=== PATIENT | male | born 1950 | race Caucasian/White ===

== ENCOUNTER 2016-03-11 00:54 | Emergency (ER) | payer MEDICAID ==
[2016-03-11 01:13] VITALS: BP 129/80
[2016-03-11 03:51] LABS: Hematocrit 31 % (42-52); Hemoglobin 9.3 g/dl (14.0-18.0); Mean Corpuscular HGB Conc 30 g/dl (31-36); Mean Corpuscular Hemoglobin 21 pg (27-31); Mean Platelet Volume 8 um3 (7.4-10.4); Red Blood Count 4.51 10^6/ul (4.0-5.4); Red Cell Distribution Width 21 % (10.5-15); White Blood Count 8.8 10^3/ul (3.5-10.8)
[2016-03-11 04:02] LABS: Comments Flag Yes; Mean Corpuscular Volume 69 fL (80-94)
[2016-03-11 04:05] LABS: Urine Bacteria 1+ (Absent); Urine Bilirubin Negative (Negative); Urine Glucose Negative (Negative); Urine Nitrite Positive (Negative)
[2016-03-11 04:13] LABS: BUN/Creatinine Ratio 52.5 (8-20); Calcium 8.7 mg/dL (8.6-10.3); EGFR African American 97.9 (>60); EGFR Non-African American 76.1 (>60)
[2016-03-11] MEDS ORDERED: Sulfamethox/Trimethoprim DS 800/160* TAB PO ONE (04:20)
--- NOTE | 2016-03-11 05:12 | ED ---
Fadia Montez Erika, scribed for Ambrose Myers MD on 03/11/16 at 0215 . HPI Febrile Illness - HPI Summary HPI Summary: Patient is a 65-year-old male presenting to the ED with c/o fever starting this morning. Pt was given Tylenol, but fever continued. T max = 101. Caregiver reports that pt has had decreased appetite, and has wounds on his buttocks. Pt was brought in now because fever persisted over 100 degrees for over 3 hours. LEVEL 5 CAVEAT - MR. - History of Current Complaint Hx Obtained From: Family/Long Winder Tender Hx From Patient Unobtainable Due To: Other - MR Onset/Duration: Started Hours Ago, Atraumatic, Still Present Timing: Constant Initial Severity: Mild Current Severity: Moderate Associated Signs and Symptoms: Other: - fever, decreased PO intake, wounds on buttocks - Additional Pertinent History Primary Care Physician: OSEAS - Allergy/Home Medications Allergies/Adverse Reactions: Allergies Allergy/AdvReac Type Severity Reaction Status Date / Time Isosorbide Allergy Unknown Unknown Verified 12/04/15 15:16 Reaction Details Macrolides Allergy Unknown Unknown Verified 12/04/15 15:16 Reaction Details Erythromycin Allergy Unknown Verified 12/04/15 15:16 Reaction Details PMH/Surg Hx/FS Hx/Imm Hx Endocrine/Hematology History: Denies: Hx Anticoagulant Therapy, Hx Blood Disorders, Hx Blood Transfusions, Hx Bone Marrow Disease, Hx Diabetes, Hx Systemic Lupus Erythematosus, Hx Sickle Cell Disease, Hx Thyroid Disease, Hx Anemia, Hx Unexplained Bleeding, Other Endocrine/Hematological Disorders Cardiovascular History: Reports: Hx Hypertension Denies: Hx Congestive Heart Failure, Hx Coronary Artery Disease, Hx Deep Vein Thrombosis, Hx Hypercholesterolemia, Hx Hypotension, Hx Pacemaker/ICD, Hx Peripheral Vascular Disease, Hx Rheumatic Fever, Hx Syncope, Hx Valvular Heart Disease, Other Cardiovascular Problems/Disorders Respiratory History: Denies: Hx Asthma, Hx Chronic Bronchitis, Hx Chronic Obstructive Pulmonary Disease (COPD), Hx Cystic Fibrosis, Hx Lung Cancer, Hx Pleural Effusion, Hx Pneumonia, Hx Pulmonary Edema, Hx Pulmonary Embolism, Hx Seasonal Allergies, Hx Sleep Apnea, Other Respiratory Problems/Disorders GI History: Reports: Hx Gastroesophageal Reflux Disease, Hx Obstructive Bowel, Hx Ileostomy - Colostomy, Other GI Disorders - Jarrell Syndrome, Díaz's Esophagus Denies: Hx Cirrhosis, Hx Crohn's Disease, Hx Diverticulosis, Hx Gall Bladder Disease, Hx Gastrointestinal Bleed, Hx Hiatal Hernia, Hx Irritable Bowel, Hx Jaundice, Hx Pyloric Stenosis, Hx Ulcer History: Reports: Hx Acute Renal Failure, Hx Renal Disease - neurogenic bladder, Other Problems/Disorders - Neurogenic Bladder Denies: Hx Benign Prostatic Hyperplasia, Hx Chronic Renal Failure, Hx Dialysis, Hx Kidney Infection, Hx Kidney Stones Musculoskeletal History: Reports: Hx Congenital Bone Abnormalities - hip displacement, Hx Scoliosis, Other Musculoskeletal History - cerebral palsy Denies: Hx Arthritis, Hx Back Problems, Hx Fibromyalgia, Hx Gout, Hx Orthopedic Injury, Hx Osteoporosis, Hx Tendonitis Sensory History: Reports: Hx Contacts or Glasses, Hx Vision Problem Denies: Hx Cataracts, Hx Eye Injury, Hx Eye Prosthesis, Hx Glaucoma, Hx Macular Degeneration, Hx Deafness, Hx Hearing Aid, Hx Hearing Problem, Other Sensory Impairments Opthamlomology History: Reports: Hx Contacts or Glasses, Hx Vision Problem Denies: Hx Cataracts, Hx Eye Injury, Hx Eye Prosthesis, Hx Glaucoma, Hx Macular Degeneration, Other Sensory Impairments Neurological History: Reports: Hx Developmental Delay, Hx Seizures - Last seizure 1989, Other Neuro Impairments/Disorders - cerebral palsy, spina bifida Denies: Hx Dementia, Hx Headaches, Hx Migraine, Hx Spinal Cord Injury, Hx Transient Ischemic Attacks (TIA) Psychiatric History: Reports: Hx Anxiety, Hx Depression Denies: Hx Attention Deficit Hyperactivity Disorder, Hx Eating Disorder, Hx Panic Disorder, Hx Post Traumatic Stress Disorder, Hx Inpatient Treatment, Hx Community Mental Health Tx, Hx Schizophrenia, Hx Bipolar Disorder, Hx Suicide Attempt, Hx Substance Abuse, Other Psychiatric Issues/Disorders - Cancer History Hx Chemotherapy: No Hx Radiation Therapy: No - Surgical History Surgery Procedure, Year, and Place: hiatal hernia, hernia repair 2009, hip repair S/P, back Sx Hx Anesthesia Reactions: No Infectious Disease History: Reports: Hx of Known/Suspected MRSA - BCx, wounds Denies: Hx Clostridium Difficile, Hx Hepatitis, Hx Human Immunodeficiency Virus (HIV), Hx Shingles, Hx Tuberculosis, Hx Known/Suspected VRE, Hx Known/ Suspected VRSA, Traveled Outside the [place] in Last 30 Days - Family History Known Family History: Positive: Unknown - Pt unable to relate due to profound MR - Social History Lives: [place] Alcohol Use: None Hx Substance Use: No Substance Use Type: Reports: None Hx Tobacco Use: No Smoking Status (MU): Never Smoked Tobacco Review of Systems - ROS Summary Review of Systems Summary: LEVEL 5 CAVEAT - MR. Positive: Fever Positive: Other - decreased appetite Skin: Other - wounds on buttocks All Other Systems Reviewed And Are Negative: No Physical Exam Triage Information Reviewed: Yes Vital Signs On Initial Exam: Temp Pulse Resp BP Pulse Ox 100.2 F 109 18 129/80 100 03/11/16 01:11 03/11/16 01:11 03/11/16 01:11 03/11/16 01:11 03/11/16 01:11 Vital Signs Reviewed: Yes Completion Of Physical Exam Limited Due To: Level 5 - MR Appearance: Positive: No Pain Distress - contracted, in wheelchair Skin: Positive: Warm, Dry Head/Face: Positive: Normal Head/Face Inspection Eyes: Positive: BONNIE ENT: Positive: Pharynx normal Neck: Positive: Supple Respiratory/Lung Sounds: Positive: Clear to Auscultation, Breath Sounds Present Cardiovascular: Positive: Normal Abdomen Description: Positive: Nontender, Soft Bowel Sounds: Positive: Present Diagnostics - Vital Signs Vital Signs Temp Pulse Resp BP Pulse Ox 03/11/16 01:11 100.2 F 109 18 129/80 100 - Laboratory Lab Results: Lab Results 03/11/16 03/11/16 03/11/16 Range/Units 03:35 03:35 03:35 WBC 8.8 (3.5-10.8) 10^3/ul RBC 4.51 (4.0-5.4) 10^6/ul Hgb 9.3 L (14.0-18.0) g/dl Hct 31 L (42-52) % MCV 69 L (80-94) fL MCH 21 L (27-31) pg MCHC 30 L (31-36) g/dl RDW 21 H (10.5-15) % Plt Count 398 (150-450) 10^3/ul MPV 8 (7.4-10.4) um3 Neut % (Auto) 70.7 (38-83) % Lymph % (Auto) 19.2 L (25-47) % [place] % (Auto) 5.7 (1-9) % Eos % (Auto) 3.7 (0-6) % Baso % (Auto) 0.7 (0-2) % Absolute Neuts (auto) 6.2 (1.5-7.7) 10^3/ul Absolute Lymphs (auto) 1.7 (1.0-4.8) 10^3/ul Absolute Monos (auto) 0.5 (0-0.8) 10^3/ul Absolute Eos (auto) 0.3 (0-0.6) 10^3/ul Absolute Basos (auto) 0.1 (0-0.2) 10^3/ul Absolute Nucleated RBC 0 10^3/ul Nucleated RBC % 0 Sodium 140 (133-145) mmol/L Potassium 4.0 (3.5-5.0) mmol/L Chloride 108 (101-111) mmol/L Carbon Dioxide 25 (22-32) mmol/L Anion Gap 7 (2-11) mmol/L BUN 52 H (6-24) mg/dL Creatinine 0.99 (0.67-1.17) mg/dL Est GFR ( Amer) 97.9 (>60) Est GFR (Non-Af Amer) 76.1 (>60) BUN/Creatinine Ratio 52.5 H (8-20) Glucose 107 H (70-100) mg/dL Calcium 8.7 (8.6-10.3) mg/dL Urine Color Yellow Urine Appearance Cloudy Urine pH 7.0 (5-9) Ur Specific [place] 1.014 (1.010-1.030) Urine Protein 1+(30 mg/dl) H (Negative) Urine Ketones Negative (Negative) Urine Blood Negative (Negative) Urine Nitrate Positive H (Negative) Urine Bilirubin Negative (Negative) Urine Urobilinogen Negative (Negative) Ur Leukocyte Esterase 3+ H (Negative) Urine WBC (Auto) 3+(>20/hpf) H (Absent) Urine RBC (Auto) Trace(0-2/hpf) (Absent) Ur Transition Epith Cell Present H (Absent) Urine Bacteria 1+ H (Absent) Urine Glucose Negative (Negative) Urine Ascorbic Acid * H (Negative) Result Diagrams: 03/11/16 03:35 03/11/16 03:35 Lab Statement: Any lab studies that have been ordered have been reviewed, and results considered in the medical decision making process. - Radiology CXR Xray Interpretation: No Acute Changes Radiology Interpretation Completed By: ED Physician Re-Evaluation - Re-Evaluation First Eval Re-Evaluation Time: 04:57 Change: Improved Course/Dx - Course Assessment/Plan: A 65 y/o M presents to the ED with a CC of fever. CXR WNL. UA reveals a UTI. Pt will be discharged back to care at [facility] with follow up from his PCP. He will be prescribed Bactrim. - Diagnoses Provider Diagnoses: UTI (urinary tract infection) Discharge - Discharge Plan Condition: Improved Disposition: HOME Prescriptions: Sulfamethox/Trimethoprim DS* [Bactrim DS 800/160 TAB*] 1 tab PO BID #14 tab Patient Education Materials: Urinary Tract Infection in Men (ED) Referrals: Marilyn Rodriguez MD [Primary Care Provider] - The documentation as recorded by the Fadia calderón Erika accurately reflects the service I personally performed and the decisions made by , Ambrose Myers MD.
--- NOTE | 2016-03-11 07:58 | RAD ---
Indication: Fever. Shortness of breath. Multi disability. Comparison: January 23, 2016 Technique: Semierect AP 0403 hours Report: Low lung volumes and mild elevation of the RIGHT hemidiaphragm with associated crowding of the pulmonary markings and subsegmental atelectasis. No disproportionate alveolar opacity to favor pneumonia. Negative for pleural effusions or pneumothorax. The heart, pulmonary vasculature, and mediastinal contours are unremarkable. Partially visualized thoracolumbar spinal fixation rods. IMPRESSION: Low lung volumes with subsegmental atelectasis. No compelling evidence for pneumonia.
--- NOTE | 2016-03-13 07:58 | ED ---
Progress - Progress Note Progress Note: Pt's urine cx reveals e. coli - pt was d/c'd on bactrim - will wait for sensitivity to decide if pt needs medication change. Re-Evaluation - Re-Evaluation First Eval Re-Evaluation Time: 04:57 Change: Improved Course/Dx - Diagnoses Provider Diagnoses: UTI (urinary tract infection)
--- NOTE | 2016-03-14 15:03 | ED ---
Progress - Progress Note Progress Note: Pt's urine cx reveals e. coli - pt was d/c'd on bactrim - will wait for sensitivity to decide if pt needs medication change. C&S returned today - e. coli and pseudomonas aeruginosa resistant to bactrim ds - stopped and e-rx'd Keflex to [facility]. Spoke with Sophie, "med person" at the [facility] who will stop the pt's bactrim and start keflex. Will also ensure pt follow's up with PCP as directed. Re-Evaluation - Re-Evaluation First Eval Re-Evaluation Time: 04:57 Change: Improved Course/Dx - Diagnoses Provider Diagnoses: UTI (urinary tract infection)
== END 2016-03-11 05:19 | disposition home or self-care (01) ==
LOC: ED 00:54
DX: N39.0 Urinary tract infection, site not specified (principal)
CPT/HCPCS: 36415; 71010; 80048; 81003; 81015; 85025; 87077; 87086; 87186; 99282; A9270-GY

== ENCOUNTER 2016-03-29 19:39 | Emergency (ER) | payer MEDICAID ==
[2016-03-29] MEDS ORDERED: NS 0.9% 1000 ML* 1,000 ML IV ONE (20:53)
[2016-03-29 21:07] LABS: Hematocrit 31 % (42-52); Hemoglobin 9.6 g/dl (14.0-18.0); Mean Corpuscular HGB Conc 31 g/dl (31-36); Mean Corpuscular Hemoglobin 22 pg (27-31); Mean Platelet Volume 7 um3 (7.4-10.4); Red Blood Count 4.44 10^6/ul (4.0-5.4); Red Cell Distribution Width 23 % (10.5-15); White Blood Count 8.7 10^3/ul (3.5-10.8)
[2016-03-29 21:11] LABS: Add Diff/Slide Review? Slide Review Added; Comments Flag Yes; Mean Corpuscular Volume 71 fL (80-94)
[2016-03-29 21:22] LABS: Albumin 3.5 g/dL (3.2-5.2); BUN/Creatinine Ratio 64.9 (8-20); Calcium 9.1 mg/dL (8.6-10.3); EGFR African American 130.8 (>60); EGFR Non-African American 101.7 (>60); Globulin 3.7 g/dL (2-4); Potassium 4.7 mmol/L (3.5-5.0); Total Bilirubin 0.4 mg/dL (0.2-1.0); Total Protein 7.2 g/dL (6.4-8.9)
[2016-03-29 21:23] LABS: Urine Bacteria 2+ (Absent); Urine Bilirubin Negative (Negative); Urine Glucose Negative (Negative); Urine Nitrite Negative (Negative)
--- NOTE | 2016-03-29 21:23 | RAD ---
INDICATION: Abdominal pain. COMPARISON: Comparison is made with a prior chest x-ray study from March 11, 2016. TECHNIQUE: 2 portable views of the chest were obtained. FINDINGS: Cardiac and mediastinal contours appear to be within normal limits. The lungs are underinflated. The left lung base is partially obscured due to the patient's arm projecting over this region. No pleural effusion is seen. Post surgical changes are noted in the lumbar spine. IMPRESSION: LIMITED STUDY, NO EVIDENCE FOR ACUTE FINDING.
[2016-03-29 21:24] LABS: Troponin I 0.01 ng/mL (<0.04)
[2016-03-29] MEDS ORDERED: Iohexol 300* (CONTRAST) 10 ML SDV IV ONE (21:42)
[2016-03-30] MEDS ORDERED: NS 0.9% 1000 ML* 1,000 ML IV ONE (00:14)
--- NOTE | 2016-03-30 05:05 | ED ---
Mike Montez Aidan, scribed for Hang Henriquez on 03/29/16 at 2104 . GI/ HPI - HPI Summary HPI Summary: 65 y/o male presents to the ED with a complaint of acute, constant, moderate constipation for the past 28 hours. Miralax did not alleviate the constipation. The patient is developmentally challenged and has a colostomy bag. According to his acute care clinical nurse specialist, he has been eating normally. - History of Current Complaint Chief Complaint: EDAbdPain Stated Complaint: FEVER/NO BOWEL MOVEMENT Hx Obtained From: Family/Student Officer Onset/Duration: Started Days Ago - 28 hours ago Severity: Moderate Current Severity: Moderate Pain Intensity: 0 Pain Characteristics: Other: - no pain mentioned Associated Signs and Symptoms: Positive: Constipation - for the past 28 hours Aggravating Factor(s): Nothing - unknown Alleviating Factor(s): Nothing - unknown, however, Miralax did not alleviate constipation - Additional Pertinent History Primary Care Physician: OSEAS - Allergy/Home Medications Allergies/Adverse Reactions: Allergies Allergy/AdvReac Type Severity Reaction Status Date / Time Isosorbide Allergy Unknown Unknown Verified 03/29/16 22:34 Reaction Details Macrolides Allergy Unknown Unknown Verified 03/29/16 22:34 Reaction Details Erythromycin Allergy Unknown Verified 03/29/16 22:34 Reaction Details Home Medications: Home Medications Acetaminophen TAB* [Tylenol TAB*] 325 mg PO Q4H PRN 03/30/16 [History Confirmed 03/30/16] Bacitracin Zinc 5,000 gm TOPICAL BID PRN 03/30/16 [History Confirmed 03/30/16] DULoxetine DR CAP* [Cymbalta CAP*] 30 mg PO DAILY 03/30/16 [History Confirmed ] Omeprazole CAP* [Prilosec CAP* 20 MG] 20 mg PO DAILY 03/30/16 [History Confirmed 03/30/16] Polyethylene Glycol 3350* [Miralax*] 17 gm PO DAILY 03/30/16 [History Confirmed 03/30/16] Potassium Citrate (NF) [Urocit-K 10 (NF)] 20 meq PO BID 03/30/16 [History Confirmed 03/30/16] Simethicone CHEW TAB* [Mylicon*] 80 mg PO ACHS 03/30/16 [History Confirmed 03/30] PMH/Surg Hx/FS Hx/Imm Hx Endocrine/Hematology History: Denies: Hx Anticoagulant Therapy, Hx Blood Disorders, Hx Blood Transfusions, Hx Bone Marrow Disease, Hx Diabetes, Hx Systemic Lupus Erythematosus, Hx Sickle Cell Disease, Hx Thyroid Disease, Hx Anemia, Hx Unexplained Bleeding, Other Endocrine/Hematological Disorders Cardiovascular History: Reports: Hx Hypertension Denies: Hx Congestive Heart Failure, Hx Coronary Artery Disease, Hx Deep Vein Thrombosis, Hx Hypercholesterolemia, Hx Hypotension, Hx Pacemaker/ICD, Hx Peripheral Vascular Disease, Hx Rheumatic Fever, Hx Syncope, Hx Valvular Heart Disease, Other Cardiovascular Problems/Disorders Respiratory History: Denies: Hx Asthma, Hx Chronic Bronchitis, Hx Chronic Obstructive Pulmonary Disease (COPD), Hx Cystic Fibrosis, Hx Lung Cancer, Hx Pleural Effusion, Hx Pneumonia, Hx Pulmonary Edema, Hx Pulmonary Embolism, Hx Seasonal Allergies, Hx Sleep Apnea, Other Respiratory Problems/Disorders GI History: Reports: Hx Gastroesophageal Reflux Disease, Hx Obstructive Bowel, Hx Ileostomy - Colostomy, Other GI Disorders - Jarrell Syndrome, Díaz's Esophagus Denies: Hx Cirrhosis, Hx Crohn's Disease, Hx Diverticulosis, Hx Gall Bladder Disease, Hx Gastrointestinal Bleed, Hx Hiatal Hernia, Hx Irritable Bowel, Hx Jaundice, Hx Pyloric Stenosis, Hx Ulcer History: Reports: Hx Acute Renal Failure, Hx Renal Disease - neurogenic bladder, Other Problems/Disorders - Neurogenic Bladder Denies: Hx Benign Prostatic Hyperplasia, Hx Chronic Renal Failure, Hx Dialysis, Hx Kidney Infection, Hx Kidney Stones Musculoskeletal History: Reports: Hx Congenital Bone Abnormalities - hip displacement, Hx Scoliosis, Other Musculoskeletal History - cerebral palsy Denies: Hx Arthritis, Hx Back Problems, Hx Fibromyalgia, Hx Gout, Hx Orthopedic Injury, Hx Osteoporosis, Hx Tendonitis Sensory History: Reports: Hx Contacts or Glasses, Hx Vision Problem Denies: Hx Cataracts, Hx Eye Injury, Hx Eye Prosthesis, Hx Glaucoma, Hx Macular Degeneration, Hx Deafness, Hx Hearing Aid, Hx Hearing Problem, Other Sensory Impairments Opthamlomology History: Reports: Hx Contacts or Glasses, Hx Vision Problem Denies: Hx Cataracts, Hx Eye Injury, Hx Eye Prosthesis, Hx Glaucoma, Hx Macular Degeneration, Other Sensory Impairments Neurological History: Reports: Hx Developmental Delay, Hx Seizures - Last seizure 1989, Other Neuro Impairments/Disorders - cerebral palsy, spina bifida Denies: Hx Dementia, Hx Headaches, Hx Migraine, Hx Spinal Cord Injury, Hx Transient Ischemic Attacks (TIA) Psychiatric History: Reports: Hx Anxiety, Hx Depression Denies: Hx Attention Deficit Hyperactivity Disorder, Hx Eating Disorder, Hx Panic Disorder, Hx Post Traumatic Stress Disorder, Hx Inpatient Treatment, Hx Community Mental Health Tx, Hx Schizophrenia, Hx Bipolar Disorder, Hx Suicide Attempt, Hx Substance Abuse, Other Psychiatric Issues/Disorders - Cancer History Hx Chemotherapy: No Hx Radiation Therapy: No - Surgical History Surgery Procedure, Year, and Place: hiatal hernia, hernia repair 2009, hip repair S/P, back Sx Hx Anesthesia Reactions: No Infectious Disease History: No Infectious Disease History: Reports: Hx of Known/Suspected MRSA - BCx, wounds Denies: Hx Clostridium Difficile, Hx Hepatitis, Hx Human Immunodeficiency Virus (HIV), Hx Shingles, Hx Tuberculosis, Hx Known/Suspected VRE, Hx Known/ Suspected VRSA, Traveled Outside the [place] in Last 30 Days - Family History Known Family History: Positive: Unknown - Pt unable to relate due to profound MR Family History: LEVEL 5 CAVEAT secondary to profound MR. - Social History Occupation: Disabled Lives: Assisted Living Alcohol Use: None Hx Substance Use: No Substance Use Type: Reports: None Hx Tobacco Use: No Smoking Status (MU): Never Smoked Tobacco Review of Systems Constitutional: Negative Eyes: Negative ENT: Negative Cardiovascular: Negative Respiratory: Negative Positive: Other - constipation Genitourinary: Negative Musculoskeletal: Negative Skin: Negative Neurological: Negative Psychological: Normal All Other Systems Reviewed And Are Negative: Yes Physical Exam - Summary Physical Exam Summary: mentally challenged, extremities are all contracted, abdomen distended, colostomy bag, heart and lungs clear. Triage Information Reviewed: Yes Vital Signs On Initial Exam: Initial Vitals Temp Pulse Resp BP Pulse Ox 99.0 F 110 18 126/90 100 03/29/16 19:41 03/29/16 19:41 03/29/16 19:41 03/29/16 19:41 03/29/16 19:41 Vital Signs Reviewed: Yes Appearance: Positive: Well-Appearing, No Pain Distress Skin: Positive: Warm, Skin Color Reflects Adequate Perfusion, Dry Head/Face: Positive: Normal Head/Face Inspection Eyes: Positive: EOMI, BONNIE ENT: Positive: Normal ENT inspection Neck: Positive: Supple, Nontender Respiratory/Lung Sounds: Positive: Clear to Auscultation, Breath Sounds Present Cardiovascular: Positive: RRR, Pulses are Symmetrical in both Upper and Lower Extremities Abdomen Description: Positive: Nontender, Soft, Distended, Other: - colostomy bag present Bowel Sounds: Positive: Other - colostomy bag Musculoskeletal: Positive: Other - extremities are all contracted Neurological: Positive: Sensory/Motor Intact, Other - mentally challenged Psychiatric: Positive: Other - mentally challenged AVPU Assessment: Alert Diagnostics - Vital Signs Vital Signs Temp Pulse Resp BP Pulse Ox 03/29/16 20:48 99.4 F 03/29/16 19:41 99.0 F 110 18 126/90 100 - Laboratory Lab Results: Lab Results 03/29/16 03/29/16 03/29/16 Range/Units 20:55 20:55 20:55 WBC 8.7 (3.5-10.8) 10^3/ul RBC 4.44 (4.0-5.4) 10^6/ul Hgb 9.6 L (14.0-18.0) g/dl Hct 31 L (42-52) % MCV 71 L (80-94) fL MCH 22 L (27-31) pg MCHC 31 (31-36) g/dl RDW 23 H (10.5-15) % Plt Count 392 (150-450) 10^3/ul MPV 7 L (7.4-10.4) um3 Neut % (Auto) 69.5 (38-83) % Lymph % (Auto) 18.7 L (25-47) % [place] % (Auto) 8.6 (1-9) % Eos % (Auto) 2.4 (0-6) % Baso % (Auto) 0.8 (0-2) % Absolute Neuts (auto) 6.0 (1.5-7.7) 10^3/ul Absolute Lymphs (auto) 1.6 (1.0-4.8) 10^3/ul Absolute Monos (auto) 0.7 (0-0.8) 10^3/ul Absolute Eos (auto) 0.2 (0-0.6) 10^3/ul Absolute Basos (auto) 0.1 (0-0.2) 10^3/ul Absolute Nucleated RBC 0.01 10^3/ul Nucleated RBC % 0.1 Hem Pathologist Commnt Pending INR (Anticoag Therapy) (0.89-1.11) APTT (26.0-36.3) seconds Sodium 128 L (133-145) mmol/L Potassium 4.7 (3.5-5.0) mmol/L Chloride 96 L (101-111) mmol/L Carbon Dioxide 26 (22-32) mmol/L Anion Gap 6 (2-11) mmol/L BUN 50 H (6-24) mg/dL Creatinine 0.77 (0.67-1.17) mg/dL Est GFR ( Amer) 130.8 (>60) Est GFR (Non-Af Amer) 101.7 (>60) BUN/Creatinine Ratio 64.9 H (8-20) Glucose 123 H (70-100) mg/dL Lactic Acid 2.3 H* (0.5-2.0) mmol/L Calcium 9.1 (8.6-10.3) mg/dL Total Bilirubin 0.40 (0.2-1.0) mg/dL AST 18 (13-39) U/L ALT 26 (7-52) U/L Alkaline Phosphatase 109 H (34-104) U/L Troponin I 0.01 (<0.04) ng/mL Total Protein 7.2 (6.4-8.9) g/dL Albumin 3.5 (3.2-5.2) g/dL Globulin 3.7 (2-4) g/dL Albumin/Globulin Ratio 0.9 L (1-3) Lipase 27 (11.0-82.0) U/L Urine Color Urine Appearance Urine pH (5-9) Ur Specific [place] (1.010-1.030) Urine Protein (Negative) Urine Ketones (Negative) Urine Blood (Negative) Urine Nitrate (Negative) Urine Bilirubin (Negative) Urine Urobilinogen (Negative) Ur Leukocyte Esterase (Negative) Urine WBC (Auto) (Absent) Urine RBC (Auto) (Absent) Urine Bacteria (Absent) Urine Glucose (Negative) Urine Ascorbic Acid (Negative) 03/29/16 03/29/16 Range/Units 20:55 21:10 WBC (3.5-10.8) 10^3/ul RBC (4.0-5.4) 10^6/ul Hgb (14.0-18.0) g/dl Hct (42-52) % MCV (80-94) fL MCH (27-31) pg MCHC (31-36) g/dl RDW (10.5-15) % Plt Count (150-450) 10^3/ul MPV (7.4-10.4) um3 Neut % (Auto) (38-83) % Lymph % (Auto) (25-47) % [place] % (Auto) (1-9) % Eos % (Auto) (0-6) % Baso % (Auto) (0-2) % Absolute Neuts (auto) (1.5-7.7) 10^3/ul Absolute Lymphs (auto) (1.0-4.8) 10^3/ul Absolute Monos (auto) (0-0.8) 10^3/ul Absolute Eos (auto) (0-0.6) 10^3/ul Absolute Basos (auto) (0-0.2) 10^3/ul Absolute Nucleated RBC 10^3/ul Nucleated RBC % Hem Pathologist Commnt INR (Anticoag Therapy) 0.95 (0.89-1.11) APTT 32.7 (26.0-36.3) seconds Sodium (133-145) mmol/L Potassium (3.5-5.0) mmol/L Chloride (101-111) mmol/L Carbon Dioxide (22-32) mmol/L Anion Gap (2-11) mmol/L BUN (6-24) mg/dL Creatinine (0.67-1.17) mg/dL Est GFR ( Amer) (>60) Est GFR (Non-Af Amer) (>60) BUN/Creatinine Ratio (8-20) Glucose (70-100) mg/dL Lactic Acid (0.5-2.0) mmol/L Calcium (8.6-10.3) mg/dL Total Bilirubin (0.2-1.0) mg/dL AST (13-39) U/L ALT (7-52) U/L Alkaline Phosphatase (34-104) U/L Troponin I (<0.04) ng/mL Total Protein (6.4-8.9) g/dL Albumin (3.2-5.2) g/dL Globulin (2-4) g/dL Albumin/Globulin Ratio (1-3) Lipase (11.0-82.0) U/L Urine Color Yellow Urine Appearance Cloudy Urine pH 7.0 (5-9) Ur Specific [place] 1.012 (1.010-1.030) Urine Protein 1+(30 mg/dl) H (Negative) Urine Ketones Negative (Negative) Urine Blood Negative (Negative) Urine Nitrate Negative (Negative) Urine Bilirubin Negative (Negative) Urine Urobilinogen Negative (Negative) Ur Leukocyte Esterase 3+ H (Negative) Urine WBC (Auto) 3+(>20/hpf) H (Absent) Urine RBC (Auto) Absent (Absent) Urine Bacteria 2+ H (Absent) Urine Glucose Negative (Negative) Urine Ascorbic Acid * H (Negative) Result Diagrams: 03/29/16 20:55 03/29/16 20:55 Lab Statement: Any lab studies that have been ordered have been reviewed, and results considered in the medical decision making process. - Radiology CHEST XR Xray Interpretation: No Acute Changes - IMPRESSION: LIMITED STUDY. NO EVIDENCE FOR ACUTE FINDINGS Radiology Interpretation Completed By: Radiologist - CT ABD/PEL CT CT Interpretation: No Acute Changes - FINDINGS: A COLOSTOMY IS NOTED. THERE IS ABUNDANT STOOL IN THE RIGHT COLON LEADING INTO THE COLOSTOMY. THERE IS ALSO ABUNDANT STOOL IN THE RECTUM WITH CHRONIC RECTAL WALL THICKENING..HOWEVER THERE IS NO LARGE OR SMALL BOWEL OBSTRUCTION. CT Interpretation Completed By: Radiologist - EKG EKG 2103 Cardiac Rate: NL - 94 BPM EKG Rhythm: Sinus Rhythm EKG Interpretation: NSR, NO ACUTE CHANGES EKG Comparison: No Significant Change GIGU Course/Dx - Course Course Of Treatment: This is a 65 y/o male with a colostomy bag who has not been able to produce a bowel movement for the past 28 hours. His beauty therapist claims he is eating normally. Pt is mentally challenged. - Diagnoses Provider Diagnoses: Dehydration, Constipation Discharge - Discharge Plan Condition: Stable Disposition: ADMITTED TO [facility] Patient Education Materials: Dehydration (ED), Constipation (ED) Referrals: Marilyn Rodriguez MD [Primary Care Provider] - The documentation as recorded by the Mike calderón Aidan accurately reflects the service I personally performed and the decisions made by Florence bingham Emmanuel.
--- NOTE | 2016-03-30 06:05 | HP ---
H&P (Free Text) History and Physical: PCP: Dony Blackwell MD Date/Time of Evaluation: 03/30/2016 0500 Reason for Consult: no colostomy output [id number] HPI: Mr Bearden is a 65YO male [place] resident sent in for evaluation primarily of no colostomy output for 28hours & cloudy urine. He is unable to give a history and so this information is obtained from his [facility] aide, ED staff, and the available medical record. Appetite has been reported as good. There has been no reported F/C, sweats, or pain. Work up revealed a BUN of 50 with an increased HGB from his baseline indicating dehydration. A while after being given 2L normal saline, he had a spontaneous large BM per ED nursing. CT abd/ pel was read as constipation w/o acute finding. There was reference on this CT to his previous CT of 01/2016 finding gas in the L hip joint. However, given he is not presenting with infection/sepsis, I doubt this was finding was related to infection. 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 HTN OCD GERD Díaz's esophagus Spina bifida seizure disorder Allergies Isosorbide Allergy (Unknown, Verified 03/29/16 22:34) Unknown Reaction Details Macrolides Allergy (Unknown, Verified 03/29/16 22:34) Unknown Reaction Details ALLERGY TO ERYTHROMYCIN SPECIFICALLY Erythromycin Allergy (Verified 03/29/16 22:34) Unknown Reaction Details Ambulatory Orders Acyclovir OINT 5%(NF) [Zovirax Oint 5%(NF)] 1 applic TOPICAL QID PRN #1 tube Ascorbic Acid TAB* [Vitamin C TAB*] 500 mg PO DAILY #30 tab 12/03/15 Bethanechol TAB* [Urecholine TAB*] 10 mg PO QID #120 tab 12/03/15 Calcium Carbonate-Vitamin D [Calcium 500/Vitamin D 500-125 mg-Unit] 1 tab PO BID #60 tab 12/03/15 Cranberry (Vaccinium Macrocarp [Cranberry] 400 mg PO BID #60 cap 12/03/15 Cyclobenzaprine TAB* [Flexeril TAB*] 5 mg PO BID #60 tab 12/03/15 Famotidine TAB* [Pepcid TAB*] 20 mg PO DAILY #30 tab 12/03/15 GuaiFENesin DM* [Robitussin DM*] 10 ml PO Q4H PRN #15 udc 12/03/15 Hydrocortisone 2.5% CREAM(NF) 1 applic TOPICAL BID PRN #1 tube 12/03/15 Ketoconazole 2 % CREAM (NF) [Nizoral 2% CREAM (NF)] 1 applic TOPICAL BID #1 tube 12/03/15 Metoclopramide TAB* [Reglan TAB*] 5 mg PO TID AC #90 tab 12/03/15 Multivitamins/Minerals TAB* [Thera M Plus TAB*] 1 tab PO DAILY #100 tab Nutritional Supplements [Alberto] 1 packet PO BID #60 pow 12/03/15 Oxybutynin TAB* [Ditropan TAB*] 10 mg PO BID #60 tab 12/03/15 Probiotic Product [Probiotic Daily] 1 cap PO DAILY #30 cap 12/03/15 amLODIPine TAB* [Norvasc TAB*] 5 mg PO DAILY #30 tab 12/03/15 Chlorhexidine MOUTHWASH 0.12%* [Peridex Mouth Wash 0.12%*] 5 ml SWISH SPIT BID 12/04/15 Vitamin E CAP* 400 unit PO DAILY 12/04/15 oxyCODONE TAB* [Roxycodone TAB 5 mg*] 5 mg PO Q6H PRN 12/04/15 Meloxicam(NF) [Mobic(NF)] 7.5 mg PO BEDTIME PRN 30 Days 12/12/15 Cadexomer Iodine [Iodosorb] 0.9 % TOPICAL DAILY #1 gel 01/23/16 Acetaminophen TAB* [Tylenol TAB*] 325 mg PO Q4H PRN 03/30/16 Bacitracin Zinc 5,000 gm TOPICAL BID PRN 03/30/[address] CAP* [Cymbalta CAP*] 30 mg PO DAILY 03/30/16 Omeprazole CAP* [Prilosec CAP* 20 MG] 20 mg PO DAILY 03/30/16 Polyethylene Glycol 3350* [Miralax*] 17 gm PO DAILY 03/30/16 Potassium Citrate (NF) [Urocit-K 10 (NF)] 20 meq PO BID 03/30/16 Simethicone CHEW TAB* [Mylicon*] 80 mg PO ACHS 03/30/16 PSurgHx suprapubuic catheter placement transverse colostomy SocHx: no tobacco, alcohol, or recreational drugs; lives at the [facility]; full code status FamHx: unobtainable ROS: as above, otherwise reviewed and all were negative Constitutional: NAD, normally developed, debilitated obese white male vitals: Vital Signs Temp 37.4 C 03/29/16 20:48 Pulse 99 03/30/16 03:30 Resp 18 03/30/16 03:30 BP 144/83 03/30/16 03:30 Pulse Ox 95 03/30/16 03:30 Intake & Output 03/29/16 03/29/16 03/30/16 11:59 23:59 11:59 Weight 116 lb HEENM: atraumatic; sclera/conjunctiva: non-icteric/clear; hearing: clinically intact; oropharynx: clear, mucosa tacky Neck: soft tissue: non-tender; thyroid: normal Pulmonary: clear to auscultation bilaterally, good aeration, no accessory muscle use CV: RR/RR, normal S1S2, no carotid bruit, no jugular venous distention, 2+ B DP/ PT, no edema Abdominal: soft, non-distended, non-tender, no rebound/guarding/rigidity, normoactive bowel sounds, no hepatosplenomegaly or masses, no costovertebral angle tenderness; colostomy appears healthy, suprapubic catheter in place Musculoskeletal: general: marked contractures and scoliosis; gait: non- ambulatory at baseline Integumental: L gluteal decubiti Psychiatric orientation: AA&O to person only affect: calm mood: cooperative eye contact: poor content: very limited insight: poor Testing: Lab Results 03/29/16 03/29/16 03/29/16 Range/Units 20:55 20:55 20:55 WBC 8.7 (3.5-10.8) 10^3/ul RBC 4.44 (4.0-5.4) 10^6/ul Hgb 9.6 L (14.0-18.0) g/dl Hct 31 L (42-52) % MCV 71 L (80-94) fL MCH 22 L (27-31) pg MCHC 31 (31-36) g/dl RDW 23 H (10.5-15) % Plt Count 392 (150-450) 10^3/ul MPV 7 L (7.4-10.4) um3 Neut % (Auto) 69.5 (38-83) % Lymph % (Auto) 18.7 L (25-47) % Fountain % (Auto) 8.6 (1-9) % Eos % (Auto) 2.4 (0-6) % Baso % (Auto) 0.8 (0-2) % Absolute Neuts (auto) 6.0 (1.5-7.7) 10^3/ul Absolute Lymphs (auto) 1.6 (1.0-4.8) 10^3/ul Absolute Monos (auto) 0.7 (0-0.8) 10^3/ul Absolute Eos (auto) 0.2 (0-0.6) 10^3/ul Absolute Basos (auto) 0.1 (0-0.2) 10^3/ul Absolute Nucleated RBC 0.01 10^3/ul Nucleated RBC % 0.1 Hem Pathologist Commnt Pending INR (Anticoag Therapy) (0.89-1.11) APTT (26.0-36.3) seconds Sodium 128 L (133-145) mmol/L Potassium 4.7 (3.5-5.0) mmol/L Chloride 96 L (101-111) mmol/L Carbon Dioxide 26 (22-32) mmol/L Anion Gap 6 (2-11) mmol/L BUN 50 H (6-24) mg/dL Creatinine 0.77 (0.67-1.17) mg/dL Est GFR ( Amer) 130.8 (>60) Est GFR (Non-Af Amer) 101.7 (>60) BUN/Creatinine Ratio 64.9 H (8-20) Glucose 123 H (70-100) mg/dL Lactic Acid 2.3 H* (0.5-2.0) mmol/L Calcium 9.1 (8.6-10.3) mg/dL Total Bilirubin 0.40 (0.2-1.0) mg/dL AST 18 (13-39) U/L ALT 26 (7-52) U/L Alkaline Phosphatase 109 H (34-104) U/L Troponin I 0.01 (<0.04) ng/mL Total Protein 7.2 (6.4-8.9) g/dL Albumin 3.5 (3.2-5.2) g/dL Globulin 3.7 (2-4) g/dL Albumin/Globulin Ratio 0.9 L (1-3) Lipase 27 (11.0-82.0) U/L Urine Color Urine Appearance Urine pH (5-9) Ur Specific [place] (1.010-1.030) Urine Protein (Negative) Urine Ketones (Negative) Urine Blood (Negative) Urine Nitrate (Negative) Urine Bilirubin (Negative) Urine Urobilinogen (Negative) Ur Leukocyte Esterase (Negative) Urine WBC (Auto) (Absent) Urine RBC (Auto) (Absent) Urine Bacteria (Absent) Urine Glucose (Negative) Urine Ascorbic Acid (Negative) 03/29/16 03/29/16 Range/Units 20:55 21:10 WBC (3.5-10.8) 10^3/ul RBC (4.0-5.4) 10^6/ul Hgb (14.0-18.0) g/dl Hct (42-52) % MCV (80-94) fL MCH (27-31) pg MCHC (31-36) g/dl RDW (10.5-15) % Plt Count (150-450) 10^3/ul MPV (7.4-10.4) um3 Neut % (Auto) (38-83) % Lymph % (Auto) (25-47) % Fountain % (Auto) (1-9) % Eos % (Auto) (0-6) % Baso % (Auto) (0-2) % Absolute Neuts (auto) (1.5-7.7) 10^3/ul Absolute Lymphs (auto) (1.0-4.8) 10^3/ul Absolute Monos (auto) (0-0.8) 10^3/ul Absolute Eos (auto) (0-0.6) 10^3/ul Absolute Basos (auto) (0-0.2) 10^3/ul Absolute Nucleated RBC 10^3/ul Nucleated RBC % Hem Pathologist Commnt INR (Anticoag Therapy) 0.95 (0.89-1.11) APTT 32.7 (26.0-36.3) seconds Sodium (133-145) mmol/L Potassium (3.5-5.0) mmol/L Chloride (101-111) mmol/L Carbon Dioxide (22-32) mmol/L Anion Gap (2-11) mmol/L BUN (6-24) mg/dL Creatinine (0.67-1.17) mg/dL Est GFR ( Amer) (>60) Est GFR (Non-Af Amer) (>60) BUN/Creatinine Ratio (8-20) Glucose (70-100) mg/dL Lactic Acid (0.5-2.0) mmol/L Calcium (8.6-10.3) mg/dL Total Bilirubin (0.2-1.0) mg/dL AST (13-39) U/L ALT (7-52) U/L Alkaline Phosphatase (34-104) U/L Troponin I (<0.04) ng/mL Total Protein (6.4-8.9) g/dL Albumin (3.2-5.2) g/dL Globulin (2-4) g/dL Albumin/Globulin Ratio (1-3) Lipase (11.0-82.0) U/L Urine Color Yellow Urine Appearance Cloudy Urine pH 7.0 (5-9) Ur Specific [place] 1.012 (1.010-1.030) Urine Protein 1+(30 mg/dl) H (Negative) Urine Ketones Negative (Negative) Urine Blood Negative (Negative) Urine Nitrate Negative (Negative) Urine Bilirubin Negative (Negative) Urine Urobilinogen Negative (Negative) Ur Leukocyte Esterase 3+ H (Negative) Urine WBC (Auto) 3+(>20/hpf) H (Absent) Urine RBC (Auto) Absent (Absent) Urine Bacteria 2+ H (Absent) Urine Glucose Negative (Negative) Urine Ascorbic Acid * H (Negative) ECG, personally reviewed: NSR rate 94, no ischemia CXR, personally reviewed: IMPRESSION: LIMITED STUDY, NO EVIDENCE FOR ACUTE FINDING. CT abd/pel W, personally reviewed: FINDINGS: A colostomy is noted. There is abundant stool in the right colon leading into the colostomy. There is also abundant stool in the rectum with chronic rectal thickening. However there is no large or small bowel obstruction. Impression: 65M presenting with dehydration & worsening constipation in setting of known chronic constipation DIAGNOSIS & PLAN Primary dehydration : 2L IVFs given in ED : spontaneous large BM noted by ED nursing : vitals stable/afebrile : recommend increasing free water intake by 200cc per meal x3 meals daily & limiting caffeinated drinks to 16oz daily : continue BID Miralax
[2016-03-30 06:21] VITALS: BP 141/75
--- NOTE | 2016-03-30 07:28 | RAD ---
INDICATION: Small bowel obstruction. COMPARISON: Comparison is made with a prior CT of the abdomen and pelvis from January 23, 2016. TECHNIQUE: A CT scan of the abdomen and pelvis was performed with intravenous and oral contrast following intravenous injection of 69 ml of Omnipaque 300 nonionic contrast. Contiguous axial sections were obtained from the lung bases through the symphysis pubis. Images were reconstructed in the coronal and sagittal planes. FINDINGS: There is mild dependent bilateral lower lobe subsegmental atelectasis. No pleural effusion is present. The liver and spleen are within normal limits in size without significant focal abnormality. No calcified gallstones are seen. The pancreas appears to be within normal limits in size. The kidneys are small in size with cortical thinning and scarring. There are multiple bilateral renal calculi which appear nonobstructing. No hydronephrosis is seen. There are multiple bilateral renal cysts. The aorta is normal in caliber with mild calcific plaque present. No significant enlarged retroperitoneal lymph nodes are seen. The stomach is mildly distended. There is a small to moderate size hiatal hernia containing contrast. The small bowel and colon appear nondistended. There is a colostomy in the right lower quadrant. There is a moderate amount of stool present within the colon. There is rectal wall thickening which is unchanged. The appendix is not visualized. There are few scattered diverticuli within colon without evidence for diverticulitis. There is a right inguinal hernia containing a portion of the anterolateral aspect of the urinary bladder which is unchanged. No free intraperitoneal air or fluid is seen. There is a moderate to severe lumbar scoliosis convex toward the left side. There are postsurgical changes in the lumbar spine. There are bilateral dysplastic hips. There is a decubitus ulcer present on the left side extending to the ischium. There is a joint effusion within the left hip. There are severe erosive and destructive changes within the left femoral head, neck and left acetabulum consistent with septic arthritis and osteomyelitis. These findings have progressed from the prior study. No discrete fluid collection or abscess is seen. The results of this exam were called to Dr. Gannon. IMPRESSION: 1. THERE IS A LEFT DECUBITUS ULCER EXTENDING TO THE LEFT ISCHIAL BONE. IN ADDITION THERE IS A JOINT EFFUSION IN THE LEFT HIP AND SEVERE EROSIVE AND DESTRUCTIVE CHANGES IN THE LEFT FEMUR AND ACETABULUM WHICH HAS PROGRESSED FROM THE PRIOR EXAM MOST CONSISTENT WITH SEPTIC ARTHRITIS AND OSTEOMYELITIS. 2. RECTAL WALL THICKENING, UNCHANGED. 2. SMALL KIDNEYS WITH CORTICAL THINNING AND SCARRING AND BILATERAL RENAL CALCULI, UNCHANGED. 3. RIGHT INGUINAL HERNIA CONTAINING A PORTION OF THE URINARY BLADDER, UNCHANGED.
== END 2016-03-30 06:20 | disposition home or self-care (01) ==
LOC: ED 19:39
DX: E86.0 Dehydration (principal); K59.00 Constipation, unspecified; G80.9 Cerebral palsy, unspecified; I10 Essential (primary) hypertension; K21.9 Gastro-esophageal reflux disease without esophagitis; Q05.9 Spina bifida, unspecified; G40.909 Epilepsy, unspecified, not intractable, without status epilepticus; K22.70 Barrett's esophagus without dysplasia; F79 Unspecified intellectual disabilities; N31.9 Neuromuscular dysfunction of bladder, unspecified; K56.69 Other intestinal obstruction; Z93.3 Colostomy status; F41.9 Anxiety disorder, unspecified; F32.9 Major depressive disorder, single episode, unspecified
CPT/HCPCS: 36415; 71010; 74177; 80053; 81003; 81015; 83605; 83690; 84484; 85025; 85060; 85610; 85730; 87040; 87077; 87086; 87150; 87186; 87205; 93005; 99284; A9270-GY; Q9967

== ENCOUNTER 2016-03-30 11:42 | Inpatient (IN) | payer MEDICAID ==
[2016-03-30] MEDS ORDERED: Piperac/Tazob 3.375 gm in NS* 3.375 GM/100 ML BAG IVPB ONE (12:37)
[2016-03-30 14:44] LABS: Hematocrit 33 % (42-52); Hemoglobin 9.8 g/dl (14.0-18.0); Mean Corpuscular HGB Conc 30 g/dl (31-36); Mean Corpuscular Hemoglobin 21 pg (27-31); Mean Platelet Volume 7 um3 (7.4-10.4); White Blood Count 7.5 10^3/ul (3.5-10.8)
[2016-03-30 14:45] LABS: Comments Flag Yes
[2016-03-30 14:46] LABS: Mean Corpuscular Volume 72 fL (80-94); Red Cell Distribution Width 23 % (10.5-15)
[2016-03-30 14:57] LABS: Albumin 3.6 g/dL (3.2-5.2); BUN/Creatinine Ratio 59.7 (8-20); Calcium 9.2 mg/dL (8.6-10.3); EGFR Non-African American 130.6 (>60); Globulin 3.5 g/dL (2-4); Potassium 4.1 mmol/L (3.5-5.0); Total Bilirubin 0.4 mg/dL (0.2-1.0); Total Protein 7.1 g/dL (6.4-8.9)
[2016-03-30 15:00] LABS: Troponin I 0.01 ng/mL (<0.04)
[2016-03-30 17:17] LABS: C Reactive Protein 22.32 mg/L (< 5.00)
[2016-03-30] MEDS ORDERED: Acetaminophen TAB* 325 MG PO PRN (17:22)
[2016-03-30] MEDS ORDERED: oxyCODONE TAB* 5 MG TAB PO PRN (17:22)
[2016-03-30] MEDS ORDERED: Piperac/Tazob 3.375 gm in NS* 3.375 GM/100 ML BAG IVPB SCH ×2 (18:00→18:30)
--- NOTE | 2016-03-30 19:45 | ED ---
Cony Montez Janilya, scribed for Conor López MD on 03/30/16 at 1413 . Lower Extremity - HPI Summary HPI Summary: A 65 y/o male was called to come in to [facility] by Dr. Gannon due to positive CT results of his abd/pel. Pt was under Dr. Henriquez's care last night and CT was performed here at [facility]. However, CT results were amended by the radiologist this morning. The scans indicated: IMPRESSION: 1. THERE IS A LEFT DECUBITUS ULCER EXTENDING TO THE LEFT ISCHIAL BONE. IN ADDITION THERE IS A JOINT EFFUSION IN THE LEFT HIP AND SEVERE EROSIVE AND DESTRUCTIVE CHANGES IN THE LEFT FEMUR AND ACETABULUM WHICH HAS PROGRESSED FROM THE PRIOR EXAM MOST CONSISTENT WITH SEPTIC ARTHRITIS AND OSTEOMYELITIS. 2. RECTAL WALL THICKENING, UNCHANGED. 2. SMALL KIDNEYS WITH CORTICAL THINNING AND SCARRING AND BILATERAL RENAL CALCULI, UNCHANGED. 3. RIGHT INGUINAL HERNIA CONTAINING A PORTION OF THE URINARY BLADDER, UNCHANGED. LEVEL 5 CAVEAT - MENTAL AND PHYSICAL DISABILITY. - History of Current Complaint Chief Complaint: EDHipPelvisInjury Stated Complaint: LEFT HIP POSSIBLE INFECTION Time Seen by Provider: 03/30/16 14:06 Hx Obtained From: Family/Wound Treatment Rn, Medical Records Mechanism Of Injury: Unknown Severity Initially: Moderate Severity Currently: Moderate Pain Intensity: 8 Pain Scale Used: 0-10 Numeric - Risk Factors Gout Risk Factors: Age Over 40, Male DVT Risk Factors: Negative Septic Arthritis Risk Factor: Negative - Allergies/Home Medications Allergies/Adverse Reactions: Allergies Allergy/AdvReac Type Severity Reaction Status Date / Time Isosorbide Allergy Unknown Unknown Verified 03/30/16 11:51 Reaction Details Macrolides Allergy Unknown Unknown Verified 03/30/16 11:51 Reaction Details Erythromycin Allergy Unknown Verified 03/30/16 11:51 Reaction Details Home Medications: Home Medications Al Hydrox/Mg Hydrox/Simet LIQ* [Maalox Plus*] 30 ml PO Q4H PRN 03/30/16 [ History Confirmed 03/30/16] Cadexomer Iodine [Iodosorb] 0.9 % EX DAILY 03/30/16 [History Confirmed 03/30/16] Calcium Ascorbate [Vitamin C] 500 mg PO DAILY 03/30/16 [History Confirmed ] PMH/Surg Hx/FS Hx/Imm Hx Endocrine/Hematology History: Denies: Hx Anticoagulant Therapy, Hx Blood Disorders, Hx Blood Transfusions, Hx Bone Marrow Disease, Hx Diabetes, Hx Systemic Lupus Erythematosus, Hx Sickle Cell Disease, Hx Thyroid Disease, Hx Anemia, Hx Unexplained Bleeding, Other Endocrine/Hematological Disorders Cardiovascular History: Reports: Hx Hypertension Denies: Hx Congestive Heart Failure, Hx Coronary Artery Disease, Hx Deep Vein Thrombosis, Hx Hypercholesterolemia, Hx Hypotension, Hx Pacemaker/ICD, Hx Peripheral Vascular Disease, Hx Rheumatic Fever, Hx Syncope, Hx Valvular Heart Disease, Other Cardiovascular Problems/Disorders Respiratory History: Denies: Hx Asthma, Hx Chronic Bronchitis, Hx Chronic Obstructive Pulmonary Disease (COPD), Hx Cystic Fibrosis, Hx Lung Cancer, Hx Pleural Effusion, Hx Pneumonia, Hx Pulmonary Edema, Hx Pulmonary Embolism, Hx Seasonal Allergies, Hx Sleep Apnea, Other Respiratory Problems/Disorders GI History: Reports: Hx Gastroesophageal Reflux Disease, Hx Obstructive Bowel, Hx Ileostomy - Colostomy, Other GI Disorders - Madison Syndrome, Díaz's Esophagus Denies: Hx Cirrhosis, Hx Crohn's Disease, Hx Diverticulosis, Hx Gall Bladder Disease, Hx Gastrointestinal Bleed, Hx Hiatal Hernia, Hx Irritable Bowel, Hx Jaundice, Hx Pyloric Stenosis, Hx Ulcer History: Reports: Hx Acute Renal Failure, Hx Renal Disease - neurogenic bladder, Other Problems/Disorders - Neurogenic Bladder Denies: Hx Benign Prostatic Hyperplasia, Hx Chronic Renal Failure, Hx Dialysis, Hx Kidney Infection, Hx Kidney Stones Musculoskeletal History: Reports: Hx Congenital Bone Abnormalities - hip displacement, Hx Scoliosis, Other Musculoskeletal History - cerebral palsy Denies: Hx Arthritis, Hx Back Problems, Hx Fibromyalgia, Hx Gout, Hx Orthopedic Injury, Hx Osteoporosis, Hx Tendonitis Sensory History: Reports: Hx Contacts or Glasses, Hx Vision Problem Denies: Hx Cataracts, Hx Eye Injury, Hx Eye Prosthesis, Hx Glaucoma, Hx Macular Degeneration, Hx Deafness, Hx Hearing Aid, Hx Hearing Problem, Other Sensory Impairments Opthamlomology History: Reports: Hx Contacts or Glasses, Hx Vision Problem Denies: Hx Cataracts, Hx Eye Injury, Hx Eye Prosthesis, Hx Glaucoma, Hx Macular Degeneration, Other Sensory Impairments Neurological History: Reports: Hx Developmental Delay, Hx Seizures - Last seizure 1989, Other Neuro Impairments/Disorders - cerebral palsy, spina bifida Denies: Hx Dementia, Hx Headaches, Hx Migraine, Hx Spinal Cord Injury, Hx Transient Ischemic Attacks (TIA) Psychiatric History: Reports: Hx Anxiety, Hx Depression Denies: Hx Attention Deficit Hyperactivity Disorder, Hx Eating Disorder, Hx Panic Disorder, Hx Post Traumatic Stress Disorder, Hx Inpatient Treatment, Hx Community Mental Health Tx, Hx Schizophrenia, Hx Bipolar Disorder, Hx Suicide Attempt, Hx Substance Abuse, Other Psychiatric Issues/Disorders - Cancer History Hx Chemotherapy: No Hx Radiation Therapy: No - Surgical History Surgery Procedure, Year, and Place: hiatal hernia, hernia repair 2009, hip repair S/P, back Sx Hx Anesthesia Reactions: No Infectious Disease History: No Infectious Disease History: Reports: Hx of Known/Suspected MRSA - BCx, wounds Denies: Hx Clostridium Difficile, Hx Hepatitis, Hx Human Immunodeficiency Virus (HIV), Hx Shingles, Hx Tuberculosis, Hx Known/Suspected VRE, Hx Known/ Suspected VRSA, Traveled Outside the [place] in Last 30 Days - Family History Known Family History: Positive: Unknown - Pt unable to relate due to profound MR Family History: LEVEL 5 CAVEAT secondary to profound MR. - Social History Alcohol Use: None Hx Substance Use: No Substance Use Type: Reports: None Hx Tobacco Use: No Smoking Status (MU): Never Smoked Tobacco Review of Systems - ROS Summary Review of Systems Summary: LEVEL 5 CAVEAT - MENTAL AND PHYSICAL DISABILITY. All Other Systems Reviewed And Are Negative: No Physical Exam - Summary Physical Exam Summary: LEVEL 5 CAVEAT - MENTAL AND PHYSICAL DISABILITY. Triage Information Reviewed: Yes Vital Signs On Initial Exam: Initial Vitals Temp Pulse Resp BP Pulse Ox 98.6 F 109 18 152/76 100 03/30/16 11:44 03/30/16 11:44 03/30/16 11:44 03/30/16 11:44 03/30/16 11:44 Vital Signs Reviewed: Yes Appearance: Positive: Pain Distress Skin: Positive: Warm, Dry ENT: Positive: Normal ENT inspection Respiratory/Lung Sounds: Positive: Clear to Auscultation Cardiovascular: Positive: Tachycardia Abdomen Description: Positive: Nontender Bowel Sounds: Positive: Present Musculoskeletal: Positive: Normal Neurological: Positive: Other - no focal finding Diagnostics - Vital Signs Vital Signs Temp Pulse Resp BP Pulse Ox 03/30/16 11:44 98.6 F 109 18 152/76 100 - Laboratory Lab Results: Lab Results 03/30/16 03/30/16 03/30/16 Range/Units 14:35 14:35 14:35 WBC 7.5 (3.5-10.8) 10^3/ul RBC 4.60 (4.0-5.4) 10^6/ul Hgb 9.8 L (14.0-18.0) g/dl Hct 33 L (42-52) % MCV 72 L (80-94) fL MCH 21 L (27-31) pg MCHC 30 L (31-36) g/dl RDW 23 H (10.5-15) % Plt Count 301 (150-450) 10^3/ul MPV 7 L (7.4-10.4) um3 Neut % (Auto) 77.2 (38-83) % Lymph % (Auto) 14.3 L (25-47) % [place] % (Auto) 6.3 (1-9) % Eos % (Auto) 1.5 (0-6) % Baso % (Auto) 0.7 (0-2) % Absolute Neuts (auto) 5.8 (1.5-7.7) 10^3/ul Absolute Lymphs (auto) 1.1 (1.0-4.8) 10^3/ul Absolute Monos (auto) 0.5 (0-0.8) 10^3/ul Absolute Eos (auto) 0.1 (0-0.6) 10^3/ul Absolute Basos (auto) 0 (0-0.2) 10^3/ul Absolute Nucleated RBC 0 10^3/ul Nucleated RBC % 0 INR (Anticoag Therapy) 1.03 (0.89-1.11) Sodium 132 L (133-145) mmol/L Potassium 4.1 (3.5-5.0) mmol/L Chloride 102 (101-111) mmol/L Carbon Dioxide 22 (22-32) mmol/L Anion Gap 8 (2-11) mmol/L BUN 37 H (6-24) mg/dL Creatinine 0.62 L (0.67-1.17) mg/dL Est GFR ( Amer) 168.0 (>60) Est GFR (Non-Af Amer) 130.6 (>60) BUN/Creatinine Ratio 59.7 H (8-20) Glucose 119 H (70-100) mg/dL Calcium 9.2 (8.6-10.3) mg/dL Total Bilirubin 0.40 (0.2-1.0) mg/dL AST 18 (13-39) U/L ALT 22 (7-52) U/L Alkaline Phosphatase 109 H (34-104) U/L Troponin I 0.01 (<0.04) ng/mL C-Reactive Protein 22.32 H (< 5.00) mg/L Total Protein 7.1 (6.4-8.9) g/dL Albumin 3.6 (3.2-5.2) g/dL Globulin 3.5 (2-4) g/dL Albumin/Globulin Ratio 1.0 (1-3) Procalcitonin (<0.6) ng/mL 03/30/16 Range/Units 14:35 WBC (3.5-10.8) 10^3/ul RBC (4.0-5.4) 10^6/ul Hgb (14.0-18.0) g/dl Hct (42-52) % MCV (80-94) fL MCH (27-31) pg MCHC (31-36) g/dl RDW (10.5-15) % Plt Count (150-450) 10^3/ul MPV (7.4-10.4) um3 Neut % (Auto) (38-83) % Lymph % (Auto) (25-47) % [place] % (Auto) (1-9) % Eos % (Auto) (0-6) % Baso % (Auto) (0-2) % Absolute Neuts (auto) (1.5-7.7) 10^3/ul Absolute Lymphs (auto) (1.0-4.8) 10^3/ul Absolute Monos (auto) (0-0.8) 10^3/ul Absolute Eos (auto) (0-0.6) 10^3/ul Absolute Basos (auto) (0-0.2) 10^3/ul Absolute Nucleated RBC 10^3/ul Nucleated RBC % INR (Anticoag Therapy) (0.89-1.11) Sodium (133-145) mmol/L Potassium (3.5-5.0) mmol/L Chloride (101-111) mmol/L Carbon Dioxide (22-32) mmol/L Anion Gap (2-11) mmol/L BUN (6-24) mg/dL Creatinine (0.67-1.17) mg/dL Est GFR ( Amer) (>60) Est GFR (Non-Af Amer) (>60) BUN/Creatinine Ratio (8-20) Glucose (70-100) mg/dL Calcium (8.6-10.3) mg/dL Total Bilirubin (0.2-1.0) mg/dL AST (13-39) U/L ALT (7-52) U/L Alkaline Phosphatase (34-104) U/L Troponin I (<0.04) ng/mL C-Reactive Protein (< 5.00) mg/L Total Protein (6.4-8.9) g/dL Albumin (3.2-5.2) g/dL Globulin (2-4) g/dL Albumin/Globulin Ratio (1-3) Procalcitonin 0.1 (<0.6) ng/mL Result Diagrams: 03/30/16 14:35 03/30/16 14:35 Lab Statement: Any lab studies that have been ordered have been reviewed, and results considered in the medical decision making process. - CT ABD/PEL CT Interpretation: Positive (See Comments) - IMPRESSION: 1. THERE IS A LEFT DECUBITUS ULCER EXTENDING TO THE LEFT ISCHIAL BONE. IN ADDITION THERE IS A JOINT EFFUSION IN THE LEFT HIP AND SEVERE EROSIVE AND DESTRUCTIVE CHANGES IN THE LEFT FEMUR AND ACETABULUM WHICH HAS PROGRESSED FROM THE PRIOR EXAM MOST CONSISTENT WITH SEPTIC ARTHRITIS AND OSTEOMYELITIS. 2. RECTAL WALL THICKENING, UNCHANGED. 2. SMALL KIDNEYS WITH CORTICAL THINNING AND SCARRING AND BILATERAL RENAL CALCULI, UNCHANGED. 3. RIGHT INGUINAL HERNIA CONTAINING A PORTION OF THE URINARY BLADDER, UNCHANGED. CT Interpretation Completed By: Radiologist Lower Extremity Course/Dx - Diagnoses Provider Diagnoses: Osteomyelitis, Septic joint - Physician Notifications Discussed Care of Patient With: Dr. Townsend (hospitalist) at 1425: agrees to evaluate pt for admission. Dr. Dawson (ortho) at [phone]: discussed CT results. Discharge - Discharge Plan Condition: Stable Disposition: ADMITTED TO [facility] documentation as recorded by the Cony calderón Janilya accurately reflects the service I personally performed and the decisions made by me, Conor López MD.
[2016-03-30] MEDS: Simethicone TAB* 80 MG TAB.CHEW PO SCH (21:32)
[2016-03-30] MEDS: BETHANECHOL 10 MG PO SCH (21:32)
[2016-03-30] MEDS: Oxybutynin TAB* 5 MG PO SCH (21:32)
[2016-03-30] MEDS: Cyclobenzaprine TAB* 10 MG PO SCH (21:32)
[2016-03-30] MEDS: CMCS: Ketoconazole 2 % CREAM (NF) 30 GM TUBE TOPICAL SCH (21:33)
[2016-03-30] MEDS: Piperac/Tazob 3.375 gm in NS* 3.375 GM/100 ML BAG IVPB SCH (21:33)
[2016-03-30] MEDS: Chlorhexidine MOUTHWASH 0.12%* 15 ML UDC SWISH SPIT SCH (21:33)
[2016-03-30] MEDS: Potassium Citrate (NF) 10 MEQ TAB PO SCH (21:34)
[2016-03-30] MEDS: NS 0.9% 1000 ML* 1,000 ML IV SCH (21:39)
[2016-03-30] MEDS: Enoxaparin(*) 40 MG/0.4 ML SYR SUBCUT SCH (22:26)
--- NOTE | 2016-03-30 23:24 | HP ---
HISTORY AND PHYSICAL UPDATE ADDENDUM DATE OF ADMISSION: 03/30/16 ATTENDING PHYSICIAN: Lew Townsend MD * (DICTATED BY KAYLIN MENESES) HISTORY OF PRESENT ILLNESS: This patient was evaluated last night for admission last night by Dr Garry Muro. The patient was discharged to home after having a large bowel movement and resolution of his chief complaint that brought him into the emergency department. The CT scan that was performed during his ER stay was later read by radiologist with concern for possible septic arthritis and progression of degenerative changes in his left acetabulum and femur, which is the site of his previously known chronic osteomyelitis. The patient was subsequently asked to return to the emergency department for further evaluation. Again, the patient is essentially nonverbal and unable to provide appropriate history, but per aides, he has not had any complaints or changes in behavior. Orthopedic Surgery was consulted in regards to management for possible septic arthritis. They will plan to evaluate tomorrow. Repeat labs were completed, which shows no leukocytosis. He has been afebrile in the emergency department, but was tachycardic with the heart rate of 190 per minute when he reached the emergency department this morning. That has since improved throughout the day today and he has remained afebrile. Apparently 1 of 4 blood cultures collected from his ER visit overnight is growing gram-positive cocci, but negative for MRSA on rapid screening. Please see updated plan below: 1. Possible septic arthritis with chronic osteomyelitis - CT scan performed yesterday shows progression of destructive changes in the left hip region involving both the acetabulum as well as the femur with an associated joint effusion concerning for a possible septic arthritis. It is very difficult to assess for pain in this patient as he is nonverbal. He is afebrile, but was mildly tachycardic when he reached the emergency department. No leukocytosis. CRP was added on to original labs, which is only mildly elevated at 22. This was compared to his last CRP dated 02/08/16, which was measured at 117, which was down from his admission in October, at which point it was 232. Given his positive blood cultures, tachycardia, and progression appreciated on CT, it does seem appropriate to admit for presumed infectious etiology. We will add on procalcitonin to help with decision making. Orthopedic Surgery to evaluate for possible debridement and/or arthrocentesis for further cultures. The patient has not been on antibiotics in approximately 2 months. Prior to that, he did complete a total of 10 weeks of antibiotic therapy targeted at MRSA. We will also plan to get Dr. Juares, infectious disease specialist, involved as he has previously seen this patient with similar concerns during prior hospital stays. 2. Left decubitus ulcer with extension to bone per MRI - we will continue wound care on a daily basis. 3. Profound developmental disability secondary to cerebral palsy - the patient is nonverbal with severe contractures. 4. Jarrell's with transverse colostomy - continue his usual Reglan - his ostomy output seems to have improved since receiving a fluid bolus overnight last night. 5. Neurogenic bladder with suprapubic catheter in place. 6. Hypertension - we will hold his amlodipine at this time with concern for possible sepsis. 7. Seizure disorder. 8. GERD. 9. Spina bifida. 10. DVT prophylaxis. We will initiate Lovenox 40 mg subcu daily for prophylactic reasons. 11. Healthcare proxy is listed as a surrogate board - no family member is listed as healthcare proxy. The patient is a full-time resident at the [facility]. DISPOSITION: The patient is being admitted to inpatient status with concern for possible septic arthritis. The patient will be started on fluids and antibiotics with pending Orthopedic Surgery and Infectious Disease consults. Anticipate length of stay of greater than 2 midnights. KAYLIN MENESES [id number]/[facility] #: [id number] JJ
[2016-03-31] MEDS: BETHANECHOL 10 MG PO SCH ×4 (05:52→20:12)
[2016-03-31] MEDS: Piperac/Tazob 3.375 gm in NS* 3.375 GM/100 ML BAG IVPB SCH (05:52)
[2016-03-31 07:06] LABS: Hematocrit 30 % (42-52); Hemoglobin 9.5 g/dl (14.0-18.0); Mean Corpuscular HGB Conc 31 g/dl (31-36); Mean Corpuscular Hemoglobin 22 pg (27-31); Mean Platelet Volume 7 um3 (7.4-10.4); White Blood Count 7.7 10^3/ul (3.5-10.8)
[2016-03-31 07:07] LABS: Comments Flag Yes
[2016-03-31 07:08] LABS: Mean Corpuscular Volume 71 fL (80-94)
[2016-03-31 07:09] LABS: Red Cell Distribution Width 24 % (10.5-15)
[2016-03-31 07:30] LABS: BUN/Creatinine Ratio 36.1 (8-20); C Reactive Protein 55.1 mg/L (< 5.00); Calcium 8.4 mg/dL (8.6-10.3); EGFR African American 171.1 (>60); EGFR Non-African American 133.1 (>60)
[2016-03-31] MEDS: CADEXOMER IODINE 0.9% TOPICAL SCH (08:06)
[2016-03-31] MEDS: Potassium Citrate (NF) 10 MEQ TAB PO SCH ×2 (08:06→20:12)
[2016-03-31] MEDS: Metoclopramide TAB* 10 MG PO SCH ×3 (08:12→15:51)
[2016-03-31] MEDS: Chlorhexidine MOUTHWASH 0.12%* 15 ML UDC SWISH SPIT SCH ×2 (08:12→20:11)
[2016-03-31] MEDS: Polyethylene Glycol 3350* 17 GM PACKET PO SCH (08:12)
[2016-03-31] MEDS: DULoxetine DR CAP* 30 MG CAP.DR PO SCH (08:13)
[2016-03-31] MEDS: Lactobacillus Acidophilu (GG)* 1 CAP CAP PO SCH (08:13)
[2016-03-31] MEDS: Oxybutynin TAB* 5 MG PO SCH ×2 (08:13→20:12)
[2016-03-31] MEDS: Omeprazole CAP* 20 MG PO SCH (08:13)
[2016-03-31] MEDS: Famotidine TAB* 20 MG PO SCH (08:13)
[2016-03-31] MEDS: Simethicone TAB* 80 MG TAB.CHEW PO SCH ×4 (08:13→20:12)
[2016-03-31] MEDS: Cyclobenzaprine TAB* 10 MG PO SCH ×2 (08:13→20:11)
[2016-03-31] MEDS: CMCS: Ketoconazole 2 % CREAM (NF) 30 GM TUBE TOPICAL SCH ×2 (08:14→20:11)
--- NOTE | 2016-03-31 09:02 | PN ---
Subjective Date of Service: 03/31/16 Interval History: Patient seen and examined at bedside. His aide, Eun, is at bedside and helps to provide information. He reports concern that he is more sleepy than usual this AM but he does arouse easily. She reports that he has been favoring his left hip when sitting and moving as of recently. There is a plan to have him taken to [place] for skin flap to aide with wound healing, but they haven't been able to get him there yet. She reports initially that Gray was brought in for evaluation of his ostomy, as he usually has regular BM daily (described as thick, toothpaste like) and this has slowed. There is stool present this AM, but it is more liquid than usual. In talking with Gray, he says "no" when asked if he has chest pain, trouble breathing, abd pain, or hip pain. He says, "Don't touch it" when I attempt to look at his hip. However, he is cooperative with my assessment. Family History: Unchanged from Admission Social History: Unchanged from Admission Past Medical History: Unchanged from Admission Objective Active Medications: Acetaminophen (Tylenol Tab*) 325 mg PO Q4H PRN PRN Reason: pain/fever Bethanechol Chloride (Urecholine Tab*) 10 mg PO 0630,1100,1600,2000 [facility] Last Admin: 03/31/16 05:52 Dose: 10 mg Chlorhexidine Gluconate (Peridex Mouth Wash 0.12%*) 5 ml SWISH SPIT BID [facility] Last Admin: 03/31/16 08:12 Dose: 5 ml Cyclobenzaprine HCl (Flexeril Tab*) 5 mg PO BID [facility] Last Admin: 03/31/16 08:13 Dose: 5 mg Duloxetine HCl (Cymbalta Cap*) 30 mg PO DAILY [facility] Last Admin: 03/31/16 08:13 Dose: 30 mg Enoxaparin Sodium (Lovenox(*)) 40 mg SUBCUT Q24H [facility] Last Admin: 03/30/16 22:26 Dose: 40 mg Famotidine (Pepcid Tab*) 20 mg PO DAILY [facility] Last Admin: 03/31/16 08:13 Dose: 20 mg Sodium Chloride (Ns 0.9% 1000 Ml*) 1,000 mls @ 75 mls/hr IV PER RATE [facility] Last Admin: 03/30/16 21:39 Dose: 75 mls/hr Piperacillin Sod/Tazobactam Sod (Zosyn 3.375 Gm In Ns Premix*) 3.375 gm in 100 mls @ 25 mls/hr IVPB 0530,1330,2130 [facility] Last Admin: 03/31/16 05:52 Dose: 25 mls/hr Ketoconazole (Nizoral 2% Cream (Nf)) 1 applic TOPICAL BID [facility] PRN Reason: Protocol Last Admin: 03/31/16 08:14 Dose: 1 applic Lactobacillus Rhamnosus (Culturelle*) 1 cap PO DAILY [facility] Last Admin: 03/31/16 08:13 Dose: 1 cap Metoclopramide HCl (Reglan Tab*) 5 mg PO TID AC [facility] Last Admin: 03/31/16 08:12 Dose: 5 mg Cadexomer Iodine [ (Iodosorb] 0.9 %) 0.9 % TOPICAL DAILY [facility] Last Admin: 03/31/16 08:06 Dose: Not Given Omeprazole (Prilosec Cap*) 20 mg PO DAILY@0730 [facility] Last Admin: 03/31/16 08:13 Dose: 20 mg Oxybutynin Chloride (Ditropan Tab*) 10 mg PO BID [facility] Last Admin: 03/31/16 08:13 Dose: 10 mg Oxycodone HCl (Roxycodone Tab*) 5 mg PO Q6H PRN PRN Reason: PAIN Polyethylene Glycol/Electrolytes (Miralax*) 17 gm PO DAILY [facility] Last Admin: 03/31/16 08:12 Dose: 17 gm Potassium Citrate (Urocit-K 10 (Nf)) 20 meq PO BID [facility] Last Admin: 03/31/16 08:06 Dose: Not Given Simethicone (Mylicon*) 80 mg PO ACHS [facility] Last Admin: 03/31/16 08:13 Dose: 80 mg Vital Signs 03/30/16 03/30/16 03/30/16 19:20 19:23 20:00 Temperature 97.5 F 97.5 F Pulse Rate 97 97 Respiratory 18 18 16 Rate Blood Pressure 140/75 140/75 (mmHg) O2 Sat by Pulse 100 100 100 Oximetry 03/30/16 03/30/16 03/31/16 21:32 23:32 00:04 Temperature 97.3 F Pulse Rate 95 Respiratory 16 16 15 Rate Blood Pressure 131/75 (mmHg) O2 Sat by Pulse 100 Oximetry 03/31/16 03/31/16 03/31/16 03:13 04:16 07:41 Temperature 99.0 F 95.9 F Pulse Rate 95 88 Respiratory 16 16 Rate Blood Pressure 148/72 128/76 (mmHg) O2 Sat by Pulse 100 100 Oximetry 03/31/16 03/31/16 03/31/16 07:50 08:00 08:13 Temperature 96.3 F Pulse Rate Respiratory 18 18 Rate Blood Pressure (mmHg) O2 Sat by Pulse 100 Oximetry Oxygen Devices in Use Now: None Appearance: Male patient, sitting up in bed, in NAD Ears/Nose/Mouth/Throat: Clear Oropharnyx Respiratory: Symmetrical Chest Expansion and Respiratory Effort, Clear to Auscultation Cardiovascular: NL Sounds; No Murmurs; No JVD, RRR Abdominal: NL Sounds; No Tenderness; No Distention, - - left colostomy with moderate amount of brown liquid stool, stoma reddish-pink Extremities: - - BUE and BLE contractures Skin: - - Left ischial stage IV ulcer (by report) with c/d/i dressing Lines/Tubes/Other Access: Clean, Dry and Intact Peripheral IV Nutrition: Taking PO's Result Diagrams: 03/31/16 05:58 03/31/16 05:58 Additional Lab and Data: Lab Results 03/30/16 03/30/16 03/30/16 Range/Units 14:35 14:35 14:35 WBC 7.5 (3.5-10.8) 10^3/ul RBC 4.60 (4.0-5.4) 10^6/ul Hgb 9.8 L (14.0-18.0) g/dl Hct 33 L (42-52) % MCV 72 L (80-94) fL MCH 21 L (27-31) pg MCHC 30 L (31-36) g/dl RDW 23 H (10.5-15) % Plt Count 301 (150-450) 10^3/ul MPV 7 L (7.4-10.4) um3 Neut % (Auto) 77.2 (38-83) % Lymph % (Auto) 14.3 L (25-47) % [place] % (Auto) 6.3 (1-9) % Eos % (Auto) 1.5 (0-6) % Baso % (Auto) 0.7 (0-2) % Absolute Neuts (auto) 5.8 (1.5-7.7) 10^3/ul Absolute Lymphs (auto) 1.1 (1.0-4.8) 10^3/ul Absolute Monos (auto) 0.5 (0-0.8) 10^3/ul Absolute Eos (auto) 0.1 (0-0.6) 10^3/ul Absolute Basos (auto) 0 (0-0.2) 10^3/ul Absolute Nucleated RBC 0 10^3/ul Nucleated RBC % 0 INR (Anticoag Therapy) 1.03 (0.89-1.11) Sodium 132 L (133-145) mmol/L Potassium 4.1 (3.5-5.0) mmol/L Chloride 102 (101-111) mmol/L Carbon Dioxide 22 (22-32) mmol/L Anion Gap 8 (2-11) mmol/L BUN 37 H (6-24) mg/dL Creatinine 0.62 L (0.67-1.17) mg/dL Est GFR ( Amer) 168.0 (>60) Est GFR (Non-Af Amer) 130.6 (>60) BUN/Creatinine Ratio 59.7 H (8-20) Glucose 119 H (70-100) mg/dL Calcium 9.2 (8.6-10.3) mg/dL Total Bilirubin 0.40 (0.2-1.0) mg/dL AST 18 (13-39) U/L ALT 22 (7-52) U/L Alkaline Phosphatase 109 H (34-104) U/L Troponin I 0.01 (<0.04) ng/mL C-Reactive Protein 22.32 H (< 5.00) mg/L Total Protein 7.1 (6.4-8.9) g/dL Albumin 3.6 (3.2-5.2) g/dL Globulin 3.5 (2-4) g/dL Albumin/Globulin Ratio 1.0 (1-3) Procalcitonin (<0.6) ng/mL 03/30/16 Range/Units 14:35 WBC (3.5-10.8) 10^3/ul RBC (4.0-5.4) 10^6/ul Hgb (14.0-18.0) g/dl Hct (42-52) % MCV (80-94) fL MCH (27-31) pg MCHC (31-36) g/dl RDW (10.5-15) % Plt Count (150-450) 10^3/ul MPV (7.4-10.4) um3 Neut % (Auto) (38-83) % Lymph % (Auto) (25-47) % [place] % (Auto) (1-9) % Eos % (Auto) (0-6) % Baso % (Auto) (0-2) % Absolute Neuts (auto) (1.5-7.7) 10^3/ul Absolute Lymphs (auto) (1.0-4.8) 10^3/ul Absolute Monos (auto) (0-0.8) 10^3/ul Absolute Eos (auto) (0-0.6) 10^3/ul Absolute Basos (auto) (0-0.2) 10^3/ul Absolute Nucleated RBC 10^3/ul Nucleated RBC % INR (Anticoag Therapy) (0.89-1.11) Sodium (133-145) mmol/L Potassium (3.5-5.0) mmol/L Chloride (101-111) mmol/L Carbon Dioxide (22-32) mmol/L Anion Gap (2-11) mmol/L BUN (6-24) mg/dL Creatinine (0.67-1.17) mg/dL Est GFR ( Amer) (>60) Est GFR (Non-Af Amer) (>60) BUN/Creatinine Ratio (8-20) Glucose (70-100) mg/dL Calcium (8.6-10.3) mg/dL Total Bilirubin (0.2-1.0) mg/dL AST (13-39) U/L ALT (7-52) U/L Alkaline Phosphatase (34-104) U/L Troponin I (<0.04) ng/mL C-Reactive Protein (< 5.00) mg/L Total Protein (6.4-8.9) g/dL Albumin (3.2-5.2) g/dL Globulin (2-4) g/dL Albumin/Globulin Ratio (1-3) Procalcitonin 0.1 (<0.6) ng/mL Microbiology and Other Data: Microbiology 03/30/16 22:50 Gram Stain - Final Hip Left 03/30/16 19:30 Nasal Screen MRSA (PCR)([facility]) - Final Nasal Mrsa Positive Assess/Plan/Problems-Billing Assessment: Mr. Bearden is a 65 yo male patient with a PMH of cerebral palsy, intellectual delay, left ischial/buttock decubitus ulcer, neurogenic bladder with chronic suprapubic catheter, Jarrell syndrome s/p transverse colostomy, HTN, OCD, GERD, Díaz's esophagus, spina bifida, and seizure disorder who initially presented to the ED on 03/30 with concern for decreased ostomy output that is now resolving and concern for joint effusion and progressive destructive changes of the left hip region that may indicate a septic arthritis. - Patient Problems (1) Septic arthritis Comment: CT abd/pelvis shows progression of destructive changes in the left hip region, involving the acetabulum and femur with associated joint effusion Patient currently afebrile, no leukocytosis, CRP increased from 22 to 55. Switch Zosyn to Ceftriaxone per ID Awaiting ortho consult to determine surgical course (2) Chronic osteomyelitis of left femur Code(s): M86.652 - OTHER CHRONIC OSTEOMYELITIS, LEFT THIGH Comment: Started on Zosyn, will switch to ceftriaxone per ID No antibiotic treatment for the past 2 months Prior to that, patient was on 10 week treatment targeted at MRSA Appreciate ID consult (3) Decubitus ulcer, stage 4 with infection Code(s): L89.94 - PRESSURE ULCER OF UNSPECIFIED SITE, STAGE 4 Comment: Of left femur, with chronic osteomyelitis. Treated at wound clinic in the outpatient setting Plan for patient to go to [facility] as an outpatient for skin flap procedure (4) GERD (gastroesophageal reflux disease) Code(s): K21.9 - GASTRO-ESOPHAGEAL REFLUX DISEASE WITHOUT ESOPHAGITIS Comment : Continue famotidine. (5) HTN (hypertension) Code(s): I10 - ESSENTIAL (PRIMARY) HYPERTENSION Comment: BP is under good control. Amlodipine held with concern for sepsis. Continue to monitor. (6) Neurogenic bladder Code(s): N31.9 - NEUROMUSCULAR DYSFUNCTION OF BLADDER, UNSPECIFIED Comment: Patient has a suprapubic catheter (exchanged on 11/30/15). (7) [place]'s syndrome Code(s): K59.8 - OTHER SPECIFIED FUNCTIONAL INTESTINAL DISORDERS Comment: S/p colostomy 11/14/15, with moderate stool present in bag Continue to monitor output. (8) Seizure disorder Code(s): G40.909 - EPILEPSY, UNSP, NOT INTRACTABLE, WITHOUT STATUS EPILEPTICUS Comment: Seizure precautions Not on maintenance therapy (9) Cerebral palsy Code(s): G80.9 - CEREBRAL PALSY, UNSPECIFIED Comment: Profound mental retardation and physical impairment. (10) Spina bifida of lumbar spine Code(s): Q05.7 - LUMBAR SPINA BIFIDA WITHOUT HYDROCEPHALUS Comment: Has neurogenic bladder. (11) DVT prophylaxis Code(s): LDT4327 - Comment: SQ Lovenox Status and Disposition: Inpatient admission. Anticipate >2 days LOS.
[2016-03-31] MEDS: Potassium Chlor TAB* 20 MEQ TAB.ER PO SCH ×2 (10:55→15:51)
[2016-03-31] MEDS: cefTRIAXone VIAL(*) 1,000 MG in NS 0.9% 50 ML* 50 ML IVPB SCH (12:05)
[2016-03-31] MEDS: NS 0.9% 1000 ML* 1,000 ML IV SCH (12:06)
--- NOTE | 2016-03-31 15:14 | CONS ---
CONSULTATION REPORT: DATE OF CONSULT: 03/31/16 REQUESTING PROVIDER: Blaire Reeves NP CONSULTING SERVICE: Infectious Disease. REASON FOR CONSULTATION: Left hip infection. IMPRESSION: 1. Chronic pressure-related ulcer of the left hip, likely a component of sinus tract, which tracks to the proximal left femur, which on recent CT shows joint effusion and severe erosive destructive changes of the left femur and acetabulum , which has progressed from prior exam. He had been on a long course of antibiotics and is followed at the [facility]. He now has a septic left hip with chronic osteomyelitis of the proximal femur and pelvis. 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 2. History of spinal fusion surgery. 3. Severe permanent intellectual and developmental delay. 4. Status post transverse colostomy for Dover's syndrome. 5. Spina bifida. RECOMMENDATIONS: Stop Zosyn and start ceftriaxone 1 g a day. Await Orthopedic evaluation given the proximity of his spinal fusion, however, most important thing is to prevent progression of infection to that area and then cure will likely require a wash out to the hip joint area. He is nonweightbearing, so does not particularly use the hip joint. HISTORY OF PRESENT ILLNESS: This is a 65-year-old male with developmental delay admitted with abnormal hip imaging. He cannot provide any history because of his baseline mental status, which was obtained instead from review of the medical records, review of the CT scan of the abdomen and pelvis done in March 29 and discussion with Blaire Reeves NP. He was here with constipation issue, had a CT abdomen and pelvis, was discharged after bowel movement and called back when the findings as above were reported. He has been afebrile here. He was started on Zosyn on . His CRP was 22 yesterday and 55 today. He has had no diarrhea per the nurse and he has been afebrile. PAST MEDICAL HISTORY: 1. Permanent developmental and intellectual delay. 2. Spina bifida. 3. Bilateral lower extremity severe contractures. 4. Chronic left sacral decubitus ulcer. 5. Jarrell's syndrome, status post transverse colostomy. 6. Seizure disorder. 7. Hypertension. 8. Neurogenic bladder with suprapubic catheter. 9. Gastroesophageal reflux disease. MEDICATIONS: 1. Zosyn. 2. Tylenol. 3. Bethanechol. 4. Flexeril. 5. Duloxetine. 6. Enoxaparin. 7. Famotidine. 8. Lactobacillus. 9. Reglan. 10. Omeprazole. 11. Simethicone tablet. 12. Oxycodone p.r.n. ALLERGIES: IMDUR, MACROLIDES, ERYTHROMYCIN. FAMILY HISTORY: No apparent infections as far as we know. SOCIAL HISTORY: Lives in [facility]. No travel. REVIEW OF SYSTEMS: Unobtainable given his baseline mental status. PHYSICAL EXAM: Vital Signs: Temperature 35.7, heart rate 80, respiratory rate 18, blood pressure 128/76, O2 sat 100% on room air. In general, he is awake, does not follow commands, or answer questions. Neurologically, he has severe upper and lower bilateral contractures. HEENT: There is no conjunctival hemorrhage. Oropharynx without lesions. Neck is supple without nuchal rigidity. Lymph Nodes: There is no cervical, supraclavicular, inguinal, axillary, or epitrochlear lymphadenopathy. Heart is regular rate and rhythm without murmurs, rubs or gallops. Lungs are clear to auscultation bilaterally. Abdomen: Soft, nontender, nondistended. There is an ostomy bag with liquid stool and air. Skin: There is no rashes or splinter hemorrhages. Musculoskeletal: There is no spine tenderness to palpation or tenderness over the left hip. I cannot tell if there is a positive log-roll sign or pain with internal and external rotation, as he grimaces with all physical contacts. DIAGNOSTIC STUDIES/LAB DATA: White blood cell count 7, hemoglobin 9, platelets 326. Creatinine 0.6, CRP 55. Please see impression and recommendations outlined above. Thanks for asking me to see Mr. Bearden in consultation. [id number]/[facility] #: [id number] JJ
[2016-03-31] MEDS: Enoxaparin(*) 40 MG/0.4 ML SYR SUBCUT SCH (17:26)
--- NOTE | 2016-03-31 19:25 | PN ---
Progress Note - Progress Note Note: Full note dictated. 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 His hips are bilaterally severely dysplastic and subluxated/dislocated. He has developed chronic osteomyelitis in the left hip area from the decubitus ulcer over the left ischial tuberosity. His blook culture shows staph capitis and his recent CT shows chronic inflammatory and destructive changes when compared to the prior CT. On exam, he has pain when I logroll the left hip but not when I move the right hip. The infection is draining from the ulcer and he is not systemically ill. I have spoken with Dr. Bella and Dr. Lopez. Dr. Lopez will look more at the chart and imaging tonight. He will let us know what his opinion is tomorrow. I would defer to him regarding the further care of this patient as I primarily perform hand and upper extremity surgery.
[2016-04-01] MEDS: NS 0.9% 1000 ML* 1,000 ML IV SCH ×2 (01:55→15:35)
--- NOTE | 2016-04-01 02:58 | CONS ---
CONSULTATION REPORT: DATE OF CONSULT: 03/31/16 REASON FOR CONSULT: Concern for left hip septic arthritis. HISTORY OF PRESENT ILLNESS: Gray is a 65-year-old male with spastic quadriplegic cerebral palsy. He is nonambulatory and is able to communicate very little. He resides at an adult care facility. Communication with the patient is not possible and so the history is already taken from the chart as well as some history provided his aide who is at his bedside when I visited today. Briefly, he had an ostomy performed last year. It sounds like around that same time he developed a couple of sacral decubiti ulcers. These have been treated with dressing changes and frequent positioning of Mr. Bearden at the facility where he resides. They have been working to get him to a surgeon in another city to see if they can help get the ulcers closed up. He has not been able to go there as of yet. He was recently in the hospital due to concern for the function of the ostomy. Ultimately the ostomy had started working and he was sent home. He was called back when the abdominal and pelvis CT showed concerns for destructive changes in the left hip when that CT was compared to his prior abdominal pelvic CT as well as some effusion in the joint and around the area. His aide says he really has not had fevers at the facility where he has been residing. He has not had any fevers here. His vitals overall have been stable. He did have one blood culture from the emergency room on 03/29/16 , it grew out Staph capitis. The remainder of the blood cultures have been negative. The aide with him today does report that he has had more pain with transfers and movement and she feels like it is coming from the left leg region. PAST MEDICAL HISTORY: He is status post lumbar fusion. He has sacral decubiti ulcers and severe cerebral palsy. He is status post transverse colostomy for [place] syndrome. He also has a history of seizure disorder, hypertension, neurogenic bladder with suprapubic catheter, and GERD. PAST SURGICAL HISTORY: Significant for lumbar fusion with instrumentation as well as an ostomy and a suprapubic catheter placement. MEDICATIONS: He is currently on ceftriaxone. The rest of his inpatient medications were reviewed in the electronic chart. ALLERGIES: ISOSORBIDE, MACROLIDE, ERYTHROMYCIN. FAMILY HISTORY: Noncontributory. SOCIAL HISTORY: He lives in an adult care facility where he gets round the clock care. REVIEW OF SYSTEMS: Unobtainable due to the patient's inability to communicate verbally. Please see above. PHYSICAL EXAM: Temperature 98.3, heart rate 83, blood pressure 118/80, satting 100% on room air, respiratory rate is 18. Of note, he has been afebrile throughout his hospital stay over the last day and a half. General: He appears comfortable lying supine in the bed. Skin: I rolled him up on to a side, he has 2 sacral decubiti ulcers that I can probe deeply down to bone. One is on the left portion of the sacrum just adjacent to the intergluteal cleft and the other is over the left ischial tuberosity and probes down to the ischial tuberosity. There is no surrounding erythema or active cellulitis. Abdomen: Soft, nondistended. There is an ostomy present. Neurologic: He has significant spasticity in all 4 extremities. Sensory exam is not possible given his condition. Vascular: Pulses are palpable. He is warm and well perfused distally throughout. HEENT: Atraumatic. Pupils are equal and reactive. Lungs: He has normal respiratory effort. Musculoskeletal: Again, he has multiple deformities throughout all 4 extremities. Significantly when I log rolled the left leg, there is significant discomfort. When I log rolled the right leg, there is minimal discomfort. LABORATORY DATA: His white count is 7.7. His H and H is 9.5 and 30. Platelets are 326. CRP is 22.32 on admission and repeat CRP is 55.10. Procalcitonin is 0.1. INR is 1.03. IMAGING: CT of the abdomen and pelvis was reviewed by me. I note some significant erosive changes and some heterotopic ossification about the left hip joint in response to chronic inflammation. There is certainly pre-existing severe dyplasia and subluxation of the hip. When I compared the CT to his prior CT, there is progression of the degenerative changes about the left leg. Of note, he also has lumbar instrumentation and significant lumbar scoliosis and pelvic obliquity. The right hip is dysplastic and subluxated. IMPRESSION: Concern for significant osteomyelitis and degeneration of the left hip on both the femoral and acetabular side due to a left ischial tuberosity decubitus ulcer. PLAN: Ultimately, he needs a couple of things. He needs antibiotics as well as I think he would benefit from a debridement of the left hip area, which would possibly involve a proximal femoral resection of the acetabular surface as well, which could include resection of a significant portion of the hemipelvis. He also needs coverage and an attempt at closure of his decubitus ulcers. Dr. Juares with Infectious Disease has been consulted. He is currently on IV antibiotics. Ultimately, I am principally hand and upper extremity surgeon. I have spoken with my partners, Dr. Bella and Dr. Lopez. Ultimately Dr. Lopez is going to look at things more closely tonight and he will give his opinion tomorrow about what he feels is the best way to proceed. The patient may ultimately require transfer to another facility, which has Plastic Surgery and a better ability to treat the decubitus ulcer as well as the center to perform the larger debridement. We will await Dr. Lopez's input. TIME SPENT: Please note that greater than 50 minutes was spent with this patient over which more than half was spent in the counseling and coordination of care. [id number]/[facility] #: [id number] JJ
[2016-04-01] MEDS: BETHANECHOL 10 MG PO SCH ×4 (06:10→20:43)
[2016-04-01 06:57] LABS: BUN/Creatinine Ratio 22.4 (8-20); C Reactive Protein 82.98 mg/L (< 5.00); Calcium 8.3 mg/dL (8.6-10.3); EGFR African American 181.4 (>60); EGFR Non-African American 141.1 (>60); Potassium 3.8 mmol/L (3.5-5.0)
[2016-04-01 07:27] LABS: Hematocrit 29 % (42-52); Hemoglobin 8.6 g/dl (14.0-18.0); Mean Corpuscular HGB Conc 30 g/dl (31-36); Mean Corpuscular Hemoglobin 22 pg (27-31); Mean Platelet Volume 7 um3 (7.4-10.4); Red Blood Count 3.89 10^6/ul (4.0-5.4); White Blood Count 4.8 10^3/ul (3.5-10.8)
[2016-04-01 07:29] LABS: Comments Flag Yes
[2016-04-01 07:30] LABS: Mean Corpuscular Volume 73 fL (80-94); Red Cell Distribution Width 24 % (10.5-15)
[2016-04-01] MEDS: Metoclopramide TAB* 10 MG PO SCH ×3 (08:26→16:38)
[2016-04-01] MEDS: Simethicone TAB* 80 MG TAB.CHEW PO SCH ×4 (08:27→20:43)
[2016-04-01] MEDS: Omeprazole CAP* 20 MG PO SCH (08:27)
[2016-04-01] MEDS: Cyclobenzaprine TAB* 10 MG PO SCH ×2 (08:28→20:43)
[2016-04-01] MEDS: Potassium Chlor TAB* 20 MEQ TAB.ER PO SCH ×2 (08:29→16:39)
[2016-04-01] MEDS: Oxybutynin TAB* 5 MG PO SCH ×2 (08:29→20:43)
[2016-04-01] MEDS: DULoxetine DR CAP* 30 MG CAP.DR PO SCH (08:30)
[2016-04-01] MEDS: Polyethylene Glycol 3350* 17 GM PACKET PO SCH (08:30)
[2016-04-01] MEDS: CMCS: Ketoconazole 2 % CREAM (NF) 30 GM TUBE TOPICAL SCH ×2 (08:30→20:43)
[2016-04-01] MEDS: Lactobacillus Acidophilu (GG)* 1 CAP CAP PO SCH (08:30)
[2016-04-01] MEDS: Chlorhexidine MOUTHWASH 0.12%* 15 ML UDC SWISH SPIT SCH ×2 (08:30→20:42)
[2016-04-01] MEDS: Famotidine TAB* 20 MG PO SCH (08:31)
[2016-04-01] MEDS: Potassium Citrate (NF) 10 MEQ TAB PO SCH ×3 (08:45→20:46)
--- NOTE | 2016-04-01 09:31 | PN ---
Progress Note - Progress Note SOAP: Subjective: pt with minimal pain Objective: Vital Signs Temp Pulse Resp BP Pulse Ox 98.4 F 92 14 130/78 100 04/01/16 07:38 04/01/16 07:38 04/01/16 08:28 04/01/16 07:38 04/01/16 07:38 Laboratory Last Values WBC 4.8 10^3/ul (3.5-10.8) 04/01/16 06:14 RBC 3.89 10^6/ul (4.0-5.4) L 04/01/16 06:14 Hgb 8.6 g/dl (14.0-18.0) L 04/01/16 06:14 Hct 29 % (42-52) L 04/01/16 06:14 MCV 73 fL (80-94) L 04/01/16 06:14 MCH 22 pg (27-31) L 04/01/16 06:14 MCHC 30 g/dl (31-36) L 04/01/16 06:14 RDW 24 % (10.5-15) H 04/01/16 06:14 Plt Count 272 10^3/ul (150-450) 04/01/16 06:14 MPV 7 um3 (7.4-10.4) L 04/01/16 06:14 Neut % (Auto) 53.5 % (38-83) 04/01/16 06:14 Lymph % (Auto) 29.7 % (25-47) 04/01/16 06:14 [place] % (Auto) 9.6 % (1-9) H 04/01/16 06:14 Eos % (Auto) 6.0 % (0-6) 04/01/16 06:14 Baso % (Auto) 1.2 % (0-2) 04/01/16 06:14 Absolute Neuts (auto) 2.5 10^3/ul (1.5-7.7) 04/01/16 06:14 Absolute Lymphs (auto) 1.4 10^3/ul (1.0-4.8) 04/01/16 06:14 Absolute Monos (auto) 0.5 10^3/ul (0-0.8) 04/01/16 06:14 Absolute Eos (auto) 0.3 10^3/ul (0-0.6) 04/01/16 06:14 Absolute Basos (auto) 0.1 10^3/ul (0-0.2) 04/01/16 06:14 Absolute Nucleated RBC 0.01 10^3/ul 04/01/16 06:14 Nucleated RBC % 0.1 04/01/16 06:14 INR (Anticoag Therapy) 1.03 (0.89-1.11) 03/30/16 14:35 Sodium 135 mmol/L (133-145) 04/01/16 06:14 Potassium 3.8 mmol/L (3.5-5.0) 04/01/16 06:14 Chloride 108 mmol/L (101-111) 04/01/16 06:14 Carbon Dioxide 23 mmol/L (22-32) 04/01/16 06:14 Anion Gap 4 mmol/L (2-11) 04/01/16 06:14 BUN 13 mg/dL (6-24) 04/01/16 06:14 Creatinine 0.58 mg/dL (0.67-1.17) L 04/01/16 06:14 Est GFR ( Amer) 181.4 (>60) 04/01/16 06:14 Est GFR (Non-Af Amer) 141.1 (>60) 04/01/16 06:14 BUN/Creatinine Ratio 22.4 (8-20) H 04/01/16 06:14 Glucose 81 mg/dL (70-100) 04/01/16 06:14 Lactic Acid 0.5 mmol/L (0.5-2.0) 03/30/16 17:25 Calcium 8.3 mg/dL (8.6-10.3) L 04/01/16 06:14 Total Bilirubin 0.40 mg/dL (0.2-1.0) 03/30/16 14:35 AST 18 U/L (13-39) 03/30/16 14:35 ALT 22 U/L (7-52) 03/30/16 14:35 Alkaline Phosphatase 109 U/L (34-104) H 03/30/16 14:35 Troponin I 0.01 ng/mL (<0.04) 03/30/16 14:35 C-Reactive Protein 82.98 mg/L (< 5.00) H 04/01/16 06:14 Total Protein 7.1 g/dL (6.4-8.9) 03/30/16 14:35 Albumin 3.6 g/dL (3.2-5.2) 03/30/16 14:35 Globulin 3.5 g/dL (2-4) 03/30/16 14:35 Albumin/Globulin Ratio 1.0 (1-3) 03/30/16 14:35 Procalcitonin 0.1 ng/mL (<0.6) 03/30/16 14:35 PE:NVI Assessment: 65 yo with osteomylitis left hip Plan: 1) ID following 2) hospitalist co-managing 3) Contiue DVT prophylaxis
[2016-04-01] MEDS: cefTRIAXone VIAL(*) 1,000 MG in NS 0.9% 50 ML* 50 ML IVPB SCH (12:17)
--- NOTE | 2016-04-01 14:14 | PN ---
Subjective Date of Service: 04/01/16 Interval History: Patient seen and examined at bedside. He is sitting up, alert, and listening to the television. He says "No" when asked if anything hurts but moans when I attempt to examine his hip. He is eating and interacting with staff. No acute concerns from nursing. [facility] aide not available during my assessment. Family History: Unchanged from Admission Social History: Unchanged from Admission Past Medical History: Unchanged from Admission Objective Active Medications: Acetaminophen (Tylenol Tab*) 325 mg PO Q4H PRN PRN Reason: pain/fever Bethanechol Chloride (Urecholine Tab*) 10 mg PO 0630,1100,1600,2000 [facility] Last Admin: 04/01/16 12:18 Dose: 10 mg Chlorhexidine Gluconate (Peridex Mouth Wash 0.12%*) 5 ml SWISH SPIT BID [facility] Last Admin: 04/01/16 08:30 Dose: 5 ml Cyclobenzaprine HCl (Flexeril Tab*) 5 mg PO BID [facility] Last Admin: 04/01/16 08:28 Dose: 5 mg Duloxetine HCl (Cymbalta Cap*) 30 mg PO DAILY [facility] Last Admin: 04/01/16 08:30 Dose: 30 mg Enoxaparin Sodium (Lovenox(*)) 40 mg SUBCUT Q24H [facility] Last Admin: 03/31/16 17:26 Dose: 40 mg Famotidine (Pepcid Tab*) 20 mg PO DAILY [facility] Last Admin: 04/01/16 08:31 Dose: 20 mg Sodium Chloride (Ns 0.9% 1000 Ml*) 1,000 mls @ 75 mls/hr IV PER RATE [facility] Last Admin: 04/01/16 01:55 Dose: 75 mls/hr Ceftriaxone Sodium 1,000 mg/ (Sodium Chloride) 50 mls @ 200 mls/hr IVPB Q24H [facility] Last Admin: 04/01/16 12:17 Dose: 200 mls/hr Ketoconazole (Nizoral 2% Cream (Nf)) 1 applic TOPICAL BID [facility] PRN Reason: Protocol Last Admin: 04/01/16 08:30 Dose: 1 applic Lactobacillus Rhamnosus (Culturelle*) 1 cap PO DAILY [facility] Last Admin: 04/01/16 08:30 Dose: 1 cap Metoclopramide HCl (Reglan Tab*) 5 mg PO TID AC [facility] Last Admin: 04/01/16 12:18 Dose: 5 mg Cadexomer Iodine [ (Iodosorb] 0.9 %) 0.9 % TOPICAL DAILY [facility] Last Admin: 03/31/16 08:06 Dose: Not Given Omeprazole (Prilosec Cap*) 20 mg PO DAILY@0730 [facility] Last Admin: 04/01/16 08:27 Dose: 20 mg Oxybutynin Chloride (Ditropan Tab*) 10 mg PO BID [facility] Last Admin: 04/01/16 08:29 Dose: 10 mg Oxycodone HCl (Roxycodone Tab*) 5 mg PO Q6H PRN PRN Reason: PAIN Polyethylene Glycol/Electrolytes (Miralax*) 17 gm PO DAILY [facility] Last Admin: 04/01/16 08:30 Dose: 17 gm Potassium Chloride (Klor Con Er Tab*) 40 meq PO 1000,1600 [facility] Last Admin: 04/01/16 08:29 Dose: 40 meq Potassium Citrate (Urocit-K 10 (Nf)) 20 meq PO BID [facility] Last Admin: 04/01/16 08:45 Dose: 20 meq Simethicone (Mylicon*) 80 mg PO ACHS [facility] Last Admin: 04/01/16 12:19 Dose: 80 mg Vital Signs 03/31/16 03/31/16 03/31/16 20:00 20:11 22:11 Temperature Pulse Rate Respiratory 16 16 15 Rate Blood Pressure (mmHg) O2 Sat by Pulse 97 Oximetry 03/31/16 04/01/16 04/01/16 23:39 07:38 08:28 Temperature 98.2 F 98.4 F Pulse Rate 95 92 Respiratory 15 14 Rate Blood Pressure 142/79 130/78 (mmHg) O2 Sat by Pulse 97 100 Oximetry Oxygen Devices in Use Now: None Appearance: Male patient, sitting up in bed, in NAD Ears/Nose/Mouth/Throat: Clear Oropharnyx, Mucous Membranes Moist Neck: NL Appearance and Movements; NL JVP Respiratory: Symmetrical Chest Expansion and Respiratory Effort, Clear to Auscultation Cardiovascular: NL Sounds; No Murmurs; No JVD, RRR Abdominal: NL Sounds; No Tenderness; No Distention - right colostomy, stoma pink Extremities: - - contractures in all extremities Skin: - - stage IV ulcers to left trochanter and left ischium Lines/Tubes/Other Access: Clean, Dry and Intact Peripheral IV Result Diagrams: 04/01/16 06:14 04/01/16 06:14 Additional Lab and Data: Lab Results 03/30/16 03/30/16 03/30/16 Range/Units 14:35 14:35 14:35 WBC 7.5 (3.5-10.8) 10^3/ul RBC 4.60 (4.0-5.4) 10^6/ul Hgb 9.8 L (14.0-18.0) g/dl Hct 33 L (42-52) % MCV 72 L (80-94) fL MCH 21 L (27-31) pg MCHC 30 L (31-36) g/dl RDW 23 H (10.5-15) % Plt Count 301 (150-450) 10^3/ul MPV 7 L (7.4-10.4) um3 Neut % (Auto) 77.2 (38-83) % Lymph % (Auto) 14.3 L (25-47) % [place] % (Auto) 6.3 (1-9) % Eos % (Auto) 1.5 (0-6) % Baso % (Auto) 0.7 (0-2) % Absolute Neuts (auto) 5.8 (1.5-7.7) 10^3/ul Absolute Lymphs (auto) 1.1 (1.0-4.8) 10^3/ul Absolute Monos (auto) 0.5 (0-0.8) 10^3/ul Absolute Eos (auto) 0.1 (0-0.6) 10^3/ul Absolute Basos (auto) 0 (0-0.2) 10^3/ul Absolute Nucleated RBC 0 10^3/ul Nucleated RBC % 0 INR (Anticoag Therapy) 1.03 (0.89-1.11) Sodium 132 L (133-145) mmol/L Potassium 4.1 (3.5-5.0) mmol/L Chloride 102 (101-111) mmol/L Carbon Dioxide 22 (22-32) mmol/L Anion Gap 8 (2-11) mmol/L BUN 37 H (6-24) mg/dL Creatinine 0.62 L (0.67-1.17) mg/dL Est GFR ( Amer) 168.0 (>60) Est GFR (Non-Af Amer) 130.6 (>60) BUN/Creatinine Ratio 59.7 H (8-20) Glucose 119 H (70-100) mg/dL Calcium 9.2 (8.6-10.3) mg/dL Total Bilirubin 0.40 (0.2-1.0) mg/dL AST 18 (13-39) U/L ALT 22 (7-52) U/L Alkaline Phosphatase 109 H (34-104) U/L Troponin I 0.01 (<0.04) ng/mL C-Reactive Protein 22.32 H (< 5.00) mg/L Total Protein 7.1 (6.4-8.9) g/dL Albumin 3.6 (3.2-5.2) g/dL Globulin 3.5 (2-4) g/dL Albumin/Globulin Ratio 1.0 (1-3) Procalcitonin (<0.6) ng/mL 03/30/16 Range/Units 14:35 WBC (3.5-10.8) 10^3/ul RBC (4.0-5.4) 10^6/ul Hgb (14.0-18.0) g/dl Hct (42-52) % MCV (80-94) fL MCH (27-31) pg MCHC (31-36) g/dl RDW (10.5-15) % Plt Count (150-450) 10^3/ul MPV (7.4-10.4) um3 Neut % (Auto) (38-83) % Lymph % (Auto) (25-47) % [place] % (Auto) (1-9) % Eos % (Auto) (0-6) % Baso % (Auto) (0-2) % Absolute Neuts (auto) (1.5-7.7) 10^3/ul Absolute Lymphs (auto) (1.0-4.8) 10^3/ul Absolute Monos (auto) (0-0.8) 10^3/ul Absolute Eos (auto) (0-0.6) 10^3/ul Absolute Basos (auto) (0-0.2) 10^3/ul Absolute Nucleated RBC 10^3/ul Nucleated RBC % INR (Anticoag Therapy) (0.89-1.11) Sodium (133-145) mmol/L Potassium (3.5-5.0) mmol/L Chloride (101-111) mmol/L Carbon Dioxide (22-32) mmol/L Anion Gap (2-11) mmol/L BUN (6-24) mg/dL Creatinine (0.67-1.17) mg/dL Est GFR ( Amer) (>60) Est GFR (Non-Af Amer) (>60) BUN/Creatinine Ratio (8-20) Glucose (70-100) mg/dL Calcium (8.6-10.3) mg/dL Total Bilirubin (0.2-1.0) mg/dL AST (13-39) U/L ALT (7-52) U/L Alkaline Phosphatase (34-104) U/L Troponin I (<0.04) ng/mL C-Reactive Protein (< 5.00) mg/L Total Protein (6.4-8.9) g/dL Albumin (3.2-5.2) g/dL Globulin (2-4) g/dL Albumin/Globulin Ratio (1-3) Procalcitonin 0.1 (<0.6) ng/mL Microbiology and Other Data: Microbiology 03/30/16 22:50 Gram Stain - Final Hip Left 03/30/16 19:30 Nasal Screen MRSA (PCR)([facility]) - Final Nasal Mrsa Positive Assess/Plan/Problems-Billing Assessment: Mr. Bearden is a 65 yo male patient with a PMH of cerebral palsy, intellectual delay, left ischial/buttock decubitus ulcer, neurogenic bladder with chronic suprapubic catheter, [place] syndrome s/p transverse colostomy, HTN, OCD, GERD, Díaz's esophagus, spina bifida, and seizure disorder who initially presented to the ED on 03/30 with concern for decreased ostomy output that is now resolving and concern for joint effusion and progressive destructive changes of the left hip region that may indicate a septic arthritis. - Patient Problems (1) Septic arthritis Comment: CT abd/pelvis shows progression of destructive changes in the left hip region, involving the acetabulum and femur with associated joint effusion Patient currently afebrile, no leukocytosis, CRP increasing. Continue ceftriaxone, per ID Ortho recommending transfer to tertiary care center for potential reconstructive need and availability for plastic surgery. (2) Chronic osteomyelitis of left femur Code(s): M86.652 - OTHER CHRONIC OSTEOMYELITIS, LEFT THIGH Comment: Continue ceftriaxone, Per ID No antibiotic treatment for the past 2 months Prior to that, patient was on 10 week treatment targeted at MRSA Appreciate ID consult (3) Decubitus ulcer, stage 4 with infection Code(s): L89.94 - PRESSURE ULCER OF UNSPECIFIED SITE, STAGE 4 Comment: Of left femur, with chronic osteomyelitis. Treated at wound clinic in the outpatient setting Plan for patient to go to [facility] as an outpatient for skin flap procedure (4) GERD (gastroesophageal reflux disease) Code(s): K21.9 - GASTRO-ESOPHAGEAL REFLUX DISEASE WITHOUT ESOPHAGITIS Comment : Continue famotidine. (5) HTN (hypertension) Code(s): I10 - ESSENTIAL (PRIMARY) HYPERTENSION Comment: BP is under good control. Amlodipine held with concern for sepsis. Continue to monitor. (6) Neurogenic bladder Code(s): N31.9 - NEUROMUSCULAR DYSFUNCTION OF BLADDER, UNSPECIFIED Comment: Patient has a suprapubic catheter (exchanged on 11/30/15). 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 (8) Seizure disorder Code(s): G40.909 - EPILEPSY, UNSP, NOT INTRACTABLE, WITHOUT STATUS EPILEPTICUS Comment: Seizure precautions Not on maintenance therapy (9) Cerebral palsy Code(s): G80.9 - CEREBRAL PALSY, UNSPECIFIED Comment: Profound mental retardation and physical impairment. (10) Spina bifida of lumbar spine Code(s): Q05.7 - LUMBAR SPINA BIFIDA WITHOUT HYDROCEPHALUS Comment: Has neurogenic bladder. (11) DVT prophylaxis Code(s): CEX2629 - Comment: SQ Lovenox Status and Disposition: Inpatient admission. Anticipate >2 days LOS.
[2016-04-01] MEDS: CADEXOMER IODINE 0.9% TOPICAL SCH (16:37)
--- NOTE | 2016-04-01 18:32 | TRS ---
MEDICINE TRANSFER SUMMARY: DATE OF ADMISSION: 03/30/16 DATE OF TRANSFER: 04/01/16 PROVIDER: Michelle Santamaria NP ATTENDING PHYSICIAN: Dr. Garry Pedro * (as dictated by Michelle Santamaria NP) CONSULTING PHYSICIANS: 1. Dr. Lew Dawson, Orthopedics. 2. Dr. Alexey Juares, Infectious Disease. PRIMARY CARE PHYSICIAN: Dr. Marilyn Blackwell. PRIMARY TRANSFER DIAGNOSES: 1. Concern for septic arthritis. 2. Chronic decubitus ulcers to the left ischium and left trochanter, both stage IV. 3. Chronic osteomyelitis of the left femur. SECONDARY DISCHARGE DIAGNOSES: 1. Cerebral palsy. 2. Spina bifida. 3. Neurogenic bladder with chronic suprapubic catheter. 4. Jarrell syndrome. 5. Gastroesophageal reflux disease. 6. Hypertension. 7. Seizure disorder. 8. Obsessive-compulsive disorder. 9. Díaz's esophagus. MEDICATIONS: At discharge: 1. Ceftriaxone 1 g q.24 hours. 2. Sodium chloride 75 mL an hour. 3. Urecholine 10 mg at 6:30, 11 o'clock, 1600, and 2000. 4. Iodosorb 0.9% packing for dressing change to be done every other day. 5. Chlorhexidine gluconate 5 mL swish and spit b.i.d. 6. Flexeril 5 mg b.i.d. 7. Duloxetine 30 mg daily. 8. Lovenox 40 mg subcu q.24 hours. 9. Famotidine 20 mg daily. 10. Ketoconazole 2% cream 1 application topical b.i.d. 11. Probiotic 1 capsule daily. 12. Reglan 5 mg t.i.d. with meals. 13. Prilosec 20 mg daily at 7:30. 14. Ditropan 10 mg b.i.d. 15. Oxycodone 5 mg q.6 hours p.r.n. 16. MiraLAX 17 g daily. 17. Potassium chloride 40 mEq at 10 o'clock and 1600. 18. Simethicone 80 mg a.c. and h.s. Other medications on the patient's home list: 1. Alberto nutritional supplement 1 packet b.i.d. 2. Hydrocortisone 2.5% cream 1 application topical b.i.d. p.r.n. 3. Robitussin 10 mL q.4 hours p.r.n. 4. Bacitracin 5000 g topical b.i.d. p.r.n. 5. Ascorbic acid 500 mg daily. 6. Acyclovir 5% 1 application topical four times a day p.r.n. 7. Maalox Plus 30 mL q.4 hours p.r.n. 8. Vitamin E 400 units p.o. daily. 9. Meloxicam 7.5 mg p.o. bedtime p.r.n. 10. Calcium/vitamin D supplement 1 tab b.i.d. 11. Potassium citrate 20 mEq b.i.d. 12. Cranberry 400 mg b.i.d. 13. Amlodipine 5 mg daily. 14. Multivitamin 1 tab daily. DIAGNOSTIC STUDIES DURING THIS ADMISSION: CT of the abdomen and pelvis, impression: 1. There is a left decubitus ulcer extending to the left ischial bone. In addition, there is a joint effusion in the left hip and severe erosive and destructive changes in the left femur and acetabulum which have progressed from the prior exam. Most consistent with septic arthritis and osteomyelitis. 2. Rectal wall thickening, unchanged. 3. Small kidneys with cortical thinning and scarring and bilateral renal calculi, unchanged. 4. Right inguinal hernia containing a portion of the urinary bladder, unchanged. Chest x-ray from 03/29/16 is a limited study. No evidence for acute findings. Findings report lungs are underinflated. Left lung base is partially obscured due to the patient's arm projected over this region. No pleural effusion is seen. Postsurgical changes are noted in the lumbar spine. HOSPITAL COURSE OF STAY: Please refer to the H and P provided by both Dr. Muro and the addendum provided by Bladimir Valladares PA-C. In summary, Mr. Bearden is a 65-year-old male patient from the [facility], who is well known to our service and who was brought in on 03/30/16 for evaluation primarily of no colostomy output for 28 hours and cloudy urine. At that time, the patient reportedly had good appetite and the staff denied any reported fever , chills, sweats, or pain. The patient was found to have a BUN of 50 and an increased hemoglobin indicating dehydration. The patient was hydrated in the ED and had a spontaneous large BM in his ostomy per nursing. The patient was discharged from the ED as the initial CT abdominal pelvic read by Radiology was constipation without acute finding. It was noted in the H and P that there was a reference to seeing gas in the left hip joint; however, the patient did not present with infection or sepsis and he was discharged back to [facility]. However, the patient was called back to the ED a few hours later due to the radiologist reevaluating the CT scan and expressing concern for possible septic arthritis and progression of degenerative changes in the patient's left acetabulum and femur; patient has previously known chronic osteomyelitis. He was admitted to the medicine floor with concern for potential septic arthritis and chronic osteomyelitis and started on Zosyn. Upon his initial presentation, he again is afebrile, but did exhibit some mild tachycardia. His CRP was mildly elevated at 22. The patient did have an MRI back on 10/22/15 which shows left- sided decubitus ulcer with adjacent bone marrow edema in the left inferior pubic ramus suspicious for osteomyelitis. Given that the patient has a long-standing history of chronic wounds that have tunneled down to the bone ( per previous wound care notes) as well as new concern of possible septic arthritis, we did have Orthopedic Surgery see the patient. Dr. Dawson of the [facility] evaluated the patient and expressed concern for the patient's condition. He agreed with antibiotics course, but he also felt that the patient would benefit from debridement of the left hip which may potentially end up involving a proximal femoral resection at the acetabular surface and potentially a significant portion of the hemipelvis. He did review the case with his colleagues, and they all felt that the patient would require a higher level of care due to the extensive nature of the patient's bone involvement as well as the need for potential reconstruction. There is also concern that the patient has this chronic wound that has tunneled down to the bone that is open and that any potential surgery would need to most likely address the pressure ulcer as this would be another point of potential infection for any hip surgeries. The patient is scheduled to see a specialist in [place] in late April for discussion of a reconstructive flap for the decubitus ulcer in order to help heal the wound; however, this has not yet been arranged fully and it was felt that given the patient's acute issues, it would not be appropriate to hold off on intervening on his osteomyelitis until Plastic Surgery is able to see him. During his stay, the patient has remained afebrile. Of note, his CRP has slowly trended up from 22 initially to 82.98 today. His white blood cell count remains stable and he does not demonstrate any leukocytosis. We did have Infectious Disease consult and our ID doctor is very familiar with the patient having previously treated him for his chronic osteomyelitis. He recommended that we stop Zosyn and start ceftriaxone 1 g a day which we have continued. He also recommended that the most important thing is to prevent progression of his infection to the area of his spinal fusion which is also under concern given his scoliosis and hardware which is in close proximity to the patient's pelvis ( which is potentially affected). It is felt that a cure will likely require a washout to the hip joint area and potential debridement. I did consult [facility] who is currently on diversion, as well as [facility] , [facility], and [facility]; however, none of these facilities were able to take the patient due to not having the proper resources. I did consult with [facility] and spoke with Dr. Kan of [facility] who agreed to accept the patient. He states that they do have the necessary services with Orthopedics and Plastic Surgery as needed in order to treat the patient. At the time of transfer, the patient is alert and cooperative. He is noted in baseline mental state. Lungs are clear to auscultation. Cardiac sounds are S1, S2. Regular rate and rhythm. He has a right-sided colostomy that is draining semi-formed brown stool. He has generalized contractures from a history of cerebral palsy and spina bifida. There are dressings to his left hip and buttock. CONCERNS AT TRANSFER: The patient will be transferred to [facility] and be received by the hospitalist service there for Ortho and Plastic Surgery consult as previously discussed. DIET: He is on a low-sodium, mechanical ground, pureed diet. ACTIVITY: Out of bed to wheelchair as tolerated with assistance. CONDITION: Stable. MOST RECENT VITAL SIGNS: Temperature 98.4, heart rate 83, respiratory rate 16, blood pressure 115/65, O2 saturation 100% on room air. DISPOSITION: To [facility]. TIME SPENT: Time spent on this transfer was approximately 65 minutes. [facility] staff was notified via Leah Bolton and FRANCISCO Collins. Again, this is only a brief summary of the patient's hospital course and stay. For full details, please refer to the full medical record. If you have any further questions, please feel free to contact me at [phone]. MICHELLE SANTAMARIA NP CC: Dr. Blackwell; Dr. Lew Dawson; Dr. Alexey Juares; Dr. Isauro Lopez ; Dolores GrahamRUST * [id number]/[facility] #: [id number] [facility]
[2016-04-01] MEDS: Enoxaparin(*) 40 MG/0.4 ML SYR SUBCUT SCH (19:01)
[2016-04-02] MEDS: NS 0.9% 1000 ML* 1,000 ML IV SCH ×2 (04:52→15:48)
[2016-04-02] MEDS: BETHANECHOL 10 MG PO SCH ×4 (05:52→21:03)
[2016-04-02] MEDS: Chlorhexidine MOUTHWASH 0.12%* 15 ML UDC SWISH SPIT SCH ×2 (08:09→21:00)
[2016-04-02] MEDS: Polyethylene Glycol 3350* 17 GM PACKET PO SCH (08:09)
[2016-04-02] MEDS: CMCS: Ketoconazole 2 % CREAM (NF) 30 GM TUBE TOPICAL SCH ×2 (08:11→21:00)
[2016-04-02] MEDS: Metoclopramide TAB* 10 MG PO SCH ×3 (08:11→15:36)
[2016-04-02] MEDS: Lactobacillus Acidophilu (GG)* 1 CAP CAP PO SCH (08:13)
[2016-04-02] MEDS: Cyclobenzaprine TAB* 10 MG PO SCH ×2 (08:13→20:59)
[2016-04-02] MEDS: Omeprazole CAP* 20 MG PO SCH (08:13)
[2016-04-02] MEDS: DULoxetine DR CAP* 30 MG CAP.DR PO SCH (08:13)
[2016-04-02] MEDS: Simethicone TAB* 80 MG TAB.CHEW PO SCH ×4 (08:13→21:16)
[2016-04-02] MEDS: Oxybutynin TAB* 5 MG PO SCH ×2 (08:13→21:00)
[2016-04-02] MEDS: Famotidine TAB* 20 MG PO SCH (08:14)
[2016-04-02] MEDS: Potassium Citrate (NF) 10 MEQ TAB PO SCH (08:24)
--- NOTE | 2016-04-02 10:43 | PN ---
Progress Note - Progress Note SOAP: Subjective: DOS: 04/02/16 CC: septic hip HPI: 65 year old man with IDD and left leg decubitus ulcer, CT showed effusion in area of pseudoarthrosis. He cannot provide hx or ROS given his mental status. No diarrhea per RN. Objective: [] Vital Signs Temp 36.2 C 04/01/16 23:54 Pulse 80 04/01/16 23:54 Resp 12 04/02/16 08:13 BP 134/78 04/01/16 23:54 Pulse Ox 100 04/02/16 01:00 Intake & Output 04/01/16 04/02/16 04/02/16 18:59 06:59 18:59 Intake Total 530 1830 460 Output Total 1050 2250 1000 Balance -520 -420 -540 Intake: IV Fluids 50 1830 NS (0.9%) 1830 ceftriaxone 50 Oral 480 0 460 Output: Swanson 1000 2050 1000 Colostomy 50 200 Other: Date of Last Bowel 04/02/2016 Movement Gen:NAD Neuro: Awake, regards, does not answer questions HEENT:PERRL, MMM Neck:supple Heart:RRR no murmur Lungs:CTA BL Abd:+BS NTND soft, ostomy with liquid stool MSK: negative log roll bilaterally; BL LE contractures Skin: no rash LN: no visible or palpable LN Laboratory Results - last 24 hr 04/02/16 05:24 C-Reactive Protein 40.96 H Microbiology 03/30/16 22:50 Gram Stain - Final Hip Left Wound Culture - Final Escherichia Coli Corynebacterium Striatum 03/30/16 14:10 Aerobic Blood Culture - Preliminary Blood Venous No Growth Day 2 Anaerobic Blood Culture - Preliminary No Growth Day 2 Blood Culture - Final 03/30/16 14:35 Aerobic Blood Culture - Preliminary Blood Venous No Growth Day 2 Anaerobic Blood Culture - Preliminary No Growth Day 2 Blood Culture - Final 03/30/16 04:00 Skin and Soft Tissue MRSA/MSSA (PCR - Final Buttock Mrsa Negative S.aureus Negative Gram Stain - Final 03/30/16 19:30 Nasal Screen MRSA (PCR)(TROY) - Final Nasal Mrsa Positive Assessment: 1. left leg decubitus ulcer/sinus tract with underlying chronic osteomyelitis and septic effusion 2. Hx L/S spine fusion 3. developmental delay Plan: 1. continue ceftriaxone, grew E.coli and suspect other bowel rey +/- Staph or Strep. Improving on these antibiotics so MRSA less likely. Transfer for ortho and plastics evaluation pending. Discussed with Dr Blackmon
[2016-04-02] MEDS: Potassium Chlor TAB* 20 MEQ TAB.ER PO SCH ×2 (12:16→15:36)
[2016-04-02] MEDS: cefTRIAXone VIAL(*) 1,000 MG in NS 0.9% 50 ML* 50 ML IVPB SCH (12:16)
[2016-04-02] MEDS: CADEXOMER IODINE 0.9% TOPICAL SCH (15:18)
--- NOTE | 2016-04-02 15:42 | PN ---
Subjective Date of Service: 04/02/16 Interval History: Pt had a bed available to be transferred to [place] last night, but [facility] was unable to provide with transport at that time. Now we are awaiting for another bed offer at the facility Family History: Unchanged from Admission Social History: Unchanged from Admission Past Medical History: Unchanged from Admission Objective Active Medications: Acetaminophen (Tylenol Tab*) 325 mg PO Q4H PRN PRN Reason: pain/fever Bethanechol Chloride (Urecholine Tab*) 10 mg PO 0630,1100,1600,2000 [facility] Last Admin: 04/02/16 12:23 Dose: 10 mg Chlorhexidine Gluconate (Peridex Mouth Wash 0.12%*) 5 ml SWISH SPIT BID [facility] Last Admin: 04/02/16 08:09 Dose: 5 ml Cyclobenzaprine HCl (Flexeril Tab*) 5 mg PO BID [facility] Last Admin: 04/02/16 08:13 Dose: 5 mg Duloxetine HCl (Cymbalta Cap*) 30 mg PO DAILY [facility] Last Admin: 04/02/16 08:13 Dose: 30 mg Enoxaparin Sodium (Lovenox(*)) 40 mg SUBCUT Q24H [facility] Last Admin: 04/01/16 19:01 Dose: 40 mg Famotidine (Pepcid Tab*) 20 mg PO DAILY [facility] Last Admin: 04/02/16 08:14 Dose: 20 mg Sodium Chloride (Ns 0.9% 1000 Ml*) 1,000 mls @ 75 mls/hr IV PER RATE [facility] Last Admin: 04/02/16 04:52 Dose: 75 mls/hr Ceftriaxone Sodium 1,000 mg/ (Sodium Chloride) 50 mls @ 200 mls/hr IVPB Q24H [facility] Last Admin: 04/02/16 12:16 Dose: 200 mls/hr Ketoconazole (Nizoral 2% Cream (Nf)) 1 applic TOPICAL BID [facility] PRN Reason: Protocol Last Admin: 04/02/16 08:11 Dose: 1 applic Lactobacillus Rhamnosus (Culturelle*) 1 cap PO DAILY [facility] Last Admin: 04/02/16 08:13 Dose: 1 cap Metoclopramide HCl (Reglan Tab*) 5 mg PO TID AC [facility] Last Admin: 04/02/16 12:16 Dose: 5 mg Cadexomer Iodine [ (Iodosorb] 0.9 %) 0.9 % TOPICAL DAILY [facility] Last Admin: 04/02/16 15:18 Dose: Not Given Omeprazole (Prilosec Cap*) 20 mg PO DAILY@0730 [facility] Last Admin: 04/02/16 08:13 Dose: 20 mg Oxybutynin Chloride (Ditropan Tab*) 10 mg PO BID [facility] Last Admin: 04/02/16 08:13 Dose: 10 mg Oxycodone HCl (Roxycodone Tab*) 5 mg PO Q6H PRN PRN Reason: PAIN Polyethylene Glycol/Electrolytes (Miralax*) 17 gm PO DAILY [facility] Last Admin: 04/02/16 08:09 Dose: 17 gm Potassium Chloride (Klor Con Er Tab*) 40 meq PO 1000,1600 [facility] Last Admin: 04/02/16 12:16 Dose: 40 meq Simethicone (Mylicon*) 80 mg PO ACHS [facility] Last Admin: 04/02/16 12:16 Dose: 80 mg Vital Signs 04/01/16 04/01/16 04/01/16 15:42 20:00 20:43 Temperature Pulse Rate 83 Respiratory 16 18 16 Rate Blood Pressure 115/65 (mmHg) O2 Sat by Pulse 100 Oximetry 04/01/16 04/01/16 04/02/16 22:43 23:54 01:00 Temperature 97.2 F Pulse Rate 80 Respiratory 16 18 Rate Blood Pressure 134/78 (mmHg) O2 Sat by Pulse 100 100 Oximetry 04/02/16 04/02/16 04/02/16 07:30 08:00 08:13 Temperature 98.0 F Pulse Rate 83 Respiratory 16 16 12 Rate Blood Pressure 141/66 (mmHg) O2 Sat by Pulse 100 100 Oximetry 04/02/16 10:13 Temperature Pulse Rate Respiratory 16 Rate Blood Pressure (mmHg) O2 Sat by Pulse Oximetry Oxygen Devices in Use Now: None Appearance: 65 yo M , nonverbal with the exaption of occasional single words, pleasant, alert, behaviour at baseline-gets anxious and moans when attempts to examine the abdomen are made Eyes: No Scleral Icterus, PERRLA Ears/Nose/Mouth/Throat: NL Teeth, Lips, Gums, Mucous Membranes Moist Neck: NL Appearance and Movements; NL JVP, Trachea Midline Respiratory: Symmetrical Chest Expansion and Respiratory Effort, Clear to Auscultation Cardiovascular: NL Sounds; No Murmurs; No JVD, RRR Abdominal: NL Sounds; No Tenderness; No Distention, - - colostomy bag with formed stool present, suprapubic cath in place Lymphatic: No Cervical Adenopathy Extremities: No Edema, No Clubbing, Cyanosis Skin: No Rash or Ulcers, No Nodules or Sclerosis, - - left hip decubitus- dressings not removed today Neurological: - - b/l LE's with chronic deformities and paralalysis, spastic UE' s Result Diagrams: 04/01/16 06:14 04/01/16 06:14 Additional Lab and Data: Lab Results 03/30/16 03/30/16 03/30/16 Range/Units 14:35 14:35 14:35 WBC 7.5 (3.5-10.8) 10^3/ul RBC 4.60 (4.0-5.4) 10^6/ul Hgb 9.8 L (14.0-18.0) g/dl Hct 33 L (42-52) % MCV 72 L (80-94) fL MCH 21 L (27-31) pg MCHC 30 L (31-36) g/dl RDW 23 H (10.5-15) % Plt Count 301 (150-450) 10^3/ul MPV 7 L (7.4-10.4) um3 Neut % (Auto) 77.2 (38-83) % Lymph % (Auto) 14.3 L (25-47) % Rapides % (Auto) 6.3 (1-9) % Eos % (Auto) 1.5 (0-6) % Baso % (Auto) 0.7 (0-2) % Absolute Neuts (auto) 5.8 (1.5-7.7) 10^3/ul Absolute Lymphs (auto) 1.1 (1.0-4.8) 10^3/ul Absolute Monos (auto) 0.5 (0-0.8) 10^3/ul Absolute Eos (auto) 0.1 (0-0.6) 10^3/ul Absolute Basos (auto) 0 (0-0.2) 10^3/ul Absolute Nucleated RBC 0 10^3/ul Nucleated RBC % 0 INR (Anticoag Therapy) 1.03 (0.89-1.11) Sodium 132 L (133-145) mmol/L Potassium 4.1 (3.5-5.0) mmol/L Chloride 102 (101-111) mmol/L Carbon Dioxide 22 (22-32) mmol/L Anion Gap 8 (2-11) mmol/L BUN 37 H (6-24) mg/dL Creatinine 0.62 L (0.67-1.17) mg/dL Est GFR ( Amer) 168.0 (>60) Est GFR (Non-Af Amer) 130.6 (>60) BUN/Creatinine Ratio 59.7 H (8-20) Glucose 119 H (70-100) mg/dL Calcium 9.2 (8.6-10.3) mg/dL Total Bilirubin 0.40 (0.2-1.0) mg/dL AST 18 (13-39) U/L ALT 22 (7-52) U/L Alkaline Phosphatase 109 H (34-104) U/L Troponin I 0.01 (<0.04) ng/mL C-Reactive Protein 22.32 H (< 5.00) mg/L Total Protein 7.1 (6.4-8.9) g/dL Albumin 3.6 (3.2-5.2) g/dL Globulin 3.5 (2-4) g/dL Albumin/Globulin Ratio 1.0 (1-3) Procalcitonin (<0.6) ng/mL 03/30/16 Range/Units 14:35 WBC (3.5-10.8) 10^3/ul RBC (4.0-5.4) 10^6/ul Hgb (14.0-18.0) g/dl Hct (42-52) % MCV (80-94) fL MCH (27-31) pg MCHC (31-36) g/dl RDW (10.5-15) % Plt Count (150-450) 10^3/ul MPV (7.4-10.4) um3 Neut % (Auto) (38-83) % Lymph % (Auto) (25-47) % Rapides % (Auto) (1-9) % Eos % (Auto) (0-6) % Baso % (Auto) (0-2) % Absolute Neuts (auto) (1.5-7.7) 10^3/ul Absolute Lymphs (auto) (1.0-4.8) 10^3/ul Absolute Monos (auto) (0-0.8) 10^3/ul Absolute Eos (auto) (0-0.6) 10^3/ul Absolute Basos (auto) (0-0.2) 10^3/ul Absolute Nucleated RBC 10^3/ul Nucleated RBC % INR (Anticoag Therapy) (0.89-1.11) Sodium (133-145) mmol/L Potassium (3.5-5.0) mmol/L Chloride (101-111) mmol/L Carbon Dioxide (22-32) mmol/L Anion Gap (2-11) mmol/L BUN (6-24) mg/dL Creatinine (0.67-1.17) mg/dL Est GFR ( Amer) (>60) Est GFR (Non-Af Amer) (>60) BUN/Creatinine Ratio (8-20) Glucose (70-100) mg/dL Calcium (8.6-10.3) mg/dL Total Bilirubin (0.2-1.0) mg/dL AST (13-39) U/L ALT (7-52) U/L Alkaline Phosphatase (34-104) U/L Troponin I (<0.04) ng/mL C-Reactive Protein (< 5.00) mg/L Total Protein (6.4-8.9) g/dL Albumin (3.2-5.2) g/dL Globulin (2-4) g/dL Albumin/Globulin Ratio (1-3) Procalcitonin 0.1 (<0.6) ng/mL Microbiology and Other Data: Microbiology 03/30/16 22:50 Gram Stain - Final Hip Left 03/30/16 19:30 Nasal Screen MRSA (PCR)(TROY) - Final Nasal Mrsa Positive Assess/Plan/Problems-Billing Assessment: Mr. Bearden is a 65 yo male patient with a PMH of cerebral palsy, intellectual delay, left ischial/buttock decubitus ulcer, neurogenic bladder with chronic suprapubic catheter, Jarrell syndrome s/p transverse colostomy, HTN, OCD, GERD, Díaz's esophagus, spina bifida, and seizure disorder who initially presented to the ED on 03/30 with concern for decreased ostomy output that is now resolving and concern for joint effusion and progressive destructive changes of the left hip region that may indicate a septic arthritis. Pt was accepted for transfer to [facility] for further management and is awaiting a bed. - Patient Problems (1) Septic arthritis Comment: CT abd/pelvis shows progression of destructive changes in the left hip region, involving the acetabulum and femur with associated joint effusion Patient currently afebrile, no leukocytosis, CRP increasing. Continue ceftriaxone, per ID Ortho recommended transfer to tertiary care center for potential reconstructive need and availability for plastic surgery.awaiting a bed in [facility] (2) Chronic osteomyelitis of left femur Comment: Continue ceftriaxone, Per ID No antibiotic treatment for the past 2 months Prior to that, patient was on 10 week treatment targeted at MRSA Appreciate ID consult (3) Decubitus ulcer, stage 4 with infection Comment: Of left femur, with chronic osteomyelitis. Treated at wound clinic in the outpatient setting Plan for patient to go to [facility] for further management (4) GERD (gastroesophageal reflux disease) Comment: Continue famotidine. (5) HTN (hypertension) Comment: BP is under good control. Amlodipine held with concern for sepsis. Continue to monitor. 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 (8) Seizure disorder Comment: Not on maintenance therapy (9) Cerebral palsy Comment: Profound mental retardation and physical impairment. (10) DVT prophylaxis Comment: SQ Lovenox Status and Disposition: Inpatient admission.
[2016-04-02] MEDS: Enoxaparin(*) 40 MG/0.4 ML SYR SUBCUT SCH (17:36)
[2016-04-03] MEDS: NS 0.9% 1000 ML* 1,000 ML IV SCH ×2 (04:36→17:48)
[2016-04-03] MEDS: BETHANECHOL 10 MG PO SCH ×4 (05:56→19:47)
[2016-04-03] MEDS: Metoclopramide TAB* 10 MG PO SCH ×3 (05:57→17:20)
[2016-04-03] MEDS: Simethicone TAB* 80 MG TAB.CHEW PO SCH ×4 (06:49→22:52)
[2016-04-03] MEDS: Omeprazole CAP* 20 MG PO SCH (06:49)
[2016-04-03] MEDS: CADEXOMER IODINE 0.9% TOPICAL SCH ×2 (07:23→17:21)
[2016-04-03] MEDS: Chlorhexidine MOUTHWASH 0.12%* 15 ML UDC SWISH SPIT SCH ×2 (07:56→22:58)
[2016-04-03] MEDS: Polyethylene Glycol 3350* 17 GM PACKET PO SCH (07:56)
[2016-04-03] MEDS: Cyclobenzaprine TAB* 10 MG PO SCH ×2 (07:58→22:41)
[2016-04-03] MEDS: Famotidine TAB* 20 MG PO SCH (08:00)
[2016-04-03] MEDS: DULoxetine DR CAP* 30 MG CAP.DR PO SCH (08:01)
[2016-04-03] MEDS: Lactobacillus Acidophilu (GG)* 1 CAP CAP PO SCH (08:02)
[2016-04-03] MEDS: Oxybutynin TAB* 5 MG PO SCH ×2 (08:02→22:54)
[2016-04-03] MEDS: CMCS: Ketoconazole 2 % CREAM (NF) 30 GM TUBE TOPICAL SCH (08:09)
[2016-04-03] MEDS: Potassium Chlor TAB* 20 MEQ TAB.ER PO SCH ×2 (10:13→17:21)
--- NOTE | 2016-04-03 10:53 | PN ---
Progress Note - Progress Note SOAP: Subjective: DOS: 04/03/16 CC: septic hip HPI: 65 year old man with IDD and left leg decubitus ulcer, CT showed effusion in area of pseudoarthrosis. He cannot provide hx or ROS given his mental status. No diarrhea or fever per RN. Objective: [] Gen:NAD Neuro: Awake, regards, does not answer questions HEENT:PERRL, MMM Neck:supple Heart:RRR no murmur Lungs:CTA BL Abd:+BS NTND soft, ostomy with liquid stool, SP tube MSK: negative log roll bilaterally; BL LE contractures Skin: no rash LN: no visible or palpable LN Microbiology 03/30/16 22:50 Gram Stain - Final Hip Left Wound Culture - Final Escherichia Coli Corynebacterium Striatum 03/30/16 14:10 Aerobic Blood Culture - Preliminary Blood Venous No Growth Day 2 Anaerobic Blood Culture - Preliminary No Growth Day 2 Blood Culture - Final 03/30/16 14:35 Aerobic Blood Culture - Preliminary Blood Venous No Growth Day 2 Anaerobic Blood Culture - Preliminary No Growth Day 2 Blood Culture - Final 03/30/16 04:00 Skin and Soft Tissue MRSA/MSSA (PCR - Final Buttock Mrsa Negative S.aureus Negative Gram Stain - Final 03/30/16 19:30 Nasal Screen MRSA (PCR)(TROY) - Final Nasal Mrsa Positive Assessment: 1. left leg decubitus ulcer/sinus tract with underlying chronic osteomyelitis and septic effusion 2. Hx L/S spine fusion 3. developmental delay Plan: 1. continue ceftriaxone day , grew E.coli and suspect other bowel rey +/- Staph or Strep. Improving on these antibiotics so MRSA less likely. Weekly CBC, CMP, CRP. Discussed with Dr Blackmon
[2016-04-03] MEDS: cefTRIAXone VIAL(*) 1,000 MG in NS 0.9% 50 ML* 50 ML IVPB SCH (12:13)
--- NOTE | 2016-04-03 16:33 | PN ---
Subjective Date of Service: 04/03/16 Interval History: Pt is at his functional baseline. Occasionally able to say a word, otherwise nonverbal. Family History: Unchanged from Admission Social History: Unchanged from Admission Past Medical History: Unchanged from Admission Objective Active Medications: Acetaminophen (Tylenol Tab*) 325 mg PO Q4H PRN PRN Reason: pain/fever Bethanechol Chloride (Urecholine Tab*) 10 mg PO 0630,1100,1600,2000 [facility] Last Admin: 04/03/16 10:13 Dose: 10 mg Chlorhexidine Gluconate (Peridex Mouth Wash 0.12%*) 5 ml SWISH SPIT BID [facility] Last Admin: 04/03/16 07:56 Dose: 5 ml Cyclobenzaprine HCl (Flexeril Tab*) 5 mg PO BID [facility] Last Admin: 04/03/16 07:58 Dose: 5 mg Duloxetine HCl (Cymbalta Cap*) 30 mg PO DAILY [facility] Last Admin: 04/03/16 08:01 Dose: 30 mg Enoxaparin Sodium (Lovenox(*)) 40 mg SUBCUT Q24H [facility] Last Admin: 04/02/16 17:36 Dose: 40 mg Famotidine (Pepcid Tab*) 20 mg PO DAILY [facility] Last Admin: 04/03/16 08:00 Dose: 20 mg Sodium Chloride (Ns 0.9% 1000 Ml*) 1,000 mls @ 75 mls/hr IV PER RATE [facility] Last Admin: 04/03/16 04:36 Dose: 75 mls/hr Ceftriaxone Sodium 1,000 mg/ (Sodium Chloride) 50 mls @ 200 mls/hr IVPB Q24H [facility] Last Admin: 04/03/16 12:13 Dose: 200 mls/hr Ketoconazole (Nizoral 2% Cream (Nf)) 1 applic TOPICAL BID [facility] PRN Reason: Protocol Last Admin: 04/03/16 08:09 Dose: 1 applic Lactobacillus Rhamnosus (Culturelle*) 1 cap PO DAILY [facility] Last Admin: 04/03/16 08:02 Dose: 1 cap Metoclopramide HCl (Reglan Tab*) 5 mg PO TID AC [facility] Last Admin: 04/03/16 12:16 Dose: 5 mg Cadexomer Iodine [ (Iodosorb] 0.9 %) 0.9 % TOPICAL DAILY [facility] Last Admin: 04/03/16 07:23 Dose: Not Given Omeprazole (Prilosec Cap*) 20 mg PO DAILY@0730 [facility] Last Admin: 04/03/16 06:49 Dose: 20 mg Oxybutynin Chloride (Ditropan Tab*) 10 mg PO BID [facility] Last Admin: 04/03/16 08:02 Dose: 10 mg Oxycodone HCl (Roxycodone Tab*) 5 mg PO Q6H PRN PRN Reason: PAIN Polyethylene Glycol/Electrolytes (Miralax*) 17 gm PO DAILY [facility] Last Admin: 04/03/16 07:56 Dose: 17 gm Potassium Chloride (Klor Con Er Tab*) 40 meq PO 1000,1600 [facility] Last Admin: 04/03/16 10:13 Dose: 40 meq Simethicone (Mylicon*) 80 mg PO ACHS [facility] Last Admin: 04/03/16 12:16 Dose: 80 mg Vital Signs 04/02/16 04/02/16 04/02/16 16:43 20:00 20:59 Temperature 98.2 F Pulse Rate 91 Respiratory 24 16 16 Rate Blood Pressure 132/78 (mmHg) O2 Sat by Pulse 100 Oximetry 04/02/16 04/02/16 04/03/16 22:59 23:59 07:21 Temperature 96.8 F 98.5 F Pulse Rate 79 81 Respiratory 16 18 16 Rate Blood Pressure 148/82 127/74 (mmHg) O2 Sat by Pulse 100 99 Oximetry 04/03/16 04/03/16 04/03/16 07:58 08:00 09:58 Temperature Pulse Rate Respiratory 16 16 16 Rate Blood Pressure (mmHg) O2 Sat by Pulse 99 Oximetry Oxygen Devices in Use Now: None Appearance: 65 yo M, mostly nonverbal, alert Eyes: No Scleral Icterus, PERRLA Ears/Nose/Mouth/Throat: NL Teeth, Lips, Gums, Mucous Membranes Moist Neck: NL Appearance and Movements; NL JVP, Trachea Midline Respiratory: Symmetrical Chest Expansion and Respiratory Effort, Clear to Auscultation Cardiovascular: NL Sounds; No Murmurs; No JVD, RRR Abdominal: - - suprapubic cath in place. colostoly in place with bag containing semi form brown stool Lymphatic: No Cervical Adenopathy Extremities: No Edema Skin: No Nodules or Sclerosis, - - left hip and ischial tuberosity ulcers, unstageable, deep to the bone, each at 4-5 cm in diam, not draining Neurological: - - deformations and paralysis in b/l LE's, spastic in b/l UE's Result Diagrams: 04/01/16 06:14 04/01/16 06:14 Additional Lab and Data: Lab Results 03/30/16 03/30/16 03/30/16 Range/Units 14:35 14:35 14:35 WBC 7.5 (3.5-10.8) 10^3/ul RBC 4.60 (4.0-5.4) 10^6/ul Hgb 9.8 L (14.0-18.0) g/dl Hct 33 L (42-52) % MCV 72 L (80-94) fL MCH 21 L (27-31) pg MCHC 30 L (31-36) g/dl RDW 23 H (10.5-15) % Plt Count 301 (150-450) 10^3/ul MPV 7 L (7.4-10.4) um3 Neut % (Auto) 77.2 (38-83) % Lymph % (Auto) 14.3 L (25-47) % Stanley % (Auto) 6.3 (1-9) % Eos % (Auto) 1.5 (0-6) % Baso % (Auto) 0.7 (0-2) % Absolute Neuts (auto) 5.8 (1.5-7.7) 10^3/ul Absolute Lymphs (auto) 1.1 (1.0-4.8) 10^3/ul Absolute Monos (auto) 0.5 (0-0.8) 10^3/ul Absolute Eos (auto) 0.1 (0-0.6) 10^3/ul Absolute Basos (auto) 0 (0-0.2) 10^3/ul Absolute Nucleated RBC 0 10^3/ul Nucleated RBC % 0 INR (Anticoag Therapy) 1.03 (0.89-1.11) Sodium 132 L (133-145) mmol/L Potassium 4.1 (3.5-5.0) mmol/L Chloride 102 (101-111) mmol/L Carbon Dioxide 22 (22-32) mmol/L Anion Gap 8 (2-11) mmol/L BUN 37 H (6-24) mg/dL Creatinine 0.62 L (0.67-1.17) mg/dL Est GFR ( Amer) 168.0 (>60) Est GFR (Non-Af Amer) 130.6 (>60) BUN/Creatinine Ratio 59.7 H (8-20) Glucose 119 H (70-100) mg/dL Calcium 9.2 (8.6-10.3) mg/dL Total Bilirubin 0.40 (0.2-1.0) mg/dL AST 18 (13-39) U/L ALT 22 (7-52) U/L Alkaline Phosphatase 109 H (34-104) U/L Troponin I 0.01 (<0.04) ng/mL C-Reactive Protein 22.32 H (< 5.00) mg/L Total Protein 7.1 (6.4-8.9) g/dL Albumin 3.6 (3.2-5.2) g/dL Globulin 3.5 (2-4) g/dL Albumin/Globulin Ratio 1.0 (1-3) Procalcitonin (<0.6) ng/mL 03/30/16 Range/Units 14:35 WBC (3.5-10.8) 10^3/ul RBC (4.0-5.4) 10^6/ul Hgb (14.0-18.0) g/dl Hct (42-52) % MCV (80-94) fL MCH (27-31) pg MCHC (31-36) g/dl RDW (10.5-15) % Plt Count (150-450) 10^3/ul MPV (7.4-10.4) um3 Neut % (Auto) (38-83) % Lymph % (Auto) (25-47) % Stanley % (Auto) (1-9) % Eos % (Auto) (0-6) % Baso % (Auto) (0-2) % Absolute Neuts (auto) (1.5-7.7) 10^3/ul Absolute Lymphs (auto) (1.0-4.8) 10^3/ul Absolute Monos (auto) (0-0.8) 10^3/ul Absolute Eos (auto) (0-0.6) 10^3/ul Absolute Basos (auto) (0-0.2) 10^3/ul Absolute Nucleated RBC 10^3/ul Nucleated RBC % INR (Anticoag Therapy) (0.89-1.11) Sodium (133-145) mmol/L Potassium (3.5-5.0) mmol/L Chloride (101-111) mmol/L Carbon Dioxide (22-32) mmol/L Anion Gap (2-11) mmol/L BUN (6-24) mg/dL Creatinine (0.67-1.17) mg/dL Est GFR ( Amer) (>60) Est GFR (Non-Af Amer) (>60) BUN/Creatinine Ratio (8-20) Glucose (70-100) mg/dL Calcium (8.6-10.3) mg/dL Total Bilirubin (0.2-1.0) mg/dL AST (13-39) U/L ALT (7-52) U/L Alkaline Phosphatase (34-104) U/L Troponin I (<0.04) ng/mL C-Reactive Protein (< 5.00) mg/L Total Protein (6.4-8.9) g/dL Albumin (3.2-5.2) g/dL Globulin (2-4) g/dL Albumin/Globulin Ratio (1-3) Procalcitonin 0.1 (<0.6) ng/mL Microbiology and Other Data: Microbiology 03/30/16 22:50 Gram Stain - Final Hip Left 03/30/16 19:30 Nasal Screen MRSA (PCR)([facility]OY) - Final Nasal Mrsa Positive Assess/Plan/Problems-Billing Assessment: Mr. Bearden is a 65 yo male patient with a PMH of cerebral palsy, intellectual delay, left ischial/buttock decubitus ulcer, neurogenic bladder with chronic suprapubic catheter, [place] syndrome s/p transverse colostomy, HTN, OCD, GERD, Díaz's esophagus, spina bifida, and seizure disorder who initially presented to the ED on 03/30 with concern for decreased ostomy output that is now resolving and concern for joint effusion and progressive destructive changes of the left hip region that may indicate a septic arthritis. Pt was accepted for transfer to [facility] for further management and is awaiting a bed. - Patient Problems (1) Septic arthritis Comment: CT abd/pelvis shows progression of destructive changes in the left hip region, involving the acetabulum and femur with associated joint effusion Patient currently afebrile, no leukocytosis, CRP decreasing. Continue ceftriaxone, per ID Ortho recommended transfer to tertiary care center for potential reconstructive need and availability for plastic surgery.Awaiting a bed in [facility] (2) Chronic osteomyelitis of left femur Comment: Continue ceftriaxone, Per ID No antibiotic treatment for the past 2 months Prior to that, patient was on 10 week treatment targeted at MRSA Appreciate ID consult (3) Decubitus ulcer, stage 4 with infection Comment: Of left femur, with chronic osteomyelitis. Treated at wound clinic in the outpatient setting Plan for patient to go to [facility] for further management (4) GERD (gastroesophageal reflux disease) Comment: Continue famotidine. (5) HTN (hypertension) Comment: BP is under good control. Amlodipine held with concern for sepsis. Continue to monitor. 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 (8) Seizure disorder Comment: Not on maintenance therapy (9) Cerebral palsy Comment: Profound mental retardation and physical impairment. (10) DVT prophylaxis Comment: SQ Lovenox Status and Disposition: Inpatient admission.Awaiting a bed at [facility]
[2016-04-03] MEDS: Enoxaparin(*) 40 MG/0.4 ML SYR SUBCUT SCH (17:21)
[2016-04-04] MEDS: CMCS: Ketoconazole 2 % CREAM (NF) 30 GM TUBE TOPICAL SCH ×2 (03:53→09:04)
[2016-04-04] MEDS: BETHANECHOL 10 MG PO SCH ×4 (06:13→20:29)
[2016-04-04] MEDS: NS 0.9% 1000 ML* 1,000 ML IV SCH (06:53)
--- NOTE | 2016-04-04 08:02 | PN ---
Progress Note - Progress Note Note: Patient blood culture grew Staph capitis. Patient was admitted and transferred hospitals. Patient was on ceftriaxone in hospital.
[2016-04-04] MEDS: Polyethylene Glycol 3350* 17 GM PACKET PO SCH (09:01)
[2016-04-04] MEDS: Cyclobenzaprine TAB* 10 MG PO SCH ×2 (09:02→22:04)
[2016-04-04] MEDS: Metoclopramide TAB* 10 MG PO SCH ×3 (09:02→18:19)
[2016-04-04] MEDS: Famotidine TAB* 20 MG PO SCH (09:03)
[2016-04-04] MEDS: DULoxetine DR CAP* 30 MG CAP.DR PO SCH (09:03)
[2016-04-04] MEDS: Simethicone TAB* 80 MG TAB.CHEW PO SCH ×4 (09:03→22:04)
[2016-04-04] MEDS: Chlorhexidine MOUTHWASH 0.12%* 15 ML UDC SWISH SPIT SCH ×2 (09:03→22:04)
[2016-04-04] MEDS: Omeprazole CAP* 20 MG PO SCH (09:03)
[2016-04-04] MEDS: Lactobacillus Acidophilu (GG)* 1 CAP CAP PO SCH (09:03)
[2016-04-04] MEDS: Oxybutynin TAB* 5 MG PO SCH ×2 (09:03→22:04)
[2016-04-04] MEDS: Potassium Chlor TAB* 20 MEQ TAB.ER PO SCH ×2 (09:03→18:19)
[2016-04-04] MEDS: CADEXOMER IODINE 0.9% TOPICAL SCH (09:04)
[2016-04-04] MEDS: cefTRIAXone VIAL(*) 1,000 MG in NS 0.9% 50 ML* 50 ML IVPB SCH (12:35)
--- NOTE | 2016-04-04 14:38 | PN ---
Subjective Date of Service: 04/04/16 Interval History: Pt's status is unchanged. Still minimally verbal. good appetite Family History: Unchanged from Admission Social History: Unchanged from Admission Past Medical History: Unchanged from Admission Objective Active Medications: Acetaminophen (Tylenol Tab*) 325 mg PO Q4H PRN PRN Reason: pain/fever Bethanechol Chloride (Urecholine Tab*) 10 mg PO 0630,1100,1600,2000 [facility] Last Admin: 04/04/16 12:36 Dose: 10 mg Chlorhexidine Gluconate (Peridex Mouth Wash 0.12%*) 5 ml SWISH SPIT BID [facility] Last Admin: 04/04/16 09:03 Dose: 5 ml Cyclobenzaprine HCl (Flexeril Tab*) 5 mg PO BID [facility] Last Admin: 04/04/16 09:02 Dose: 5 mg Duloxetine HCl (Cymbalta Cap*) 30 mg PO DAILY [facility] Last Admin: 04/04/16 09:03 Dose: 30 mg Enoxaparin Sodium (Lovenox(*)) 40 mg SUBCUT Q24H [facility] Last Admin: 04/03/16 17:21 Dose: 40 mg Famotidine (Pepcid Tab*) 20 mg PO DAILY [facility] Last Admin: 04/04/16 09:03 Dose: 20 mg Sodium Chloride (Ns 0.9% 1000 Ml*) 1,000 mls @ 75 mls/hr IV PER RATE [facility] Last Admin: 04/04/16 06:53 Dose: 75 mls/hr Ceftriaxone Sodium 1,000 mg/ (Sodium Chloride) 50 mls @ 200 mls/hr IVPB Q24H [facility] Last Admin: 04/04/16 12:35 Dose: 200 mls/hr Ketoconazole (Nizoral 2% Cream (Nf)) 1 applic TOPICAL BID [facility] PRN Reason: Protocol Last Admin: 04/04/16 09:04 Dose: 1 applic Lactobacillus Rhamnosus (Culturelle*) 1 cap PO DAILY [facility] Last Admin: 04/04/16 09:03 Dose: 1 cap Metoclopramide HCl (Reglan Tab*) 5 mg PO TID AC [facility] Last Admin: 04/04/16 12:36 Dose: 5 mg Cadexomer Iodine [ (Iodosorb] 0.9 %) 0.9 % TOPICAL DAILY [facility] Last Admin: 04/04/16 09:04 Dose: Not Given Omeprazole (Prilosec Cap*) 20 mg PO DAILY@0730 [facility] Last Admin: 04/04/16 09:03 Dose: 20 mg Oxybutynin Chloride (Ditropan Tab*) 10 mg PO BID [facility] Last Admin: 04/04/16 09:03 Dose: 10 mg Oxycodone HCl (Roxycodone Tab*) 5 mg PO Q6H PRN PRN Reason: PAIN Polyethylene Glycol/Electrolytes (Miralax*) 17 gm PO DAILY [facility] Last Admin: 04/04/16 09:01 Dose: 17 gm Potassium Chloride (Klor Con Er Tab*) 40 meq PO 1000,1600 [facility] Last Admin: 04/04/16 09:03 Dose: 40 meq Simethicone (Mylicon*) 80 mg PO ACHS [facility] Last Admin: 04/04/16 12:36 Dose: 80 mg Vital Signs 04/03/16 04/03/16 04/03/16 15:52 20:00 22:41 Temperature 98.0 F Pulse Rate 85 Respiratory 16 22 16 Rate Blood Pressure 124/65 (mmHg) O2 Sat by Pulse 100 Oximetry 04/03/16 04/04/16 04/04/16 23:50 00:41 08:00 Temperature 98.3 F Pulse Rate 105 Respiratory 16 18 18 Rate Blood Pressure 171/92 (mmHg) O2 Sat by Pulse 100 100 Oximetry 04/04/16 04/04/16 08:05 09:02 Temperature Pulse Rate 90 Respiratory 18 18 Rate Blood Pressure 151/87 (mmHg) O2 Sat by Pulse 100 Oximetry Oxygen Devices in Use Now: None Appearance: 65 yo M in [place], alert, mostly nonverbal Eyes: No Scleral Icterus, PERRLA Ears/Nose/Mouth/Throat: NL Teeth, Lips, Gums, Mucous Membranes Moist Neck: NL Appearance and Movements; NL JVP, Trachea Midline Respiratory: Symmetrical Chest Expansion and Respiratory Effort, Clear to Auscultation Cardiovascular: NL Sounds; No Murmurs; No JVD, RRR Abdominal: - - soft, suprapubic cath in colostomy in place Lymphatic: No Cervical Adenopathy Extremities: No Clubbing, Cyanosis Skin: - - left hip decubiti- on on left posterior hip, one on ischial tuberosity , deep to bone, not draining, at 5 cm in diam each Neurological: - - LE's deformation due to cerebral palsy Result Diagrams: 04/01/16 06:14 04/01/16 06:14 Additional Lab and Data: Lab Results 03/30/16 03/30/16 03/30/16 Range/Units 14:35 14:35 14:35 WBC 7.5 (3.5-10.8) 10^3/ul RBC 4.60 (4.0-5.4) 10^6/ul Hgb 9.8 L (14.0-18.0) g/dl Hct 33 L (42-52) % MCV 72 L (80-94) fL MCH 21 L (27-31) pg MCHC 30 L (31-36) g/dl RDW 23 H (10.5-15) % Plt Count 301 (150-450) 10^3/ul MPV 7 L (7.4-10.4) um3 Neut % (Auto) 77.2 (38-83) % Lymph % (Auto) 14.3 L (25-47) % Norman % (Auto) 6.3 (1-9) % Eos % (Auto) 1.5 (0-6) % Baso % (Auto) 0.7 (0-2) % Absolute Neuts (auto) 5.8 (1.5-7.7) 10^3/ul Absolute Lymphs (auto) 1.1 (1.0-4.8) 10^3/ul Absolute Monos (auto) 0.5 (0-0.8) 10^3/ul Absolute Eos (auto) 0.1 (0-0.6) 10^3/ul Absolute Basos (auto) 0 (0-0.2) 10^3/ul Absolute Nucleated RBC 0 10^3/ul Nucleated RBC % 0 INR (Anticoag Therapy) 1.03 (0.89-1.11) Sodium 132 L (133-145) mmol/L Potassium 4.1 (3.5-5.0) mmol/L Chloride 102 (101-111) mmol/L Carbon Dioxide 22 (22-32) mmol/L Anion Gap 8 (2-11) mmol/L BUN 37 H (6-24) mg/dL Creatinine 0.62 L (0.67-1.17) mg/dL Est GFR ( Amer) 168.0 (>60) Est GFR (Non-Af Amer) 130.6 (>60) BUN/Creatinine Ratio 59.7 H (8-20) Glucose 119 H (70-100) mg/dL Calcium 9.2 (8.6-10.3) mg/dL Total Bilirubin 0.40 (0.2-1.0) mg/dL AST 18 (13-39) U/L ALT 22 (7-52) U/L Alkaline Phosphatase 109 H (34-104) U/L Troponin I 0.01 (<0.04) ng/mL C-Reactive Protein 22.32 H (< 5.00) mg/L Total Protein 7.1 (6.4-8.9) g/dL Albumin 3.6 (3.2-5.2) g/dL Globulin 3.5 (2-4) g/dL Albumin/Globulin Ratio 1.0 (1-3) Procalcitonin (<0.6) ng/mL 03/30/16 Range/Units 14:35 WBC (3.5-10.8) 10^3/ul RBC (4.0-5.4) 10^6/ul Hgb (14.0-18.0) g/dl Hct (42-52) % MCV (80-94) fL MCH (27-31) pg MCHC (31-36) g/dl RDW (10.5-15) % Plt Count (150-450) 10^3/ul MPV (7.4-10.4) um3 Neut % (Auto) (38-83) % Lymph % (Auto) (25-47) % Norman % (Auto) (1-9) % Eos % (Auto) (0-6) % Baso % (Auto) (0-2) % Absolute Neuts (auto) (1.5-7.7) 10^3/ul Absolute Lymphs (auto) (1.0-4.8) 10^3/ul Absolute Monos (auto) (0-0.8) 10^3/ul Absolute Eos (auto) (0-0.6) 10^3/ul Absolute Basos (auto) (0-0.2) 10^3/ul Absolute Nucleated RBC 10^3/ul Nucleated RBC % INR (Anticoag Therapy) (0.89-1.11) Sodium (133-145) mmol/L Potassium (3.5-5.0) mmol/L Chloride (101-111) mmol/L Carbon Dioxide (22-32) mmol/L Anion Gap (2-11) mmol/L BUN (6-24) mg/dL Creatinine (0.67-1.17) mg/dL Est GFR ( Amer) (>60) Est GFR (Non-Af Amer) (>60) BUN/Creatinine Ratio (8-20) Glucose (70-100) mg/dL Calcium (8.6-10.3) mg/dL Total Bilirubin (0.2-1.0) mg/dL AST (13-39) U/L ALT (7-52) U/L Alkaline Phosphatase (34-104) U/L Troponin I (<0.04) ng/mL C-Reactive Protein (< 5.00) mg/L Total Protein (6.4-8.9) g/dL Albumin (3.2-5.2) g/dL Globulin (2-4) g/dL Albumin/Globulin Ratio (1-3) Procalcitonin 0.1 (<0.6) ng/mL Microbiology and Other Data: Microbiology 03/30/16 22:50 Gram Stain - Final Hip Left 03/30/16 19:30 Nasal Screen MRSA (PCR)([facility]) - Final Nasal Mrsa Positive Assess/Plan/Problems-Billing Assessment: Mr. 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 Pt was accepted for transfer to [facility] for further management and is awaiting a bed. - Patient Problems (1) Septic arthritis Comment: CT abd/pelvis shows progression of destructive changes in the left hip region, involving the acetabulum and femur with associated joint effusion Patient currently afebrile, no leukocytosis, CRP decreasing. Continue ceftriaxone, per ID Ortho recommended transfer to tertiary care center for potential reconstructive need and availability for plastic surgery.Awaiting a bed in [facility] called [facility] on 04/04/16 inquiring about potential transfer-no beds. spoke with Dr. Juares -will get CT of the left hip to [place] today (2) Chronic osteomyelitis of left femur Comment: Continue ceftriaxone, Per ID No antibiotic treatment for the past 2 months Prior to that, patient was on 10 week treatment targeted at MRSA Appreciate ID consult (3) Decubitus ulcer, stage 4 with infection Comment: Of left femur, with chronic osteomyelitis. Treated at wound clinic in the outpatient setting Plan for patient to go to [facility] for further management (4) GERD (gastroesophageal reflux disease) Comment: Continue famotidine. (5) HTN (hypertension) Comment: uncontroled today, will restart Norvasc Continue to monitor. (6) Neurogenic bladder Comment: Patient has a suprapubic catheter (7) [place]'s syndrome Comment: S/p colostomy 11/14/15, with moderate stool present in bag Continue to monitor output. (8) Seizure disorder Comment: Not on maintenance therapy (9) Cerebral palsy Comment: Profound mental retardation and physical impairment. (10) DVT prophylaxis Comment: SQ Lovenox Status and Disposition: Inpatient admission.Awaiting a bed at [facility]
--- NOTE | 2016-04-04 15:37 | PN ---
Progress Note - Progress Note SOAP: Subjective: DOS: 04/04/16 CC: septic hip HPI: 65 year old man with IDD and left leg decubitus ulcer, CT showed effusion in area of pseudoarthrosis. He cannot provide hx or ROS given his mental status. No rash fever or diarrhea per RN. Objective: [] Vital Signs Temp 36.8 C 04/03/16 23:50 Pulse 90 04/04/16 08:05 Resp 18 04/04/16 09:02 BP 151/87 04/04/16 08:05 Pulse Ox 100 04/04/16 08:05 Intake & Output 04/03/16 04/04/16 04/04/16 18:59 06:59 18:59 Intake Total 3239 1401 1040 Output Total 2400 2700 2260 Balance 839 -1299 -1220 Intake: IV Fluids 1939 951 NS (0.9%) 1901 951 ceftriaxone 38 Oral 7056 598 7566 Output: [place] 1999 2700 2200 Colostomy 400 60 Other: Estimated Void Large Estimated Stool Amount Medium Gen:NAD Neuro: Awake, regards, does not answer questions HEENT:PERRL, MMM Neck:supple Heart:RRR no murmur Lungs:CTA BL Abd:+BS NTND soft, ostomy with liquid stool, SP tube MSK: negative log roll bilaterally; BL LE contractures Skin: no rash LN: no visible or palpable LN Assessment: 1. left leg decubitus ulcer/sinus tract with underlying chronic osteomyelitis and septic effusion 2. Hx L/S spine fusion 3. developmental delay Plan: 1. continue ceftriaxone day , grew E.coli and suspect other bowel rey +/- Staph or Strep. Recheck CT to see if fluid collection decreasing in size. If no check with IR re:drain. No transfer beds available so drainage as much as possible here for now. Discussed with Dr Blackmon
--- NOTE | 2016-04-04 15:56 | RAD ---
Indication: Evaluate for fluid collection in the left hip. CT of the pelvis was performed. Sagittal and coronal reconstructed images were obtained. No IV contrast was given. The right hip demonstrates right hip deformity. Superior subluxation of the right femoral head and femur is noted. There is edema and complex fluid in the left left hip joint with disorganization, new bone formation and erosion present. The edema and possible effusion may BE increased relative to previous exam of 03/29/2016. No discrete fluid collections are noted. There is decubitus ulcer with air extending into the left ischial tuberosity. Heterotopic ossification is noted. IMPRESSION: Increasing edema and possibly fluid in the left hip joint with destructive and erosive changes. There is decubitus ulcer extending to the ischial tuberosity. Findings discussed with Dr. Blackmon At 1552 hours
[2016-04-04] MEDS: amLODIPine TAB* 5 MG PO SCH (18:19)
[2016-04-04] MEDS: Enoxaparin(*) 40 MG/0.4 ML SYR SUBCUT SCH (18:20)
[2016-04-05] MEDS: NS 0.9% 1000 ML* 1,000 ML IV SCH ×2 (00:36→14:58)
[2016-04-05] MEDS: BETHANECHOL 10 MG PO SCH ×4 (07:09→20:49)
[2016-04-05 07:13] LABS: Hematocrit 31 % (42-52); Hemoglobin 9.7 g/dl (14.0-18.0); Mean Corpuscular HGB Conc 32 g/dl (31-36); Mean Corpuscular Hemoglobin 22 pg (27-31); Mean Corpuscular Volume 70 fL (80-94); Red Cell Distribution Width 23 % (10.5-15)
[2016-04-05 07:14] LABS: Add Diff/Slide Review? Slide Review Added; Comments Flag Yes
[2016-04-05 07:40] LABS: Mean Platelet Volume 7 um3 (7.4-10.4)
[2016-04-05 07:43] LABS: White Blood Count 7.4 10^3/ul (3.5-10.8)
[2016-04-05 07:54] LABS: Albumin 3.1 g/dL (3.2-5.2); BUN/Creatinine Ratio 28.8 (8-20); C Reactive Protein 23.91 mg/L (< 5.00); Calcium 8.5 mg/dL (8.6-10.3); EGFR African American 205.8 (>60); Globulin 3.3 g/dL (2-4); Total Bilirubin 0.2 mg/dL (0.2-1.0); Total Protein 6.4 g/dL (6.4-8.9)
[2016-04-05 08:23] LABS: Potassium 4.7 mmol/L (3.5-5.0)
[2016-04-05] MEDS: Polyethylene Glycol 3350* 17 GM PACKET PO SCH (08:57)
[2016-04-05] MEDS: Cyclobenzaprine TAB* 10 MG PO SCH ×2 (09:00→22:16)
[2016-04-05] MEDS: Lactobacillus Acidophilu (GG)* 1 CAP CAP PO SCH (09:01)
[2016-04-05] MEDS: Metoclopramide TAB* 10 MG PO SCH ×3 (09:01→16:02)
[2016-04-05] MEDS: Oxybutynin TAB* 5 MG PO SCH ×2 (09:01→22:16)
[2016-04-05] MEDS: amLODIPine TAB* 5 MG PO SCH (09:02)
[2016-04-05] MEDS: Famotidine TAB* 20 MG PO SCH (09:02)
[2016-04-05] MEDS: DULoxetine DR CAP* 30 MG CAP.DR PO SCH (09:02)
[2016-04-05] MEDS: Omeprazole CAP* 20 MG PO SCH (09:03)
[2016-04-05] MEDS: Simethicone TAB* 80 MG TAB.CHEW PO SCH ×4 (09:03→22:16)
[2016-04-05] MEDS: Chlorhexidine MOUTHWASH 0.12%* 15 ML UDC SWISH SPIT SCH ×2 (09:19→22:16)
[2016-04-05] MEDS: CMCS: Ketoconazole 2 % CREAM (NF) 30 GM TUBE TOPICAL SCH ×3 (09:46→22:23)
[2016-04-05] MEDS: cefTRIAXone VIAL(*) 1,000 MG in NS 0.9% 50 ML* 50 ML IVPB SCH (12:24)
[2016-04-05] MEDS: Potassium Chlor TAB* 20 MEQ TAB.ER PO SCH ×2 (12:27→16:02)
--- NOTE | 2016-04-05 13:38 | TRS ---
TRANSFER SUMMARY: DATE OF ADDENDUM: 04/04/16 ADDENDUM: Please note that this addendum is in conjunction with original transfer summary from 04/01/16. In the past 3 days, the patient had been awaiting a bed at [facility]. We contacted other medical centers in the area including [facility] and [facility] and no beds are available. Throughout the past 3 days , the patient had been feeling at his baseline. He is, at baseline, minimally verbal, but occasionally he is able to say a word or two. He is alert, but has problems following commands most likely due to his physical deformities due to cerebral palsy. Although his wounds on the left hip appear unchanged, a CT scan was obtained today which showed "increasing edema and possibly fluid in the left hip joint with destructive and erosive changes. There was decubitus ulcer extending to the ACL tuberosity." The CT scan was obtained with an attempt to look for loculated fluid collection that could be aspirated or drained with an interventional radiology procedure. After my discussion with Dr. Rubin, the radiologist, who stated to me that unfortunately there is no localized fluid collection that could be drained with interventional radiologist's help. Unfortunately, the destructive changes appear to be more pronounced comparing to prior studies performed earlier this week. That was also communicated and discussed with Dr. Juares, the infectious disease specialist. At this point, the plan still continues to be for the patient to go to [facility] for further surgery in regards to his left septic hip joint and his decubitus with most likely plastic surgery later on. For physical exam at the time of this dictation, please see daily progress note. [id number]/[facility] #: [id number] [facility]
[2016-04-05] MEDS: CADEXOMER IODINE 0.9% TOPICAL SCH (14:59)
--- NOTE | 2016-04-05 15:30 | PN ---
Subjective Date of Service: 04/05/16 Interval History: Pt appears to be interacting at baseline. Able to nod his head iof he requests something. denies pain. Family History: Unchanged from Admission Social History: Unchanged from Admission Past Medical History: Unchanged from Admission Objective Active Medications: Acetaminophen (Tylenol Tab*) 325 mg PO Q4H PRN PRN Reason: pain/fever Amlodipine Besylate (Norvasc Tab*) 5 mg PO DAILY [facility] Last Admin: 04/05/16 09:02 Dose: 5 mg Bethanechol Chloride (Urecholine Tab*) 10 mg PO 0630,1100,1600,2000 [facility] Last Admin: 04/05/16 12:27 Dose: 10 mg Chlorhexidine Gluconate (Peridex Mouth Wash 0.12%*) 5 ml SWISH SPIT BID [facility] Last Admin: 04/05/16 09:19 Dose: 5 ml Cyclobenzaprine HCl (Flexeril Tab*) 5 mg PO BID [facility] Last Admin: 04/05/16 09:00 Dose: 5 mg Duloxetine HCl (Cymbalta Cap*) 30 mg PO DAILY [facility] Last Admin: 04/05/16 09:02 Dose: 30 mg Enoxaparin Sodium (Lovenox(*)) 40 mg SUBCUT Q24H [facility] Last Admin: 04/04/16 18:20 Dose: 40 mg Famotidine (Pepcid Tab*) 20 mg PO DAILY [facility] Last Admin: 04/05/16 09:02 Dose: 20 mg Sodium Chloride (Ns 0.9% 1000 Ml*) 1,000 mls @ 75 mls/hr IV PER RATE [facility] Last Admin: 04/05/16 14:58 Dose: 75 mls/hr Ceftriaxone Sodium 1,000 mg/ (Sodium Chloride) 50 mls @ 200 mls/hr IVPB Q24H [facility] Last Admin: 04/05/16 12:24 Dose: 200 mls/hr Ketoconazole (Nizoral 2% Cream (Nf)) 1 applic TOPICAL BID [facility] PRN Reason: Protocol Last Admin: 04/05/16 09:46 Dose: Not Given Lactobacillus Rhamnosus (Culturelle*) 1 cap PO DAILY [facility] Last Admin: 04/05/16 09:01 Dose: 1 cap Metoclopramide HCl (Reglan Tab*) 5 mg PO TID AC [facility] Last Admin: 01/28/17 12:27 Dose: 5 mg Cadexomer Iodine [ (Iodosorb] 0.9 %) 0.9 % TOPICAL DAILY [facility] Last Admin: 04/05/16 14:59 Dose: 0.9 % Omeprazole (Prilosec Cap*) 20 mg PO DAILY@0730 [facility] Last Admin: 04/05/16 09:03 Dose: 20 mg Oxybutynin Chloride (Ditropan Tab*) 10 mg PO BID [facility] Last Admin: 04/05/16 09:01 Dose: 10 mg Oxycodone HCl (Roxycodone Tab*) 5 mg PO Q6H PRN PRN Reason: PAIN Polyethylene Glycol/Electrolytes (Miralax*) 17 gm PO DAILY [facility] Last Admin: 04/05/16 08:57 Dose: 17 gm Potassium Chloride (Klor Con Er Tab*) 40 meq PO 1000,1600 [facility] Last Admin: 04/05/16 12:27 Dose: 40 meq Simethicone (Mylicon*) 80 mg PO ACHS [facility] Last Admin: 04/05/16 12:27 Dose: 80 mg Vital Signs 04/04/16 04/04/16 04/04/16 15:47 20:00 22:04 Temperature Pulse Rate 90 Respiratory 18 18 18 Rate Blood Pressure 139/76 (mmHg) O2 Sat by Pulse 99 99 Oximetry 04/05/16 04/05/16 04/05/16 00:00 07:40 09:00 Temperature 97.6 F Pulse Rate 93 86 Respiratory 16 16 18 Rate Blood Pressure 141/77 138/83 (mmHg) O2 Sat by Pulse 99 99 Oximetry 04/05/16 11:00 Temperature Pulse Rate Respiratory 16 Rate Blood Pressure (mmHg) O2 Sat by Pulse Oximetry Oxygen Devices in Use Now: None Appearance: 65 yo M in nAD, mostly nonverbal, alert Eyes: No Scleral Icterus, PERRLA Ears/Nose/Mouth/Throat: NL Teeth, Lips, Gums, Mucous Membranes Moist Neck: NL Appearance and Movements; NL JVP, Trachea Midline Respiratory: Symmetrical Chest Expansion and Respiratory Effort, Clear to Auscultation Cardiovascular: NL Sounds; No Murmurs; No JVD, RRR Abdominal: - - colostomy in place, suprapubic Swanson in place, abd soft, NT, BS+ Lymphatic: No Cervical Adenopathy Skin: No Nodules or Sclerosis, - - left hip decubiti not examined today Neurological: - - b/l UE contracted, LE's deformity due to CP Result Diagrams: 04/05/16 07:02 04/05/16 07:02 Additional Lab and Data: Lab Results 03/30/16 03/30/16 03/30/16 Range/Units 14:35 14:35 14:35 WBC 7.5 (3.5-10.8) 10^3/ul RBC 4.60 (4.0-5.4) 10^6/ul Hgb 9.8 L (14.0-18.0) g/dl Hct 33 L (42-52) % MCV 72 L (80-94) fL MCH 21 L (27-31) pg MCHC 30 L (31-36) g/dl RDW 23 H (10.5-15) % Plt Count 301 (150-450) 10^3/ul MPV 7 L (7.4-10.4) um3 Neut % (Auto) 77.2 (38-83) % Lymph % (Auto) 14.3 L (25-47) % Bureau % (Auto) 6.3 (1-9) % Eos % (Auto) 1.5 (0-6) % Baso % (Auto) 0.7 (0-2) % Absolute Neuts (auto) 5.8 (1.5-7.7) 10^3/ul Absolute Lymphs (auto) 1.1 (1.0-4.8) 10^3/ul Absolute Monos (auto) 0.5 (0-0.8) 10^3/ul Absolute Eos (auto) 0.1 (0-0.6) 10^3/ul Absolute Basos (auto) 0 (0-0.2) 10^3/ul Absolute Nucleated RBC 0 10^3/ul Nucleated RBC % 0 INR (Anticoag Therapy) 1.03 (0.89-1.11) Sodium 132 L (133-145) mmol/L Potassium 4.1 (3.5-5.0) mmol/L Chloride 102 (101-111) mmol/L Carbon Dioxide 22 (22-32) mmol/L Anion Gap 8 (2-11) mmol/L BUN 37 H (6-24) mg/dL Creatinine 0.62 L (0.67-1.17) mg/dL Est GFR ( Amer) 168.0 (>60) Est GFR (Non-Af Amer) 130.6 (>60) BUN/Creatinine Ratio 59.7 H (8-20) Glucose 119 H (70-100) mg/dL Calcium 9.2 (8.6-10.3) mg/dL Total Bilirubin 0.40 (0.2-1.0) mg/dL AST 18 (13-39) U/L ALT 22 (7-52) U/L Alkaline Phosphatase 109 H (34-104) U/L Troponin I 0.01 (<0.04) ng/mL C-Reactive Protein 22.32 H (< 5.00) mg/L Total Protein 7.1 (6.4-8.9) g/dL Albumin 3.6 (3.2-5.2) g/dL Globulin 3.5 (2-4) g/dL Albumin/Globulin Ratio 1.0 (1-3) Procalcitonin (<0.6) ng/mL 03/30/16 Range/Units 14:35 WBC (3.5-10.8) 10^3/ul RBC (4.0-5.4) 10^6/ul Hgb (14.0-18.0) g/dl Hct (42-52) % MCV (80-94) fL MCH (27-31) pg MCHC (31-36) g/dl RDW (10.5-15) % Plt Count (150-450) 10^3/ul MPV (7.4-10.4) um3 Neut % (Auto) (38-83) % Lymph % (Auto) (25-47) % Bureau % (Auto) (1-9) % Eos % (Auto) (0-6) % Baso % (Auto) (0-2) % Absolute Neuts (auto) (1.5-7.7) 10^3/ul Absolute Lymphs (auto) (1.0-4.8) 10^3/ul Absolute Monos (auto) (0-0.8) 10^3/ul Absolute Eos (auto) (0-0.6) 10^3/ul Absolute Basos (auto) (0-0.2) 10^3/ul Absolute Nucleated RBC 10^3/ul Nucleated RBC % INR (Anticoag Therapy) (0.89-1.11) Sodium (133-145) mmol/L Potassium (3.5-5.0) mmol/L Chloride (101-111) mmol/L Carbon Dioxide (22-32) mmol/L Anion Gap (2-11) mmol/L BUN (6-24) mg/dL Creatinine (0.67-1.17) mg/dL Est GFR ( Amer) (>60) Est GFR (Non-Af Amer) (>60) BUN/Creatinine Ratio (8-20) Glucose (70-100) mg/dL Calcium (8.6-10.3) mg/dL Total Bilirubin (0.2-1.0) mg/dL AST (13-39) U/L ALT (7-52) U/L Alkaline Phosphatase (34-104) U/L Troponin I (<0.04) ng/mL C-Reactive Protein (< 5.00) mg/L Total Protein (6.4-8.9) g/dL Albumin (3.2-5.2) g/dL Globulin (2-4) g/dL Albumin/Globulin Ratio (1-3) Procalcitonin 0.1 (<0.6) ng/mL Microbiology and Other Data: Microbiology 03/30/16 22:50 Gram Stain - Final Hip Left 03/30/16 19:30 Nasal Screen MRSA (PCR)([facility]) - Final Nasal Mrsa Positive Assess/Plan/Problems-Billing Assessment: Mr. Bearden is a 65 yo male patient with a PMH of cerebral palsy, intellectual delay, left ischial/buttock decubitus ulcer, neurogenic bladder with chronic suprapubic catheter, Jarrell syndrome s/p transverse colostomy, HTN, OCD, GERD, Díaz's esophagus, spina bifida, and seizure disorder who initially presented to the ED on 03/30 with concern for decreased ostomy output that is now resolving and concern for joint effusion and progressive destructive changes of the left hip region that may indicate a septic arthritis. Pt was accepted for transfer to [facility] for further management and is awaiting a bed. - Patient Problems (1) Septic arthritis Comment: CT abd/pelvis on 04/04/13 shows progression of destructive changes in the left hip region, involving the acetabulum and femur with associated joint effusion Patient currently afebrile, no leukocytosis, CRP decreasing. Continue ceftriaxone, per ID Ortho recommended transfer to tertiary care center for potential reconstructive need and availability for plastic surgery.Awaiting a bed in [facility] called HOLLEY/Daljit on 04/04/16 inquiring about potential transfer-no beds. (2) Chronic osteomyelitis of left femur Comment: Continue ceftriaxone, Per ID No antibiotic treatment for the past 2 months Prior to that, patient was on 10 week treatment targeted at MRSA Appreciate ID consult (3) Decubitus ulcer, stage 4 with infection Comment: Of left femur, with chronic osteomyelitis. Treated at wound clinic in the outpatient setting Plan for patient to go to [facility] for further management (4) GERD (gastroesophageal reflux disease) Comment: Continue famotidine. (5) HTN (hypertension) Comment: uncontroled today, will restart Norvasc Continue to monitor. 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 (8) Seizure disorder Comment: Not on maintenance therapy (9) Cerebral palsy Comment: Profound mental retardation and physical impairment. (10) DVT prophylaxis Comment: SQ Lovenox Status and Disposition: Inpatient admission.Awaiting a bed at [facility]
[2016-04-05] MEDS: Enoxaparin(*) 40 MG/0.4 ML SYR SUBCUT SCH (17:38)
[2016-04-06] MEDS: NS 0.9% 1000 ML* 1,000 ML IV SCH ×2 (04:14→18:10)
[2016-04-06] MEDS: BETHANECHOL 10 MG PO SCH ×4 (06:11→20:18)
[2016-04-06] MEDS: Cyclobenzaprine TAB* 10 MG PO SCH ×2 (09:37→20:19)
[2016-04-06] MEDS: Polyethylene Glycol 3350* 17 GM PACKET PO SCH (09:37)
[2016-04-06] MEDS: Simethicone TAB* 80 MG TAB.CHEW PO SCH ×4 (09:38→20:19)
[2016-04-06] MEDS: Metoclopramide TAB* 10 MG PO SCH ×3 (09:38→16:55)
[2016-04-06] MEDS: DULoxetine DR CAP* 30 MG CAP.DR PO SCH (09:39)
[2016-04-06] MEDS: amLODIPine TAB* 5 MG PO SCH (09:39)
[2016-04-06] MEDS: Omeprazole CAP* 20 MG PO SCH (09:39)
[2016-04-06] MEDS: Lactobacillus Acidophilu (GG)* 1 CAP CAP PO SCH (09:40)
[2016-04-06] MEDS: Potassium Chlor TAB* 20 MEQ TAB.ER PO SCH ×2 (09:40→16:55)
[2016-04-06] MEDS: Famotidine TAB* 20 MG PO SCH (09:40)
[2016-04-06] MEDS: Oxybutynin TAB* 5 MG PO SCH ×2 (09:41→20:19)
[2016-04-06] MEDS: CADEXOMER IODINE 0.9% TOPICAL SCH (09:46)
[2016-04-06] MEDS: CMCS: Ketoconazole 2 % CREAM (NF) 30 GM TUBE TOPICAL SCH ×2 (09:47→20:43)
[2016-04-06] MEDS: Chlorhexidine MOUTHWASH 0.12%* 15 ML UDC SWISH SPIT SCH ×2 (09:55→20:18)
[2016-04-06] MEDS: cefTRIAXone VIAL(*) 1,000 MG in NS 0.9% 50 ML* 50 ML IVPB SCH (12:32)
--- NOTE | 2016-04-06 14:43 | PN ---
Subjective Date of Service: 04/06/16 Interval History: pt appears to be at baseline. denies pain Family History: Unchanged from Admission Social History: Unchanged from Admission Past Medical History: Unchanged from Admission Objective Active Medications: Acetaminophen (Tylenol Tab*) 325 mg PO Q4H PRN PRN Reason: pain/fever Amlodipine Besylate (Norvasc Tab*) 5 mg PO DAILY [facility] Last Admin: 04/06/16 09:39 Dose: 5 mg Bethanechol Chloride (Urecholine Tab*) 10 mg PO 0630,1100,1600,2000 [facility] Last Admin: 04/06/16 12:36 Dose: 10 mg Chlorhexidine Gluconate (Peridex Mouth Wash 0.12%*) 5 ml SWISH SPIT BID [facility] Last Admin: 04/06/16 09:55 Dose: Not Given Cyclobenzaprine HCl (Flexeril Tab*) 5 mg PO BID [facility] Last Admin: 04/06/16 09:37 Dose: 5 mg Duloxetine HCl (Cymbalta Cap*) 30 mg PO DAILY [facility] Last Admin: 04/06/16 09:39 Dose: 30 mg Enoxaparin Sodium (Lovenox(*)) 40 mg SUBCUT Q24H [facility] Last Admin: 04/05/16 17:38 Dose: 40 mg Famotidine (Pepcid Tab*) 20 mg PO DAILY [facility] Last Admin: 04/06/16 09:40 Dose: 20 mg Sodium Chloride (Ns 0.9% 1000 Ml*) 1,000 mls @ 75 mls/hr IV PER RATE [facility] Last Admin: 04/06/16 04:14 Dose: 75 mls/hr Ceftriaxone Sodium 1,000 mg/ (Sodium Chloride) 50 mls @ 200 mls/hr IVPB Q24H [facility] Last Admin: 04/06/16 12:32 Dose: 200 mls/hr Ketoconazole (Nizoral 2% Cream (Nf)) 1 applic TOPICAL BID [facility] PRN Reason: Protocol Last Admin: 04/06/16 09:47 Dose: Not Given Lactobacillus Rhamnosus (Culturelle*) 1 cap PO DAILY [facility] Last Admin: 04/06/16 09:40 Dose: 1 cap Metoclopramide HCl (Reglan Tab*) 5 mg PO TID AC [facility] Last Admin: 04/06/16 12:36 Dose: 5 mg Cadexomer Iodine [ (Iodosorb] 0.9 %) 0.9 % TOPICAL DAILY [facility] Last Admin: 04/06/16 09:46 Dose: Not Given Omeprazole (Prilosec Cap*) 20 mg PO DAILY@0730 [facility] Last Admin: 04/06/16 09:39 Dose: 20 mg Oxybutynin Chloride (Ditropan Tab*) 10 mg PO BID [facility] Last Admin: 04/06/16 09:41 Dose: 10 mg Oxycodone HCl (Roxycodone Tab*) 5 mg PO Q6H PRN PRN Reason: PAIN Polyethylene Glycol/Electrolytes (Miralax*) 17 gm PO DAILY [facility] Last Admin: 04/06/16 09:37 Dose: 17 gm Potassium Chloride (Klor Con Er Tab*) 40 meq PO 1000,1600 [facility] Last Admin: 04/06/16 09:40 Dose: 40 meq Simethicone (Mylicon*) 80 mg PO ACHS [facility] Last Admin: 04/06/16 12:36 Dose: 80 mg Vital Signs 04/05/16 04/05/16 04/05/16 15:40 20:00 22:16 Temperature 98.4 F Pulse Rate 101 Respiratory 16 18 18 Rate Blood Pressure 135/70 (mmHg) O2 Sat by Pulse 100 100 Oximetry 04/06/16 04/06/16 04/06/16 01:21 07:55 08:00 Temperature 98.2 F 98.2 F Pulse Rate 86 82 Respiratory 18 16 18 Rate Blood Pressure 134/73 137/65 (mmHg) O2 Sat by Pulse 100 100 Oximetry 04/06/16 04/06/16 09:37 11:37 Temperature Pulse Rate Respiratory 18 16 Rate Blood Pressure (mmHg) O2 Sat by Pulse Oximetry Oxygen Devices in Use Now: None Appearance: 65 yo m in nAd, minimally verbal-at baseline Eyes: No Scleral Icterus, PERRLA Ears/Nose/Mouth/Throat: NL Teeth, Lips, Gums, Mucous Membranes Moist Neck: NL Appearance and Movements; NL JVP, Trachea Midline Respiratory: Symmetrical Chest Expansion and Respiratory Effort, Clear to Auscultation Cardiovascular: NL Sounds; No Murmurs; No JVD, RRR Abdominal: - - colostomy in place, suprapubic cath in place Lymphatic: No Cervical Adenopathy Extremities: No Edema, No Clubbing, Cyanosis Skin: No Nodules or Sclerosis, - - left hip decubiti not examined today Neurological: - - minmaly verbal, alert, able to follow simple commands, UE's contracted, b/l LE's paralysis Result Diagrams: 04/05/16 07:02 04/05/16 07:02 Additional Lab and Data: Lab Results 03/30/16 03/30/16 03/30/16 Range/Units 14:35 14:35 14:35 WBC 7.5 (3.5-10.8) 10^3/ul RBC 4.60 (4.0-5.4) 10^6/ul Hgb 9.8 L (14.0-18.0) g/dl Hct 33 L (42-52) % MCV 72 L (80-94) fL MCH 21 L (27-31) pg MCHC 30 L (31-36) g/dl RDW 23 H (10.5-15) % Plt Count 301 (150-450) 10^3/ul MPV 7 L (7.4-10.4) um3 Neut % (Auto) 77.2 (38-83) % Lymph % (Auto) 14.3 L (25-47) % Clayton % (Auto) 6.3 (1-9) % Eos % (Auto) 1.5 (0-6) % Baso % (Auto) 0.7 (0-2) % Absolute Neuts (auto) 5.8 (1.5-7.7) 10^3/ul Absolute Lymphs (auto) 1.1 (1.0-4.8) 10^3/ul Absolute Monos (auto) 0.5 (0-0.8) 10^3/ul Absolute Eos (auto) 0.1 (0-0.6) 10^3/ul Absolute Basos (auto) 0 (0-0.2) 10^3/ul Absolute Nucleated RBC 0 10^3/ul Nucleated RBC % 0 INR (Anticoag Therapy) 1.03 (0.89-1.11) Sodium 132 L (133-145) mmol/L Potassium 4.1 (3.5-5.0) mmol/L Chloride 102 (101-111) mmol/L Carbon Dioxide 22 (22-32) mmol/L Anion Gap 8 (2-11) mmol/L BUN 37 H (6-24) mg/dL Creatinine 0.62 L (0.67-1.17) mg/dL Est GFR ( Amer) 168.0 (>60) Est GFR (Non-Af Amer) 130.6 (>60) BUN/Creatinine Ratio 59.7 H (8-20) Glucose 119 H (70-100) mg/dL Calcium 9.2 (8.6-10.3) mg/dL Total Bilirubin 0.40 (0.2-1.0) mg/dL AST 18 (13-39) U/L ALT 22 (7-52) U/L Alkaline Phosphatase 109 H (34-104) U/L Troponin I 0.01 (<0.04) ng/mL C-Reactive Protein 22.32 H (< 5.00) mg/L Total Protein 7.1 (6.4-8.9) g/dL Albumin 3.6 (3.2-5.2) g/dL Globulin 3.5 (2-4) g/dL Albumin/Globulin Ratio 1.0 (1-3) Procalcitonin (<0.6) ng/mL 03/30/16 Range/Units 14:35 WBC (3.5-10.8) 10^3/ul RBC (4.0-5.4) 10^6/ul Hgb (14.0-18.0) g/dl Hct (42-52) % MCV (80-94) fL MCH (27-31) pg MCHC (31-36) g/dl RDW (10.5-15) % Plt Count (150-450) 10^3/ul MPV (7.4-10.4) um3 Neut % (Auto) (38-83) % Lymph % (Auto) (25-47) % Clayton % (Auto) (1-9) % Eos % (Auto) (0-6) % Baso % (Auto) (0-2) % Absolute Neuts (auto) (1.5-7.7) 10^3/ul Absolute Lymphs (auto) (1.0-4.8) 10^3/ul Absolute Monos (auto) (0-0.8) 10^3/ul Absolute Eos (auto) (0-0.6) 10^3/ul Absolute Basos (auto) (0-0.2) 10^3/ul Absolute Nucleated RBC 10^3/ul Nucleated RBC % INR (Anticoag Therapy) (0.89-1.11) Sodium (133-145) mmol/L Potassium (3.5-5.0) mmol/L Chloride (101-111) mmol/L Carbon Dioxide (22-32) mmol/L Anion Gap (2-11) mmol/L BUN (6-24) mg/dL Creatinine (0.67-1.17) mg/dL Est GFR ( Amer) (>60) Est GFR (Non-Af Amer) (>60) BUN/Creatinine Ratio (8-20) Glucose (70-100) mg/dL Calcium (8.6-10.3) mg/dL Total Bilirubin (0.2-1.0) mg/dL AST (13-39) U/L ALT (7-52) U/L Alkaline Phosphatase (34-104) U/L Troponin I (<0.04) ng/mL C-Reactive Protein (< 5.00) mg/L Total Protein (6.4-8.9) g/dL Albumin (3.2-5.2) g/dL Globulin (2-4) g/dL Albumin/Globulin Ratio (1-3) Procalcitonin 0.1 (<0.6) ng/mL Microbiology and Other Data: Microbiology 03/30/16 22:50 Gram Stain - Final Hip Left 03/30/16 19:30 Nasal Screen MRSA (PCR)([facility]) - Final Nasal Mrsa Positive Assess/Plan/Problems-Billing Assessment: Mr. Bearden is a 65 yo male patient with a PMH of cerebral palsy, intellectual delay, left ischial/buttock decubitus ulcer, neurogenic bladder with chronic suprapubic catheter, Jarrell syndrome s/p transverse colostomy, HTN, OCD, GERD, Díaz's esophagus, spina bifida, and seizure disorder who initially presented to the ED on 03/30 with concern for decreased ostomy output that is now resolving and concern for joint effusion and progressive destructive changes of the left hip region that may indicate a septic arthritis. Pt was accepted for transfer to [facility] for further management and is awaiting a bed. - Patient Problems (1) Septic arthritis Comment: CT abd/pelvis on 04/04/13 shows progression of destructive changes in the left hip region, involving the acetabulum and femur with associated joint effusion Patient currently afebrile, no leukocytosis, CRP decreasing. Continue ceftriaxone, per ID Ortho recommended transfer to tertiary care center for potential reconstructive need and availability for plastic surgery.Awaiting a bed in [facility] called HOLLEY/Daljit on 04/04/16 inquiring about potential transfer-no beds. (2) Chronic osteomyelitis of left femur Comment: Continue ceftriaxone, Per ID No antibiotic treatment for the past 2 months prior to that, patient was on 10 week treatment targeted at MRSA Appreciate ID consult (3) Decubitus ulcer, stage 4 with infection Comment: Of left femur, with chronic osteomyelitis. Treated at wound clinic in the outpatient setting Plan for patient to go to [facility] for further management (4) GERD (gastroesophageal reflux disease) Comment: Continue famotidine. (5) HTN (hypertension) Comment: controled cont Norvasc Continue to monitor. 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 (8) Seizure disorder Comment: Not on maintenance therapy (9) Cerebral palsy Comment: Profound mental retardation and physical impairment. (10) DVT prophylaxis Comment: SQ Lovenox Status and Disposition: Inpatient admission.Awaiting a bed at [facility]
[2016-04-06] MEDS: Enoxaparin(*) 40 MG/0.4 ML SYR SUBCUT SCH (17:08)
[2016-04-07] MEDS: BETHANECHOL 10 MG PO SCH ×4 (05:34→21:29)
[2016-04-07] MEDS: NS 0.9% 1000 ML* 1,000 ML IV SCH ×2 (07:49→22:12)
[2016-04-07] MEDS: Metoclopramide TAB* 10 MG PO SCH ×3 (07:53→17:16)
[2016-04-07] MEDS: Simethicone TAB* 80 MG TAB.CHEW PO SCH ×4 (07:58→21:31)
[2016-04-07] MEDS: Omeprazole CAP* 20 MG PO SCH (07:58)
[2016-04-07] MEDS: Famotidine TAB* 20 MG PO SCH (09:35)
[2016-04-07] MEDS: Polyethylene Glycol 3350* 17 GM PACKET PO SCH (09:37)
[2016-04-07] MEDS: Lactobacillus Acidophilu (GG)* 1 CAP CAP PO SCH (09:38)
[2016-04-07] MEDS: DULoxetine DR CAP* 30 MG CAP.DR PO SCH (09:38)
[2016-04-07] MEDS: amLODIPine TAB* 5 MG PO SCH (09:38)
[2016-04-07] MEDS: Oxybutynin TAB* 5 MG PO SCH ×2 (09:39→21:31)
[2016-04-07] MEDS: Potassium Chlor TAB* 20 MEQ TAB.ER PO SCH ×2 (09:39→17:16)
[2016-04-07] MEDS: CADEXOMER IODINE 0.9% TOPICAL SCH (09:40)
[2016-04-07] MEDS: Chlorhexidine MOUTHWASH 0.12%* 15 ML UDC SWISH SPIT SCH ×2 (09:40→21:29)
[2016-04-07] MEDS: Cyclobenzaprine TAB* 10 MG PO SCH ×2 (09:40→21:30)
[2016-04-07] MEDS: cefTRIAXone VIAL(*) 1,000 MG in NS 0.9% 50 ML* 50 ML IVPB SCH (13:02)
[2016-04-07] MEDS: CMCS: Ketoconazole 2 % CREAM (NF) 30 GM TUBE TOPICAL SCH ×2 (13:10→21:26)
--- NOTE | 2016-04-07 17:13 | PN ---
Subjective Date of Service: 04/07/16 Interval History: Patient seen this morning. Had no complaints. Denied SOB, pain. Just finished lunch. Family History: Unchanged from Admission Social History: Unchanged from Admission Past Medical History: Unchanged from Admission Objective Active Medications: Acetaminophen (Tylenol Tab*) 325 mg PO Q4H PRN PRN Reason: pain/fever Amlodipine Besylate (Norvasc Tab*) 5 mg PO DAILY [facility] Last Admin: 04/07/16 09:38 Dose: 5 mg Bethanechol Chloride (Urecholine Tab*) 10 mg PO 0630,1100,1600,2000 [facility] Last Admin: 04/07/16 13:10 Dose: 10 mg Chlorhexidine Gluconate (Peridex Mouth Wash 0.12%*) 5 ml SWISH SPIT BID [facility] Last Admin: 04/07/16 09:40 Dose: 5 ml Cyclobenzaprine HCl (Flexeril Tab*) 5 mg PO BID [facility] Last Admin: 04/07/16 09:40 Dose: 5 mg Duloxetine HCl (Cymbalta Cap*) 30 mg PO DAILY [facility] Last Admin: 04/07/16 09:38 Dose: 30 mg Enoxaparin Sodium (Lovenox(*)) 40 mg SUBCUT Q24H [facility] Last Admin: 04/06/16 17:08 Dose: 40 mg Famotidine (Pepcid Tab*) 20 mg PO DAILY [facility] Last Admin: 04/07/16 09:35 Dose: 20 mg Sodium Chloride (Ns 0.9% 1000 Ml*) 1,000 mls @ 75 mls/hr IV PER RATE [facility] Last Admin: 04/07/16 07:49 Dose: 75 mls/hr Ceftriaxone Sodium 1,000 mg/ (Sodium Chloride) 50 mls @ 200 mls/hr IVPB Q24H [facility] Last Admin: 04/07/16 13:02 Dose: 200 mls/hr Ketoconazole (Nizoral 2% Cream (Nf)) 1 applic TOPICAL BID [facility] PRN Reason: Protocol Last Admin: 04/07/16 13:10 Dose: Not Given Lactobacillus Rhamnosus (Culturelle*) 1 cap PO DAILY [facility] Last Admin: 04/07/16 09:38 Dose: 1 cap Metoclopramide HCl (Reglan Tab*) 5 mg PO TID AC [facility] Last Admin: 04/07/16 13:09 Dose: 5 mg Cadexomer Iodine [ (Iodosorb] 0.9 %) 0.9 % TOPICAL DAILY [facility] Last Admin: 04/07/16 09:40 Dose: 0.9 % Omeprazole (Prilosec Cap*) 20 mg PO DAILY@0730 [facility] Last Admin: 04/07/16 07:58 Dose: 20 mg Oxybutynin Chloride (Ditropan Tab*) 10 mg PO BID [facility] Last Admin: 04/07/16 09:39 Dose: 10 mg Polyethylene Glycol/Electrolytes (Miralax*) 17 gm PO DAILY [facility] Last Admin: 04/07/16 09:37 Dose: 17 gm Potassium Chloride (Klor Con Er Tab*) 40 meq PO 1000,1600 [facility] Last Admin: 04/07/16 09:39 Dose: 40 meq Simethicone (Mylicon*) 80 mg PO ACHS [facility] Last Admin: 04/07/16 13:09 Dose: 80 mg Vital Signs 04/06/16 04/06/16 04/06/16 20:00 20:19 22:19 Temperature Pulse Rate Respiratory 16 16 16 Rate Blood Pressure (mmHg) O2 Sat by Pulse 99 Oximetry 04/07/16 04/07/16 04/07/16 00:01 07:25 08:00 Temperature 97.3 F 97.8 F Pulse Rate 92 87 Respiratory 18 16 12 Rate Blood Pressure 131/71 140/74 (mmHg) O2 Sat by Pulse 99 100 100 Oximetry 04/07/16 04/07/16 04/07/16 09:40 11:40 16:08 Temperature 98.7 F Pulse Rate 93 Respiratory 14 12 22 Rate Blood Pressure 140/75 (mmHg) O2 Sat by Pulse 100 Oximetry Oxygen Devices in Use Now: None Appearance: Middle-aged, M, laying in bed in NAD Eyes: No Scleral Icterus Ears/Nose/Mouth/Throat: Mucous Membranes Moist Neck: NL Appearance and Movements; NL JVP Respiratory: Symmetrical Chest Expansion and Respiratory Effort, Clear to Auscultation Cardiovascular: NL Sounds; No Murmurs; No JVD, RRR Abdominal: NL Sounds; No Tenderness; No Distention, - - colostomy and suprapubic catheter in place Lymphatic: No Cervical Adenopathy Extremities: No Edema, - - contracted extremities Skin: - - L hip dressing in place, did not examine wound Neurological: - - Alert, minimally verbal, Result Diagrams: 04/05/16 07:02 04/05/16 07:02 Additional Lab and Data: Lab Results 03/30/16 03/30/16 03/30/16 Range/Units 14:35 14:35 14:35 WBC 7.5 (3.5-10.8) 10^3/ul RBC 4.60 (4.0-5.4) 10^6/ul Hgb 9.8 L (14.0-18.0) g/dl Hct 33 L (42-52) % MCV 72 L (80-94) fL MCH 21 L (27-31) pg MCHC 30 L (31-36) g/dl RDW 23 H (10.5-15) % Plt Count 301 (150-450) 10^3/ul MPV 7 L (7.4-10.4) um3 Neut % (Auto) 77.2 (38-83) % Lymph % (Auto) 14.3 L (25-47) % [place] % (Auto) 6.3 (1-9) % Eos % (Auto) 1.5 (0-6) % Baso % (Auto) 0.7 (0-2) % Absolute Neuts (auto) 5.8 (1.5-7.7) 10^3/ul Absolute Lymphs (auto) 1.1 (1.0-4.8) 10^3/ul Absolute Monos (auto) 0.5 (0-0.8) 10^3/ul Absolute Eos (auto) 0.1 (0-0.6) 10^3/ul Absolute Basos (auto) 0 (0-0.2) 10^3/ul Absolute Nucleated RBC 0 10^3/ul Nucleated RBC % 0 INR (Anticoag Therapy) 1.03 (0.89-1.11) Sodium 132 L (133-145) mmol/L Potassium 4.1 (3.5-5.0) mmol/L Chloride 102 (101-111) mmol/L Carbon Dioxide 22 (22-32) mmol/L Anion Gap 8 (2-11) mmol/L BUN 37 H (6-24) mg/dL Creatinine 0.62 L (0.67-1.17) mg/dL Est GFR ( Amer) 168.0 (>60) Est GFR (Non-Af Amer) 130.6 (>60) BUN/Creatinine Ratio 59.7 H (8-20) Glucose 119 H (70-100) mg/dL Calcium 9.2 (8.6-10.3) mg/dL Total Bilirubin 0.40 (0.2-1.0) mg/dL AST 18 (13-39) U/L ALT 22 (7-52) U/L Alkaline Phosphatase 109 H (34-104) U/L Troponin I 0.01 (<0.04) ng/mL C-Reactive Protein 22.32 H (< 5.00) mg/L Total Protein 7.1 (6.4-8.9) g/dL Albumin 3.6 (3.2-5.2) g/dL Globulin 3.5 (2-4) g/dL Albumin/Globulin Ratio 1.0 (1-3) Procalcitonin (<0.6) ng/mL 03/30/16 Range/Units 14:35 WBC (3.5-10.8) 10^3/ul RBC (4.0-5.4) 10^6/ul Hgb (14.0-18.0) g/dl Hct (42-52) % MCV (80-94) fL MCH (27-31) pg MCHC (31-36) g/dl RDW (10.5-15) % Plt Count (150-450) 10^3/ul MPV (7.4-10.4) um3 Neut % (Auto) (38-83) % Lymph % (Auto) (25-47) % [place] % (Auto) (1-9) % Eos % (Auto) (0-6) % Baso % (Auto) (0-2) % Absolute Neuts (auto) (1.5-7.7) 10^3/ul Absolute Lymphs (auto) (1.0-4.8) 10^3/ul Absolute Monos (auto) (0-0.8) 10^3/ul Absolute Eos (auto) (0-0.6) 10^3/ul Absolute Basos (auto) (0-0.2) 10^3/ul Absolute Nucleated RBC 10^3/ul Nucleated RBC % INR (Anticoag Therapy) (0.89-1.11) Sodium (133-145) mmol/L Potassium (3.5-5.0) mmol/L Chloride (101-111) mmol/L Carbon Dioxide (22-32) mmol/L Anion Gap (2-11) mmol/L BUN (6-24) mg/dL Creatinine (0.67-1.17) mg/dL Est GFR ( Amer) (>60) Est GFR (Non-Af Amer) (>60) BUN/Creatinine Ratio (8-20) Glucose (70-100) mg/dL Calcium (8.6-10.3) mg/dL Total Bilirubin (0.2-1.0) mg/dL AST (13-39) U/L ALT (7-52) U/L Alkaline Phosphatase (34-104) U/L Troponin I (<0.04) ng/mL C-Reactive Protein (< 5.00) mg/L Total Protein (6.4-8.9) g/dL Albumin (3.2-5.2) g/dL Globulin (2-4) g/dL Albumin/Globulin Ratio (1-3) Procalcitonin 0.1 (<0.6) ng/mL Microbiology and Other Data: Microbiology 03/30/16 22:50 Gram Stain - Final Hip Left 03/30/16 19:30 Nasal Screen MRSA (PCR)([facility]) - Final Nasal Mrsa Positive Assess/Plan/Problems-Billing Assessment: Mr. Bearden is a 65 yo male patient with a PMH of cerebral palsy, intellectual delay, left ischial/buttock decubitus ulcer, neurogenic bladder with chronic suprapubic catheter, Roscoe syndrome s/p transverse colostomy, HTN, OCD, GERD, Díaz's esophagus, spina bifida, and seizure disorder who initially presented to the ED on 03/30 with concern for decreased ostomy output that is now resolving and concern for joint effusion and progressive destructive changes of the left hip region that may indicate a septic arthritis. Pt was accepted for transfer to [facility] for further management and is awaiting a bed. - Patient Problems (1) Septic arthritis Current Visit: Yes Comment: CT abd/pelvis on 04/04/13 shows progression of destructive changes in the left hip region, involving the acetabulum and femur with associated joint effusion Patient currently afebrile, no leukocytosis, CRP decreasing. Continue ceftriaxone, per ID Ortho recommended transfer to tertiary care center for potential reconstructive need and availability for plastic surgery. Awaiting a bed in [facility]. Will inquire into other facilities if needed, Dr. Juares entertaining thought of possibly snf ABx and delaying surgery, can discuss further with Ortho (2) Chronic osteomyelitis of left femur Current Visit: No Comment: Continue ceftriaxone, Per ID No antibiotic treatment for the past 2 months prior to that, patient was on 10 week treatment targeted at MRSA Appreciate ID consult (3) Decubitus ulcer, stage 4 with infection Current Visit: No Comment: Of left femur, with chronic osteomyelitis. Treated at wound clinic in the outpatient setting Plan for patient to go to [facility] for further management (4) GERD (gastroesophageal reflux disease) Current Visit: No Comment: Continue famotidine. (5) HTN (hypertension) Current Visit: No Comment: controled cont Norvasc Continue to monitor. 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 (8) Seizure disorder Current Visit: No Comment: Not on maintenance therapy (9) Cerebral palsy Current Visit: No Comment: Profound mental retardation and physical impairment. (10) DVT prophylaxis Current Visit: No Comment: SQ lovenox Status and Disposition: Inpatient admission.Awaiting a bed at [facility]
[2016-04-07] MEDS: Enoxaparin(*) 40 MG/0.4 ML SYR SUBCUT SCH (17:16)
[2016-04-08] MEDS: BETHANECHOL 10 MG PO SCH ×4 (06:19→20:12)
[2016-04-08] MEDS: Potassium Chlor TAB* 20 MEQ TAB.ER PO SCH ×2 (08:35→16:58)
[2016-04-08] MEDS: Polyethylene Glycol 3350* 17 GM PACKET PO SCH (08:36)
[2016-04-08] MEDS: Metoclopramide TAB* 10 MG PO SCH ×3 (08:36→16:59)
[2016-04-08] MEDS: DULoxetine DR CAP* 30 MG CAP.DR PO SCH (08:37)
[2016-04-08] MEDS: Omeprazole CAP* 20 MG PO SCH (08:37)
[2016-04-08] MEDS: Oxybutynin TAB* 5 MG PO SCH ×2 (08:38→21:40)
[2016-04-08] MEDS: Simethicone TAB* 80 MG TAB.CHEW PO SCH ×4 (08:38→21:40)
[2016-04-08] MEDS: Famotidine TAB* 20 MG PO SCH (08:38)
[2016-04-08] MEDS: Lactobacillus Acidophilu (GG)* 1 CAP CAP PO SCH (08:39)
[2016-04-08] MEDS: amLODIPine TAB* 5 MG PO SCH (08:39)
[2016-04-08] MEDS: Chlorhexidine MOUTHWASH 0.12%* 15 ML UDC SWISH SPIT SCH ×3 (08:46→21:48)
[2016-04-08] MEDS: Cyclobenzaprine TAB* 10 MG PO SCH ×2 (08:50→21:39)
[2016-04-08] MEDS: CADEXOMER IODINE 0.9% TOPICAL SCH (08:51)
[2016-04-08] MEDS: CMCS: Ketoconazole 2 % CREAM (NF) 30 GM TUBE TOPICAL SCH ×2 (08:56→21:41)
[2016-04-08] MEDS: cefTRIAXone VIAL(*) 1,000 MG in NS 0.9% 50 ML* 50 ML IVPB SCH (11:42)
[2016-04-08] MEDS: NS 0.9% 1000 ML* 1,000 ML IV SCH (11:42)
[2016-04-08] MEDS: Enoxaparin(*) 40 MG/0.4 ML SYR SUBCUT SCH (17:00)
--- NOTE | 2016-04-08 17:25 | PN ---
Subjective Date of Service: 04/08/16 Interval History: Patient seen this morning. Appears comfortable. Denies any pain, shortness of breath. Watching cartoons. Spoke with Cheri again today who states they are still awaiting a bed for him but he is on the list Family History: Unchanged from Admission Social History: Unchanged from Admission Past Medical History: Unchanged from Admission Objective Active Medications: Acetaminophen (Tylenol Tab*) 325 mg PO Q4H PRN Amlodipine Besylate (Norvasc Tab*) 5 mg PO DAILY [facility] Bethanechol Chloride (Urecholine Tab*) 10 mg PO 0630,1100,1600,2000 [facility] Chlorhexidine Gluconate (Peridex Mouth Wash 0.12%*) 5 ml SWISH SPIT BID [facility] Cyclobenzaprine HCl (Flexeril Tab*) 5 mg PO BID [facility] Duloxetine HCl (Cymbalta Cap*) 30 mg PO DAILY [facility] Enoxaparin Sodium (Lovenox(*)) 40 mg SUBCUT Q24H [facility] Famotidine (Pepcid Tab*) 20 mg PO DAILY [facility] Sodium Chloride (Ns 0.9% 1000 Ml*) 1,000 mls @ 75 mls/hr IV PER RATE [facility] Ceftriaxone Sodium 1,000 mg/ (Sodium Chloride) 50 mls @ 200 mls/hr IVPB Q24H [facility] Ketoconazole (Nizoral 2% Cream (Nf)) 1 applic TOPICAL BID [facility] Lactobacillus Rhamnosus (Culturelle*) 1 cap PO DAILY [facility] Metoclopramide HCl (Reglan Tab*) 5 mg PO TID AC [facility] Cadexomer Iodine [ (Iodosorb] 0.9 %) 0.9 % TOPICAL DAILY [facility] Omeprazole (Prilosec Cap*) 20 mg PO DAILY@0730 [facility] Oxybutynin Chloride (Ditropan Tab*) 10 mg PO BID [facility] Polyethylene Glycol/Electrolytes (Miralax*) 17 gm PO DAILY [facility] Potassium Chloride (Klor Con Er Tab*) 40 meq PO 1000,1600 [facility] Simethicone (Mylicon*) 80 mg PO ACHS [facility] Vital Signs 04/07/16 04/07/16 04/08/16 21:30 23:30 03:30 Temperature 97.4 F Pulse Rate 88 Respiratory 16 18 18 Rate Blood Pressure 141/75 (mmHg) O2 Sat by Pulse 100 Oximetry 04/08/16 04/08/16 04/08/16 05:55 08:10 08:50 Temperature 98.6 F Pulse Rate 81 Respiratory 18 17 16 Rate Blood Pressure 138/65 (mmHg) O2 Sat by Pulse 100 Oximetry 04/08/16 10:50 Temperature Pulse Rate Respiratory 12 Rate Blood Pressure (mmHg) O2 Sat by Pulse Oximetry Oxygen Devices in Use Now: None Appearance: Middle-aged, M, laying in bed in NAD Eyes: No Scleral Icterus Ears/Nose/Mouth/Throat: - - Dry MM Neck: NL Appearance and Movements; NL JVP Respiratory: Symmetrical Chest Expansion and Respiratory Effort, Clear to Auscultation Cardiovascular: NL Sounds; No Murmurs; No JVD, RRR Abdominal: - - Soft, NTND, ostomy in place, SPC in place Lymphatic: No Cervical Adenopathy Extremities: No Edema Skin: - - Did not assess L hip wounds Neurological: - - Alert, minimally verbal, contracted extremities Result Diagrams: 04/05/16 07:02 04/05/16 07:02 Additional Lab and Data: Lab Results 03/30/16 03/30/16 03/30/16 Range/Units 14:35 14:35 14:35 WBC 7.5 (3.5-10.8) 10^3/ul RBC 4.60 (4.0-5.4) 10^6/ul Hgb 9.8 L (14.0-18.0) g/dl Hct 33 L (42-52) % MCV 72 L (80-94) fL MCH 21 L (27-31) pg MCHC 30 L (31-36) g/dl RDW 23 H (10.5-15) % Plt Count 301 (150-450) 10^3/ul MPV 7 L (7.4-10.4) um3 Neut % (Auto) 77.2 (38-83) % Lymph % (Auto) 14.3 L (25-47) % [place] % (Auto) 6.3 (1-9) % Eos % (Auto) 1.5 (0-6) % Baso % (Auto) 0.7 (0-2) % Absolute Neuts (auto) 5.8 (1.5-7.7) 10^3/ul Absolute Lymphs (auto) 1.1 (1.0-4.8) 10^3/ul Absolute Monos (auto) 0.5 (0-0.8) 10^3/ul Absolute Eos (auto) 0.1 (0-0.6) 10^3/ul Absolute Basos (auto) 0 (0-0.2) 10^3/ul Absolute Nucleated RBC 0 10^3/ul Nucleated RBC % 0 INR (Anticoag Therapy) 1.03 (0.89-1.11) Sodium 132 L (133-145) mmol/L Potassium 4.1 (3.5-5.0) mmol/L Chloride 102 (101-111) mmol/L Carbon Dioxide 22 (22-32) mmol/L Anion Gap 8 (2-11) mmol/L BUN 37 H (6-24) mg/dL Creatinine 0.62 L (0.67-1.17) mg/dL Est GFR ( Amer) 168.0 (>60) Est GFR (Non-Af Amer) 130.6 (>60) BUN/Creatinine Ratio 59.7 H (8-20) Glucose 119 H (70-100) mg/dL Calcium 9.2 (8.6-10.3) mg/dL Total Bilirubin 0.40 (0.2-1.0) mg/dL AST 18 (13-39) U/L ALT 22 (7-52) U/L Alkaline Phosphatase 109 H (34-104) U/L Troponin I 0.01 (<0.04) ng/mL C-Reactive Protein 22.32 H (< 5.00) mg/L Total Protein 7.1 (6.4-8.9) g/dL Albumin 3.6 (3.2-5.2) g/dL Globulin 3.5 (2-4) g/dL Albumin/Globulin Ratio 1.0 (1-3) Procalcitonin (<0.6) ng/mL 03/30/16 Range/Units 14:35 WBC (3.5-10.8) 10^3/ul RBC (4.0-5.4) 10^6/ul Hgb (14.0-18.0) g/dl Hct (42-52) % MCV (80-94) fL MCH (27-31) pg MCHC (31-36) g/dl RDW (10.5-15) % Plt Count (150-450) 10^3/ul MPV (7.4-10.4) um3 Neut % (Auto) (38-83) % Lymph % (Auto) (25-47) % [place] % (Auto) (1-9) % Eos % (Auto) (0-6) % Baso % (Auto) (0-2) % Absolute Neuts (auto) (1.5-7.7) 10^3/ul Absolute Lymphs (auto) (1.0-4.8) 10^3/ul Absolute Monos (auto) (0-0.8) 10^3/ul Absolute Eos (auto) (0-0.6) 10^3/ul Absolute Basos (auto) (0-0.2) 10^3/ul Absolute Nucleated RBC 10^3/ul Nucleated RBC % INR (Anticoag Therapy) (0.89-1.11) Sodium (133-145) mmol/L Potassium (3.5-5.0) mmol/L Chloride (101-111) mmol/L Carbon Dioxide (22-32) mmol/L Anion Gap (2-11) mmol/L BUN (6-24) mg/dL Creatinine (0.67-1.17) mg/dL Est GFR ( Amer) (>60) Est GFR (Non-Af Amer) (>60) BUN/Creatinine Ratio (8-20) Glucose (70-100) mg/dL Calcium (8.6-10.3) mg/dL Total Bilirubin (0.2-1.0) mg/dL AST (13-39) U/L ALT (7-52) U/L Alkaline Phosphatase (34-104) U/L Troponin I (<0.04) ng/mL C-Reactive Protein (< 5.00) mg/L Total Protein (6.4-8.9) g/dL Albumin (3.2-5.2) g/dL Globulin (2-4) g/dL Albumin/Globulin Ratio (1-3) Procalcitonin 0.1 (<0.6) ng/mL Microbiology and Other Data: Microbiology 03/30/16 22:50 Gram Stain - Final Hip Left 03/30/16 19:30 Nasal Screen MRSA (PCR)([facility]) - Final Nasal Mrsa Positive Assess/Plan/Problems-Billing Assessment: Mr. Bearden is a 65 yo male patient with a PMH of cerebral palsy, intellectual delay, left ischial/buttock decubitus ulcer, neurogenic bladder with chronic suprapubic catheter, Jarrell syndrome s/p transverse colostomy, HTN, OCD, GERD, Díaz's esophagus, spina bifida, and seizure disorder who initially presented to the ED on 03/30 with concern for decreased ostomy output that is now resolving and concern for joint effusion and progressive destructive changes of the left hip region that may indicate a septic arthritis. Pt was accepted for transfer to [facility] for further management and is awaiting a bed. - Patient Problems (1) Septic arthritis Current Visit: Yes Comment: CT abd/pelvis on 04/04/13 shows progression of destructive changes in the left hip region, involving the acetabulum and femur with associated joint effusion Patient currently afebrile, no leukocytosis, CRP decreasing. Continue ceftriaxone, per ID Ortho recommended transfer to tertiary care center for potential reconstructive need and availability for plastic surgery. Awaiting a bed in [facility]. Will speak with Ortho again to determine if surgery is absolutely necessary (as it seems like it would be quite extensive) and in the patients best interests (2) Chronic osteomyelitis of left femur Current Visit: No Comment: Continue ceftriaxone, Per ID No antibiotic treatment for the past 2 months prior to that, patient was on 10 week treatment targeted at MRSA Appreciate ID consult (3) Decubitus ulcer, stage 4 with infection Current Visit: No Comment: Of left femur, with chronic osteomyelitis. Treated at wound clinic in the outpatient setting Plan for patient to go to [facility] for further management (4) GERD (gastroesophageal reflux disease) Current Visit: No Comment: Continue famotidine. (5) HTN (hypertension) Current Visit: No Comment: controled cont Norvasc Continue to monitor. 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 (8) Seizure disorder Current Visit: No Comment: Not on maintenance therapy (9) Cerebral palsy Current Visit: No Comment: Profound mental retardation and physical impairment. (10) DVT prophylaxis Current Visit: No Comment: SQ lovenox Status and Disposition: Inpatient admission. Currently awaiting a bed at [facility], will speak with Ortho further to determine urgent necessity of surgery vs continuing IV ABx
[2016-04-09] MEDS: NS 0.9% 1000 ML* 1,000 ML IV SCH ×2 (01:22→16:14)
[2016-04-09] MEDS: BETHANECHOL 10 MG PO SCH ×4 (06:15→21:44)
[2016-04-09] MEDS: Metoclopramide TAB* 10 MG PO SCH ×4 (07:38→17:21)
[2016-04-09] MEDS: Simethicone TAB* 80 MG TAB.CHEW PO SCH ×6 (07:38→21:44)
[2016-04-09] MEDS: Omeprazole CAP* 20 MG PO SCH (07:38)
[2016-04-09] MEDS: Cyclobenzaprine TAB* 10 MG PO SCH ×2 (09:03→21:44)
[2016-04-09] MEDS: Famotidine TAB* 20 MG PO SCH (09:04)
[2016-04-09] MEDS: DULoxetine DR CAP* 30 MG CAP.DR PO SCH (09:04)
[2016-04-09] MEDS: Oxybutynin TAB* 5 MG PO SCH ×2 (09:04→21:44)
[2016-04-09] MEDS: amLODIPine TAB* 5 MG PO SCH (09:04)
[2016-04-09] MEDS: Lactobacillus Acidophilu (GG)* 1 CAP CAP PO SCH (09:04)
[2016-04-09] MEDS: Polyethylene Glycol 3350* 17 GM PACKET PO SCH (09:04)
[2016-04-09] MEDS: Chlorhexidine MOUTHWASH 0.12%* 15 ML UDC SWISH SPIT SCH ×2 (09:05→21:44)
--- NOTE | 2016-04-09 10:22 | PN ---
Subjective Date of Service: 04/09/16 Interval History: Patient seen this morning. Laying in bed, comfortably. Denies pain, SOB. Family History: Unchanged from Admission Social History: Unchanged from Admission Past Medical History: Unchanged from Admission Objective Active Medications: Acetaminophen (Tylenol Tab*) 325 mg PO Q4H PRN PRN Reason: pain/fever Amlodipine Besylate (Norvasc Tab*) 5 mg PO DAILY [facility] Last Admin: 04/09/16 09:04 Dose: 5 mg Bethanechol Chloride (Urecholine Tab*) 10 mg PO 0630,1100,1600,2000 [facility] Last Admin: 04/09/16 06:15 Dose: 10 mg Chlorhexidine Gluconate (Peridex Mouth Wash 0.12%*) 5 ml SWISH SPIT BID [facility] Last Admin: 04/09/16 09:05 Dose: 5 ml Cyclobenzaprine HCl (Flexeril Tab*) 5 mg PO BID [facility] Last Admin: 04/09/16 09:03 Dose: 5 mg Duloxetine HCl (Cymbalta Cap*) 30 mg PO DAILY [facility] Last Admin: 04/09/16 09:04 Dose: 30 mg Enoxaparin Sodium (Lovenox(*)) 40 mg SUBCUT Q24H [facility] Last Admin: 04/08/16 17:00 Dose: 40 mg Famotidine (Pepcid Tab*) 20 mg PO DAILY [facility] Last Admin: 04/09/16 09:04 Dose: 20 mg Sodium Chloride (Ns 0.9% 1000 Ml*) 1,000 mls @ 75 mls/hr IV PER RATE [facility] Last Admin: 04/09/16 01:22 Dose: 75 mls/hr Ceftriaxone Sodium 1,000 mg/ (Sodium Chloride) 50 mls @ 200 mls/hr IVPB Q24H [facility] Last Admin: 04/08/16 11:42 Dose: 200 mls/hr Ketoconazole (Nizoral 2% Cream (Nf)) 1 applic TOPICAL BID [facility] PRN Reason: Protocol Last Admin: 04/08/16 21:41 Dose: Not Given Lactobacillus Rhamnosus (Culturelle*) 1 cap PO DAILY [facility] Last Admin: 04/09/16 09:04 Dose: 1 cap Metoclopramide HCl (Reglan Tab*) 5 mg PO TID AC [facility] Last Admin: 04/09/16 07:38 Dose: 5 mg Cadexomer Iodine [ (Iodosorb] 0.9 %) 0.9 % TOPICAL DAILY [facility] Last Admin: 04/08/16 08:51 Dose: Not Given Omeprazole (Prilosec Cap*) 20 mg PO DAILY@0730 [facility] Last Admin: 04/09/16 07:38 Dose: 20 mg Oxybutynin Chloride (Ditropan Tab*) 10 mg PO BID [facility] Last Admin: 04/09/16 09:04 Dose: 10 mg Polyethylene Glycol/Electrolytes (Miralax*) 17 gm PO DAILY [facility] Last Admin: 04/09/16 09:04 Dose: 17 gm Potassium Chloride (Klor Con Er Tab*) 40 meq PO 1000,1600 [facility] Last Admin: 04/08/16 16:58 Dose: 40 meq Simethicone (Mylicon*) 80 mg PO ACHS [facility] Last Admin: 04/09/16 07:38 Dose: 80 mg Vital Signs 04/08/16 04/09/16 04/09/16 23:39 06:13 08:00 Temperature 96.8 F Pulse Rate 98 Respiratory 14 16 14 Rate Blood Pressure 145/78 (mmHg) O2 Sat by Pulse 100 100 Oximetry Oxygen Devices in Use Now: None Appearance: Middle-aged, M, laying in bed in NAD Eyes: No Scleral Icterus Ears/Nose/Mouth/Throat: Mucous Membranes Moist Neck: NL Appearance and Movements; NL JVP Respiratory: Symmetrical Chest Expansion and Respiratory Effort, Clear to Auscultation Cardiovascular: NL Sounds; No Murmurs; No JVD, RRR Abdominal: - - Ostomy in place, mildly distended abdomen, BS+, non-tender Lymphatic: No Cervical Adenopathy Extremities: No Edema Neurological: - - Alert, contracted extremities Result Diagrams: 04/05/16 07:02 04/05/16 07:02 Additional Lab and Data: Microbiology and Other Data: Assess/Plan/Problems-Billing Assessment: Mr. Bearden is a 65 yo male patient with a PMH of cerebral palsy, intellectual delay, left ischial/buttock decubitus ulcer, neurogenic bladder with chronic suprapubic catheter, Scio syndrome s/p transverse colostomy, HTN, OCD, GERD, Díaz's esophagus, spina bifida, and seizure disorder who initially presented to the ED on 03/30 with concern for decreased ostomy output that is now resolving and concern for joint effusion and progressive destructive changes of the left hip region that may indicate a septic arthritis. Pt was accepted for transfer to for further management and is awaiting a bed, however, speaking further with ID and Ortho over necessity of urgent surgery. - Patient Problems (1) Septic arthritis Current Visit: Yes Comment: CT abd/pelvis on 04/04/13 shows progression of destructive changes in the left hip region, involving the acetabulum and femur with associated joint effusion Patient currently afebrile, no leukocytosis, CRP decreasing. Continue ceftriaxone, per ID Ortho recommended transfer to tertiary care center for potential reconstructive need and availability for plastic surgery. Awaiting a bed in [facility]. Will speak with Ortho again to determine if surgery is absolutely necessary (as it seems like it would be quite extensive) and in the patients best interests. (2) Chronic osteomyelitis of left femur Current Visit: No Comment: Now noted that psuedomonas is growing in culture but overall seems to be improving, Dr. Juares recommends continuing current ABx regimen Continue ceftriaxone No antibiotic treatment for the past 2 months prior to that, patient was on 10 week treatment targeted at MRSA Appreciate ID consult (3) Decubitus ulcer, stage 4 with infection Current Visit: No Comment: Of left femur, with chronic osteomyelitis. Treated at wound clinic in the outpatient setting Plan for patient to possibly go to [facility] for further management (4) GERD (gastroesophageal reflux disease) Current Visit: No Comment: Continue famotidine. (5) HTN (hypertension) Current Visit: No Comment: controled cont Norvasc Continue to monitor. 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 (8) Seizure disorder Current Visit: No Comment: Not on maintenance therapy (9) Cerebral palsy Current Visit: No Comment: Profound mental retardation and physical impairment. (10) DVT prophylaxis Current Visit: No Comment: SQ lovenox Status and Disposition: Inpatient admission. Currently awaiting a bed at [facility], will speak with Ortho further to determine urgent necessity of surgery vs continuing IV ABx
--- NOTE | 2016-04-09 10:25 | PN ---
Progress Note - Progress Note SOAP: Subjective: DOS: 04/09/16 CC: septic hip HPI: 65 year old man with IDD and left leg decubitus ulcer, CT showed effusion in area of pseudoarthrosis. He denies pain. No rash fever or diarrhea per RN. Objective: [] Vital Signs Temp 36.0 C 04/09/16 06:13 Pulse 98 04/09/16 06:13 Resp 14 04/09/16 09:03 BP 145/78 04/09/16 06:13 Pulse Ox 100 04/09/16 08:00 Intake & Output 04/08/16 04/09/16 04/09/16 18:59 06:59 18:59 Intake Total 1530 1390 180 Output Total 1999 3100 Balance -470 -1710 180 Intake: IV Fluids 1390 NS (0.9%) 1390 Oral 1530 0 180 Output: [place] 1999 3100 Other: # Bowel Movements 0 Estimated Stool Amount Medium Gen:NAD Neuro: Awake, regards, does not answer questions HEENT:PERRL, MMM Neck:supple Heart:RRR no murmur Lungs:CTA BL Abd:+BS NTND soft, ostomy with liquid stool, SP tube MSK: left hip non tender, wound without surrounding erythema, BL LE contractures Skin: no rash LN: no visible or palpable LN Assessment: 1. left leg decubitus ulcer/sinus tract with underlying chronic osteomyelitis and septic effusion 2. Hx L/S spine fusion 3. developmental delay Plan: 1. continue ceftriaxone day , grew E.coli and suspect other bowel rey +/- Staph or Strep. If not a candidate for surgery, will plan on lifelong suppressive antibiotics. Discussed with Dr Campos
[2016-04-09] MEDS: Potassium Chlor TAB* 20 MEQ TAB.ER PO SCH ×3 (11:11→17:21)
[2016-04-09] MEDS: Ondansetron INJ* 2 MG/ML VIAL IV PRN ×2 (12:25→17:20)
[2016-04-09] MEDS: cefTRIAXone VIAL(*) 1,000 MG in NS 0.9% 50 ML* 50 ML IVPB SCH (12:26)
[2016-04-09] MEDS ORDERED: Polyethylene Glycol 3350* 17 GM PACKET PO PRN (12:45)
[2016-04-09] MEDS: Enoxaparin(*) 40 MG/0.4 ML SYR SUBCUT SCH (16:14)
[2016-04-09] MEDS: CMCS: Ketoconazole 2 % CREAM (NF) 30 GM TUBE TOPICAL SCH ×2 (17:22→21:45)
[2016-04-09] MEDS: CADEXOMER IODINE 0.9% TOPICAL SCH (17:28)
--- NOTE | 2016-04-09 18:33 | RAD ---
INDICATION: Nausea and vomiting. COMPARISON: Comparison is made with a prior CT of the abdomen and pelvis from March 29, 2016 and a prior abdominal series from December 06, 2015. TECHNIQUE: Frontal supine films of the abdomen were obtained. FINDINGS: There is mild distention of the stomach and a distended loop of bowel which projects to the right of the midline in the lower abdomen which appears similar to the prior exam and appears to correlate with distended sigmoid colon. Osseous destructive changes are noted within the left hip as seen on the prior CT study. Postsurgical changes are noted in the lumbar spine. IMPRESSION: DISTENDED LOOP OF BOWEL IN THE LOWER ABDOMEN WHICH APPEARS TO CORRELATE WITH DISTENDED SIGMOID COLON ON THE PRIOR CT STUDY AND IS UNCHANGED FROM THAT EXAM.
[2016-04-09] MEDS ORDERED: PROCHLORPERAZINE INJ 5 MG/ML 2 ML VIAL IV PRN (19:36)
[2016-04-10] MEDS: BETHANECHOL 10 MG PO SCH ×2 (05:41→12:06)
[2016-04-10] MEDS: NS 0.9% 1000 ML* 1,000 ML IV SCH (05:49)
[2016-04-10] MEDS: Metoclopramide TAB* 10 MG PO SCH ×2 (08:41→12:05)
[2016-04-10 08:42] VITALS: BP 139/78
[2016-04-10] MEDS: amLODIPine TAB* 5 MG PO SCH (08:42)
[2016-04-10] MEDS: DULoxetine DR CAP* 30 MG CAP.DR PO SCH (08:42)
[2016-04-10] MEDS: Omeprazole CAP* 20 MG PO SCH (08:42)
[2016-04-10] MEDS: Cyclobenzaprine TAB* 10 MG PO SCH (08:43)
[2016-04-10] MEDS: Simethicone TAB* 80 MG TAB.CHEW PO SCH ×2 (08:44→12:06)
[2016-04-10] MEDS: Potassium Chlor TAB* 20 MEQ TAB.ER PO SCH (08:44)
[2016-04-10] MEDS: Famotidine TAB* 20 MG PO SCH (08:44)
[2016-04-10] MEDS: Oxybutynin TAB* 5 MG PO SCH (08:44)
[2016-04-10] MEDS: Chlorhexidine MOUTHWASH 0.12%* 15 ML UDC SWISH SPIT SCH (08:45)
[2016-04-10] MEDS: CMCS: Ketoconazole 2 % CREAM (NF) 30 GM TUBE TOPICAL SCH (08:46)
--- NOTE | 2016-04-10 10:46 | DCNOTE ---
Patient seen this morning. No further N/V overnight and tolerated breakfast this morning with no issue. AXR from yesterday unchanged. On exam, laying in bed, comfortable, abd soft, NTND, ostomy in place, contracted extremities After further discussion with infectious disease, orthopedics and [facility] staff the decision was made not to proceed with surgery for Gray at this time as it would be quite an extensive surgery with serious risks for further infections and impaired healing. As Gray has been very stable on antibiotics alone this will be continued and managed by Dr. Juares. If for some reason down the line it seems that antibiotic therapy is not sufficient, surgery can be considered at that time. As per [facility] staff (Karina), Gray is scheduled for debridement by Dr. Gomez in [place] later this month. I called Dr. Gomez's office and was unable to get ahold of him but I did leave a message about the current situation and recommendations to hold off on any surgeries at this time.
[2016-04-10] MEDS: cefTRIAXone VIAL(*) 1,000 MG in NS 0.9% 50 ML* 50 ML IVPB SCH (12:06)
[2016-04-10] MEDS: CADEXOMER IODINE 0.9% TOPICAL SCH (12:31)
--- NOTE | 2016-04-11 09:27 | DS ---
DISCHARGE SUMMARY: DATE OF ADMISSION: 03/30/16 DATE OF DISCHARGE: 04/10/16 PRIMARY CARE PHYSICIAN: Marilyn Blackwell MD. PRINCIPAL DISCHARGE DIAGNOSES: 1. Left hip septic arthritis, stage IV. 2. Pressure ulcer of the left hip with sinus tract that tracks to the left femur. SECONDARY DIAGNOSES: 1. Intellectual developmental delay. 2. Status post transverse colostomy for Poyntelle syndrome. 3. Cerebral palsy with spastic quadriplegia. 4. Neurogenic bladder. 5. Hypertension. DISCHARGE MEDICATION REGIMEN: 1. Ceftriaxone 1 g IV daily. 2. MiraLAX 17 g by mouth daily as needed for constipation 3. Alberto nutritional supplement one packet by mouth 2 times daily. 4. Ketoconazole 2% cream one application topical 2 times daily. 5. Hydrocortisone 2.5% one application topical 2 times daily as needed for rash. 6. Robitussin DM 10 mL by mouth every 4 hours as needed for cough. 7. Iodosorb 0.9% topical daily. 8. Bacitracin zinc 5000 g topical 2 times daily as needed for wound care. 9. Vitamin C 500 mg by mouth daily. 10. Acyclovir ointment one application topical 4 times daily as needed for cold sores. 11. Tylenol 325 mg by mouth every 4 hours as needed for pain. 12. Probiotic one capsule by mouth daily. 13. Maalox Plus 30 mL by mouth every 4 hours as needed for indigestion or nausea. 14. Oxycodone 5 mg by mouth every 6 hours as needed for pain. 15. Vitamin E 400 units by mouth daily. 16. Simethicone 80 mg by mouth with meals and at bedtime. 17. Meloxicam 7.5 mg by mouth at bedtime as needed for pain. 18. Bethanechol 10 mg by mouth 4 times daily. 19. Reglan 5 mg by mouth 3 times daily. 20. Chlorhexidine 5 mL swish and spit 2 times daily. 21. Calcium carbonate/vitamin D 500/125 mg one tablet by mouth 2 times daily. 22. Potassium citrate 20 mEq by mouth 2 times daily. 23. Cyclobenzaprine 5 mg by mouth 2 times daily. 24. Cranberry 400 mg by mouth 2 times daily. 25. Oxybutynin 10 mg by mouth 2 times daily. 26. Vitamin C 500 mg by mouth daily. 27. Omeprazole 20 mg by mouth daily. 28. Amlodipine 5 mg by mouth daily. 29. Multivitamin one tablet by mouth daily. 30. Famotidine 20 mg by mouth daily. 31. Duloxetine 30 mg by mouth daily. STUDIES DURING HOSPITALIZATION: 1. CT of the abdomen and pelvis with contrast. Impression: There is a left decubitus ulcer extending to the left ischial bone. In addition, there is a joint effusion in the left hip and severe erosive and destructive changes in the left femur and acetabulum which has progressed from the prior exam most consistent with septic arthritis and osteomyelitis. Rectal wall thickening is unchanged. Small kidneys with cortical thinning and scarring and bilateral renal calculi, unchanged. Right inguinal hernia containing a portion of the urinary bladder is unchanged. 2. CT of the left lower extremity on 04/04/16. Impression: Increasing edema and possible fluid in the left hip with destructive and erosive changes. There is decubitus ulcer extending to the ischial tuberosity. 3. KUB. Impression: Distended loop of bowel in the lower abdomen which appears to correlate with distended sigmoid colon on the prior CT study, and is changed from that exam. HISTORY OF PRESENT ILLNESS AND HOSPITAL SUMMARY: Please see the full history and physical by KAYLIN Carroll for full details. Briefly, Mr. Bearden is a 65 -year- old male with a past medical history as above who initially presented to the hospital with [facility] staff concerned about his ostomy functioning. He came to the emergency department. He had a CT scan that was done and subsequently had a large bowel movement, and was discharged back home. However, the CT scan was later read as possible septic arthritis of the left hip. The patient was called back to the hospital and orthopedic consult was obtained. Initially, the patient was seen by Dr. Dawson who felt that the patient may benefit from extensive debridement and may need a fairly large scale surgery involving proximal femoral resection as well as possible resection of a significant portion of the hemipelvis. He thought that the patient would likely need plastic surgery and perhaps a tertiary care facility in order to get this surgery. The patient was planned to transfer to [facility]; however, due to various reasons at first due to transportation problems and subsequently due to no bed availability at [facility] or surrounding institutions, the patient was kept in the hospital on IV antibiotics alone. He was followed by Dr. Juares of infectious disease who recommended IV ceftriaxone. Over this time, the patient's blood work improved, specifically his CRP. The patient was largely asymptomatic and had had no fevers during the hospitalization. After speaking further with Dr. Juares, Dr. Lopez of orthopedics, as well as with the staff at the [facility], the decision was made to hold on transfer and surgery at this point and to see if the infection can be suppressed with antibiotics alone, IV initially, followed by possible life-long oral antibiotics. At the request of medical staff, I contacted Dr. Gomez in [place], who is a plastic surgeon there, who was scheduled to perform a debridement on [place] later this month; however, I left a message with his office that he has an ongoing infection that we would recommend holding on any surgery at this time. The patient will come to [facility] daily for IV antibiotic infusions, and will follow up with Dr. Juares as an outpatient to help determine the duration of IV antibiotic and subsequent p.o. therapy. Total time spent on this discharge was 60 minutes. This is a summary of the hospitalization; please see the full medical record for further details. CC: Marilyn Blackwell MD; Dr. Alexey Juares * [id number]/[facility] #: [id number] MTDD
== END 2016-04-10 13:20 | disposition home or self-care (01) | DRG 344 ==
LOC: ED 11:42 → MED 17:20
PROVIDERS: ADMIT Internal Medicine; ATTEND Hospitalist
PROC: 02HV33Z Insertion of Infusion Device into Superior Vena Cava, Percutaneous Approach (ICD-10-PCS; principal; 2016-04-10)
DX: M00.9 Pyogenic arthritis, unspecified (principal); L89.224 Pressure ulcer of left hip, stage 4; M86.652 Other chronic osteomyelitis, left thigh; N31.9 Neuromuscular dysfunction of bladder, unspecified; Z88.8 Allergy status to other drugs, medicaments and biological substances; I10 Essential (primary) hypertension; K21.9 Gastro-esophageal reflux disease without esophagitis; F41.9 Anxiety disorder, unspecified; F32.9 Major depressive disorder, single episode, unspecified; F81.9 Developmental disorder of scholastic skills, unspecified; Z93.3 Colostomy status; G80.9 Cerebral palsy, unspecified; F42.9 Obsessive-compulsive disorder, unspecified; K22.70 Barrett's esophagus without dysplasia; G40.909 Epilepsy, unspecified, not intractable, without status epilepticus; K59.8 Other specified functional intestinal disorders; Q05.7 Lumbar spina bifida without hydrocephalus; Z79.01 Long term (current) use of anticoagulants
CPT/HCPCS: 36415; 74000; 80048; 80053; 83605; 84145; 84484; 85025; 85610; 86140; 87040; 87070; 87077; 87186; 87205; 87640; 87641; 99284; A9270-GY; J0696; J0780; J1650; J2405; J2543

== ENCOUNTER 2016-08-05 00:08 | Observation (INO) | payer MEDICAID ==
[2016-08-05] MEDS ORDERED: NS 0.9% 1000 ML* 1,000 ML IV ONE (00:43)
--- NOTE | 2016-08-05 01:47 | ED ---
Fadia Montez Erika, scribed for Ambrose Myers MD on 08/05/16 at 0147 . GI/ HPI - HPI Summary HPI Summary: Patient is a 65-year-old male presenting to the ED with a CC of cloudy urine starting today. Staff reports patient has had a fever with T max 102.9 intermittently since 08/02/2016. Pt was most recently given Tylenol at 20:00. Today, staff found pt's urine to be cloudy with debris. They report a Hx UTIs. Pt also has a colostomy. Hx cerebral palsy, MR. - History of Current Complaint Chief Complaint: EDFever Time Seen by Provider: 08/05/16 00:38 Stated Complaint: FEVER/POSSIBLE UTI Hx Obtained From: Family/Sr. Payroll Processor Onset/Duration: Started Hours Ago, Atraumatic, Still Present Timing: Intermittent Severity: Moderate Associated Signs and Symptoms: Positive: Fever - Additional Pertinent History Primary Care Physician: OSEAS - Allergy/Home Medications Allergies/Adverse Reactions: Allergies Allergy/AdvReac Type Severity Reaction Status Date / Time Isosorbide Nitrate Allergy Unknown Unknown Verified 05/09/16 09:58 [Isosorbide] Reaction Details Macrolides Allergy Unknown Unknown Verified 05/09/16 09:58 Reaction Details Erythromycin Allergy Unknown Verified 05/09/16 09:58 Reaction Details PMH/Surg Hx/FS Hx/Imm Hx Cardiovascular History: Reports: Hx Hypertension GI History: Reports: Hx Gastroesophageal Reflux Disease, Hx Obstructive Bowel, Hx Ileostomy - Colostomy, Other GI Disorders - Jarrell Syndrome, Díaz's Esophagus History: Reports: Hx Acute Renal Failure, Hx Renal Disease - neurogenic bladder, Other Problems/Disorders - Neurogenic Bladder Musculoskeletal History: Reports: Hx Congenital Bone Abnormalities - hip displacement, Hx Scoliosis, Other Musculoskeletal History - cerebral palsy Sensory History: Reports: Hx Contacts or Glasses, Hx Vision Problem Opthamlomology History: Reports: Hx Contacts or Glasses, Hx Vision Problem Neurological History: Reports: Hx Developmental Delay, Hx Seizures - Last seizure 1989, Other Neuro Impairments/Disorders - cerebral palsy, spina bifida Psychiatric History: Reports: Hx Anxiety, Hx Depression - Cancer History Hx Chemotherapy: No Hx Radiation Therapy: No - Surgical History Surgery Procedure, Year, and Place: hiatal hernia, hernia repair 2009, hip repair S/P, back Sx Hx Anesthesia Reactions: No Infectious Disease History: No Infectious Disease History: Reports: Hx of Known/Suspected MRSA - BCx, wounds Denies: Hx Clostridium Difficile, Hx Hepatitis, Hx Human Immunodeficiency Virus (HIV), Hx Shingles, Hx Tuberculosis, Hx Known/Suspected VRE, Hx Known/ Suspected VRSA, Traveled Outside the [place] in Last 30 Days - Family History Known Family History: Positive: Unknown - Due to profound MR - Social History Alcohol Use: None Hx Substance Use: No Substance Use Type: Reports: None Hx Tobacco Use: No Smoking Status (MU): Never Smoked Tobacco Review of Systems Positive: Fever Genitourinary: Other - cloudy urine All Other Systems Reviewed And Are Negative: Yes Physical Exam Triage Information Reviewed: Yes Vital Signs On Initial Exam: Initial Vitals Temp Pulse Resp BP Pulse Ox 98.8 F 100 20 139/76 98 08/05/16 00:12 08/05/16 00:12 08/05/16 00:12 08/05/16 00:12 08/05/16 00:12 Vital Signs Reviewed: Yes Appearance: Positive: No Pain Distress, Ill-Appearing Skin: Positive: Warm Eyes: Positive: BONNIE ENT: Positive: Hearing grossly normal Neck: Positive: Supple Respiratory/Lung Sounds: Positive: Breath Sounds Present, Decreased Breath Sounds Cardiovascular: Positive: RRR Abdomen Description: Positive: Nontender, Soft, Other: - colostomy and simental present Bowel Sounds: Positive: Present Musculoskeletal: Positive: Strength/ROM Intact Psychiatric: Positive: Affect/Mood Appropriate Diagnostics - Vital Signs Vital Signs Temp Pulse Resp BP Pulse Ox 08/05/16 00:12 98.8 F 100 20 139/76 98 - Laboratory Result Diagrams: 08/05/16 01:27 08/05/16 01:27 Lab Statement: Any lab studies that have been ordered have been reviewed, and results considered in the medical decision making process. - Radiology CXR Radiology Interpretation Completed By: ED Physician - No acute pulmonary disease GIGU Course/Dx - Course Assessment/Plan: A 65 y/o M presents to the ED with a CC of fever and cloudy urine, Hx UTIs. Pt has CP and MR. Blood work obtained. CXR shows no acute pulmonary disease. UA shows UTI. Case discussed with Dr. Muro who agrees to admit patient for further work up and management. - Diagnoses Provider Diagnoses: UTI (urinary tract infection) - Physician Notifications Discussed Care Of Patient With: Dr. Muro (hospitalist) at 03:04 - agrees to admit Instructed by Provider To: Admit As Inpatient Discharge - Discharge Plan Condition: Fair Disposition: ADMITTED TO [facility] The documentation as recorded by the Fadia calderón Erika accurately reflects the service I personally performed and the decisions made by me, Ambrose Myers MD.
[2016-08-05 01:50] LABS: Hematocrit 44 % (42-52); Hemoglobin 14.1 g/dl (14.0-18.0); Mean Corpuscular HGB Conc 32 g/dl (31-36); Mean Corpuscular Hemoglobin 26 pg (27-31); Mean Corpuscular Volume 79 fL (80-94); Mean Platelet Volume 8 um3 (7.4-10.4); Red Blood Count 5.51 10^6/ul (4.0-5.4); Red Cell Distribution Width 23 % (10.5-15)
[2016-08-05 01:51] LABS: Add Diff/Slide Review? Slide Review Added; Comments Flag Yes
[2016-08-05 02:02] LABS: Albumin 3.7 g/dL (3.2-5.2); BUN/Creatinine Ratio 50.5 (8-20); Calcium 9.3 mg/dL (8.6-10.3); EGFR African American 91.5 (>60); EGFR Non-African American 71.1 (>60); Globulin 3.9 g/dL (2-4); Magnesium 2.4 mg/dL (1.9-2.7); Potassium 4.4 mmol/L (3.5-5.0); Total Bilirubin 0.4 mg/dL (0.2-1.0); Total Protein 7.6 g/dL (6.4-8.9)
[2016-08-05 02:51] LABS: Urine Bacteria 2+ (Absent); Urine Bilirubin Negative (Negative); Urine Glucose Negative (Negative); Urine Nitrite Positive (Negative)
[2016-08-05] MEDS ORDERED: Acetaminophen TAB* 325 MG PO PRN (03:14)
[2016-08-05] MEDS ORDERED: CMCS: Melatonin (NF) 3 MG TAB PO PRN (03:14)
[2016-08-05] MEDS ORDERED: Ondansetron INJ* 2 MG/ML VIAL IV PRN (03:14)
[2016-08-05] MEDS ORDERED: NS 0.9% 1000 ML* 1,000 ML IV SCH (03:15)
--- NOTE | 2016-08-05 04:08 | HP ---
H&P (Free Text) History and Physical: PCP: Dony Blackwell MD Date/Time of Evaluation: 03/30/2016 0500 Reason for Consult: no colostomy output [id number] HPI: Mr Bearden is a 65YO male [facility] resident recently treated for an E coli infection of his L hip 2nd urinary contamination of a stage 4 L gluteal decubitus who was sent in for evaluation of fever up to 102.9F. He is unable to give a history and so this information is obtained from his [facility] aide, ED staff, and the available medical record. He had reportedly been having intermittent fevers over the weekend, but tonight spiked to 102.9F and so was sent in for evaluation. His appetite has reportedly been good. There is no report of change in bowel/colostomy or suprapubic catheter output. PMedHx cerebral palsy intellectual delay stage 4 decubitus L buttock complicated by urinary contamination & E coli infection 01/2016 chronic L intra-articular L hip infection w/ E coli chronic osteomyelitis of L femur & pelvis w/ E coli neurogenic bladder w/ chronic suprapubic catheter Jarrell syndrome s/p transverse colostomy HTN OCD GERD Díaz's esophagus Spina bifida seizure disorder Ambulatory Orders Nursing to reconcile. Acyclovir OINT 5%(NF) [Zovirax Oint 5%(NF)] 1 applic TOPICAL QID PRN #1 tube Ascorbic Acid TAB* [Vitamin C TAB*] 500 mg PO DAILY #30 tab 12/03/15 Bethanechol TAB* [Urecholine TAB*] 10 mg PO QID #120 tab 12/03/15 Calcium Carbonate-Vitamin D [Calcium 500/Vitamin D 500-125 mg-Unit] 1 tab PO BID #60 tab 12/03/15 Cranberry (Vaccinium Macrocarp [Cranberry] 400 mg PO BID #60 cap 12/03/15 Cyclobenzaprine TAB* [Flexeril 10 MG TAB*] 5 mg PO BID #60 tab 12/03/15 Famotidine TAB* [Pepcid 20 MG TAB*] 20 mg PO DAILY #30 tab 12/03/15 GuaiFENesin DM* [Robitussin DM*] 10 ml PO Q4H PRN #15 udc 12/03/15 Hydrocortisone 2.5% CREAM(NF) 1 applic TOPICAL BID PRN #1 tube 12/03/15 Ketoconazole 2 % CREAM (NF) [Nizoral 2% CREAM (NF)] 1 applic TOPICAL BID #1 tube 12/03/15 Metoclopramide TAB* [Reglan TAB*] 5 mg PO TID AC #90 tab 12/03/15 Multivitamins/Minerals TAB* [Thera M Plus TAB*] 1 tab PO DAILY #100 tab Nutritional Supplements [Alberto] 1 packet PO BID #60 pow 12/03/15 Oxybutynin TAB* [Ditropan TAB*] 10 mg PO BID #60 tab 12/03/15 Probiotic Product [Probiotic Daily] 1 cap PO DAILY #30 cap 12/03/15 amLODIPine TAB* [Norvasc 5 mg TAB*] 5 mg PO DAILY #30 tab 12/03/15 Chlorhexidine MOUTHWASH 0.12%* [Peridex Mouth Wash 0.12%*] 5 ml SWISH SPIT BID 12/04/15 Vitamin E CAP* 400 unit PO DAILY 12/04/15 oxyCODONE TAB* [Roxycodone TAB 5 mg*] 5 mg PO Q6H PRN 12/04/15 Meloxicam(NF) [Mobic(NF)] 7.5 mg PO BEDTIME PRN 30 Days 12/12/15 Acetaminophen TAB* [Tylenol TAB*] 325 mg PO Q4H PRN 03/30/16 Al Hydrox/Mg Hydrox/Simet LIQ* [Maalox Plus*] 30 ml PO Q4H PRN 03/30/16 Bacitracin Zinc 5,000 gm TOPICAL BID PRN 03/30/16 Cadexomer Iodine [Iodosorb] 0.9 % EX DAILY 03/30/[address] CAP* [Cymbalta CAP*] 30 mg PO DAILY 03/30/16 Omeprazole CAP* [Prilosec CAP* 20 MG] 20 mg PO DAILY 03/30/16 Potassium Citrate (NF) [Urocit-K 10 (NF)] 20 meq PO BID 03/30/16 Simethicone CHEW TAB* [Mylicon*] 80 mg PO ACHS 03/30/16 Polyethylene Glycol 3350* [Miralax*] 17 gm PO DAILY PRN #0 04/10/16 Cadexomer Iodine [Iodosorb] 0.9 % TOPICAL DAILY #1 gel 04/17/16 Silver-Carboxymethylcellulose [Aquacel Ag/Hydrofiber] 1 mis TOPICAL DAILY #30 mis 04/17/16 Triamcinolone 0.1% CREAM (NF) [Kenalog 0.1% Cream (NF)] 1 applic TOPICAL DAILY # 1 tube 07/17/16 Allergies Isosorbide Nitrate [Isosorbide] Allergy (Unknown, Verified 05/09/16 09:58) Unknown Reaction Details Macrolides Allergy (Unknown, Verified 05/09/16 09:58) Unknown Reaction Details ALLERGY TO ERYTHROMYCIN SPECIFICALLY Erythromycin Allergy (Verified 05/09/16 09:58) Unknown Reaction Details PSurgHx suprapubuic catheter placement transverse colostomy SocHx: no tobacco, alcohol, or recreational drugs; lives at the [facility]; full code status FamHx: unobtainable ROS: as above, otherwise reviewed and all were negative Constitutional: NAD, normally developed, debilitated obese white male vitals: Vital Signs Temp 37.1 C 08/05/16 01:30 Pulse 100 08/05/16 01:30 Resp 20 08/05/16 01:30 BP 139/76 08/05/16 01:30 Pulse Ox 98 08/05/16 01:30 Intake & Output 08/04/16 08/04/16 08/05/16 11:59 23:59 11:59 Weight 81.647 kg HEENM: atraumatic; sclera/conjunctiva: non-icteric/clear; hearing: clinically intact; oropharynx: clear, mucosa tacky, speech very difficult to comprehend but [facility] staff are more familiar and often able to discern Neck: soft tissue: non-tender; thyroid: normal Pulmonary: clear to auscultation bilaterally, good aeration, no accessory muscle use CV: RR/RR, normal S1S2, no carotid bruit, no jugular venous distention, 2+ B DP/ PT, no edema Abdominal: soft, non-distended, non-tender, no rebound/guarding/rigidity, normoactive bowel sounds, no hepatosplenomegaly or masses, no costovertebral angle tenderness; colostomy appears healthy, suprapubic catheter in place Musculoskeletal: general: marked contractures and scoliosis; gait: non- ambulatory at baseline Integumental: L gluteal decubitus healing, nearly closed surrounded with blanching pink skin, no malodor or discharge; proximal posterior LLE skin adhesion ? old sinus tract Psychiatric orientation: AA&O to person only affect: calm mood: cooperative eye contact: poor content: very limited insight: poor Testing: Lab Results 08/05/16 08/05/16 08/05/16 Range/Units 01:27 01:27 01:27 WBC 12.0 H (3.5-10.8) 10^3/ul RBC 5.51 H (4.0-5.4) 10^6/ul Hgb 14.1 (14.0-18.0) g/dl Hct 44 (42-52) % MCV 79 L (80-94) fL MCH 26 L (27-31) pg MCHC 32 (31-36) g/dl RDW 23 H (10.5-15) % Plt Count 312 (150-450) 10^3/ul MPV 8 (7.4-10.4) um3 Neut % (Auto) 75.3 (38-83) % Lymph % (Auto) 13.8 L (25-47) % Burke % (Auto) 7.1 (1-9) % Eos % (Auto) 3.3 (0-6) % Baso % (Auto) 0.5 (0-2) % Absolute Neuts (auto) 9.0 H (1.5-7.7) 10^3/ul Absolute Lymphs (auto) 1.6 (1.0-4.8) 10^3/ul Absolute Monos (auto) 0.9 H (0-0.8) 10^3/ul Absolute Eos (auto) 0.4 (0-0.6) 10^3/ul Absolute Basos (auto) 0.1 (0-0.2) 10^3/ul Absolute Nucleated RBC 0.01 10^3/ul Nucleated RBC % 0 Sodium 142 (133-145) mmol/L Potassium 4.4 (3.5-5.0) mmol/L Chloride 108 (101-111) mmol/L Carbon Dioxide 25 (22-32) mmol/L Anion Gap 9 (2-11) mmol/L BUN 53 H (6-24) mg/dL Creatinine 1.05 (0.67-1.17) mg/dL Est GFR ( Amer) 91.5 (>60) Est GFR (Non-Af Amer) 71.1 (>60) BUN/Creatinine Ratio 50.5 H (8-20) Glucose 99 (70-100) mg/dL Lactic Acid 1.1 (0.5-2.0) mmol/L Calcium 9.3 (8.6-10.3) mg/dL Magnesium 2.4 (1.9-2.7) mg/dL Total Bilirubin 0.40 (0.2-1.0) mg/dL AST 25 (13-39) U/L ALT 28 (7-52) U/L Alkaline Phosphatase 90 (34-104) U/L C-Reactive Protein 83.00 H (< 5.00) mg/L Total Protein 7.6 (6.4-8.9) g/dL Albumin 3.7 (3.2-5.2) g/dL Globulin 3.9 (2-4) g/dL Albumin/Globulin Ratio 0.9 L (1-3) Urine Color Urine Appearance Urine pH (5-9) Ur Specific [place] (1.010-1.030) Urine Protein (Negative) Urine Ketones (Negative) Urine Blood (Negative) Urine Nitrate (Negative) Urine Bilirubin (Negative) Urine Urobilinogen (Negative) Ur Leukocyte Esterase (Negative) Urine WBC (Auto) (Absent) Urine RBC (Auto) (Absent) Triple Phos Crystals (Absent) Urine Bacteria (Absent) Urine Glucose (Negative) Urine Ascorbic Acid (Negative) 08/05/16 Range/Units 02:17 WBC (3.5-10.8) 10^3/ul RBC (4.0-5.4) 10^6/ul Hgb (14.0-18.0) g/dl Hct (42-52) % MCV (80-94) fL MCH (27-31) pg MCHC (31-36) g/dl RDW (10.5-15) % Plt Count (150-450) 10^3/ul MPV (7.4-10.4) um3 Neut % (Auto) (38-83) % Lymph % (Auto) (25-47) % Burke % (Auto) (1-9) % Eos % (Auto) (0-6) % Baso % (Auto) (0-2) % Absolute Neuts (auto) (1.5-7.7) 10^3/ul Absolute Lymphs (auto) (1.0-4.8) 10^3/ul Absolute Monos (auto) (0-0.8) 10^3/ul Absolute Eos (auto) (0-0.6) 10^3/ul Absolute Basos (auto) (0-0.2) 10^3/ul Absolute Nucleated RBC 10^3/ul Nucleated RBC % Sodium (133-145) mmol/L Potassium (3.5-5.0) mmol/L Chloride (101-111) mmol/L Carbon Dioxide (22-32) mmol/L Anion Gap (2-11) mmol/L BUN (6-24) mg/dL Creatinine (0.67-1.17) mg/dL Est GFR ( Amer) (>60) Est GFR (Non-Af Amer) (>60) BUN/Creatinine Ratio (8-20) Glucose (70-100) mg/dL Lactic Acid (0.5-2.0) mmol/L Calcium (8.6-10.3) mg/dL Magnesium (1.9-2.7) mg/dL Total Bilirubin (0.2-1.0) mg/dL AST (13-39) U/L ALT (7-52) U/L Alkaline Phosphatase (34-104) U/L C-Reactive Protein (< 5.00) mg/L Total Protein (6.4-8.9) g/dL Albumin (3.2-5.2) g/dL Globulin (2-4) g/dL Albumin/Globulin Ratio (1-3) Urine Color Fanny Urine Appearance Turbid Urine pH 8.0 (5-9) Ur Specific [place] 1.015 (1.010-1.030) Urine Protein 3+(>=500 mg/dl) H (Negative) Urine Ketones Negative (Negative) Urine Blood Negative (Negative) Urine Nitrate Positive H (Negative) Urine Bilirubin Negative (Negative) Urine Urobilinogen Negative (Negative) Ur Leukocyte Esterase 2+ H (Negative) Urine WBC (Auto) 1+(6-10/hpf) H (Absent) Urine RBC (Auto) 1+(3-5/hpf) H (Absent) Triple Phos Crystals Present H (Absent) Urine Bacteria 2+ H (Absent) Urine Glucose Negative (Negative) Urine Ascorbic Acid * H (Negative) CXR, personally reviewed: no acute cardiopulmonary process Impression: 65M presenting with DIAGNOSIS & PLAN Primary febrile UTI : IV ceftriaxone (per most recent urine CX) : IVFs : blood & urine CXs : supportive care L hip intra-articular infection & ostemyelitis : 2nd HX L gluteal stg 4 decubitus w/ urinary contamination : L gluteal ulcer appears largely healed : he received an unknown duration of 1g ceftriaxone daily after discharge 2016 : he had been transferred to [facility] 04/04/2016 for extensive debridement of the ulcer, but upon evaluation there was not considered an appropriate candidate due to perceived intra- & sherri- operative mortality risk : arrange CT pelvis/L hip/L femur in AM to reassess as potential source of fever : consider ID consult in AM Secondary seizure disorder : seizure precautions : review meds once reconciled cerebral palsy w/ intellectual disability : no acute issues : supportive care neurogenic bladder : continue supra-pubic catheter [place] syndrome : continue current bowel regimen once reconciled HTN : review medications once reconciled GERD : continue famotidine & metoclopramide Admission Rational: inpatient for chronically-ill, congenitally disabled individual with fever and complex recent infectious history at high risk of rapid decompensation; inappropriate for outpatient setting DVTp: heparin SQ Code Status: full, needs revisiting [facility]
[2016-08-05] MEDS ORDERED: oxyCODONE TAB* 5 MG TAB PO PRN (04:45)
[2016-08-05] MEDS ORDERED: Polyethylene Glycol 3350* 17 GM PACKET PO PRN (04:45)
[2016-08-05] MEDS ORDERED: ACYCLOVIR 5% TOPICAL PRN (04:45)
[2016-08-05] MEDS ORDERED: Al Hydrox/Mg Hydrox/Simet LIQ* 30 ML UDC PO PRN (04:45)
[2016-08-05] MEDS ORDERED: GuaiFENesin DM* 5 ML UDC PO PRN (04:45)
[2016-08-05] MEDS: cefTRIAXone VIAL(*) 1,000 MG in NS 0.9% 50 ML* 50 ML IVPB SCH (05:06)
[2016-08-05] MEDS: Omeprazole CAP* 20 MG PO SCH (05:07)
--- NOTE | 2016-08-05 07:50 | RAD ---
Indication: Fever. Comparison is made with previous exam dated March 29, 2016. 2 views of the chest are reviewed. Interposed colon is noted right above the liver under the right hemidiaphragm unchanged from previous exam. Lung almonte appear clear. There may be some minimal discoid atelectasis in the left base. IMPRESSION: Interposed colon under the right hemidiaphragm. Lungs are clear.
[2016-08-05] MEDS ORDERED: Docosanol 10%* CREAM 2 GM TUBE TOPICAL PRN (08:20)
[2016-08-05 09:23] LABS: Hematocrit 41 % (42-52); Hemoglobin 13.2 g/dl (14.0-18.0); Mean Corpuscular HGB Conc 32 g/dl (31-36); Mean Corpuscular Hemoglobin 26 pg (27-31); Mean Corpuscular Volume 79 fL (80-94); Mean Platelet Volume 8 um3 (7.4-10.4); Red Blood Count 5.17 10^6/ul (4.0-5.4); White Blood Count 8.2 10^3/ul (3.5-10.8)
[2016-08-05 09:28] LABS: Comments Flag Yes
[2016-08-05 09:29] LABS: Red Cell Distribution Width 22 % (10.5-15)
[2016-08-05 09:43] LABS: Calcium 8.3 mg/dL (8.6-10.3); EGFR African American 128.9 (>60); EGFR Non-African American 100.2 (>60); Potassium 3.9 mmol/L (3.5-5.0)
[2016-08-05] MEDS ORDERED: Iohexol 300* (CONTRAST) 10 ML SDV IV ONE (09:53)
[2016-08-05] MEDS: Metoclopramide TAB* 10 MG PO SCH ×3 (09:58→17:23)
[2016-08-05] MEDS: DULoxetine DR CAP* 30 MG CAP.DR PO SCH (09:58)
[2016-08-05] MEDS: BETHANECHOL 10 MG PO SCH ×4 (09:58→22:01)
[2016-08-05] MEDS: Simethicone CHEW TAB* 80 MG PO SCH ×4 (09:58→22:02)
[2016-08-05] MEDS: Famotidine TAB* 20 MG PO SCH (09:59)
[2016-08-05] MEDS: Cyclobenzaprine TAB* 10 MG PO SCH ×2 (09:59→21:59)
[2016-08-05] MEDS: amLODIPine TAB* 5 MG PO SCH (10:00)
[2016-08-05] MEDS: Oxybutynin TAB* 5 MG PO SCH ×2 (10:00→21:59)
[2016-08-05] MEDS: Docusate CAP* 100 MG PO SCH ×2 (10:24→21:59)
[2016-08-05] MEDS: Potassium Citrate (NF) 10 MEQ TAB PO SCH ×2 (10:24→22:04)
[2016-08-05] MEDS: Chlorhexidine MOUTHWASH 0.12%* 15 ML UDC SWISH SPIT SCH ×2 (10:24→21:58)
[2016-08-05] MEDS: NS 0.9% 1000 ML* 1,000 ML IV SCH ×2 (12:37→21:04)
--- NOTE | 2016-08-05 12:42 | RAD ---
INDICATION: Fever, recent left hip infection. COMPARISON: Comparison is made with a prior CT of the pelvis from April 04, 2016. TECHNIQUE: Contiguous axial sections were obtained through the pelvis with intravenous and oral contrast. The exam was performed following intravenous injection of 100 ml of Omnipaque 300. Images were reconstructed in the coronal and sagittal planes. FINDINGS: No significant enlarged pelvic lymph nodes are seen. The visualized portion of the small bowel and colon appear nondistended. There is a right inguinal hernia containing a portion of the urinary bladder. There is a Swanson catheter within the urinary bladder. No free intraperitoneal air or fluid is seen. There is soft tissue swelling present around the left hip in a decubitus ulcer which extends toward the left ischial tuberosity. There are extensive osteolytic erosive and destructive changes present within the left acetabulum and proximal left femur which appears similar to the prior exam consistent with chronic septic arthritis and osteomyelitis. There is a chronically dislocated right dysplastic hip and an old healed fracture of the mid and distal diaphysis of the right femur. There is a severe lumbar scoliosis convex toward the left side. The patient is status post posterior spinal fusion of the lumbar spine. IMPRESSION: 1. FINDINGS CONSISTENT WITH A CHRONIC LEFT HIP SEPTIC ARTHRITIS AND OSTEOMYELITIS INVOLVING THE LEFT ACETABULUM AND PROXIMAL LEFT FEMUR, UNCHANGED FROM THE PRIOR STUDY. 2. RIGHT INGUINAL HERNIA CONTAINING A PORTION OF THE URINARY BLADDER, UNCHANGED.
--- NOTE | 2016-08-05 15:32 | PN ---
Subjective Date of Service: 08/05/16 Interval History: Patient sleeping in bed. History obtained from [facility] aide at bedside. He appears to be doing well. He could not eat his lunch because it was the wrong consistency. I ordered [facility] ground meats and pureed food. Objective Active Medications: Acetaminophen (Tylenol Tab*) 650 mg PO Q6H PRN PRN Reason: FEVER/PAIN Al Hydrox/Mg Hydrox/Simethicone (Maalox Plus*) 30 ml PO Q4H PRN PRN Reason: NAUSEA Amlodipine Besylate (Norvasc Tab*) 5 mg PO DAILY [facility] Last Admin: 08/05/16 10:00 Dose: 5 mg Bethanechol Chloride (Urecholine Tab*) 10 mg PO QID [facility] Last Admin: 08/05/16 12:41 Dose: 10 mg Chlorhexidine Gluconate (Peridex Mouth Wash 0.12%*) 5 ml SWISH SPIT BID [facility] Last Admin: 08/05/16 10:24 Dose: 5 ml Cyclobenzaprine HCl (Flexeril Tab*) 5 mg PO BID [facility] Last Admin: 08/05/16 09:59 Dose: 5 mg Docosanol (Abreva 10%*) 1 applic TOPICAL QID PRN PRN Reason: cold sore Docusate Sodium (Colace Cap*) 200 mg PO BID [facility] Last Admin: 08/05/16 10:24 Dose: Not Given Duloxetine HCl (Cymbalta Cap*) 30 mg PO DAILY [facility] Last Admin: 08/05/16 09:58 Dose: 30 mg Famotidine (Pepcid Tab*) 20 mg PO DAILY [facility] Last Admin: 08/05/16 09:59 Dose: 20 mg Guaifenesin/Dextromethorphan (Robitussin Dm*) 10 ml PO Q4H PRN PRN Reason: COUGH Heparin Sodium (Porcine) (Heparin Vial(*)) 5,000 units SUBCUT Q8HR [facility] Ceftriaxone Sodium 1,000 mg/ (Sodium Chloride) 50 mls @ 200 mls/hr IVPB Q24H [facility] Last Admin: 08/05/16 05:06 Dose: 200 mls/hr Sodium Chloride (Ns 0.9% 1000 Ml*) 1,000 mls @ 125 mls/hr IV PER RATE [facility] Last Admin: 08/05/16 12:37 Dose: 125 mls/hr Melatonin (Melatonin (Nf)) 3 mg PO BEDTIME PRN; Protocol PRN Reason: Sleep Metoclopramide HCl (Reglan Tab*) 5 mg PO TID AC [facility] Last Admin: 08/05/16 12:42 Dose: 5 mg Omeprazole (Prilosec Cap*) 20 mg PO DAILY@0600 [facility] Last Admin: 08/05/16 05:07 Dose: 20 mg Ondansetron HCl (Zofran Inj*) 4 mg IV Q6H PRN PRN Reason: NAUSEA Oxybutynin Chloride (Ditropan Tab*) 10 mg PO BID [facility] Last Admin: 08/05/16 10:00 Dose: 10 mg Oxycodone HCl (Roxycodone Tab*) 5 mg PO Q6H PRN PRN Reason: PAIN Polyethylene Glycol/Electrolytes (Miralax*) 17 gm PO DAILY PRN PRN Reason: CONSTIPATION Potassium Citrate (Urocit-K 10 (Nf)) 20 meq PO BID [facility] Last Admin: 08/05/16 10:24 Dose: Not Given Simethicone (Mylicon*) 80 mg PO ACHS [facility] Last Admin: 08/05/16 12:41 Dose: 80 mg Vital Signs 08/05/16 08/05/16 08/05/16 03:42 04:49 08:00 Temperature 99.1 F 99.1 F Pulse Rate 100 100 Respiratory 20 20 18 Rate Blood Pressure 178/77 178/77 (mmHg) O2 Sat by Pulse 98 98 Oximetry 08/05/16 08/05/16 09:59 11:59 Temperature Pulse Rate Respiratory 16 18 Rate Blood Pressure (mmHg) O2 Sat by Pulse Oximetry Oxygen Devices in Use Now: None Appearance: Partly up in bed, eyes covered, sleeping quietly. Looks comfortable. Eyes: No Scleral Icterus Extremities: No Edema, No Clubbing, Cyanosis, - Skin: No Rash or Ulcers, No Nodules or Sclerosis, - Result Diagrams: 08/05/16 09:04 08/05/16 09:04 Assess/Plan/Problems-Billing Assessment: - Patient Problems (1) UTI (urinary tract infection) Current Visit: No Status: Acute Priority: High Comment: : chronic indwelling Wsanson (supra-pubic) Continue IV ceftriaxone. C&S pending. If remains afebrile >24 hrs may discharge on oral cephalexin. (2) Chronic osteomyelitis of left femur Current Visit: No Status: Chronic Priority: High Code(s): M86.652 - OTHER CHRONIC OSTEOMYELITIS, LEFT THIGH SNOMED Code(s): 583149257 Comment: and L acetabulum. Ct scan unchanged. Discussed with Dr. Juares. He recommends cephalexin 500 mg bid indefinitely. (3) Cerebral palsy Current Visit: No Status: Chronic Code(s): G80.9 - CEREBRAL PALSY, UNSPECIFIED SNOMED Code(s): 831501825 Comment: Profound mental retardation and physical impairment. (4) [place]'s syndrome Current Visit: No Status: Chronic Priority: High Code(s): K59.8 - OTHER SPECIFIED FUNCTIONAL INTESTINAL DISORDERS SNOMED Code(s): 85221320 Comment: S/p colostomy 11/14/15.
[2016-08-06] MEDS: cefTRIAXone VIAL(*) 1,000 MG in NS 0.9% 50 ML* 50 ML IVPB SCH (04:05)
[2016-08-06] MEDS: NS 0.9% 1000 ML* 1,000 ML IV SCH ×2 (04:12→12:05)
[2016-08-06] MEDS: Omeprazole CAP* 20 MG PO SCH (06:32)
[2016-08-06] MEDS: Heparin VIAL(*) 5000 UNITS/ML VIAL (FIVE THOUSAND) SUBCUT SCH ×2 (06:32→13:20)
[2016-08-06] MEDS: Simethicone CHEW TAB* 80 MG PO SCH ×2 (07:54→12:05)
[2016-08-06] MEDS: Metoclopramide TAB* 10 MG PO SCH ×2 (07:55→12:06)
[2016-08-06] MEDS: Chlorhexidine MOUTHWASH 0.12%* 15 ML UDC SWISH SPIT SCH (09:39)
[2016-08-06] MEDS: Cyclobenzaprine TAB* 10 MG PO SCH (09:40)
[2016-08-06] MEDS: Docusate CAP* 100 MG PO SCH (09:40)
[2016-08-06] MEDS: Oxybutynin TAB* 5 MG PO SCH (09:40)
[2016-08-06] MEDS: BETHANECHOL 10 MG PO SCH ×2 (09:40→13:19)
[2016-08-06] MEDS: DULoxetine DR CAP* 30 MG CAP.DR PO SCH (09:41)
[2016-08-06] MEDS: Famotidine TAB* 20 MG PO SCH (09:41)
[2016-08-06] MEDS: amLODIPine TAB* 5 MG PO SCH (09:41)
[2016-08-06] MEDS: Potassium Citrate (NF) 10 MEQ TAB PO SCH (09:56)
[2016-08-06 12:24] VITALS: BP 148/74
--- NOTE | 2016-08-06 14:28 | DCNOTE ---
Subjective Date of Service: 08/06/16 Interval History: Pt sleepng quietly in bed. [facility] Aide states the patient only ate pudding for lunch. Objective Active Medications: Acetaminophen (Tylenol Tab*) 650 mg PO Q6H PRN PRN Reason: FEVER/PAIN Al Hydrox/Mg Hydrox/Simethicone (Maalox Plus*) 30 ml PO Q4H PRN PRN Reason: NAUSEA Amlodipine Besylate (Norvasc Tab*) 5 mg PO DAILY [facility] Last Admin: 08/06/16 09:41 Dose: 5 mg Bethanechol Chloride (Urecholine Tab*) 10 mg PO QID [facility] Last Admin: 08/06/16 13:19 Dose: 10 mg Chlorhexidine Gluconate (Peridex Mouth Wash 0.12%*) 5 ml SWISH SPIT BID [facility] Last Admin: 08/06/16 09:39 Dose: 5 ml Cyclobenzaprine HCl (Flexeril Tab*) 5 mg PO BID [facility] Last Admin: 08/06/16 09:40 Dose: 5 mg Docosanol (Abreva 10%*) 1 applic TOPICAL QID PRN PRN Reason: cold sore Docusate Sodium (Colace Cap*) 200 mg PO BID [facility] Last Admin: 08/06/16 09:40 Dose: 200 mg Duloxetine HCl (Cymbalta Cap*) 30 mg PO DAILY [facility] Last Admin: 08/06/16 09:41 Dose: 30 mg Famotidine (Pepcid Tab*) 20 mg PO DAILY [facility] Last Admin: 08/06/16 09:41 Dose: 20 mg Guaifenesin/Dextromethorphan (Robitussin Dm*) 10 ml PO Q4H PRN PRN Reason: COUGH Heparin Sodium (Porcine) (Heparin Vial(*)) 5,000 units SUBCUT Q8HR [facility] Last Admin: 08/06/16 13:20 Dose: 5,000 units Ceftriaxone Sodium 1,000 mg/ (Sodium Chloride) 50 mls @ 200 mls/hr IVPB Q24H [facility] Last Admin: 08/06/16 04:05 Dose: 200 mls/hr Sodium Chloride (Ns 0.9% 1000 Ml*) 1,000 mls @ 125 mls/hr IV PER RATE [facility] Last Admin: 08/06/16 12:05 Dose: 125 mls/hr Melatonin (Melatonin (Nf)) 3 mg PO BEDTIME PRN; Protocol PRN Reason: Sleep Metoclopramide HCl (Reglan Tab*) 5 mg PO TID AC [facility] Last Admin: 08/06/16 12:06 Dose: 5 mg Omeprazole (Prilosec Cap*) 20 mg PO DAILY@0600 [facility] Last Admin: 08/06/16 06:32 Dose: 20 mg Ondansetron HCl (Zofran Inj*) 4 mg IV Q6H PRN PRN Reason: NAUSEA Oxybutynin Chloride (Ditropan Tab*) 10 mg PO BID [facility] Last Admin: 08/06/16 09:40 Dose: 10 mg Oxycodone HCl (Roxycodone Tab*) 5 mg PO Q6H PRN PRN Reason: PAIN Polyethylene Glycol/Electrolytes (Miralax*) 17 gm PO DAILY PRN PRN Reason: CONSTIPATION Potassium Citrate (Urocit-K 10 (Nf)) 20 meq PO BID [facility] Simethicone (Mylicon*) 80 mg PO ACHS [facility] Last Admin: 08/06/16 12:05 Dose: 80 mg Vital Signs 08/05/16 08/05/16 08/05/16 16:20 19:50 21:59 Temperature 99.7 F 99.5 F Pulse Rate 93 96 Respiratory 28 28 16 Rate Blood Pressure 150/78 141/61 (mmHg) O2 Sat by Pulse 99 96 Oximetry 08/05/16 08/05/16 08/06/16 22:10 23:59 07:33 Temperature 99.5 F Pulse Rate 89 87 Respiratory 20 18 16 Rate Blood Pressure 135/74 147/71 (mmHg) O2 Sat by Pulse 99 99 Oximetry 08/06/16 08/06/16 08/06/16 08:00 09:40 11:29 Temperature 97.7 F Pulse Rate 73 Respiratory 17 19 17 Rate Blood Pressure 148/74 (mmHg) O2 Sat by Pulse 99 Oximetry Oxygen Devices in Use Now: None Appearance: Sleeping in bed with head partly elevated. Eyes covered. Looks comfortable. Extremities: No Edema, No Clubbing, Cyanosis, - Skin: No Rash or Ulcers, No Nodules or Sclerosis, - Result Diagrams: 08/05/16 09:04 08/05/16 09:04 Assess/Plan/Problems-Billing Assessment: - Patient Problems (1) UTI (urinary tract infection) Current Visit: No Status: Acute Priority: High Comment: : chronic indwelling Swanson (supra-pubic) Continue IV ceftriaxone. C&S showed mixed rey. Discharge on oral cephalexin indefinitely for chronic osteo L hip.. (2) Chronic osteomyelitis of left femur Current Visit: No Status: Chronic Priority: High Code(s): M86.652 - OTHER CHRONIC OSTEOMYELITIS, LEFT THIGH SNOMED Code(s): 909631888 Comment: and L acetabulum. Ct scan unchanged from prior study. Discussed with Dr. Juares. He recommends cephalexin 500 mg bid indefinitely. (3) Cerebral palsy Current Visit: No Status: Chronic Code(s): G80.9 - CEREBRAL PALSY, UNSPECIFIED SNOMED Code(s): 014587793 Comment: Profound mental retardation and physical impairment. (4) [place]'s syndrome Current Visit: No Status: Chronic Priority: High Code(s): K59.8 - OTHER SPECIFIED FUNCTIONAL INTESTINAL DISORDERS SNOMED Code(s): 61802956 Comment: S/p colostomy 11/14/15. Status and Disposition: Discharge now. Fup Dr. Blackwell.
[2016-08-06] MEDS ORDERED: POTASSIUM CITRATE 10 MEQ PO SCH (21:00)
--- NOTE | 2016-08-07 04:07 | DS ---
DISCHARGE SUMMARY: DATE OF ADMISSION: DATE OF DISCHARGE: 08/06/16 HISTORY: This 65-year-old man is a resident of the [facility]. He had a temperature of 102.9. He had apparently intermittent fevers over Memorial Day weekend, but when it reached 102.9, was sent in for evaluation. They had reported his appetite was good. There was no change in the suprapubic catheter output or his colostomy output. The patient himself was not able to give the history because of his developmental delay. The rest of the history is detailed in the admission note. His urinalysis was abnormal, although this may be related to the presence of a suprapubic catheter. He was treated primarily for urinary tract infection with IV ceftriaxone. I discussed the case with Dr. Juares. He had stopped the cephalexin about 2 weeks before. We did a CT of the pelvis which showed continued findings of chronic osteomyelitis of the left femur and acetabulum. Dr. Juares thought the patient might do better with indefinite duration of cephalexin 500 mg b.i.d. and he will start this on discharge. For gluteal ulcer itself, the surface appeared healed. DISCHARGE DIAGNOSES: 1. Chronic osteomyelitis of the left femur. 2. Urinary retention with suprapubic catheter. I note the culture showed mixed rey. 3. Cerebral palsy and mental retardation. 4. Lohrville's syndrome. DISCHARGE MEDICATIONS: 1. Cephalexin 500 mg b.i.d. indefinitely. 2. Acyclovir ointment 5% four times a day p.r.n. 3. Ascorbic acid 500 mg daily. 4. Bethanechol 10 mg four times a day. 5. Calcium carbonate with vitamin D one tab b.i.d. 6. Cranberry extract 400 mg b.i.d. 7. Cyclobenzaprine 5 mg b.i.d. 8. Famotidine 20 mg daily. 9. Guaifenesin DM 10 mL q.4 hours p.r.n. 10. Hydrocortisone 2.5% cream b.i.d. p.r.n. 11. Ketoconazole 2% cream b.i.d. p.r.n. 12. Metoclopramide 5 mg t.i.d. before meals. 13. Multivitamin with minerals daily. 14. Nutritional supplement Alberto 1 packet b.i.d. 15. Oxybutynin 10 mg b.i.d. 16. Probiotic 1 capsule daily. 17. Amlodipine 5 mg daily. 18. Vitamin E 400 units daily. 19. Oxycodone 5 mg every 6 hours p.r.n. 20. Chlorhexidine mouth wash 0.12% swish and spit b.i.d. 21. Meloxicam 7.5 mg h.s. p.r.n. 22. Omeprazole 20 mg daily. 23. Duloxetine 30 mg daily. 24. Potassium citrate 20 mEq twice daily. 25. Bacitracin zinc 5000 g topical twice daily p.r.n. 26. Maalox Plus 30 mL every 4 hours p.r.n. 27. Simethicone chewable 80 mg a.c. and h.s. 28. Acetaminophen 325 mg every 4 hours p.r.n. 29. Polyethylene glycol 17 g daily p.r.n. CC: Dr. Blackwell* [id number]/[facility] #: [id number] [facility]
== END 2016-08-06 17:00 | disposition home or self-care (01) ==
LOC: ED 00:08 → INTOOBSV 03:07 → MED 03:07
PROVIDERS: ADMIT Hospitalist; ATTEND Internal Medicine
DX: M86.652 Other chronic osteomyelitis, left thigh (principal); R33.9 Retention of urine, unspecified; G80.9 Cerebral palsy, unspecified; K59.8 Other specified functional intestinal disorders; F79 Unspecified intellectual disabilities; G40.909 Epilepsy, unspecified, not intractable, without status epilepticus; F42.9 Obsessive-compulsive disorder, unspecified; Q05.9 Spina bifida, unspecified; N31.9 Neuromuscular dysfunction of bladder, unspecified; Z79.899 Other long term (current) drug therapy; Z88.1 Allergy status to other antibiotic agents; Z88.8 Allergy status to other drugs, medicaments and biological substances
CPT/HCPCS: 36415; 71020; 72193; 80048; 80053; 81003; 81015; 83605; 83735; 85025; 86140; 87040; 87077; 87086; 87150; 87205; 96372; 96374; 96376; 99283; A9270-GY; G0378; J0696; J1644; Q9967

== ENCOUNTER 2017-02-06 21:27 | Emergency (ER) | payer MEDICARE, MEDICAID ==
[2017-02-06] MEDS ORDERED: NS 0.9% 1000 ML* 1,000 ML IV ONE (23:50)
[2017-02-06] MEDS ORDERED: Ondansetron INJ* 2 MG/ML VIAL IV ONE (23:50)
[2017-02-07 01:09] LABS: ABS Basophils 0.1 10^3/ul (0-0.2); ABS Eosinophils 0.2 10^3/ul (0-0.6); ABS Lymphocytes 1.7 10^3/ul (1.0-4.8); ABS Monocytes 0.8 10^3/ul (0-0.8); ABS Neutrophils 7.2 10^3/ul (1.5-7.7); ABS Nucleated RBC 0 10^3/ul; Eosinophil % 2.1 % (0-6); Hematocrit 45 % (42-52); Hemoglobin 15.7 g/dl (14.0-18.0); Lymphocyte % 17.4 % (25-47); Mean Corpuscular HGB Conc 35 g/dl (31-36); Mean Corpuscular Hemoglobin 30 pg (27-31); Mean Corpuscular Volume 87 fL (80-94); Mean Platelet Volume 7 um3 (7.4-10.4); Nucleated Red Blood Cells % 0; Platelet Count 357 10^3/ul (150-450); Red Blood Count 5.21 10^6/ul (4.0-5.4); Red Cell Distribution Width 16 % (10.5-15); White Blood Count 9.9 10^3/ul (3.5-10.8)
[2017-02-07 01:22] LABS: Urine Appearance Cloudy; Urine Blood 2+ (Negative); Urine Color Yellow; Urine Ketones Negative (Negative); Urine Protein 1+(30 mg/dL) (Negative); Urine Specific Gravity 1.011 (1.010-1.030); Urine Urobilinogen Positive (Negative)
[2017-02-07 01:23] LABS: EGFR Non-African American 82.6 (>60)
--- NOTE | 2017-02-07 03:30 | ED ---
Abel Montez Thomas, scribed for Bora Escobar MD on 02/07/17 at 0002 . GI/ HPI - HPI Summary HPI Summary: The pt is a 66 y/o male brought [facility] with concerns for vomiting. In the ED, the patient is nonverbal and he does not speak. History is obtained via two caregivers. The patient has been feeling generally ill for the last week. Today, the caregivers report that the patient forgot how to swallow, just wasnt himself today, and had liquid output in his colostomy bag, which is not normal for him. The patient has two healing wounds on his left hip. At baseline, the patient is verbal and able to hold a conversation. LEVEL FIVE CAVEAT: HPI LIMITED BY NONVERBAL PATIENT - History of Current Complaint Chief Complaint: EDNauseaVomitDiarrh Time Seen by Provider: 02/06/17 23:29 Stated Complaint: VOMITING Hx Obtained From: Family/Rail Signal Mechanic - two cartakers are present Hx From Patient Unobtainable Due To: Other - Nonverbal Onset/Duration: Started Weeks Ago - 1, Still Present Timing: Constant Severity: Moderate Pain Intensity: 0 Associated Signs and Symptoms: Positive: Other: - Concerns for vomiting, " forgot how to swallow", generalized illness, "just wasn't himself", liquid colostomy output - Additional Pertinent History Primary Care Physician: [id number] - Allergy/Home Medications Allergies/Adverse Reactions: Allergies Allergy/AdvReac Type Severity Reaction Status Date / Time Isosorbide Nitrate Allergy Unknown Unknown Verified 02/06/17 21:37 [Isosorbide] Reaction Details Macrolides Allergy Unknown Unknown Verified 02/06/17 21:37 Reaction Details Erythromycin Allergy Unknown Verified 02/06/17 21:37 Reaction Details PMH/Surg Hx/FS Hx/Imm Hx Previously Healthy: No - LEVEL FIVE CAVEAT: PMH LIMITED BY NONVERBAL PATIENT Endocrine/Hematology History: Denies: Hx Anticoagulant Therapy, Hx Blood Disorders, Hx Blood Transfusions, Hx Bone Marrow Disease, Hx Diabetes, Hx Systemic Lupus Erythematosus, Hx Sickle Cell Disease, Hx Thyroid Disease, Hx Anemia, Hx Unexplained Bleeding, Other Endocrine/Hematological Disorders Cardiovascular History: Reports: Hx Hypertension Denies: Hx Congestive Heart Failure, Hx Coronary Artery Disease, Hx Deep Vein Thrombosis, Hx Hypercholesterolemia, Hx Hypotension, Hx Pacemaker/ICD, Hx Peripheral Vascular Disease, Hx Rheumatic Fever, Hx Syncope, Hx Valvular Heart Disease, Other Cardiovascular Problems/Disorders Respiratory History: Denies: Hx Asthma, Hx Chronic Bronchitis, Hx Chronic Obstructive Pulmonary Disease (COPD), Hx Cystic Fibrosis, Hx Lung Cancer, Hx Pleural Effusion, Hx Pneumonia, Hx Pulmonary Edema, Hx Pulmonary Embolism, Hx Seasonal Allergies, Hx Sleep Apnea, Other Respiratory Problems/Disorders GI History: Reports: Hx Gastroesophageal Reflux Disease, Hx Obstructive Bowel, Hx Ileostomy - Colostomy, Other GI Disorders - Jarrell Syndrome, Díaz's Esophagus Denies: Hx Cirrhosis, Hx Crohn's Disease, Hx Diverticulosis, Hx Gall Bladder Disease, Hx Gastrointestinal Bleed, Hx Hiatal Hernia, Hx Irritable Bowel, Hx Jaundice, Hx Pyloric Stenosis, Hx Ulcer History: Reports: Hx Acute Renal Failure, Hx Renal Disease - neurogenic bladder, Other Problems/Disorders - Neurogenic Bladder Denies: Hx Benign Prostatic Hyperplasia, Hx Chronic Renal Failure, Hx Dialysis, Hx Kidney Infection, Hx Kidney Stones Musculoskeletal History: Reports: Hx Congenital Bone Abnormalities - hip displacement, Hx Scoliosis, Other Musculoskeletal History - cerebral palsy Denies: Hx Arthritis, Hx Back Problems, Hx Fibromyalgia, Hx Gout, Hx Orthopedic Injury, Hx Osteoporosis, Hx Tendonitis Sensory History: Reports: Hx Contacts or Glasses, Hx Vision Problem Denies: Hx Cataracts, Hx Eye Injury, Hx Eye Prosthesis, Hx Glaucoma, Hx Macular Degeneration, Hx Deafness, Hx Hearing Aid, Hx Hearing Problem, Other Sensory Impairments Opthamlomology History: Reports: Hx Contacts or Glasses, Hx Vision Problem Denies: Hx Cataracts, Hx Eye Injury, Hx Eye Prosthesis, Hx Glaucoma, Hx Macular Degeneration, Other Sensory Impairments Neurological History: Reports: Hx Developmental Delay, Hx Seizures - Last seizure 1989, Other Neuro Impairments/Disorders - cerebral palsy, spina bifida Denies: Hx Dementia, Hx Headaches, Hx Migraine, Hx Spinal Cord Injury, Hx Transient Ischemic Attacks (TIA) Psychiatric History: Reports: Hx Anxiety, Hx Depression Denies: Hx Attention Deficit Hyperactivity Disorder, Hx Eating Disorder, Hx Panic Disorder, Hx Post Traumatic Stress Disorder, Hx Inpatient Treatment, Hx Community Mental Health Tx, Hx Schizophrenia, Hx Bipolar Disorder, Hx Suicide Attempt, Hx Substance Abuse, Other Psychiatric Issues/Disorders - Cancer History Hx Chemotherapy: No Hx Radiation Therapy: No - Surgical History Surgery Procedure, Year, and Place: hiatal hernia, hernia repair 2009, hip repair S/P, back Sx Hx Anesthesia Reactions: No Infectious Disease History: Yes Infectious Disease History: Reports: Hx of Known/Suspected MRSA - BCx, wounds Denies: Hx Clostridium Difficile, Hx Hepatitis, Hx Human Immunodeficiency Virus (HIV), Hx Shingles, Hx Tuberculosis, Hx Known/Suspected VRE, Hx Known/ Suspected VRSA, Traveled Outside the [place] in Last 30 Days - Family History Known Family History: Positive: Unknown - LEVEL FIVE CAVEAT: FHX LIMITED BY NONVERBAL PATIENT - Social History Lives: Prison Alcohol Use: None Hx Substance Use: No Substance Use Type: Reports: None Hx Tobacco Use: No Smoking Status (MU): Never Smoked Tobacco Review of Systems - ROS Summary Review of Systems Summary: LEVEL FIVE CAVEAT: ROS LIMITED BY NONVERBAL PATIENT Positive: Other - Generalized illness, "just wasn't himself" Positive: Other - "forgot how to swallow" Positive: Vomiting - concerns for vomiting, Other - "liquid colostomy output" All Other Systems Reviewed And Are Negative: No Physical Exam - Summary Physical Exam Summary: VITAL SIGNS: Reviewed. GENERAL: Patient is a male who is lying contracted in his mobile chair. He is not communicating. Patient is not in any acute respiratory distress. HEAD AND FACE: No signs of trauma. No ecchymosis, hematomas or skull depressions. No sinus tenderness. EYES: PERRLA, EOMI x 2, No injected conjunctiva. EARS: Ear canals and tympanic membranes are within normal limits. MOUTH: Oropharynx within normal limits. NECK: Supple, trachea is midline, no adenopathy, no JVD, no carotid bruit. CHEST: No tenderness at palpation LUNGS: There are decreased breath sounds bilaterally. CVS: Regular rate and rhythm, S1 and S2 present, no murmurs or gallops appreciated. ABDOMEN: The abdomen is distended with hypoactive bowel sounds. There is a colostomy bag with stool that is liquid. EXTREMITIES: No edema, no cyanosis or clubbing. SKIN: Dry and warm LEVEL FIVE CAVEAT: PHYSICAL EXAM LIMITED BY NONVERBAL PATIENT Triage Information Reviewed: Yes Vital Signs On Initial Exam: Initial Vitals Temp Pulse Resp BP Pulse Ox 98.6 F 95 18 157/76 99 02/06/17 21:29 02/06/17 21:29 02/06/17 21:29 02/06/17 21:29 02/06/17 21:29 Vital Signs Reviewed: Yes Diagnostics - Vital Signs Vital Signs Temp Pulse Resp BP Pulse Ox 02/06/17 21:29 98.6 F 95 18 157/76 99 - Laboratory Result Diagrams: 02/07/17 00:50 02/07/17 00:50 Lab Statement: Any lab studies that have been ordered have been reviewed, and results considered in the medical decision making process. - Radiology CXR Xray Interpretation: No Acute Changes - No acute process Radiology Interpretation Completed By: ED Physician MARNIE Course/Dx - Course Assessment/Plan: The patients urine sample was taken from his urine bag, so most likely urinalysis is contaminated. There is no leukocytosis or fever. Most likely the patient does not have a UTI. He did not vomit in the ED. At time of discharge, the patients stool culture is still pending. The patient most likely has a viral gastroenteritis. - Diagnoses Provider Diagnoses: Viral gastroenteritis Discharge - Discharge Plan Condition: Stable Disposition: HOME Patient Education Materials: Gastroenteritis (ED) Referrals: Marilyn Rodriguez MD [Primary Care Provider] - 3 Days Additional Instructions: Follow up with your primary care physician in three days. Increase your fluid intake. Take Immodium as needed for the diarrhea. Take Zofran as needed for nausea and vomiting. Return to the emergency department for any new or worsening symptoms. The documentation as recorded by the Abel calderón Thomas accurately reflects the service I personally performed and the decisions made by , Bora Escobar MD.
[2017-02-07 04:48] VITALS: BP 142/93
--- NOTE | 2017-02-07 09:44 | RAD ---
INDICATION: Fever and vomiting COMPARISON: Chest x-ray dated August 05, 2016 TECHNIQUE: Single AP portable view of the chest was obtained. FINDINGS: Image quality is compromised due to the relative inferiority of a portable chest x-ray. The heart and mediastinum exhibit normal size and contour. The lungs are grossly clear. There is no evidence of a large pleural effusion. Visualized bones are normal for the patient's age. IMPRESSION: No radiographic evidence for acute cardiopulmonary abnormality on this portable chest x-ray.
--- NOTE | 2017-02-08 09:02 | PN ---
Progress Note - Progress Note Date of Service: 02/08/17 Note: Patient had negative c diff and occult blood. will wait for final culture.
== END 2017-02-07 05:04 | disposition home or self-care (01) ==
LOC: ED 21:27
DX: K52.9 Noninfective gastroenteritis and colitis, unspecified (principal); I10 Essential (primary) hypertension; Z93.3 Colostomy status; F80.9 Developmental disorder of speech and language, unspecified
CPT/HCPCS: 36415; 71010; 80053; 81003; 81015; 82150; 82270; 83605; 83630; 83690; 85025; 86140; 87040; 87045; 87046; 87077; 87086; 87493; 87899; 96360; 96374; 99283; J2405

== ENCOUNTER 2017-02-08 16:11 | Inpatient (IN) | payer MEDICARE, MEDICAID ==
[2017-02-08] MEDS ORDERED: NS 0.9% 1000 ML* 1,000 ML IV ONE (16:30)
[2017-02-08 17:24] LABS: Hematocrit 47 % (42-52); Mean Corpuscular HGB Conc 34 g/dl (31-36); Mean Corpuscular Hemoglobin 30 pg (27-31); Mean Corpuscular Volume 87 fL (80-94); Mean Platelet Volume 7 um3 (7.4-10.4); Platelet Count 347 10^3/ul (150-450); Red Blood Count 5.39 10^6/ul (4.0-5.4); Red Cell Distribution Width 16 % (10.5-15); White Blood Count 12.5 10^3/ul (3.5-10.8)
[2017-02-08 17:25] LABS: ABS Basophils 0.1 10^3/ul (0-0.2); ABS Eosinophils 0.1 10^3/ul (0-0.6); ABS Lymphocytes 1.4 10^3/ul (1.0-4.8); ABS Monocytes 0.9 10^3/ul (0-0.8); ABS Nucleated RBC 0 10^3/ul; Eosinophil % 0.8 % (0-6); Nucleated Red Blood Cells % 0
--- NOTE | 2017-02-08 17:30 | RAD ---
INDICATION: Altered mental status COMPARISON: None. TECHNIQUE: Single AP portable view of the chest was obtained. FINDINGS: Image quality is compromised due to the relative inferiority of a portable chest x-ray and by the patient having his right hand and wrist overlying the right lower lung. The heart and mediastinum exhibit normal size and contour. The left lung is grossly clear. The right lung is mostly obscured by the patient's hand but is likely also clear. Visualized bones are normal for the patient's age. IMPRESSION: No definite consolidation or infiltrate although evaluation of the right lung is limited by the patient's hand overlying the chest.
[2017-02-08 17:41] LABS: EGFR Non-African American 77.7 (>60)
--- NOTE | 2017-02-08 18:25 | RAD ---
INDICATION: Altered mental status COMPARISON: None. TECHNIQUE: Contiguous axial sections of the brain were obtained from the skull base to the vertex without contrast. FINDINGS: There is large volume bilateral hydrocephalus of unknown chronicity. There is subsequent thinning of the brain parenchyma. No significant focal abnormality or mass effect is present. There is no evidence for intracranial hemorrhage. No significant focal osseous abnormality is present. The visualized portion of the paranasal sinuses and mastoid air cells appear clear. IMPRESSION: Large volume bilateral hydrocephalus of indeterminant chronicity without prior brain imaging available for comparison.
[2017-02-08] MEDS ORDERED: Ondansetron INJ* 2 MG/ML VIAL IV PRN (20:02)
--- NOTE | 2017-02-08 21:26 | RAD ---
INDICATION: Vomiting COMPARISON: KUB dated April 09, 2016 TECHNIQUE: 3 views the abdomen were obtained. FINDINGS: Again seen are posterior fixation rods overlying the lower thoracic and lumbar spine. There is severe levoconvex scoliosis of the lumbar spine. There are advanced degenerative changes of the bilateral hips. There is no definite pathologically dilated loop of bowel. Stool is seen overlying the rectum. IMPRESSION: CHRONIC AND POSTSURGICAL CHANGES DESCRIBED ABOVE.
[2017-02-08] MEDS: NS 0.9% 1000 ML* 1,000 ML IV SCH (22:00)
--- NOTE | 2017-02-08 22:11 | PN ---
Progress Note - Progress Note Date of Service: 02/08/17 Note: Patient had skull xray in 10/22 for lower ext MRI - no foreign body seen. No surgical intervention since then. Patient clear to have MRI done. No STONE DRILLER shunt seen on head CT.
[2017-02-09 00:16] LABS: Urine Appearance Turbid; Urine Blood 2+ (Negative); Urine Ketones Negative (Negative); Urine Protein 3+(>=500 mg/dL) (Negative); Urine Specific Gravity 1.015 (1.010-1.030); Urine Urobilinogen Negative (Negative)
--- NOTE | 2017-02-09 00:18 | HP ---
CC: Marilyn Blackwell MD * HISTORY AND PHYSICAL: DATE OF ADMISSION: 02/08/17 TIME OF EVALUATION: 1929 PRIMARY CARE PHYSICIAN: Marilyn Blackwell MD CHIEF COMPLAINT: Vomiting and altered mental status. HISTORY OF PRESENT ILLNESS: This is a 66-year-old male with a past medical history of profound intellectual and development disability with cerebral palsy with chronic osteomyelitis who presented to the emergency room for the second time in the past 3 days for vomiting and altered mental status. The [facility] is from [facility] and is currently limited in his verbal interaction and history is obtained from the [facility] aide. They state that they came to the emergency room on the for vomiting and difficulty swallowing and he was sent home. The aide states for the past week they have noticed that he has had issues with vomiting, inability to eat or drink and today he has had more slurred speech with his right eye drooping and they noticed a decrease in output from his colostomy bag and some hematuria in his Swanson bag. They state that he has had a low-grade temp of 99.3. No cough or upper respiratory symptoms. They have noticed irregular breathing pattern that was noted 3 days ago with shallow breathing and slowed breathing. When asked about any neurologic history, they states his last seizure was in 1989 and he has not been on any medications since then, has not had any issues with seizures and denied any seizure-like activity witnessed. In the emergency room, the patient had labs and imaging and was brought to [address] [place] [address] for further evaluation. On my encounter, the patient is able to mumble that he denies any pain, remaining verbal interactions very limited and unable to understand him. Per the [facility] staff at baseline, the patient is able to have meaningful verbal interaction and he is able to understand easily, and he is alert and oriented x3. He does need help with feeding, but he has no issues with eating or drinking or swallowing and normally eats 100% of his meals. He is wheelchair bound, nonambulatory and does have some anxiety with transfers. Thus, his baseline is dramatically different from his presenting presentation. Review of systems is limited due to the patient's altered mental status. In the emergency room, the patient had a liter of normal saline. PAST MEDICAL HISTORY: 1. Intellectual development disability secondary to cerebral palsy. 2. Pressure ulcer on left buttocks, stage 2. 3. Chronic osteomyelitis of the right thigh. 4. Díaz's esophagus. 5. Hyperlipidemia. 6. History of nephrolithiasis. 7. Hypertension. 8. Neurogenic bladder. 9. History of recurrent UTIs. 10. History of Jarrell syndrome, status post transverse colostomy. 11. Neurogenic bladder with chronic suprapubic catheter. 12. Chronic left intraarticular left hip infection. 13. OCD. 14. GERD. 15. Spina bifida. 16. Remote history of seizure disorder, last seizure in 1998, not on medications. MEDICATIONS LIST: With no medication doses, this needs to be updated and reconciled. 1. Amlodipine. 2. Omeprazole. 3. Famotidine. 4. Vitamin C. 4. Oxybutynin. 5. Chlorhexidine. 6. Ketoconazole cream. 7. Alberto. 8. Potassium. 9. Cephalexin. 10. Cranberry. 11. Coenzyme Q. 12. Calcium and vitamin D. 13. Reglan. 14. Simethicone. 15. Bethanechol. 16. Vitamin E. 17. Probiotic. 18. Baclofen. 19. MiraLAX. ALLERGIES: ISOSORBIDE NITRATE, MACROLIDES, ERYTHROMYCIN. FAMILY HISTORY: Unable to obtain. SOCIAL HISTORY: The patient resides at residential [facility] through the [facility]. He is a full code. No history of tobacco, alcohol or illicit drug use. Per on-call nurse, he has a nephew, who is his surrogate decision maker and per the [facility] consent for procedures. On-call RN phone number is [phone]. REVIEW OF SYSTEMS: Unable to obtain due to the patient's altered mental status. PHYSICAL EXAMINATION GENERAL: In no acute distress, resting comfortably. VITAL SIGNS: Temp 98.2, pulse rate 73, respiratory rate 16, oxygen saturation 100% on room air, blood pressure 135/67. HEENT: Head: Macrocephalic. Pupils are sluggish and reactive, his right pupil deviates to the right, which per staff is more pronounced. Oropharynx: Mucous membranes dry. RESPIRATORY: Diminished breath sounds. No wheezing, rhonchi, or rales. CARDIAC: Regular rate and rhythm. Blowing systolic murmur more prominent at the right sternal base. ABDOMEN: Hypoactive bowel sounds, soft, nondistended, brown liquidy stool in his ostomy bag. EXTREMITIES: The patient has contracted upper and lower extremities. No clubbing, cyanosis, or edema. NEUROLOGIC: The patient is able to slur no in response to pain, otherwise limited verbal interaction, hard to understand due to his slurred speech. Unable to follow any commands. LABORATORY DATA: White count 12.5, hemoglobin 16, hematocrit of 47, platelets 347. Blood gas; pH 7.48, pCO2 34, pO2 74. Sodium 138, potassium 4.6, chloride 104, bicarb 26, BUN 37, creatinine 0.97. RADIOGRAPHIC DATA: Head CT, large volume, bilateral hydrocephalus of indeterminate chronicity. Chest x-ray: No definitive consolidation or infiltrate, although evaluation of the right lung is limited by patient's hand overlying the chest. EKG normal sinus rhythm. ASSESSMENT: This is a 66-year-old male with past medical history of profound developmental delay who presented to the emergency room with progressive changes in his mental status with vomiting, and now slurred speech, found to have significant hydrocephalus on his head CT. Altered mental status with vomiting. Assessment: Concern for neurologic process. The head CT is unclear on chronicity. We have no prior imaging to compare to. I did speak with Neurosurgery on-call who recommended getting a stat MRI to further assess chronicity to transfer him to the ICU with close neuro checks and that the patient may need to have emergent EVD placed. Plan: We will transfer to the ICU as mentioned. We will do q.2 hour neuro checks. I did have the MRI team called to come into do a stat MRI of the head. I will also order a plain abdominal film with his history of obstruction to make sure that is not an issue although he now has stool output since his admission. We will also follow up in his UA in the setting of his mildly elevated white count to assure that is not playing a role in his presenting symptoms. We will keep him n.p.o., on gentle fluids and follow up on his MRI with Neurosurgery. CHRONIC MEDICAL PROBLEMS: I am holding on his oral agents for now. We will place him on IV famotidine. We will get [facility] to get all of this accurate dosages of medications placed. FEN. As mentioned, n.p.o. with IV fluids. DVT prophylaxis. The patient scores high risk, placed on heparin subcu t.i.d. Code status. Patient is a full code. I spoke with on-call RN who states the nephew can consent for procedurals. We will get his contact information and update him accordingly. PATIENT TIME: Greater than 75 minutes were spent doing the history and physical , more than half time is critical care time and direct patient contact. [id number]/[facility] #: [id number] JJ
[2017-02-09 00:28] LABS: Urine Color Yellow
--- NOTE | 2017-02-09 00:40 | PN ---
Progress Note - Progress Note Date of Service: 02/09/17 Note: Neurosurgeon at the bedside. No concern for emergent ventriculosotomy after review of MRI. Will monitor in ICU for an acute neurologic changes. U/A shows pyuria. With elevated white count and pyuria will start empiric antibiotics. Correction patient has no legal guardian and will need the surrogate decision medical committee to obtain consent for any non urgent procedure.
[2017-02-09 00:45] LABS: INR 1.09 (0.77-1.02)
[2017-02-09] MEDS: cefTRIAXone VIAL(*) 1,000 MG in D5W 50 ML BAG* 50 ML IVPB SCH (01:52)
[2017-02-09] MEDS: hydrALAZINE IV* 20 MG/ML VIAL IV SLOW PU PRN ×3 (01:53→18:20)
--- NOTE | 2017-02-09 05:36 | CONS ---
CONSULTATION REPORT: DATE OF CONSULT: DATE OF DICTATION: 02/09/17 HISTORY OF PRESENT ILLNESS: The patient is a very pleasant 66-year-old gentleman with history of cerebral palsy, spina bifida, Jarrell syndrome status post colostomy and status post Souza german placement for scoliosis, who is a long-term resident. He was brought to the emergency room because of decreased p.o. intake as well as decreased urine output and colostomy output. He is reported to be close to his baseline, which is oriented x1 and follow commands. Because of the CT scan findings consistent with ventriculomegaly, I was requested to see the patient by Dr. Florian. History was obtained by Dr. Florian and the patient's long-term staff who recommended the patient. The patient denies any headache. PAST MEDICAL HISTORY: As stated above, history of CP, seizures, spina bifida, scoliosis. SURGICAL HISTORY: Colostomy, Souza german placements amongst others. SOCIAL HISTORY: Tobacco negative. Alcohol negative. Recreational drug use negative. The patient is a long-term resident. He has a nephew, who is in the process of becoming healthcare proxy. PHYSICAL EXAMINATION: The patient is awake, alert and he is oriented to himself. He follows commands. He has got severe spasticity in all 4 extremities with contraction deformities in the upper extremities as well as clubbed foot bilaterally and severe contractions in the lower extremities. The patient cannot move his arms or his legs because of the severe contractions. Sensory is grossly intact to painful stimuli, although the exam is somewhat difficult. Deep tendon reflexes not able to assess. Vital signs stable. DIAGNOSTIC STUDIES/LAB DATA: The patient had a CT scan of his brain that revealed significant ventriculomegaly with decreased thickness of cerebral hemispheres with significant enlargement of the ventricular system in all compartments. The patient did get an MRI of the brain that revealed similar findings with diffuse ventriculomegaly without evidence of transependymal flow. ASSESSMENT: The patient is a very pleasant 66-year-old gentleman with history of cerebral palsy and developmental delay, who is a long-term resident, was noted to be having decreased p.o. intake and urine output. PLAN: The patient at this point is very close to his reported baseline. He does have evidence of ventriculomegaly, but there is no evidence of transependymal flow. He is awake and he follows commands. At this point, we think that observation is a better solution for him. We discussed the risks with the long-term staff at the bedside and also we talked with his nurse as well as manufacturing shift supervisor for the night in order to obtain consent for ventriculostomy if his condition warranted. Unfortunately, the patient does not have a healthcare proxy that is taking care of the consent. At this point, we would like to monitor his vital signs with nurses q.1 hour. The patient is admitted in the ICU and waiting the results of metabolic workup as well as the workup for possible urinary tract infection. Thank you very much for allowing us to participate in the care of this patient. Please do not hesitate to contact our office in case you have any further questions or concerns regarding the care of this patient. Gilmar Lara MD [id number]/[facility] #: [id number] JJ
[2017-02-09] MEDS: Heparin VIAL(*) 5000 UNITS/ML VIAL (FIVE THOUSAND) SUBCUT SCH ×2 (06:23→15:24)
--- NOTE | 2017-02-09 07:48 | RAD ---
HISTORY: Hydrocephalus COMPARISONS: Head CT dated February 08, 2017, head CT dated September 21, 2008 TECHNIQUE: The following sequences were obtained of the head: Sagittal T1-weighted images, axial T2-weighted images, axial FLAIR images, axial susceptibility weighted images, axial T1-weighted images. Additionally, axial diffusion-weighted images were obtained with calculated apparent diffusion coefficients. FINDINGS: The study is limited by patient motion artifact. HEMORRHAGE/INFARCT: There is no hemorrhage or acute infarct. MASSES/SHIFT: There is no mass or shift. EXTRA-AXIAL SPACES/MENINGES: There are no extra-axial fluid collections. SULCI AND VENTRICLES: Again noted is diffuse ventriculomegaly disproportionately involving the lateral and third ventricles. This is similar to September 21, 2008. CEREBRUM: There are no focal parenchymal abnormalities. BRAINSTEM: There are no focal parenchymal abnormalities. CEREBELLUM: There are no focal parenchymal abnormalities. The cerebellar tonsils are normal in size and position. SELLA: The sella is normal. PINEAL: The pineal region is clear. CP ANGLE/TEMPORAL BONES: The labyrinthine structures are grossly normal. VESSELS: Normal flow-voids are noted within the visualized vertebral vasculature. DIFFUSION ABNORMALITIES: There are no diffusion abnormalities. PARANASAL SINUSES/MASTOIDS: The paranasal sinuses are clear. There is a small right mastoid effusion. ORBITS: The orbits are unremarkable. BONES AND SOFT TISSUE: No bone or soft tissue abnormalities are noted. OTHER: None IMPRESSION: 1. STABLE VENTRICULOMEGALY CONSISTENT WITH CHRONIC OBSTRUCTIVE HYDROCEPHALUS. 2. SMALL RIGHT MASTOID EFFUSION
[2017-02-09] MEDS: NS 0.9% 1000 ML* 1,000 ML IV SCH ×2 (08:20→20:51)
[2017-02-09] MEDS ORDERED: Famotidine IV * 20 MG in NS 0.9% 100 ML* 100 ML IVPB SCH (09:00)
[2017-02-09] MEDS: Famotidine IV* 10 MG/ML 2 ML (20 mg) IV SCH (09:15)
--- NOTE | 2017-02-09 10:24 | PN ---
Progress Note - Progress Note Date of Service: 02/09/17 SOAP: Subjective: []No events ON. In ICU. On ceftriaxone for UTI MRI head: stable ventriculomegaly c/w CT head from 2008 per radiology report. Objective: []VSS AAOx1, Follows commands, FAce symmetric, tongue midline. Dysconjugate gaze. BONNIE Severe spasticity all extremities. Assessment: []66 yom with CP, SZ, spina bifida, scoliosis presents with AMS, UTI and stable ventriculomegaly Plan: []Monitor VS, Neurochecks. Exam stable. Ventriculomegaly present from 2008 per radiology report. No acute NS intervention at this point. Consider ventriculostomy if changes in mental status and increase in ventricular size. Discussed with [facility] staff at bedside. Gilmar Lara MD
[2017-02-09 12:37] LABS: EGFR Non-African American 107.8 (>60)
[2017-02-09] MEDS ORDERED: POTASSIUM CHLORIDE IVPB ONE (15:30)
[2017-02-09] MEDS ORDERED: NS 0.9% IVPB ONE (15:30)
--- NOTE | 2017-02-09 18:00 | PN ---
Subjective Date of Service: 02/09/17 Interval History: Patient without any complaints. Direct Service Provider with him says he is much improved from yesterday Objective Active Medications: Famotidine (Pepcid Iv*) 20 mg IV DAILY [facility] Last Admin: 02/09/17 09:15 Dose: 20 mg Heparin Sodium (Porcine) (Heparin Vial(*)) 5,000 units SUBCUT Q8HR [facility] Last Admin: 02/09/17 15:24 Dose: 5,000 units Hydralazine HCl (Apresoline Iv*) 5 mg IV SLOW PU Q6H PRN PRN Reason: BLOOD PRESSURE Last Admin: 02/09/17 12:03 Dose: 5 mg Sodium Chloride (Ns 0.9% 1000 Ml*) 1,000 mls @ 125 mls/hr IV PER RATE [facility] Last Admin: 02/09/17 08:20 Dose: 125 mls/hr Ceftriaxone Sodium 1,000 mg/ (Dextrose) 50 mls @ 200 mls/hr IVPB Q24H [facility] Last Admin: 02/09/17 01:52 Dose: 200 mls/hr Potassium Chloride 40 meq/ (Sodium Chloride) 520 mls @ 130 mls/hr IVPB ONCE ONE Stop: 02/09/17 19:29 Last Admin: 02/09/17 16:00 Dose: 130 mls/hr Ondansetron HCl (Zofran Inj*) 4 mg IV Q4H PRN PRN Reason: NAUSEA/VOMITING Vital Signs 02/09/17 02/09/17 02/09/17 16:00 16:15 16:30 Temperature 99.3 F Pulse Rate 78 77 85 Respiratory 19 25 18 Rate Blood Pressure 184/95 183/90 162/90 (mmHg) O2 Sat by Pulse 97 97 95 Oximetry 02/09/17 02/09/17 02/09/17 16:45 17:00 17:15 Temperature Pulse Rate 83 84 83 Respiratory 25 19 22 Rate Blood Pressure 172/91 158/88 175/89 (mmHg) O2 Sat by Pulse 96 96 94 Oximetry Oxygen Devices in Use Now: None Eyes: No Scleral Icterus Ears/Nose/Mouth/Throat: Mucous Membranes Moist, - - Poor dentition Neck: No Thyroid Enlargement, Masses Respiratory: Clear to Auscultation Cardiovascular: - - S1S2 Abdominal: NL Sounds; No Tenderness; No Distention, No Hepatosplenomegaly Lymphatic: No Cervical Adenopathy Extremities: No Clubbing, Cyanosis Skin: No Rash or Ulcers Neurological: Alert and Oriented x 3 Result Diagrams: 02/08/17 17:15 02/09/17 12:07 Assess/Plan/Problems-Billing Assessment: Patientis a 66 year old challenged mentally with cerbral palsy who [place] [facility] [place] chief complaint of vomiting and altered mental status. - Patient Problems (1) Altered mental status Current Visit: Yes Status: Acute Code(s): R41.82 - ALTERED MENTAL STATUS, UNSPECIFIED SNOMED Code(s): 643663738 Comment: He is vastly improved today but it is unclear as to the reason in the first place. Thought it might be secondary to his hydrocephalus but at this point, that seems unlikey as we have not treated it. Continue neuro checks and monitor. (2) Acute vomiting Current Visit: No Status: Acute Code(s): R11.10 - VOMITING, UNSPECIFIED SNOMED Code(s): 49584381 Comment: Resolved. Does not appear to be secondary to fecal impaction this time. (3) HTN (hypertension) Current Visit: No Status: Chronic Code(s): I10 - ESSENTIAL (PRIMARY) HYPERTENSION SNOMED Code(s): 41643967 Comment: Poorly controlled. 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 Stable. (5) GERD (gastroesophageal reflux disease) Current Visit: No Status: Chronic Code(s): K21.9 - GASTRO-ESOPHAGEAL REFLUX DISEASE WITHOUT ESOPHAGITIS SNOMED Code(s): 616137224 Comment: Stable.Continue famotidine. (6) Neurogenic bladder Current Visit: No Status: Chronic Code(s): N31.9 - NEUROMUSCULAR DYSFUNCTION OF BLADDER, UNSPECIFIED SNOMED Code(s): 606355835 Comment: Patient has a suprapubic catheter (7) DVT prophylaxis Current Visit: No Status: Acute Priority: High Code(s): VMD8911 - SNOMED Code(s): 085608673 Comment: Heparin sub q
[2017-02-09] MEDS ORDERED: Polyethylene Glycol 3350* 17 GM PACKET PO PRN (18:14)
[2017-02-09] MEDS ORDERED: Docosanol 10%* CREAM 2 GM TUBE TOPICAL PRN (18:14)
[2017-02-09] MEDS ORDERED: Ondansetron TAB* 4 MG PO PRN (18:14)
[2017-02-09] MEDS ORDERED: Al Hydrox/Mg Hydrox/Simet LIQ* 30 ML UDC PO PRN (18:14)
[2017-02-09] MEDS ORDERED: oxyCODONE TAB* 5 MG TAB PO PRN (18:14)
[2017-02-09] MEDS ORDERED: Acetaminophen TAB* 325 MG PO PRN (20:44)
[2017-02-09] MEDS ORDERED: Cephalexin CAP* 500 MG PO SCH (21:00)
[2017-02-10] MEDS: Heparin VIAL(*) 5000 UNITS/ML VIAL (FIVE THOUSAND) SUBCUT SCH ×4 (01:14→21:49)
[2017-02-10] MEDS: hydrALAZINE IV* 20 MG/ML VIAL IV SLOW PU PRN (01:15)
[2017-02-10] MEDS: Simethicone TAB* 80 MG TAB.CHEW PO SCH ×5 (03:31→21:49)
[2017-02-10] MEDS: cefTRIAXone VIAL(*) 1,000 MG in D5W 50 ML BAG* 50 ML IVPB SCH (03:40)
[2017-02-10] MEDS: NS 0.9% 1000 ML* 1,000 ML IV SCH ×2 (05:02→15:55)
[2017-02-10] MEDS: Lactobacillus Acidophilu (GG)* 1 CAP CAP PO SCH (08:51)
[2017-02-10] MEDS: Famotidine IV* 10 MG/ML 2 ML (20 mg) IV SCH (08:52)
[2017-02-10] MEDS: amLODIPine TAB* 5 MG PO SCH (08:52)
[2017-02-10] MEDS: Ascorbic Acid TAB* 500 MG PO SCH (08:52)
[2017-02-10] MEDS: Triamcinolone 0.025% OINT * 15 GM TUBE TOPICAL SCH (08:58)
--- NOTE | 2017-02-10 15:18 | ED ---
Svetlana Montez Gabriel, scribed for Brandon Valente MD on 02/08/17 at 1647 . Altered Mental Status - HPI Summary HPI Summary: This patient is a 66 year old M presenting to [facility] [place] accompanied by aide with a chief complaint of AMS. Patient is non verbal so the aide did all of the dictation. She states there was previously bloody stool in his colostomy bag but now there is no output. Also she reports low urine output with blood in in his collecting bag, right eye drooping, difficulty swallowing, slurred speech, and decreased responsiveness. - History Of Current Complaint Chief Complaint: EDAltMentalStatus Stated Complaint: BLOOD IN CATH BAG,NO BOWEL MOVEMENT Time Seen by Provider: 02/08/17 16:29 Hx Obtained From: Patient Onset/Duration: Still Present Timing: Constant Character: Lethargy - Allergies/Home Medications Allergies/Adverse Reactions: Allergies Allergy/AdvReac Type Severity Reaction Status Date / Time Isosorbide Nitrate Allergy Unknown Unknown Verified 02/06/17 21:37 [Isosorbide] Reaction Details Macrolides Allergy Unknown Unknown Verified 02/06/17 21:37 Reaction Details Erythromycin Allergy Unknown Verified 02/06/17 21:37 Reaction Details Home Medications: Home Medications Baclofen TAB* [Lioresal TAB*] 10 mg PO TID 02/08/17 [History Confirmed 02/08/17] Calamine LOTION* 1 applic .SEE ORDER QID 02/08/17 [History Confirmed 02/08/17] Nystatin TOP POWDER* 1 applic TOPICAL BID PRN 02/08/17 [History Confirmed ] Protein [Beneprotein] 6 gm PO TID 02/08/17 [History Confirmed 02/08/17] PMH/Surg Hx/FS Hx/Imm Hx Previously Healthy: No Endocrine/Hematology History: Denies: Hx Anticoagulant Therapy, Hx Blood Disorders, Hx Blood Transfusions, Hx Bone Marrow Disease, Hx Diabetes, Hx Systemic Lupus Erythematosus, Hx Sickle Cell Disease, Hx Thyroid Disease, Hx Anemia, Hx Unexplained Bleeding, Other Endocrine/Hematological Disorders Cardiovascular History: Reports: Hx Hypertension Denies: Hx Congestive Heart Failure, Hx Coronary Artery Disease, Hx Deep Vein Thrombosis, Hx Hypercholesterolemia, Hx Hypotension, Hx Pacemaker/ICD, Hx Peripheral Vascular Disease, Hx Rheumatic Fever, Hx Syncope, Hx Valvular Heart Disease, Other Cardiovascular Problems/Disorders Respiratory History: Denies: Hx Asthma, Hx Chronic Bronchitis, Hx Chronic Obstructive Pulmonary Disease (COPD), Hx Cystic Fibrosis, Hx Lung Cancer, Hx Pleural Effusion, Hx Pneumonia, Hx Pulmonary Edema, Hx Pulmonary Embolism, Hx Seasonal Allergies, Hx Sleep Apnea, Other Respiratory Problems/Disorders GI History: Reports: Hx Gastroesophageal Reflux Disease, Hx Obstructive Bowel, Hx Ileostomy - Colostomy, Other GI Disorders - [place] Syndrome, Díaz's Esophagus Denies: Hx Cirrhosis, Hx Crohn's Disease, Hx Diverticulosis, Hx Gall Bladder Disease, Hx Gastrointestinal Bleed, Hx Hiatal Hernia, Hx Irritable Bowel, Hx Jaundice, Hx Pyloric Stenosis, Hx Ulcer History: Reports: Hx Acute Renal Failure, Hx Renal Disease - neurogenic bladder, Other Problems/Disorders - Neurogenic Bladder Denies: Hx Benign Prostatic Hyperplasia, Hx Chronic Renal Failure, Hx Dialysis, Hx Kidney Infection, Hx Kidney Stones Musculoskeletal History: Reports: Hx Congenital Bone Abnormalities - hip displacement, Hx Scoliosis, Other Musculoskeletal History - cerebral palsy Denies: Hx Arthritis, Hx Back Problems, Hx Fibromyalgia, Hx Gout, Hx Orthopedic Injury, Hx Osteoporosis, Hx Tendonitis Sensory History: Reports: Hx Contacts or Glasses, Hx Vision Problem Denies: Hx Cataracts, Hx Eye Injury, Hx Eye Prosthesis, Hx Glaucoma, Hx Macular Degeneration, Hx Deafness, Hx Hearing Aid, Hx Hearing Problem, Other Sensory Impairments Opthamlomology History: Reports: Hx Contacts or Glasses, Hx Vision Problem Denies: Hx Cataracts, Hx Eye Injury, Hx Eye Prosthesis, Hx Glaucoma, Hx Macular Degeneration, Other Sensory Impairments Neurological History: Reports: Hx Developmental Delay, Hx Seizures - Last seizure 1989, Other Neuro Impairments/Disorders - cerebral palsy, spina bifida Denies: Hx Dementia, Hx Headaches, Hx Migraine, Hx Spinal Cord Injury, Hx Transient Ischemic Attacks (TIA) Psychiatric History: Reports: Hx Anxiety, Hx Depression Denies: Hx Attention Deficit Hyperactivity Disorder, Hx Eating Disorder, Hx Panic Disorder, Hx Post Traumatic Stress Disorder, Hx Inpatient Treatment, Hx Community Mental Health Tx, Hx Schizophrenia, Hx Bipolar Disorder, Hx Suicide Attempt, Hx Substance Abuse, Other Psychiatric Issues/Disorders - Cancer History Hx Chemotherapy: No Hx Radiation Therapy: No - Surgical History Surgery Procedure, Year, and Place: hiatal hernia, hernia repair 2009, hip repair S/P, back Sx Hx Anesthesia Reactions: No Infectious Disease History: No Infectious Disease History: Reports: Hx of Known/Suspected MRSA - BCx, wounds Denies: Hx Clostridium Difficile, Hx Hepatitis, Hx Human Immunodeficiency Virus (HIV), Hx Shingles, Hx Tuberculosis, Hx Known/Suspected VRE, Hx Known/ Suspected VRSA, Traveled Outside the [place] in Last 30 Days - Family History Known Family History: Positive: Unknown - LEVEL FIVE CAVEAT: FHX LIMITED BY NONVERBAL PATIENT Family History: LEVEL 5 CAVEAT secondary to profound MR. - Social History Alcohol Use: None Alcohol Amount: 1 beer on Sundays Hx Substance Use: No Substance Use Type: Reports: None Hx Tobacco Use: No Smoking Status (MU): Never Smoked Tobacco Review of Systems Positive: Other - decreased responsiveness Positive: Other - right eye drooping Positive: Other - trouble swallowing Positive: Other - melena Positive: hematuria, other - low urine output Positive: Slurred Speech All Other Systems Reviewed And Are Negative: Yes Physical Exam - Summary Physical Exam Summary: GENERAL: ~Patient male sitting comfortably in his wheelchair. ~Patient is not in any acute respiratory distress. Pt seems disheveled and is nonverbal HEAD AND FACE: No signs of trauma. ~No ecchymosis EYES: PERRLA, EOMI x 2, No injected conjunctiva MOUTH: Oropharynx within normal limits. NECK: Supple, trachea is midline, CHEST: Symmetric, no tenderness at palpation CVS: Regular rate and rhythm, S1 and S2 present, no murmurs or gallops appreciated. ABDOMEN: Soft, non-tender. Decreased bowel sounds EXTREMITIES: patient is contracted with muscle atrophy. Pateint has a colostomy bag in his upper abdomen and a nephrostomy tube SKIN: Dry and warm Triage Information Reviewed: Yes Vital Signs On Initial Exam: Initial Vitals Temp Pulse Resp BP Pulse Ox 98.2 F 73 16 135/67 100 02/08/17 16:18 02/08/17 16:18 02/08/17 16:18 02/08/17 16:18 02/08/17 16:18 Vital Signs Reviewed: Yes Completion Of Physical Exam Limited Due To: Level 5 Diagnostics - Vital Signs Vital Signs Temp Pulse Resp BP Pulse Ox 02/08/17 16:18 98.2 F 73 16 135/67 100 - Laboratory Result Diagrams: 02/08/17 17:15 02/08/17 17:15 Lab Statement: Any lab studies that have been ordered have been reviewed, and results considered in the medical decision making process. - Radiology CXR Radiology Interpretation Completed By: Radiologist - No definite consolidation or infiltrate although evaluation of the right lung is limited by the patient's hand overlying the chest. ED physician has reviewed this radiology report and agrees. - CT CT Brain CT Interpretation Completed By: Radiologist - Large volume bilateral hydrocephalus of indeterminant chronicity without prior brain imaging available for comparison. ED physician has reviewed this radiology report and agrees. - EKG 17:35 Cardiac Rate: NL EKG Rhythm: Sinus Rhythm - at 73 BPM EKG Interpretation: No ST elevations. EKG Comparison: No Significant Change - in comparison with EKG from 03/29/2016 Altered Mental Statu Course/Dx - Course Course Of Treatment: This patient is a 66 year old M presenting to [facility] [place] accompanied by aide with a chief complaint of AMS. Patient is no verbal so the aide did all of the dictation. She states there was previously bloody stool in his colostomy bag but now there is no output. Also she reports low urine output with blood in in his collecting bag, right eye drooping, difficulty swallowing, slurred speech, and decreased responsiveness. Labs without any significant abnormalities except for Wbc of 12.5, BUN of 37. . CXR reveals, per radiologist , No definite consolidation or infiltrate although evaluation of the right lung. is limited by the patient's hand overlying the chest. CT Brain reveals, per radiologist, Large volume bilateral hydrocephalus of indeterminant chronicity without. prior brain imaging available for comparison. In the ED course an IV access was obtained. Pt was placed in a case monitor. Pt was started with IV fluids because they seemed slightly dehydrated and because his care givers report him as slight AMS. Discussed patient care with Dr. Carter who accepted the patient. In the ED course, pt has been improving and is stable. Pt is hemodynamically stable, alert but not oriented. - Diagnoses Discharge Diagnoses: Altered mental status, Dehydration - Provider Notifications Discussed Care Of Patient With: Kaykay Carter Time Discussed With Above Provider: 17:38 Instructed by Provider To: Other - accepts patient. Discharge - Discharge Plan Condition: Stable Disposition: ADMITTED TO [facility] documentation as recorded by the Svetlana calderón Gabriel accurately reflects the service I personally performed and the decisions made by , Brandon Valente MD.
--- NOTE | 2017-02-10 16:16 | PN ---
Progress Note - Progress Note Date of Service: 02/10/17 SOAP: Subjective: []No events ON. In ICU. On ceftriaxone for UTI Objective: []VSS AAOx1, Follows commands, Face symmetric, tongue midline. BONNIE Severe spasticity all extremities. Assessment: []66 yom with CP, SZ, spina bifida, scoliosis presents with AMS, UTI and stable ventriculomegaly Plan: []Monitor VS, Neurochecks. Exam stable. Ventriculomegaly present from [address] CT. No acute NS intervention at this point. Gilmar Lara MD
--- NOTE | 2017-02-10 20:19 | PN ---
Subjective Date of Service: 02/10/17 Interval History: Patient without new complaints. Objective Active Medications: Acetaminophen (Tylenol Tab*) 650 mg PO Q6H PRN PRN Reason: FEVER/PAIN Last Admin: 02/09/17 20:56 Dose: 650 mg Al Hydrox/Mg Hydrox/Simethicone (Maalox Plus*) 30 ml PO Q4H PRN PRN Reason: NAUSEA Amlodipine Besylate (Norvasc Tab*) 5 mg PO DAILY [facility] Last Admin: 02/10/17 08:52 Dose: 5 mg Ascorbic Acid (Vitamin C Tab*) 500 mg PO DAILY [facility] Last Admin: 02/10/17 08:52 Dose: 500 mg Docosanol (Abreva 10%*) 1 applic TOPICAL QID PRN PRN Reason: cold sore Famotidine (Pepcid Iv*) 20 mg IV DAILY [facility] Last Admin: 02/10/17 08:52 Dose: 20 mg Heparin Sodium (Porcine) (Heparin Vial(*)) 5,000 units SUBCUT Q8HR [facility] Last Admin: 02/10/17 15:55 Dose: 5,000 units Hydralazine HCl (Apresoline Iv*) 5 mg IV SLOW PU Q6H PRN PRN Reason: BLOOD PRESSURE Last Admin: 02/10/17 01:15 Dose: 5 mg Sodium Chloride (Ns 0.9% 1000 Ml*) 1,000 mls @ 125 mls/hr IV PER RATE [facility] Last Admin: 02/10/17 15:55 Dose: 125 mls/hr Ceftriaxone Sodium 1,000 mg/ (Dextrose) 50 mls @ 200 mls/hr IVPB Q24H [facility] Stop: 02/11/17 01:59 Last Admin: 02/10/17 03:40 Dose: 200 mls/hr Ceftriaxone Sodium 1,000 mg/ (Sodium Chloride) 50 mls @ 200 mls/hr IVPB Q24H [facility] Stop: 02/12/17 01:59 Ceftriaxone Sodium 1,000 mg/ (Dextrose) 50 mls @ 200 mls/hr IVPB Q24H [facility] Lactobacillus Rhamnosus (Culturelle*) 1 cap PO DAILY [facility] Last Admin: 02/10/17 08:51 Dose: 1 cap Ondansetron HCl (Zofran Inj*) 4 mg IV Q4H PRN PRN Reason: NAUSEA/VOMITING Ondansetron HCl (Zofran Tab*) 8 mg PO TID PRN PRN Reason: NAUSEA/VOMITING Oxycodone HCl (Roxycodone Tab*) 5 mg PO Q6H PRN PRN Reason: PAIN Polyethylene Glycol/Electrolytes (Miralax*) 17 gm PO DAILY PRN PRN Reason: CONSTIPATION Simethicone (Mylicon Tab*) 80 mg PO ACHS [facility] Last Admin: 02/10/17 17:59 Dose: Not Given Triamcinolone Acetonide (Triamcinolone 0.025% Oint *) 1 applic TOPICAL DAILY [facility] Last Admin: 02/10/17 08:58 Dose: 1 applic Vital Signs - 8 hr 02/10/17 02/10/17 16:20 16:43 Temperature 98.1 F 98.4 F Pulse Rate 92 90 Respiratory 20 16 Rate Blood Pressure 136/68 141/76 (mmHg) O2 Sat by Pulse 97 99 Oximetry Oxygen Devices in Use Now: Nasal Cannula Eyes: No Scleral Icterus Ears/Nose/Mouth/Throat: Mucous Membranes Moist Neck: No Thyroid Enlargement, Masses Respiratory: Clear to Auscultation Cardiovascular: - - S1S2 lyssa Abdominal: No Hepatosplenomegaly Lymphatic: No Cervical Adenopathy Extremities: No Clubbing, Cyanosis, - - Severely contracted Skin: No Rash or Ulcers Neurological: Alert and Oriented x 3 Result Diagrams: 02/08/17 17:15 02/09/17 12:07 Assess/Plan/Problems-Billing Assessment: Patientis a 66 year old challenged mentally with cerbral palsy who presented to [facility] [place] with a chief complaint of vomiting and altered mental status. - Patient Problems (1) Altered mental status Current Visit: Yes Status: Acute Code(s): R41.82 - ALTERED MENTAL STATUS, UNSPECIFIED SNOMED Code(s): 961942304 Comment: Appears resolved. Continue neuro checks but increase to q4h change to and monitor. (2) UTI (urinary tract infection) Current Visit: No Status: Acute Priority: High Comment: + for Proteus Mirabilis. Continue Rocephin 1 gram IV qd. Sensitivities pending Likely cause for AMS (3) Acute vomiting Current Visit: No Status: Acute Code(s): R11.10 - VOMITING, UNSPECIFIED SNOMED Code(s): 76902993 Comment: Resolved. (4) HTN (hypertension) Current Visit: No Status: Chronic Code(s): I10 - ESSENTIAL (PRIMARY) HYPERTENSION SNOMED Code(s): 99840979 Comment: Borderline control. 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 Stable. (6) GERD (gastroesophageal reflux disease) Current Visit: No Status: Chronic Code(s): K21.9 - GASTRO-ESOPHAGEAL REFLUX DISEASE WITHOUT ESOPHAGITIS SNOMED Code(s): 565806150 Comment: Stable.Continue famotidine. (7) Neurogenic bladder Current Visit: No Status: Chronic Code(s): N31.9 - NEUROMUSCULAR DYSFUNCTION OF BLADDER, UNSPECIFIED SNOMED Code(s): 072359622 Comment: Patient has a suprapubic catheter (8) DVT prophylaxis Current Visit: No Status: Acute Priority: High Code(s): ICQ1206 - SNOMED Code(s): 629331815 Comment: Heparin sub q
[2017-02-11] MEDS: NS 0.9% 1000 ML* 1,000 ML IV SCH ×2 (00:08→10:26)
[2017-02-11] MEDS ORDERED: cefTRIAXone* 1 GM in NS 0.9% 50 ML BAG IVPB SCH (02:00)
[2017-02-11] MEDS: Heparin VIAL(*) 5000 UNITS/ML VIAL (FIVE THOUSAND) SUBCUT SCH ×3 (05:34→22:10)
--- NOTE | 2017-02-11 09:21 | PN ---
Progress Note - Progress Note Date of Service: 02/11/17 SOAP: Subjective: [] No events ON. On regular floor. On ceftriaxone for UTI Objective: []VSS AAOx1, Follows commands, Face symmetric, tongue midline. BONNIE Severe spasticity all extremities. Assessment: []66 yom with CP, SZ, spina bifida, scoliosis presents with AMS, UTI and stable ventriculomegaly Plan: []Monitor VS, Neurochecks. Exam stable. No acute NS intervention at this point. Ok to DC from NS standpoint. Gilmar Lara MD
[2017-02-11] MEDS: Famotidine IV* 10 MG/ML 2 ML (20 mg) IV SCH (10:26)
[2017-02-11] MEDS: Triamcinolone 0.025% OINT * 15 GM TUBE TOPICAL SCH (10:34)
[2017-02-11] MEDS: Simethicone TAB* 80 MG TAB.CHEW PO SCH ×4 (11:08→22:10)
[2017-02-11] MEDS: Lactobacillus Acidophilu (GG)* 1 CAP CAP PO SCH (15:03)
[2017-02-11] MEDS: Ascorbic Acid TAB* 500 MG PO SCH (15:03)
[2017-02-11] MEDS: amLODIPine TAB* 5 MG PO SCH (15:32)
--- NOTE | 2017-02-11 17:54 | PN ---
Subjective Date of Service: 02/11/17 Interval History: Pt is feeling well. He denies any pain. He had an episode of choking this AM but has been doing well since. Objective Active Medications: Acetaminophen (Tylenol Tab*) 650 mg PO Q6H PRN PRN Reason: FEVER/PAIN Last Admin: 02/09/17 20:56 Dose: 650 mg Al Hydrox/Mg Hydrox/Simethicone (Maalox Plus*) 30 ml PO Q4H PRN PRN Reason: NAUSEA Amlodipine Besylate (Norvasc Tab*) 5 mg PO DAILY [facility] Last Admin: 02/11/17 15:32 Dose: 5 mg Ascorbic Acid (Vitamin C Tab*) 500 mg PO DAILY [facility] Last Admin: 02/11/17 15:03 Dose: Not Given Docosanol (Abreva 10%*) 1 applic TOPICAL QID PRN PRN Reason: cold sore Famotidine (Pepcid Iv*) 20 mg IV DAILY [facility] Last Admin: 02/11/17 10:26 Dose: 20 mg Heparin Sodium (Porcine) (Heparin Vial(*)) 5,000 units SUBCUT Q8HR [facility] Last Admin: 02/11/17 15:36 Dose: 5,000 units Hydralazine HCl (Apresoline Iv*) 5 mg IV SLOW PU Q6H PRN PRN Reason: BLOOD PRESSURE Last Admin: 02/10/17 01:15 Dose: 5 mg Sodium Chloride (Ns 0.9% 1000 Ml*) 1,000 mls @ 125 mls/hr IV PER RATE [facility] Last Admin: 02/11/17 10:26 Dose: 125 mls/hr Ceftriaxone Sodium 1,000 mg/ (Sodium Chloride) 50 mls @ 200 mls/hr IVPB Q24H [facility] Stop: 02/12/17 01:59 Last Admin: 02/11/17 01:39 Dose: 200 mls/hr Ceftriaxone Sodium 1,000 mg/ (Dextrose) 50 mls @ 200 mls/hr IVPB Q24H [facility] Lactobacillus Rhamnosus (Culturelle*) 1 cap PO DAILY [facility] Last Admin: 02/11/17 15:03 Dose: Not Given Ondansetron HCl (Zofran Inj*) 4 mg IV Q4H PRN PRN Reason: NAUSEA/VOMITING Ondansetron HCl (Zofran Tab*) 8 mg PO TID PRN PRN Reason: NAUSEA/VOMITING Oxycodone HCl (Roxycodone Tab*) 5 mg PO Q6H PRN PRN Reason: PAIN Last Admin: 02/11/17 17:10 Dose: 5 mg Polyethylene Glycol/Electrolytes (Miralax*) 17 gm PO DAILY PRN PRN Reason: CONSTIPATION Simethicone (Mylicon Tab*) 80 mg PO ACHS [facility] Last Admin: 02/11/17 15:32 Dose: 80 mg Triamcinolone Acetonide (Triamcinolone 0.025% Oint *) 1 applic TOPICAL DAILY [facility] Last Admin: 02/11/17 10:34 Dose: Not Given Vital Signs - 8 hr 02/11/17 02/11/17 02/11/17 11:11 16:05 17:10 Temperature 98.4 F 97.3 F Pulse Rate 85 87 Respiratory 18 16 18 Rate Blood Pressure 179/90 162/82 (mmHg) O2 Sat by Pulse 98 97 Oximetry Oxygen Devices in Use Now: Nasal Cannula Appearance: Middle aged male sitting up in bed, NAD Eyes: No Scleral Icterus Ears/Nose/Mouth/Throat: Mucous Membranes Moist Respiratory: Symmetrical Chest Expansion and Respiratory Effort, Clear to Auscultation - anteriorly Cardiovascular: NL Sounds; No Murmurs; No JVD, RRR Abdominal: NL Sounds; No Tenderness; No Distention, - - colostomy with soft brown stool in bag Extremities: No Clubbing, Cyanosis Skin: No Rash or Ulcers, No Nodules or Sclerosis Neurological: Alert and Oriented x 3 Result Diagrams: 02/08/17 17:15 02/09/17 12:07 Microbiology and Other Data: Microbiology 02/09/17 21:40 Urine Culture - Preliminary Urine Enterococcus Faecium Pseudomonas Aeruginosa 02/09/17 21:35 Aerobic Blood Culture - Preliminary Blood Venous Anaerobic Blood Culture - Preliminary No Growth Day 1 Blood MRSA/MSSA (PCR) - Final Mrsa Negative S.aureus Negative 02/10/17 02:20 Aerobic Blood Culture - Preliminary Blood Venous No Growth Day 1 Anaerobic Blood Culture - Preliminary No Growth Day 1 Assess/Plan/Problems-Billing Mr Bearden is a 66yo M who has a h/o cerebral palsy who presented to [facility] [place] with a chief complaint of vomiting and altered mental status. - Patient Problems (1) Altered mental status Current Visit: Yes Status: Acute Code(s): R41.82 - ALTERED MENTAL STATUS, UNSPECIFIED SNOMED Code(s): 053049587 Comment: Pt is at baseline mental status. ? if secondary to UTI. Hydrocephalus appears to be chronic and not the cause of his AMS. d/c home tomorrow if no issues as pt had choking episode this AM. His diet is now honey thickened. (2) UTI (urinary tract infection) Current Visit: Yes Status: Acute Priority: High Comment: The patient's urine has grown proteus, enterococcus and psuedomonas. Continue ceftriaxone 1g IV daily. Hopefully sensitivities will be back. The pseudomonas is not likely a pathogen as the colony count is low. (3) Acute vomiting Current Visit: Yes Status: Acute Code(s): R11.10 - VOMITING, UNSPECIFIED SNOMED Code(s): 22333248 Comment: Resolved. (4) DVT prophylaxis Current Visit: Yes Status: Acute Code(s): PIT6117 - SNOMED Code(s): 078471802 Comment: SQ heparin (5) Full code status Current Visit: Yes Status: Acute Code(s): Z78.9 - OTHER SPECIFIED HEALTH STATUS SNOMED Code(s): 564370462
[2017-02-12] MEDS: NS 0.9% 1000 ML* 1,000 ML IV SCH (00:45)
[2017-02-12] MEDS ORDERED: cefTRIAXone VIAL(*) 1,000 MG in D5W 50 ML BAG* 50 ML IVPB SCH (02:00)
[2017-02-12] MEDS: Heparin VIAL(*) 5000 UNITS/ML VIAL (FIVE THOUSAND) SUBCUT SCH (05:37)
[2017-02-12 07:51] LABS: Hematocrit 45 % (42-52); Hemoglobin 15.4 g/dl (14.0-18.0); Mean Corpuscular HGB Conc 34 g/dl (31-36); Mean Corpuscular Hemoglobin 29 pg (27-31); Mean Corpuscular Volume 86 fL (80-94); Mean Platelet Volume 7 um3 (7.4-10.4); Platelet Count 231 10^3/ul (150-450); Red Blood Count 5.29 10^6/ul (4.0-5.4); Red Cell Distribution Width 15 % (10.5-15); White Blood Count 6.6 10^3/ul (3.5-10.8)
[2017-02-12 08:03] LABS: EGFR Non-African American 127.8 (>60)
[2017-02-12] MEDS: Triamcinolone 0.025% OINT * 15 GM TUBE TOPICAL SCH (08:10)
[2017-02-12] MEDS: Lactobacillus Acidophilu (GG)* 1 CAP CAP PO SCH (08:10)
[2017-02-12] MEDS: Ascorbic Acid TAB* 500 MG PO SCH (08:10)
[2017-02-12] MEDS: amLODIPine TAB* 5 MG PO SCH (08:10)
[2017-02-12] MEDS: Famotidine IV* 10 MG/ML 2 ML (20 mg) IV SCH (08:10)
[2017-02-12] MEDS: Simethicone TAB* 80 MG TAB.CHEW PO SCH ×2 (08:10→11:23)
[2017-02-12] MEDS ORDERED: Potassium Chloride LIQUID* 20 MEQ PACKET PO ONE (08:29)
--- NOTE | 2017-02-12 10:46 | DS ---
CC: Dr. Blackwell * DISCHARGE SUMMARY: DATE OF ADMISSION: 02/08/17 DATE OF DISCHARGE: 02/12/17 PRIMARY CARE PROVIDER: Dr. Blackwell PRINCIPAL DIAGNOSIS: Altered mental status of unclear etiology, though likely secondary to urinary tract infection. SECONDARY DIAGNOSES: 1. Dysphagia, now requiring honey-thickened liquids. 2. Intellectual developmental delay. 3. Hypertension. 4. History of Munday syndrome, status post transverse colostomy. 5. Neurogenic bladder with chronic suprapubic catheter. DISCHARGE MEDICATIONS: 1. Nystatin powder apply topically twice daily p.r.n. rash. 2. Hydrocortisone cream apply topically twice daily p.r.n. rash. 3. Beneprotein 6 g p.o. t.i.d. 4. Oxycodone 5 mg p.o. q.6 hours p.r.n. pain. 5. Meloxicam 7.5 mg p.o. q.h.s. p.r.n. pain. 6. Bacitracin 5000 g topically b.i.d. p.r.n. wound. 7. Guaifenesin 10 mL p.o. q.4 hours p.r.n. cough. 8. Calamine lotion apply topically 4 times daily. 9. Maalox plus 30 mL p.o. q.4 hours p.r.n. indigestion. 10. Tylenol 325 mg p.o. q.4 hours p.r.n. pain. 11. Flexeril 5 mg p.o. b.i.d. 12. Zovirax ointment apply topically 4 times daily p.r.n. cold sore. 13. Vitamin E 400 units p.o. daily. 14. Probiotic one cap p.o. daily. 15. Triamcinolone cream apply topically daily. 16. Simethicone 80 mg p.o. q.a.c./h.s. 17. Metoclopramide 5 mg p.o. t.i.d. a.c. 18. Urecholine 10 mg p.o. q.i.d. 19. Ketoconazole cream apply topically twice daily. 20. Oxybutynin 10 mg p.o. b.i.d. 21. Chlorhexidine mouthwash 5 mL swish and spit b.i.d. 22. Omeprazole 20 mg p.o. daily. 23. Famotidine 20 mg p.o. daily. 24. Ascorbic acid 500 mg p.o. daily. 25. Amlodipine 5 mg p.o. daily. 26. Duloxetine DR 30 mg p.o. daily. 27. MiraLAX 17 g p.o. daily p.r.n. constipation. 28. Alberto one packet p.o. b.i.d. 29. Multivitamin one tab p.o. daily. 30. Zofran 8 mg p.o. t.i.d. p.r.n. nausea. 31. Baclofen 10 mg p.o. t.i.d. 32. Cranberry 400 mg p.o. b.i.d. 33. Calcium plus D one tab p.o. b.i.d. 34. Potassium citrate 20 mEq p.o. b.i.d. 35. Cefpodoxime 200 mg p.o. q.12 hours x10 doses. HOSPITAL COURSE: Mr. Bearden is a 66-year-old male with a history of intellectual developmental delay, Jarrell syndrome, status post transverse colostomy, dysphagia, and numerous other chronic medical conditions, who presents to the emergency room with vomiting and altered mental status. The patient, on evaluation in the emergency room, was found to have hydrocephalus on CT scan. Initially, no prior imaging had been able to be identified; therefore, it was unclear if the hydrocephalus was new, causing his altered mental status or not. The patient was admitted to the intensive care unit. The patient was seen in consultation by Dr. Lara. He ultimately was able to obtain imaging studies from prior that showed the patient's hydrocephalus was chronic. The patient by that time, however, returned to his baseline. The patient's urinalysis was markedly abnormal; however, he does have a chronic suprapubic catheter. Given the abnormal urinary tract infection, the patient was started on ceftriaxone to be treated for a urinary tract infection. The patient's urine has grown enterococcus faecium, greater than 100,000 colony- forming units per mL; proteus mirabilis, greater than 100,000 colony-forming units per mL; and pseudomonas aeruginosa, 10 to 25,000 colony-forming units per mL. I do not feel that the pseudomonas is likely a pathogen given the low colony-forming units. The patient has done well on ceftriaxone; and, therefore , will be switched over to Vantin 200 mg p.o. twice daily x10 more doses. The patient is essentially back to his baseline mental status. On the day prior to discharge, the patient did have an episode of choking while eating. A swallow study was performed, which now indicates the patient needs honey-thickened liquids. The patient will continue on a regular diet with pureed texture and honey-thickened liquids at this point. The patient is now stable for discharge home. FOLLOWUP CONCERNS: The patient is being discharged home today, 02/12/17. ACTIVITY LEVEL: As tolerated. DIET: Regular, pureed with honey-thickened liquids. CONDITION ON DISCHARGE: Improved. TIME SPENT: Thirty-five minutes were spent discharging this patient. [id number]/CPS #: [id number] MTDD
[2017-02-12 13:37] VITALS: BP 140/77
== END 2017-02-12 14:30 | disposition home or self-care (01) | DRG 466 ==
LOC: ED 16:11 → MED 18:22 → ICU 21:42 → OBSVTOIN 02-09 15:51 → MEDTELE 02-10 10:48
PROVIDERS: ADMIT Internal Medicine; ATTEND Hospitalist
DX: T83.518A Infection and inflammatory reaction due to other urinary catheter, initial encounter (principal); N39.0 Urinary tract infection, site not specified; M86.651 Other chronic osteomyelitis, right thigh; G93.89 Other specified disorders of brain; N31.9 Neuromuscular dysfunction of bladder, unspecified; M41.9 Scoliosis, unspecified; G80.1 Spastic diplegic cerebral palsy; Q05.4 Unspecified spina bifida with hydrocephalus; B96.4 Proteus (mirabilis) (morganii) as the cause of diseases classified elsewhere; Y73.1 Therapeutic (nonsurgical) and rehabilitative gastroenterology and urology devices associated with adverse incidents; B95.2 Enterococcus as the cause of diseases classified elsewhere; I10 Essential (primary) hypertension; K21.0 Gastro-esophageal reflux disease with esophagitis; K22.70 Barrett's esophagus without dysplasia; F41.9 Anxiety disorder, unspecified; F32.9 Major depressive disorder, single episode, unspecified; E86.0 Dehydration; F78 Other intellectual disabilities; E78.5 Hyperlipidemia, unspecified; F42.9 Obsessive-compulsive disorder, unspecified; G40.909 Epilepsy, unspecified, not intractable, without status epilepticus; R11.10 Vomiting, unspecified; R13.10 Dysphagia, unspecified; Z88.1 Allergy status to other antibiotic agents; Z93.3 Colostomy status; Z88.8 Allergy status to other drugs, medicaments and biological substances; Z93.2 Ileostomy status; Y92.009 Unspecified place in unspecified non-institutional (private) residence as the place of occurrence of the external cause
CPT/HCPCS: 36415; 36600; 70450; 70551; 71010; 74000; 80048; 80053; 81003; 81015; 82140; 82550; 82803; 83605; 83735; 84443; 84484; 85025; 85027; 85610; 85730; 86140; 86850; 86900; 86901; 87040; 87077; 87086; 87150; 87186; 87205; 93005; A9270-GY; G0378; J0360; J0696; J1644; J3480

== ENCOUNTER 2017-02-14 11:27 | Emergency (ER) | payer MEDICARE, MEDICAID ==
[2017-02-14] MEDS ORDERED: NS 0.9% 1000 ML* 1,000 ML IV ONE (12:34)
--- NOTE | 2017-02-14 13:13 | RAD ---
Indication: Constipation. History of small bowel obstruction. Abdominal pain. Comparison: February 08, 2017 Technique: LEFT lateral decubitus and supine abdomen views. Report: Grossly clear lung bases. Negative for free air on the LEFT lateral decubitus view. Very large volume of stool present throughout the colon. Moderate rectal distention with formed appearing stool. No dilated bowel loops to indicate bowel obstruction. Pelvic surgical clips. Thoracic lumbar junction through the lumbar spinal fixation rods and cerclage wires. Bilateral marked arthropathy of the hips with chronic RIGHT hip dislocation and pseudoarthrosis. IMPRESSION: Very large volume of stool present throughout the colon. Moderate rectal distention with formed appearing stool. No dilated bowel loops to indicate bowel obstruction.
[2017-02-14 13:33] LABS: Hematocrit 49 % (42-52); Hemoglobin 16.4 g/dl (14.0-18.0); Mean Corpuscular HGB Conc 34 g/dl (31-36); Mean Corpuscular Hemoglobin 30 pg (27-31); Mean Corpuscular Volume 88 fL (80-94); Mean Platelet Volume 8 um3 (7.4-10.4); Red Blood Count 5.54 10^6/ul (4.0-5.4); Red Cell Distribution Width 16 % (10.5-15); White Blood Count 14.2 10^3/ul (3.5-10.8)
[2017-02-14 13:49] LABS: Albumin 4.2 g/dL (3.2-5.2); Calcium 10.5 mg/dL (8.6-10.3); EGFR African American 81.3 (>60); EGFR Non-African American 63.2 (>60); Globulin 3.8 g/dL (2-4); Potassium 4.7 mmol/L (3.5-5.0); Total Bilirubin 0.7 mg/dL (0.2-1.0)
--- NOTE | 2017-02-14 15:47 | RAD ---
Indication: Question aspiration. Comparison: February 08, 2017 Technique: Upright AP 1523 hours Report: Moderate elevation of the RIGHT hemidiaphragm as on the prior exam with normal variant interposition of the splenic flexure of the colon between the liver and the diaphragm. Position of the LEFT arm limits assessment at the LEFT lung base. No compelling alveolar consolidation, pleural effusion, or pneumothorax. The heart, pulmonary vasculature, and mediastinal contours are unremarkable. IMPRESSION: No compelling evidence for aspiration pneumonia or other acute intrathoracic process. February 14, 2017 abdomen radiograph with better visualization of the LEFT lung base also demonstrates grossly clear lung bases.
[2017-02-14 16:19] LABS: Urine Bacteria Absent (Absent); Urine Bilirubin Negative (Negative); Urine Glucose Negative (Negative); Urine Nitrite Negative (Negative)
[2017-02-14] MEDS ORDERED: Magnesium CITRATE* 300 ML BTL PO ONE (16:21)
--- NOTE | 2017-02-14 16:58 | ED ---
Cecily Montez Jason, scribed for Conor López MD on 02/14/17 at 1228 . GI/ HPI - HPI Summary HPI Summary: This patient is a 66 year old M presenting to [facility] accompanied by caregiver with a chief complaint of inability to have a bowel movement since one night ago. The patients caregiver states that the patient has been unable to have a BM, has had right facial drooping, and has had irregular breathing at night time. The patient rates the pain 0/10 in severity. Symptoms aggravated by nothing. Symptoms alleviated by nothing. Patient was recently in [facility] and left 2 days ago. - History of Current Complaint Chief Complaint: EDGeneral Time Seen by Provider: 02/14/17 11:48 Stated Complaint: NO BOWEL MOVEMENT, Hx Obtained From: Family/Collar Folder Operator Onset/Duration: Started Days Ago - 1 day ago, Still Present Timing: Constant Pain Intensity: 0 Associated Signs and Symptoms: Positive: Other: - unable to have a BM, right facial drooping, and irregular breathing Aggravating Factor(s): Nothing Alleviating Factor(s): Nothing - Additional Pertinent History Primary Care Physician: [id number] - Allergy/Home Medications Allergies/Adverse Reactions: Allergies Allergy/AdvReac Type Severity Reaction Status Date / Time Isosorbide Nitrate Allergy Unknown Unknown Verified 02/06/17 21:37 [Isosorbide] Reaction Details Macrolides Allergy Unknown Unknown Verified 02/06/17 21:37 Reaction Details Erythromycin Allergy Unknown Verified 02/06/17 21:37 Reaction Details PMH/Surg Hx/FS Hx/Imm Hx Previously Healthy: No Endocrine/Hematology History: Denies: Hx Anticoagulant Therapy, Hx Blood Disorders, Hx Blood Transfusions, Hx Bone Marrow Disease, Hx Diabetes, Hx Systemic Lupus Erythematosus, Hx Sickle Cell Disease, Hx Thyroid Disease, Hx Anemia, Hx Unexplained Bleeding, Other Endocrine/Hematological Disorders Cardiovascular History: Reports: Hx Hypertension Denies: Hx Congestive Heart Failure, Hx Coronary Artery Disease, Hx Deep Vein Thrombosis, Hx Hypercholesterolemia, Hx Hypotension, Hx Pacemaker/ICD, Hx Peripheral Vascular Disease, Hx Rheumatic Fever, Hx Syncope, Hx Valvular Heart Disease, Other Cardiovascular Problems/Disorders Respiratory History: Denies: Hx Asthma, Hx Chronic Bronchitis, Hx Chronic Obstructive Pulmonary Disease (COPD), Hx Cystic Fibrosis, Hx Lung Cancer, Hx Pleural Effusion, Hx Pneumonia, Hx Pulmonary Edema, Hx Pulmonary Embolism, Hx Seasonal Allergies, Hx Sleep Apnea, Other Respiratory Problems/Disorders GI History: Reports: Hx Gastroesophageal Reflux Disease, Hx Obstructive Bowel, Hx Ileostomy - Colostomy, Other GI Disorders - Downs Syndrome, Díaz's Esophagus Denies: Hx Cirrhosis, Hx Crohn's Disease, Hx Diverticulosis, Hx Gall Bladder Disease, Hx Gastrointestinal Bleed, Hx Hiatal Hernia, Hx Irritable Bowel, Hx Jaundice, Hx Pyloric Stenosis, Hx Ulcer History: Reports: Hx Acute Renal Failure, Hx Renal Disease - neurogenic bladder, Other Problems/Disorders - Neurogenic Bladder Denies: Hx Benign Prostatic Hyperplasia, Hx Chronic Renal Failure, Hx Dialysis, Hx Kidney Infection, Hx Kidney Stones Musculoskeletal History: Reports: Hx Congenital Bone Abnormalities - hip displacement, Hx Scoliosis, Other Musculoskeletal History - cerebral palsy Denies: Hx Arthritis, Hx Back Problems, Hx Fibromyalgia, Hx Gout, Hx Orthopedic Injury, Hx Osteoporosis, Hx Tendonitis Sensory History: Reports: Hx Contacts or Glasses, Hx Vision Problem Denies: Hx Cataracts, Hx Eye Injury, Hx Eye Prosthesis, Hx Glaucoma, Hx Macular Degeneration, Hx Deafness, Hx Hearing Aid, Hx Hearing Problem, Other Sensory Impairments Opthamlomology History: Reports: Hx Contacts or Glasses, Hx Vision Problem Denies: Hx Cataracts, Hx Eye Injury, Hx Eye Prosthesis, Hx Glaucoma, Hx Macular Degeneration, Other Sensory Impairments Neurological History: Reports: Hx Developmental Delay, Hx Seizures - Last seizure 1989, Other Neuro Impairments/Disorders - cerebral palsy, spina bifida Denies: Hx Dementia, Hx Headaches, Hx Migraine, Hx Spinal Cord Injury, Hx Transient Ischemic Attacks (TIA) Psychiatric History: Reports: Hx Anxiety, Hx Depression Denies: Hx Attention Deficit Hyperactivity Disorder, Hx Eating Disorder, Hx Panic Disorder, Hx Post Traumatic Stress Disorder, Hx Inpatient Treatment, Hx Community Mental Health Tx, Hx Schizophrenia, Hx Bipolar Disorder, Hx Suicide Attempt, Hx Substance Abuse, Other Psychiatric Issues/Disorders - Cancer History Hx Chemotherapy: No Hx Radiation Therapy: No - Surgical History Surgery Procedure, Year, and Place: hiatal hernia, hernia repair 2009, hip repair S/P, back Sx Hx Anesthesia Reactions: No Infectious Disease History: No Infectious Disease History: Reports: Hx of Known/Suspected MRSA - BCx, wounds Denies: Hx Clostridium Difficile, Hx Hepatitis, Hx Human Immunodeficiency Virus (HIV), Hx Shingles, Hx Tuberculosis, Hx Known/Suspected VRE, Hx Known/ Suspected VRSA, Traveled Outside the [place] in Last 30 Days - Family History Known Family History: Positive: Unknown - LEVEL FIVE CAVEAT: FHX LIMITED BY NONVERBAL PATIENT Family History: LEVEL 5 CAVEAT secondary to profound MR. - Social History Alcohol Use: None Alcohol Amount: 1 beer on Sundays Hx Substance Use: No Substance Use Type: Reports: None Hx Tobacco Use: No Smoking Status (MU): Never Smoked Tobacco Review of Systems Respiratory: Other - irregular breathing Positive: Other - unable to have BM Neurological: Other - right sided facial drooping All Other Systems Reviewed And Are Negative: Yes Physical Exam - Summary Physical Exam Summary: Appearance: The patient is well-nourished in no acute distress and in no acute pain. Skin: The skin is warm and dry and skin color reflects adequate perfusion. HEENT: ~The head is normocephalic and atraumatic. The pupils are equal and reactive. The conjunctivae are clear and without drainage. ~Nares are patent and without drainage. ~Mouth reveals dry mucous membranes and the throat is without erythema and exudate. ~The external ears are intact. The ear canals are patent and without drainage. The tympanic membranes are intact. Neck: the neck is supple with full range of motion and non-tender. There are no carotid bruits. ~There is no neck vein distension. Respiratory: Chest is non-tender. ~Lungs are clear to auscultation and breath sounds are symmetrical and equal. Cardiovascular: Heart is regular rate and rhythm. ~There is no murmur or rub auscultated. ~~There is no peripheral edema and pulses are symmetrical and equal. Hyperdynamic heart sounds. Abdomen: The abdomen is soft and non-tender. ~There are normal bowel sounds heard in all four quadrants and there is no organomegaly palpated. Musculoskeletal: There is no back tenderness noted. ~Extremities are non-tender with full range of motion. ~There is good capillary refill. ~There is no peripheral edema or calf tenderness elicited. Neurological: Patient is alert and oriented to person, place and time. ~The patient has symmetrical motor strength in all four extremities. ~Cranial nerves are grossly intact. Deep tendon reflexes are symmetrical and equal in all four extremities. Psychiatric: The patient has an appropriate affect and does not exhibit any anxiety or depression. Triage Information Reviewed: Yes Vital Signs On Initial Exam: Initial Vitals Temp Pulse Resp BP Pulse Ox 98.7 F 88 20 120/79 97 02/14/17 11:32 02/14/17 11:32 02/14/17 11:32 02/14/17 11:32 02/14/17 11:32 Vital Signs Reviewed: Yes - [place] Coma Scale Coma Scale Total: 15 Diagnostics - Vital Signs Vital Signs Temp Pulse Resp BP Pulse Ox 02/14/17 11:32 98.7 F 88 20 120/79 97 - Laboratory Lab Results: Lab Results 02/14/17 02/14/17 02/14/17 Range/Units 13:18 13:18 16:07 WBC 14.2 H (3.5-10.8) 10^3/ul RBC 5.54 H (4.0-5.4) 10^6/ul Hgb 16.4 (14.0-18.0) g/dl Hct 49 (42-52) % MCV 88 (80-94) fL MCH 30 (27-31) pg MCHC 34 (31-36) g/dl RDW 16 H (10.5-15) % Plt Count 361 (150-450) 10^3/ul MPV 8 (7.4-10.4) um3 Neut % (Auto) 70.6 (38-83) % Lymph % (Auto) 16.7 L (25-47) % [place] % (Auto) 8.1 (1-9) % Eos % (Auto) 3.4 (0-6) % Baso % (Auto) 1.2 (0-2) % Absolute Neuts (auto) 10.0 H (1.5-7.7) 10^3/ul Absolute Lymphs (auto) 2.4 (1.0-4.8) 10^3/ul Absolute Monos (auto) 1.1 H (0-0.8) 10^3/ul Absolute Eos (auto) 0.5 (0-0.6) 10^3/ul Absolute Basos (auto) 0.2 (0-0.2) 10^3/ul Absolute Nucleated RBC 0.02 10^3/ul Nucleated RBC % 0.2 Sodium 138 (133-145) mmol/L Potassium 4.7 D (3.5-5.0) mmol/L Chloride 102 (101-111) mmol/L Carbon Dioxide 22 (22-32) mmol/L Anion Gap 14 H (2-11) mmol/L BUN 22 (6-24) mg/dL Creatinine 1.16 (0.67-1.17) mg/dL Est GFR ( Amer) 81.3 (>60) Est GFR (Non-Af Amer) 63.2 (>60) BUN/Creatinine Ratio 19.0 (8-20) Glucose 112 H (70-100) mg/dL Calcium 10.5 H (8.6-10.3) mg/dL Total Bilirubin 0.70 (0.2-1.0) mg/dL AST 26 (13-39) U/L ALT 36 (7-52) U/L Alkaline Phosphatase 108 H (34-104) U/L Total Protein 8.0 (6.4-8.9) g/dL Albumin 4.2 (3.2-5.2) g/dL Globulin 3.8 (2-4) g/dL Albumin/Globulin Ratio 1.1 (1-3) Urine Color Yellow Urine Appearance Turbid Urine pH 6.0 (5-9) Ur Specific [place] 1.016 (1.010-1.030) Urine Protein 2+(100 mg/dl) H (Negative) Urine Ketones Trace H (Negative) Urine Blood 1+ H (Negative) Urine Nitrate Negative (Negative) Urine Bilirubin Negative (Negative) Urine Urobilinogen Negative (Negative) Ur Leukocyte Esterase 2+ H (Negative) Urine WBC (Auto) 3+(>20/hpf) H (Absent) Urine RBC (Auto) 1+(3-5/hpf) H (Absent) Urine Bacteria Absent (Absent) Urine Glucose Negative (Negative) Urine Ascorbic Acid * H (Negative) Result Diagrams: 02/14/17 13:18 02/14/17 13:18 Lab Statement: Any lab studies that have been ordered have been reviewed, and results considered in the medical decision making process. - Radiology abdomen x-ray Radiology Interpretation Completed By: Radiologist - Very large volume of stool present throughout the colon. Moderate rectal distention with formed appearing stool. No dilated bowel loops to indicate bowel obstruction. ED physician has reviewed this radiology report and agrees. CXR Radiology Interpretation Completed By: Radiologist - No compelling evidence for aspiration pneumonia or other acute intrathoracic process. February 14, 2017 abdomen radiograph with better visualization of the LEFT lung base also demonstrates grossly clear lung bases. ED physician has reviewed this radiology report and agrees. GIGU Course/Dx - Course Course Of Treatment: Mr Bearden was sent back in today because he hasn't had stool in his ostomy bag since yesterday. They also C/O's that he has facial droop and 'gasping' for breath when sleeping although it seems clear that these symptoms have been going on for some time and were present during his recent hospitalization. His WBC's returned a little high and I asked Dr. Mohan to evaluate hime as she knows him well and D/C'd him on . She felt that he was at his baseliine and I will treat the constipation at this time. - Diagnoses Provider Diagnoses: Constipation - Physician Notifications Discussed Care Of Patient With: Dr. Mohan Discharge - Discharge Plan Condition: Stable Disposition: HOME Patient Education Materials: Constipation (ED) Referrals: Marilyn Rodriguez MD [Primary Care Provider] - If Needed Additional Instructions: RETURN TO THE EMERGENCY DEPARTMENT FOR CHANGING OR WORSENING SYMPTOMS. The documentation as recorded by the Cecily cadlerón Jason accurately reflects the service I personally performed and the decisions made by me, Conor López MD.
[2017-02-14 17:24] VITALS: BP 135/71
--- NOTE | 2017-02-14 17:24 | PN ---
Progress Note - Progress Note Date of Service: 02/14/17 Note: Pt is seen briefly today in the ER. He was brought back to the ER for concerns of constipation (no BM in 24hr) and possible gasping while sleeping. The patient looks quite well in the ER. He has no complaints including SOB, cough, no abdominal pain. No concerning findings on exam. He has a small amount of soft brown stool in his colostomy bag. Cardiac exam reveals nl S1S2 RRR, trace LE edema. Lungs are clear anteriorly and at the lateral bases. The patient has a mildly elevated WBC count of 14.2. He has no fever or other symptoms to go with the elevated WBC count. His urinalysis is improved from the admission. He will finish the course of vantin already prescribed. The patient is stable to d/ c home from the ER. His aide has been told to bring him back for fever, cough, lethargy or other AMS.
== END 2017-02-14 17:23 | disposition home or self-care (01) ==
LOC: ED 11:27
DX: K59.00 Constipation, unspecified (principal); F41.9 Anxiety disorder, unspecified; F32.9 Major depressive disorder, single episode, unspecified; F79 Unspecified intellectual disabilities; I10 Essential (primary) hypertension; K21.9 Gastro-esophageal reflux disease without esophagitis; I25.10 Atherosclerotic heart disease of native coronary artery without angina pectoris; Z86.718 Personal history of other venous thrombosis and embolism
CPT/HCPCS: 36415; 71010; 74020; 80053; 81003; 81015; 85025; 87077; 87086; 87186; 96360; 99282; A9270-GY

== ENCOUNTER 2017-09-27 22:38 | Emergency (ER) | payer MEDICARE, MEDICAID ==
--- NOTE | 2017-09-27 23:35 | ED ---
GI/ HPI - HPI Summary HPI Summary: This is scribe Yogi uFnez documenting for attending Dr. Bora Escobar MD. A 66 y/o male accompanied by staff presents to ED s/p low urinary output. As per triage, "66y/o [place] for "mucus output, low simental output, strong odor coming out of urethtra.... wound on bottom starting to re-open". The patient was brought here by staff there is urine in his catheter bag. They are not sure when the bag of urine was empty. According to the staff, the patient may have low urinary output in his catheter bag that is attached to the suprapubic area. Staff denies any fever or any leaking. - History of Current Complaint Chief Complaint: EDUrogenitalProblems Time Seen by Provider: 09/27/17 22:59 Stated Complaint: UROGENITAL PROBLEMS Hx Obtained From: Patient Onset/Duration: Started Hours Ago Pain Intensity: 0 Associated Signs and Symptoms: Positive: Other: - Low urine output Aggravating Factor(s): Nothing Alleviating Factor(s): Nothing - Additional Pertinent History Primary Care Physician: [id number] - Allergy/Home Medications Allergies/Adverse Reactions: Allergies Allergy/AdvReac Type Severity Reaction Status Date / Time erythromycin base Allergy Hives Verified 09/27/17 22:53 isosorbide Allergy Unknown Verified 09/27/17 22:53 Reaction Details Macrolide Antibiotics Allergy Hives Verified 09/27/17 22:53 PMH/Surg Hx/FS Hx/Imm Hx Endocrine/Hematology History: Denies: Hx Anticoagulant Therapy, Hx Blood Disorders, Hx Blood Transfusions, Hx Bone Marrow Disease, Hx Diabetes, Hx Systemic Lupus Erythematosus, Hx Sickle Cell Disease, Hx Thyroid Disease, Hx Anemia, Hx Unexplained Bleeding, Other Endocrine/Hematological Disorders Cardiovascular History: Reports: Hx Hypertension Denies: Hx Congestive Heart Failure, Hx Coronary Artery Disease, Hx Deep Vein Thrombosis, Hx Hypercholesterolemia, Hx Hypotension, Hx Pacemaker/ICD, Hx Peripheral Vascular Disease, Hx Rheumatic Fever, Hx Syncope, Hx Valvular Heart Disease, Other Cardiovascular Problems/Disorders Respiratory History: Denies: Hx Asthma, Hx Chronic Bronchitis, Hx Chronic Obstructive Pulmonary Disease (COPD), Hx Cystic Fibrosis, Hx Lung Cancer, Hx Pleural Effusion, Hx Pneumonia, Hx Pulmonary Edema, Hx Pulmonary Embolism, Hx Seasonal Allergies, Hx Sleep Apnea, Other Respiratory Problems/Disorders GI History: Reports: Hx Gastroesophageal Reflux Disease, Hx Obstructive Bowel, Hx Ileostomy - Colostomy, Other GI Disorders - [place] Syndrome, Díaz's Esophagus Denies: Hx Cirrhosis, Hx Crohn's Disease, Hx Diverticulosis, Hx Gall Bladder Disease, Hx Gastrointestinal Bleed, Hx Hiatal Hernia, Hx Irritable Bowel, Hx Jaundice, Hx Pyloric Stenosis, Hx Ulcer History: Reports: Hx Acute Renal Failure, Hx Renal Disease - neurogenic bladder, Other Problems/Disorders - Neurogenic Bladder Denies: Hx Benign Prostatic Hyperplasia, Hx Chronic Renal Failure, Hx Dialysis, Hx Kidney Infection, Hx Kidney Stones Musculoskeletal History: Reports: Hx Congenital Bone Abnormalities - hip displacement, Hx Scoliosis, Other Musculoskeletal History - cerebral palsy Denies: Hx Arthritis, Hx Back Problems, Hx Fibromyalgia, Hx Gout, Hx Orthopedic Injury, Hx Osteoporosis, Hx Tendonitis Sensory History: Reports: Hx Contacts or Glasses, Hx Vision Problem Denies: Hx Cataracts, Hx Eye Injury, Hx Eye Prosthesis, Hx Glaucoma, Hx Macular Degeneration, Hx Deafness, Hx Hearing Aid, Hx Hearing Problem, Other Sensory Impairments Opthamlomology History: Reports: Hx Contacts or Glasses, Hx Vision Problem Denies: Hx Cataracts, Hx Eye Injury, Hx Eye Prosthesis, Hx Glaucoma, Hx Macular Degeneration, Other Sensory Impairments Neurological History: Reports: Hx Developmental Delay, Hx Seizures - Last seizure 1989, Other Neuro Impairments/Disorders - cerebral palsy, spina bifida Denies: Hx Dementia, Hx Headaches, Hx Migraine, Hx Spinal Cord Injury, Hx Transient Ischemic Attacks (TIA) Psychiatric History: Reports: Hx Anxiety, Hx Depression Denies: Hx Attention Deficit Hyperactivity Disorder, Hx Eating Disorder, Hx Panic Disorder, Hx Post Traumatic Stress Disorder, Hx Inpatient Treatment, Hx Community Mental Health Tx, Hx Schizophrenia, Hx Bipolar Disorder, Hx Suicide Attempt, Hx Substance Abuse, Other Psychiatric Issues/Disorders - Cancer History Hx Chemotherapy: No Hx Radiation Therapy: No - Surgical History Surgery Procedure, Year, and Place: hiatal hernia, hernia repair 2009, hip repair S/P, back Sx Hx Anesthesia Reactions: No Infectious Disease History: No Infectious Disease History: Reports: Hx of Known/Suspected MRSA - BCx, wounds Denies: Hx Clostridium Difficile, Hx Hepatitis, Hx Human Immunodeficiency Virus (HIV), Hx Shingles, Hx Tuberculosis, Hx Known/Suspected VRE, Hx Known/ Suspected VRSA, Traveled Outside the [place] in Last 30 Days - Family History Known Family History: Positive: Unknown - LEVEL FIVE CAVEAT: FHX LIMITED BY NONVERBAL PATIENT Family History: LEVEL 5 CAVEAT secondary to profound MR. - Social History Alcohol Use: None Alcohol Amount: 1 beer on Sundays Hx Substance Use: No Substance Use Type: Reports: None Hx Tobacco Use: No Smoking Status (MU): Never Smoked Tobacco Review of Systems Negative: Fever Positive: other - POSITIVE: Low urinary output All Other Systems Reviewed And Are Negative: Yes Physical Exam - Summary Physical Exam Summary: VITAL SIGNS: Reviewed. GENERAL: Patient is in his own chair with no acute distress. Patient is contracted. Patient is verbal. He has a suprapubic catheter draining yellow urine in bag. 200 cc of urine in bag. HEAD AND FACE: No signs of trauma. No ecchymosis, hematomas or skull depressions. No sinus tenderness. EYES: PERRLA, EOMI x 2, No injected conjunctiva, no nystagmus. EARS: Hearing grossly intact. Ear canals and tympanic membranes are within normal limits. MOUTH: Oropharynx within normal limits. NECK: Supple, trachea is midline, no adenopathy, no JVD, no carotid bruit, no c- spine tenderness, neck with full ROM. CHEST: Symmetric, no tenderness at palpation LUNGS: Clear to auscultation bilaterally. No wheezing or crackles. CVS: Regular rate and rhythm, S1 and S2 present, no murmurs or gallops appreciated. ABDOMEN: Soft, non-tender. No signs of distention. No rebound no guarding, and no masses palpated. Bowel sounds are normal. Patient has a colostomy. EXTREMITIES: FROM in all major joints, no edema, no cyanosis or clubbing. NEURO: Alert and oriented x 3. No acute neurological deficits. Speech is normal and follows commands. SKIN: Dry and warm UPDATE AT 0002: PHYSICIAN WAS INFORMED THAT PATIENT HAS COLOSTOMY. ADDITIONALLY HEALTH OCCUPATIONS INSTRUCTOR STATED THAT THE URINE IN THE BAG HAS BEEN PRESENT SINCE 1999. LAST TIME BAG WAS EMPTIED WAS 1999. Triage Information Reviewed: Yes Vital Signs On Initial Exam: Initial Vitals Temp Pulse Resp BP Pulse Ox 97.3 F 85 19 159/85 99 09/27/17 22:44 09/27/17 22:44 09/27/17 22:44 09/27/17 22:44 09/27/17 22:44 Vital Signs Reviewed: Yes Diagnostics - Vital Signs Vital Signs Temp Pulse Resp BP Pulse Ox 07/22/18 22:44 97.3 F 85 19 159/85 99 - Laboratory Result Diagrams: 09/27/17 23:29 09/27/17 23:29 Lab Statement: Any lab studies that have been ordered have been reviewed, and results considered in the medical decision making process. GIGU Course/Dx - Course Course Of Treatment: A 66 y/o male accompanied by staff presents to ED s/p low urinary output. As per triage, "66y/o [place] for "mucus output, low simental output, strong odor coming out of urethtra.... wound on bottom starting to re- open". No laboratory scans were done. In the ED course, the patient recieved Levaquin. Pt is to be discharged with a diagnosis of UTI. Pt is to follow up with PCP in 1-2 days. Pt staff is agreeable with this plan. - Diagnoses Provider Diagnoses: UTI (urinary tract infection) Discharge - Sign-Out/Discharge Documenting (check all that apply): Patient Departure - DISCHARGE - Discharge Plan Condition: Stable Disposition: HOME Prescriptions: Levofloxacin TAB* [Levaquin TAB*] 500 mg PO DAILY #7 tab Patient Education Materials: Urinary Tract Infection in Men (ED) Referrals: Marilyn Rodriguez MD [Primary Care Provider] - 2 Days Additional Instructions: FOLLOW UP WITH PRIMARY CARE PHYSICIAN IN 1-2 DAYS. RETURN TO ED FOR ANY NEW OR WORSENING SYMPTOMS.
[2017-09-27 23:38] LABS: ABS Basophils 0.1 10^3/ul (0-0.2); ABS Eosinophils 0.5 10^3/ul (0-0.6); ABS Lymphocytes 1.7 10^3/ul (1.0-4.8); ABS Monocytes 0.7 10^3/ul (0-0.8); ABS Neutrophils 6.5 10^3/ul (1.5-7.7); ABS Nucleated RBC 0 10^3/ul; Eosinophil % 5.6 % (0-6); Hematocrit 47 % (42-52); Hemoglobin 15.9 g/dl (14.0-18.0); Lymphocyte % 18.2 % (25-47); Mean Corpuscular HGB Conc 34 g/dl (31-36); Mean Corpuscular Hemoglobin 29 pg (27-31); Mean Corpuscular Volume 86 fL (80-94); Mean Platelet Volume 7.4 um3 (7.4-10.4); Nucleated Red Blood Cells % 0.1; Platelet Count 236 10^3/ul (150-450); Red Cell Distribution Width 16 % (10.5-15); White Blood Count 9.5 10^3/ul (3.5-10.8)
[2017-09-27 23:56] LABS: Urine Appearance Cloudy; Urine Blood 1+ (Negative); Urine Color Yellow; Urine Ketones Negative (Negative); Urine Protein 1+(30 mg/dL) (Negative); Urine Red Blood Cell 1+(3-5/hpf) (Absent); Urine Specific Gravity 1.012 (1.010-1.030); Urine Urobilinogen Negative (Negative); Urine White Blood Cell 3+(>20/hpf) (Absent)
[2017-09-28 00:12] LABS: EGFR Non-African American 88.1 (>60)
[2017-09-28] MEDS ORDERED: Levofloxacin TAB* 500 MG PO ONE (00:22)
[2017-09-28 00:35] VITALS: BP 172/91
== END 2017-09-28 01:21 | disposition home or self-care (01) ==
LOC: ED 22:38
DX: N39.0 Urinary tract infection, site not specified (principal); Z86.79 Personal history of other diseases of the circulatory system
CPT/HCPCS: 36415; 80053; 81003; 81015; 85025; 86140; 87077; 87086; 99283

== ENCOUNTER 2018-02-12 20:18 | Emergency (ER) | payer MEDICARE, MEDICAID ==
--- NOTE | 2018-02-12 21:22 | ED ---
Complex/Multi-Sys Presentation - HPI Summary HPI Summary: Patient is a 67 y/o M presenting to ED with complaints of increased fatigue and decreased urinary output over the past week. 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 Fever is denied, cough is endorsed. PMHx of cerebral palsy, GERD. Supply Chain Design Manager notes recent change of catheter tubing three days ago, done by RN. In room, BP is 128/89, pulse is 88, o2 98. No decreased fluid intake is reported. Supply Chain Design Manager states that, a few days ago, patient had a 24 hour period during which patient only produced 100-200 cc. Home medications and allergies are reviewed. - History Of Current Complaint Chief Complaint: EDGeneral Time Seen by Provider: 02/12/18 21:12 Hx Obtained From: Family/Supply Chain Design Manager - shovel loader operator Hx From Patient Unobtainable Due To: Other - level 5 caveat, nonverbal Onset/Duration: Lasting Weeks - 1, Still Present Timing: Constant, Weeks - 1 Severity Currently: None Location: Negative Aggravating Factor(s): nothing Alleviating Factor(s): nothing Associated Signs And Symptoms: Positive: Cough, Other - POSITIVE - DECREASED URINE OUTPUT, FATIGUE; NEGATIVE - DECREASED FLUID INTAKE. Negative: Fever - Allergies/Home Medications Allergies/Adverse Reactions: Allergies Allergy/AdvReac Type Severity Reaction Status Date / Time erythromycin base Allergy Hives Verified 09/27/17 22:53 isosorbide Allergy Unknown Verified 09/27/17 22:53 Reaction Details Macrolide Antibiotics Allergy Hives Verified 09/27/17 22:53 PMH/Surg Hx/FS Hx/Imm Hx Endocrine/Hematology History: Denies: Hx Anticoagulant Therapy, Hx Blood Disorders, Hx Blood Transfusions, Hx Bone Marrow Disease, Hx Diabetes, Hx Systemic Lupus Erythematosus, Hx Sickle Cell Disease, Hx Thyroid Disease, Hx Anemia, Hx Unexplained Bleeding, Other Endocrine/Hematological Disorders Cardiovascular History: Reports: Hx Hypertension Denies: Hx Congestive Heart Failure, Hx Coronary Artery Disease, Hx Deep Vein Thrombosis, Hx Hypercholesterolemia, Hx Hypotension, Hx Pacemaker/ICD, Hx Peripheral Vascular Disease, Hx Rheumatic Fever, Hx Syncope, Hx Valvular Heart Disease, Other Cardiovascular Problems/Disorders Respiratory History: Denies: Hx Asthma, Hx Chronic Bronchitis, Hx Chronic Obstructive Pulmonary Disease (COPD), Hx Cystic Fibrosis, Hx Lung Cancer, Hx Pleural Effusion, Hx Pneumonia, Hx Pulmonary Edema, Hx Pulmonary Embolism, Hx Seasonal Allergies, Hx Sleep Apnea, Other Respiratory Problems/Disorders GI History: Reports: Hx Gastroesophageal Reflux Disease, Hx Obstructive Bowel, Hx Ileostomy - Colostomy, Other GI Disorders - [place] Syndrome, Díaz's Esophagus Denies: Hx Cirrhosis, Hx Crohn's Disease, Hx Diverticulosis, Hx Gall Bladder Disease, Hx Gastrointestinal Bleed, Hx Hiatal Hernia, Hx Irritable Bowel, Hx Jaundice, Hx Pyloric Stenosis, Hx Ulcer History: Reports: Hx Acute Renal Failure, Hx Renal Disease - neurogenic bladder, Other Problems/Disorders - Neurogenic Bladder Denies: Hx Benign Prostatic Hyperplasia, Hx Chronic Renal Failure, Hx Dialysis, Hx Kidney Infection, Hx Kidney Stones Musculoskeletal History: Reports: Hx Congenital Bone Abnormalities - hip displacement, Hx Scoliosis, Other Musculoskeletal History - cerebral palsy Denies: Hx Arthritis, Hx Back Problems, Hx Fibromyalgia, Hx Gout, Hx Orthopedic Injury, Hx Osteoporosis, Hx Tendonitis Sensory History: Reports: Hx Contacts or Glasses, Hx Vision Problem Denies: Hx Cataracts, Hx Eye Injury, Hx Eye Prosthesis, Hx Glaucoma, Hx Macular Degeneration, Hx Deafness, Hx Hearing Aid, Hx Hearing Problem, Other Sensory Impairments Opthamlomology History: Reports: Hx Contacts or Glasses, Hx Vision Problem Denies: Hx Cataracts, Hx Eye Injury, Hx Eye Prosthesis, Hx Glaucoma, Hx Macular Degeneration, Other Sensory Impairments Neurological History: Reports: Hx Developmental Delay, Hx Seizures - Last seizure 1989, Other Neuro Impairments/Disorders - cerebral palsy, spina bifida Denies: Hx Dementia, Hx Headaches, Hx Migraine, Hx Spinal Cord Injury, Hx Transient Ischemic Attacks (TIA) Psychiatric History: Reports: Hx Anxiety, Hx Depression Denies: Hx Attention Deficit Hyperactivity Disorder, Hx Eating Disorder, Hx Panic Disorder, Hx Post Traumatic Stress Disorder, Hx Inpatient Treatment, Hx Community Mental Health Tx, Hx Schizophrenia, Hx Bipolar Disorder, Hx Suicide Attempt, Hx Substance Abuse, Other Psychiatric Issues/Disorders - Cancer History Hx Chemotherapy: No Hx Radiation Therapy: No - Surgical History Surgery Procedure, Year, and Place: hiatal hernia, hernia repair 2009, hip repair S/P, back Sx Hx Anesthesia Reactions: No Infectious Disease History: Yes Infectious Disease History: Reports: Hx of Known/Suspected MRSA - BCx, wounds Denies: Hx Clostridium Difficile, Hx Hepatitis, Hx Human Immunodeficiency Virus (HIV), Hx Shingles, Hx Tuberculosis, Hx Known/Suspected VRE, Hx Known/ Suspected VRSA, Traveled Outside the [place] in Last 30 Days - Family History Known Family History: Positive: Unknown - LEVEL FIVE CAVEAT: FHX LIMITED BY NONVERBAL PATIENT Family History: LEVEL 5 CAVEAT secondary to profound MR. - Social History Alcohol Use: None Alcohol Amount: 1 beer on Sundays Hx Substance Use: No Substance Use Type: Reports: None Hx Tobacco Use: No Smoking Status (MU): Never Smoked Tobacco Review of Systems - ROS Summary Review of Systems Summary: LEVEL 5 CAVEAT, NONVERBAL Positive: Fatigue, Other - NEGATIVE - DECREASED FLUID INTAKE . Negative: Fever Positive: Cough Positive: other - POSITIVE - DECREASED URINE OUTPUT All Other Systems Reviewed And Are Negative: No - Comments Additional Review of Systems Comments: LEVEL 5 CAVEAT, NON VERBAL Physical Exam - Summary Physical Exam Summary: VITAL SIGNS: Reviewed. GENERAL: Patient is a contracted, small and wheelchair bound male who is lying comfortable in the stretcher. Patient is not in any acute respiratory distress. Patient has a suprapubic catheter with 400 cc urine in bag, colostomy bag with stool in it. level 5 caveat HEAD AND FACE: No signs of trauma. No ecchymosis, hematomas or skull depressions. No sinus tenderness. EYES: PERRLA, EOMI x 2, No injected conjunctiva, no nystagmus. EARS: Hearing grossly intact. Ear canals and tympanic membranes are within normal limits. MOUTH: Oropharynx within normal limits. NECK: Supple, trachea is midline, no adenopathy, no JVD, no carotid bruit, no c- spine tenderness, neck with full ROM. CHEST: Symmetric, no tenderness at palpation LUNGS: Decreased breath sounds bilaterally. No wheezing or crackles. CVS: Regular rate and rhythm, S1 and S2 present, no murmurs or gallops appreciated. ABDOMEN: Soft, non-tender. Abdomen is distended. No rebound no guarding, and no masses palpated. Bowel sounds are normal. EXTREMITIES: FROM in all major joints, no edema, no cyanosis or clubbing. NEURO: Nonverbal. No acute neurological deficits. SKIN: Dry and warm Triage Information Reviewed: Yes Vital Signs On Initial Exam: Initial Vitals Temp Pulse Resp BP Pulse Ox 98.1 F 80 16 147/75 97 02/12/18 20:18 02/12/18 20:18 02/12/18 20:18 02/12/18 20:18 02/12/18 20:18 Vital Signs Reviewed: Yes Completion Of Physical Exam Limited Due To: Level 5 Diagnostics - Vital Signs Vital Signs Temp Pulse Resp BP Pulse Ox 02/12/18 20:18 98.1 F 80 16 147/75 97 - Laboratory Result Diagrams: 02/12/18 22:01 02/12/18 22:01 Lab Statement: Any lab studies that have been ordered have been reviewed, and results considered in the medical decision making process. Re-Evaluation - Re-Evaluation First Eval Re-Evaluation Time: 12:03 Comment: Results of labs and tests were discussed with patient, patient will be discharged to home and follow up with PCP. Supply Chain Design Manager agreeable with this. Complex Multi-Symp Course/Dx Course Of Treatment: Patient is a 67 y/o M presenting to ED with complaints of increased fatigue and decreased urinary output over the past week. 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 Fever is denied , cough is endorsed. PMHx of cerebral palsy, GERD. Supply Chain Design Manager notes recent change of catheter tubing three days ago, done by RN. In room, BP is 128/89, pulse is 88, o2 98. No decreased fluid intake is reported. Supply Chain Design Manager states that , a few days ago, patient had a 24 hour period during which patient only produced 100-200 cc. On physical exam, patient is noted to be nonverbal, wheelchair bound, contracted, and small. He has a suprapubic catheter with 400 cc urine in bag, colostomy bag with stool present in it. Abdomen is distended, decreased breath sounds bilaterally. Labs showed CRP 17.11, alk phos 106, TSH 1.92, glucose 113, magnesium 2.2, calcium 9.2, Absolute Eos 0.7, RDW 16, WBC 8. UA showed cloudy urine, protein 2+, blood 2+, leuckocyte esterase 3+, trace WBC and RBC, ascorbic acid present. Results of labs and tests were discussed with patient, patient will be discharged to home and follow up with PCP. Supply Chain Design Manager agreeable with this. - Diagnoses Provider Diagnoses: Generalized weakness Discharge - Sign-Out/Discharge Documenting (check all that apply): Patient Departure - discharge - Discharge Plan Condition: Stable Disposition: HOME Patient Education Materials: Weakness (ED) Referrals: Marilyn Rodriguez MD [Primary Care Provider] - 3 Days Additional Instructions: RETURN TO THE EMERGENCY DEPARTMENT FOR CHANGING OR WORSENING SYMPTOMS. FOLLOW UP WITH PRIMARY CARE PHYSICIAN IN 3 DAYS ON THURSDAY. - Attestation Statements Document Initiated by Scribe: Yes Documenting Scribe: NARCISO COSBY Provider For Whom Scribe is Documenting (Include Credential): JACLYN BRAMBILA MD Scribe Attestation: I, NARCISO COSBY , scribed for JACLYN BRAMBILA MD on 02/13/18 at 0010. Status of Scribe Document: Ready
[2018-02-12 22:13] LABS: ABS Basophils 0.1 10^3/ul (0-0.2); ABS Eosinophils 0.7 10^3/ul (0-0.6); ABS Monocytes 0.7 10^3/ul (0-0.8); ABS Neutrophils 4.5 10^3/ul (1.5-7.7); ABS Nucleated RBC 0 10^3/ul; Eosinophil % 8.8 %; Hematocrit 45 % (42-52); Hemoglobin 15.4 g/dl (14.0-18.0); Lymphocyte % 24.7 %; Mean Corpuscular HGB Conc 34 g/dl (31-36); Mean Corpuscular Hemoglobin 29 pg (27-31); Mean Corpuscular Volume 86 fL (80-94); Mean Platelet Volume 7.4 fL (7.4-10.4); Nucleated Red Blood Cells % 0; Platelet Count 241 10^3/ul (150-450); Red Blood Count 5.26 10^6/ul (4.00-5.40); Red Cell Distribution Width 16 % (10.5-15)
[2018-02-12 22:30] LABS: EGFR Non-African American 96.7 (>60)
[2018-02-12 23:45] LABS: Urine Appearance Cloudy; Urine Blood 2+ (Negative); Urine Color Yellow; Urine Ketones Negative (Negative); Urine Protein 2+(100 mg/dL) (Negative); Urine Red Blood Cell Trace(0-2/hpf) (Absent); Urine Specific Gravity 1.013 (1.010-1.030); Urine Urobilinogen Negative (Negative); Urine White Blood Cell Trace(0-5/hpf) (Absent)
[2018-02-13 00:05] VITALS: BP 132/89
--- NOTE | 2018-02-15 13:47 | PN ---
Progress Note - Progress Note Date of Service: 02/12/18 Note: Pt. with hx of cerebral palsy and resides at the [facility]. Pt. seen in ED 02/12 for decreased urine out put. Urine culture today is growing pseudomonas and morganella with multi resistance. I called and spoke with aid, Lamar, today at 1340 at the [facility] and discussed results. Lamar notes pt .has not had an fever, vomiting or change in mental status. Dr. Ahumada his pt.'s PCP at [facility]. Lamar notes his PCP is available. Will fax culture over for his PCP to decide on best treatment. Advised to call back with any issues.
== END 2018-02-13 00:19 | disposition home or self-care (01) ==
LOC: ED 20:18
DX: R53.1 Weakness (principal); R53.83 Other fatigue; R05 Cough; I10 Essential (primary) hypertension; Z86.69 Personal history of other diseases of the nervous system and sense organs
CPT/HCPCS: 36415; 80053; 81003; 81015; 83735; 84443; 85025; 86140; 87077; 87086; 87186; 99282

== ENCOUNTER 2018-02-15 20:38 | Emergency (ER) | payer MEDICARE, MEDICAID ==
[2018-02-15 22:56] LABS: ABS Basophils 0.1 10^3/ul (0-0.2); ABS Eosinophils 0.5 10^3/ul (0-0.6); ABS Lymphocytes 1.5 10^3/ul (1.0-4.8); ABS Monocytes 0.7 10^3/ul (0-0.8); ABS Neutrophils 5.1 10^3/ul (1.5-7.7); ABS Nucleated RBC 0 10^3/ul; Hematocrit 45 % (42-52); Lymphocyte % 19.1 %; Mean Corpuscular HGB Conc 34 g/dl (31-36); Mean Corpuscular Hemoglobin 29 pg (27-31); Mean Corpuscular Volume 87 fL (80-94); Mean Platelet Volume 7.7 fL (7.4-10.4); Nucleated Red Blood Cells % 0.1; Platelet Count 263 10^3/ul (150-450); Red Blood Count 5.13 10^6/ul (4.00-5.40); Red Cell Distribution Width 16 % (10.5-15); White Blood Count 7.8 10^3/ul (3.5-10.8)
[2018-02-15 23:10] LABS: INR 0.94 (0.77-1.02)
[2018-02-15 23:12] LABS: EGFR Non-African American 73.9 (>60)
[2018-02-16] MEDS ORDERED: Linezolid TAB* 600 MG PO ONE (00:16)
[2018-02-16] MEDS ORDERED: DOXYcycline CAP(*) 100 MG PO ONE (00:17)
[2018-02-16] MEDS ORDERED: Amoxicillin/Clavulanate TAB* 875 MG PO ONE (00:19)
--- NOTE | 2018-02-16 00:40 | ED ---
GI/ HPI - HPI Summary HPI Summary: Patient is a 67 y/o M presenting to ED after being informed that his urine culture taken on 02/12/18 was positive for pseudomonas and morganella with multi resistance and that he needed to come to ED for IV antibiotics. Patient is nonverbal and level 5 caveat, patient's ethics instructor, Lamar, provides HPI. Patient was seen 02/12 for decreased urinary output, UA and bloodwork were obtained, patient was discharged with Dx of generalized weakness. Lamar states that PCP office was called after being informed of urine culture results, nurse informed her that she should bring patient to ED for IV antibiotics. She notes that patient is asymptomatic, no fever, no N/V, no confusion. On triage, pain is denied, nothing is noted to aggravate/alleviate Sx. Home medications and allergies are reviewed. - History of Current Complaint Chief Complaint: EDUrogenitalProblems Time Seen by Provider: 02/15/18 23:37 Stated Complaint: GENERAL Hx Obtained From: Family/Nurse Practitioner Per Diem - lamar Hx From Patient Unobtainable Due To: Other - nonverbal, level 5 caveat Onset/Duration: Started Hours Ago - notified of urine culture results today, Still Present Timing: Constant, Lasting Hours - notified of urine culture results today Current Severity: None Pain Intensity: 0 Associated Signs and Symptoms: Positive: Other: - no confusion. Negative: Nausea, Vomiting, Fever Aggravating Factor(s): Nothing Alleviating Factor(s): Nothing - Additional Pertinent History Primary Care Physician: [id number] - Allergy/Home Medications Allergies/Adverse Reactions: Allergies Allergy/AdvReac Type Severity Reaction Status Date / Time erythromycin base Allergy Hives Verified 02/15/18 20:46 isosorbide Allergy Unknown Verified 02/15/18 20:46 Reaction Details Macrolide Antibiotics Allergy Hives Verified 02/15/18 20:46 PMH/Surg Hx/FS Hx/Imm Hx Endocrine/Hematology History: Denies: Hx Anticoagulant Therapy, Hx Blood Disorders, Hx Blood Transfusions, Hx Bone Marrow Disease, Hx Diabetes, Hx Systemic Lupus Erythematosus, Hx Sickle Cell Disease, Hx Thyroid Disease, Hx Anemia, Hx Unexplained Bleeding, Other Endocrine/Hematological Disorders Cardiovascular History: Reports: Hx Hypertension Denies: Hx Congestive Heart Failure, Hx Coronary Artery Disease, Hx Deep Vein Thrombosis, Hx Hypercholesterolemia, Hx Hypotension, Hx Pacemaker/ICD, Hx Peripheral Vascular Disease, Hx Rheumatic Fever, Hx Syncope, Hx Valvular Heart Disease, Other Cardiovascular Problems/Disorders Respiratory History: Denies: Hx Asthma, Hx Chronic Bronchitis, Hx Chronic Obstructive Pulmonary Disease (COPD), Hx Cystic Fibrosis, Hx Lung Cancer, Hx Pleural Effusion, Hx Pneumonia, Hx Pulmonary Edema, Hx Pulmonary Embolism, Hx Seasonal Allergies, Hx Sleep Apnea, Other Respiratory Problems/Disorders GI History: Reports: Hx Gastroesophageal Reflux Disease, Hx Obstructive Bowel, Hx Ileostomy - Colostomy, Other GI Disorders - [place] Syndrome, Díaz's Esophagus Denies: Hx Cirrhosis, Hx Crohn's Disease, Hx Diverticulosis, Hx Gall Bladder Disease, Hx Gastrointestinal Bleed, Hx Hiatal Hernia, Hx Irritable Bowel, Hx Jaundice, Hx Pyloric Stenosis, Hx Ulcer History: Reports: Hx Acute Renal Failure, Hx Renal Disease - neurogenic bladder, Other Problems/Disorders - Neurogenic Bladder Denies: Hx Benign Prostatic Hyperplasia, Hx Chronic Renal Failure, Hx Dialysis, Hx Kidney Infection, Hx Kidney Stones Musculoskeletal History: Reports: Hx Congenital Bone Abnormalities - hip displacement, Hx Scoliosis, Other Musculoskeletal History - cerebral palsy Denies: Hx Arthritis, Hx Back Problems, Hx Fibromyalgia, Hx Gout, Hx Orthopedic Injury, Hx Osteoporosis, Hx Tendonitis Sensory History: Reports: Hx Contacts or Glasses, Hx Vision Problem Denies: Hx Cataracts, Hx Eye Injury, Hx Eye Prosthesis, Hx Glaucoma, Hx Macular Degeneration, Hx Deafness, Hx Hearing Aid, Hx Hearing Problem, Other Sensory Impairments Opthamlomology History: Reports: Hx Contacts or Glasses, Hx Vision Problem Denies: Hx Cataracts, Hx Eye Injury, Hx Eye Prosthesis, Hx Glaucoma, Hx Macular Degeneration, Other Sensory Impairments Neurological History: Reports: Hx Developmental Delay, Hx Seizures - Last seizure 1989, Other Neuro Impairments/Disorders - cerebral palsy, spina bifida Denies: Hx Dementia, Hx Headaches, Hx Migraine, Hx Spinal Cord Injury, Hx Transient Ischemic Attacks (TIA) Psychiatric History: Reports: Hx Anxiety, Hx Depression Denies: Hx Attention Deficit Hyperactivity Disorder, Hx Eating Disorder, Hx Panic Disorder, Hx Post Traumatic Stress Disorder, Hx Inpatient Treatment, Hx Community Mental Health Tx, Hx Schizophrenia, Hx Bipolar Disorder, Hx Suicide Attempt, Hx Substance Abuse, Other Psychiatric Issues/Disorders - Cancer History Hx Chemotherapy: No Hx Radiation Therapy: No - Surgical History Surgery Procedure, Year, and Place: hiatal hernia, hernia repair 2009, hip repair S/P, back Sx Hx Anesthesia Reactions: No Infectious Disease History: No Infectious Disease History: Reports: Hx of Known/Suspected MRSA - BCx, wounds Denies: Hx Clostridium Difficile, Hx Hepatitis, Hx Human Immunodeficiency Virus (HIV), Hx Shingles, Hx Tuberculosis, Hx Known/Suspected VRE, Hx Known/ Suspected VRSA, Traveled Outside the [place] in Last 30 Days - Family History Known Family History: Positive: Unknown - LEVEL FIVE CAVEAT: FHX LIMITED BY NONVERBAL PATIENT Family History: LEVEL 5 CAVEAT secondary to profound MR. - Social History Alcohol Use: None Alcohol Amount: 1 beer on Sundays Hx Substance Use: No Substance Use Type: Reports: None Hx Tobacco Use: No Smoking Status (MU): Never Smoked Tobacco Review of Systems - ROS Summary Review of Systems Summary: level 5 caveat, nonverbal Negative: Fever Negative: Vomiting, Nausea Psychological: Other - NEGATIVE - CONFUSION All Other Systems Reviewed And Are Negative: No - Comments Additional Review of Systems Comments: level 5 caveat, nonverbal Physical Exam - Summary Physical Exam Summary: VITAL SIGNS: Reviewed. GENERAL: Patient is a contracted, small and wheelchair bound male who is lying comfortable in the stretcher. Patient is not in any acute respiratory distress. Patient has a suprapubic catheter, colostomy bag. level 5 caveat HEAD AND FACE: No signs of trauma. No ecchymosis, hematomas or skull depressions. No sinus tenderness. EYES: PERRLA, EOMI x 2, No injected conjunctiva, no nystagmus. EARS: Hearing grossly intact. Ear canals and tympanic membranes are within normal limits. MOUTH: Oropharynx within normal limits. NECK: Supple, trachea is midline, no adenopathy, no JVD, no carotid bruit, no c- spine tenderness, neck with full ROM. CHEST: Symmetric, no tenderness at palpation LUNGS: Lungs clear to auscultation bilaterally. No wheezing or crackles. CVS: Regular rate and rhythm, S1 and S2 present, no murmurs or gallops appreciated. ABDOMEN: Soft, non-tender. Abdomen is not distended. No rebound no guarding, and no masses palpated. Bowel sounds are normal. EXTREMITIES: FROM in all major joints, no edema, no cyanosis or clubbing. NEURO: Nonverbal. No acute neurological deficits. SKIN: Dry and warm Triage Information Reviewed: Yes Vital Signs On Initial Exam: Initial Vitals Temp Pulse Resp BP Pulse Ox 98.3 F 93 18 135/62 98 02/15/18 20:43 02/15/18 20:43 02/15/18 20:43 02/15/18 20:43 02/15/18 20:43 Vital Signs Reviewed: Yes Diagnostics - Vital Signs Vital Signs Temp Pulse Resp BP Pulse Ox 02/15/18 20:43 98.3 F 93 18 135/62 98 - Laboratory Lab Results: Lab Results 02/15/18 02/15/18 02/15/18 Range/Units 22:30 22:30 22:30 WBC 7.8 (3.5-10.8) 10^3/ul RBC 5.13 (4.00-5.40) 10^6/ul Hgb 15.0 (14.0-18.0) g/dl Hct 45 (42-52) % MCV 87 (80-94) fL MCH 29 (27-31) pg MCHC 34 (31-36) g/dl RDW 16 H (10.5-15) % Plt Count 263 (150-450) 10^3/ul MPV 7.7 (7.4-10.4) fL Neut % (Auto) 65.2 % Lymph % (Auto) 19.1 % Ward % (Auto) 8.9 % Eos % (Auto) 6.0 % Baso % (Auto) 0.8 % Absolute Neuts (auto) 5.1 (1.5-7.7) 10^3/ul Absolute Lymphs (auto) 1.5 (1.0-4.8) 10^3/ul Absolute Monos (auto) 0.7 (0-0.8) 10^3/ul Absolute Eos (auto) 0.5 (0-0.6) 10^3/ul Absolute Basos (auto) 0.1 (0-0.2) 10^3/ul Absolute Nucleated RBC 0 10^3/ul Nucleated RBC % 0.1 INR (Anticoag Therapy) (0.77-1.02) APTT (26.0-36.3) seconds Sodium 136 (135-145) mmol/L Potassium 4.6 (3.5-5.0) mmol/L Chloride 104 (101-111) mmol/L Carbon Dioxide 25 (22-32) mmol/L Anion Gap 7 (2-11) mmol/L BUN 25 H (6-24) mg/dL Creatinine 1.01 (0.67-1.17) mg/dL Est GFR ( Amer) 89.4 (>60) Est GFR (Non-Af Amer) 73.9 (>60) BUN/Creatinine Ratio 24.8 H (8-20) Glucose 133 H (70-100) mg/dL Lactic Acid 0.4 L (0.5-2.0) mmol/L Calcium 9.2 (8.6-10.3) mg/dL Total Bilirubin 0.40 (0.2-1.0) mg/dL AST 14 (13-39) U/L ALT 13 (7-52) U/L Alkaline Phosphatase 101 (34-104) U/L Total Protein 6.8 (6.4-8.9) g/dL Albumin 3.7 (3.2-5.2) g/dL Globulin 3.1 (2-4) g/dL Albumin/Globulin Ratio 1.2 (1-3) 12/18 Range/Units 22:31 WBC (3.5-10.8) 10^3/ul RBC (4.00-5.40) 10^6/ul Hgb (14.0-18.0) g/dl Hct (42-52) % MCV (80-94) fL MCH (27-31) pg MCHC (31-36) g/dl RDW (10.5-15) % Plt Count (150-450) 10^3/ul MPV (7.4-10.4) fL Neut % (Auto) % Lymph % (Auto) % Ward % (Auto) % Eos % (Auto) % Baso % (Auto) % Absolute Neuts (auto) (1.5-7.7) 10^3/ul Absolute Lymphs (auto) (1.0-4.8) 10^3/ul Absolute Monos (auto) (0-0.8) 10^3/ul Absolute Eos (auto) (0-0.6) 10^3/ul Absolute Basos (auto) (0-0.2) 10^3/ul Absolute Nucleated RBC 10^3/ul Nucleated RBC % INR (Anticoag Therapy) 0.94 (0.77-1.02) APTT 34.8 (26.0-36.3) seconds Sodium (135-145) mmol/L Potassium (3.5-5.0) mmol/L Chloride (101-111) mmol/L Carbon Dioxide (22-32) mmol/L Anion Gap (2-11) mmol/L BUN (6-24) mg/dL Creatinine (0.67-1.17) mg/dL Est GFR ( Amer) (>60) Est GFR (Non-Af Amer) (>60) BUN/Creatinine Ratio (8-20) Glucose (70-100) mg/dL Lactic Acid (0.5-2.0) mmol/L Calcium (8.6-10.3) mg/dL Total Bilirubin (0.2-1.0) mg/dL AST (13-39) U/L ALT (7-52) U/L Alkaline Phosphatase (34-104) U/L Total Protein (6.4-8.9) g/dL Albumin (3.2-5.2) g/dL Globulin (2-4) g/dL Albumin/Globulin Ratio (1-3) Result Diagrams: 02/15/18 22:30 02/15/18 22:30 Lab Statement: Any lab studies that have been ordered have been reviewed, and results considered in the medical decision making process. Re-Evaluation - Re-Evaluation First Eval Re-Evaluation Time: 00:34 Comment: Patient has suprapubic catheter with bacterial colonization. As patient is asymptomatic, antibiotics not needed at this time. Results of labs and status of patient was discussed with ethics instructor, she is agreeable with discharge. GIGU Course/Dx - Course Course Of Treatment: Patient is a 67 y/o M presenting to ED after being informed that his urine culture taken on 02/12/18 was positive for pseudomonas and morganella with multi resistance and that he needed to come to ED for IV antibiotics. Patient is nonverbal and level 5 caveat, patient's ethics instructor, Lamar, provides HPI. Patient was seen 02/12 for decreased urinary output, UA and bloodwork were obtained, patient was discharged with Dx of generalized weakness. Lamar states that PCP office was called after being informed of urine culture results, nurse informed her that she should bring patient to ED for IV antibiotics. She notes that patient is asymptomatic, no fever, no N/V, no confusion. On physical exam, patient is a contracted, small and wheelchair bound male with a suprapubic catheter, colostomy bag. Patient is nonverbal, no acute neurological deficits. Abnormal labs included RDW 16, BUN 25, BUN/ creatinine 24.8, glucose 133, lactic acid 0.4. Patient has suprapubic catheter with bacterial colonization. As patient is asymptomatic, antibiotics not needed at this time. Results of labs and status of patient was discussed with ethics instructor , she is agreeable with discharge. - Diagnoses Provider Diagnoses: Colonization status, Asymptomatic bacteriuria Discharge - Sign-Out/Discharge Documenting (check all that apply): Patient Departure - discharge - Discharge Plan Condition: Stable Disposition: HOME Patient Education Materials: How to Care for Your Suprapubic Catheter (ED) Referrals: Marilyn Rodriguez MD [Primary Care Provider] - 2 Days Additional Instructions: You have suprapubic catheter with bacterial colonization. However, as you are completely asymptomatic, you did not need antibiotics at this time. If you develop Sx such as fever, nausea, vomiting and confusion, you can come back to the ED for further evaluation. - Attestation Statements Document Initiated by Scribe: Yes Documenting Scribe: NARCISO COSBY Provider For Whom Scribe is Documenting (Include Credential): JACLYN BRAMBILA MD Scribe Attestation: INARCISO , scribed for JACLYN BRAMBILA MD on 02/16/18 at 0246. Status of Scribe Document: Ready
[2018-02-16 00:56] VITALS: BP 130/88
--- NOTE | 2018-02-16 05:57 | PN ---
Progress Note - Progress Note Date of Service: 02/16/18 Note: Patient was seen on 02/12/18 for decreased urine output and urine was obtained. He was called back on 02/15/18 by KAYLIN Feliciano after cultures returned with + pseudomonas and morganii and discussed these results with caregiver. See note below: Frantz Gonzalez note from 02/15/18: Pt. with hx of cerebral palsy and resides at the [facility]. Pt. seen in ED 02/12 for decreased urine out put. Urine culture today is growing pseudomonas and morganella with multi resistance. I called and spoke with aid, Lamar, today at 1340 at the [facility] and discussed results. Lamar notes pt .has not had an fever, vomiting or change in mental status. Dr. Ahumada his pt.'s PCP at [facility]. Lamar notes his PCP is available. Will fax culture over for his PCP to decide on best treatment. Advised to call back with any issue. Caregiver brought patient back at 11pm on 02/15/18 and was seen by Dr. Escobar, and subsequently sent home with no abx. Dr. Escobar states this was colonization and does not require treatment as patient continues to be asymptomatic. I, Yenni Almeida PA-C discussed case with Dr. Escobar on 02/16/18 AM who states he does not require abx. Therefore, no abx will be sent at this time and we will continue to defer to patients PCP. PCP was notified 02/15/18 via fax.
--- NOTE | 2018-02-16 10:34 | PN ---
Progress Note - Progress Note Date of Service: 02/16/18 Note: FRANCISCO Vidal from [facility] called at 10:32a to ask how to set up patient with IV antibiotics. Discussed what was previously in the notes from the chart the patient at this point does not require antibiotic treatment as this was likely a contaminant and patient is also asymptomatic. Discussed with Marcy that I spoke with Dr. Escobar who took care of him early this morning who does not feel he needs antibiotics at this time.
--- NOTE | 2018-02-16 21:12 | PN ---
Progress Note - Progress Note Date of Service: 02/16/18 Note: preliminary blood culture was called to the ED as anaerobic bottle gram positive cocci resembling staph as preliminary. could be contaminant so will wait for final culture. called [facility] and spoke with caregiver. patient acting normal and no fever. told if any change in mental status or has fever to return otherwise will follow up with final culture results.
== END 2018-02-16 00:54 | disposition home or self-care (01) ==
LOC: ED 20:38
DX: R82.71 Bacteriuria (principal); Z88.1 Allergy status to other antibiotic agents
CPT/HCPCS: 36415; 80053; 83605; 85025; 85610; 85730; 87040; 87077; 87150; 87205; 99281; A9270-GY

== ENCOUNTER → 2018-04-24 15:47 | Emergency (ER) | payer MEDICARE, MEDICAID ==
[~2018-04-24 15:47] MED LIST: DOXYcycline CAP(*) 100 MG PO ONE; Oseltamivir CAP* 75 MG CAP PO ONE; Oseltamivir SUSP 75 MG dose* 75 MG/12.5 ML ORAL.SYRIN PO ONE
[2018-04-24 19:32] LABS: ABS Basophils 0 10^3/ul (0-0.2); ABS Eosinophils 0.1 10^3/ul (0-0.6); ABS Lymphocytes 0.6 10^3/ul (1.0-4.8); ABS Monocytes 0.7 10^3/ul (0-0.8); ABS Neutrophils 6.7 10^3/ul (1.5-7.7); ABS Nucleated RBC 0 10^3/ul; Eosinophil % 0.9 %; Hematocrit 45 % (42-52); Lymphocyte % 7.5 %; Mean Corpuscular HGB Conc 34 g/dl (31-36); Mean Corpuscular Hemoglobin 29 pg (27-31); Mean Corpuscular Volume 88 fL (80-94); Mean Platelet Volume 7.6 fL (7.4-10.4); Nucleated Red Blood Cells % 0.2; Platelet Count 280 10^3/ul (150-450); Red Blood Count 5.09 10^6/ul (4.00-5.40); Red Cell Distribution Width 16 % (10.5-15)
[2018-04-24 19:47] LABS: Albumin 3.7 g/dL (3.2-5.2); Albumin/Globulin Ratio 1.1 (1-3); BUN/Creatinine Ratio 17.6 (8-20); EGFR African American 109.1 (>60); EGFR Non-African American 90.2 (>60); Globulin 3.5 g/dL (2-4); Potassium 4.1 mmol/L (3.5-5.0); Total Bilirubin 0.5 mg/dL (0.2-1.0); Total Protein 7.2 g/dL (6.4-8.9)
--- NOTE | 2018-04-24 20:44 | ED ---
Complex/Multi-Sys Presentation - HPI Summary HPI Summary: 67 year old M with developmental delay, Watson's syndrome with colostomy, chonic indwelling simental, wheelchair dependent, presents to [facility] from [facility] by private car, accompanied by superior court clerk Lamar, with a chief complaint of wet cough since yesterday afternoon. Symptoms aggravated by nothing. Symptoms alleviated by nothing. Table Runner reports fever 101.6 last night, temperature 99 this morning. Pt had a flu shot this season. No other residents or staff are ill. Per Lamar, patient has been on Cephalexin 500 mg caps twice a day for a while for urinary prophylaxis. He received his last dose at 07:00 today. Per medical record from [facility], patient takes Duloxetine, omeprazole, amlodipine, multi vitamins, Miralax, Ketoconazole, potassium citrate, simethicone, metoclopramide, baclofen, bethaneco, probiotic. Patient is allergic to macrolides, erythromycin, and isosorbide. Vital signs while in room: HR 82 bpm, BP 137/78. - History Of Current Complaint Chief Complaint: EDUpperRespComplaint Time Seen by Provider: 04/24/18 20:35 Hx Obtained From: Family/Table Runner - Lamar from [facility] Onset/Duration: Lasting Days - yesterday afternoon, Still Present Timing: Constant Severity Currently: Moderate Severity Initially: Moderate Location: Negative - denies pain Aggravating Factor(s): Nothing Alleviating Factor(s): Nothing Associated Signs And Symptoms: Positive: Cough, Fever - Allergies/Home Medications Allergies/Adverse Reactions: Allergies Allergy/AdvReac Type Severity Reaction Status Date / Time erythromycin base Allergy Hives Verified 02/15/18 20:46 isosorbide Allergy Unknown Verified 02/15/18 20:46 Reaction Details Macrolide Antibiotics Allergy Hives Verified 02/15/18 20:46 PMH/Surg Hx/FS Hx/Imm Hx Previously Healthy: No Endocrine/Hematology History: Denies: Hx Anticoagulant Therapy, Hx Blood Disorders, Hx Blood Transfusions, Hx Bone Marrow Disease, Hx Diabetes, Hx Systemic Lupus Erythematosus, Hx Sickle Cell Disease, Hx Thyroid Disease, Hx Anemia, Hx Unexplained Bleeding, Other Endocrine/Hematological Disorders Cardiovascular History: Reports: Hx Hypertension Denies: Hx Congestive Heart Failure, Hx Coronary Artery Disease, Hx Deep Vein Thrombosis, Hx Hypercholesterolemia, Hx Hypotension, Hx Pacemaker/ICD, Hx Peripheral Vascular Disease, Hx Rheumatic Fever, Hx Syncope, Hx Valvular Heart Disease, Other Cardiovascular Problems/Disorders Respiratory History: Denies: Hx Asthma, Hx Chronic Bronchitis, Hx Chronic Obstructive Pulmonary Disease (COPD), Hx Cystic Fibrosis, Hx Lung Cancer, Hx Pleural Effusion, Hx Pneumonia, Hx Pulmonary Edema, Hx Pulmonary Embolism, Hx Seasonal Allergies, Hx Sleep Apnea, Other Respiratory Problems/Disorders GI History: Reports: Hx Gastroesophageal Reflux Disease, Hx Obstructive Bowel, Hx Ileostomy - Colostomy, Other GI Disorders - Jarrell Syndrome, Díaz's Esophagus Denies: Hx Cirrhosis, Hx Crohn's Disease, Hx Diverticulosis, Hx Gall Bladder Disease, Hx Gastrointestinal Bleed, Hx Hiatal Hernia, Hx Irritable Bowel, Hx Jaundice, Hx Pyloric Stenosis, Hx Ulcer History: Reports: Hx Acute Renal Failure, Hx Renal Disease - neurogenic bladder, Other Problems/Disorders - Neurogenic Bladder Denies: Hx Benign Prostatic Hyperplasia, Hx Chronic Renal Failure, Hx Dialysis, Hx Kidney Infection, Hx Kidney Stones Musculoskeletal History: Reports: Hx Congenital Bone Abnormalities - hip displacement, Hx Scoliosis, Other Musculoskeletal History - cerebral palsy Denies: Hx Arthritis, Hx Back Problems, Hx Fibromyalgia, Hx Gout, Hx Orthopedic Injury, Hx Osteoporosis, Hx Tendonitis Sensory History: Reports: Hx Contacts or Glasses, Hx Vision Problem Denies: Hx Cataracts, Hx Eye Injury, Hx Eye Prosthesis, Hx Glaucoma, Hx Macular Degeneration, Hx Deafness, Hx Hearing Aid, Hx Hearing Problem, Other Sensory Impairments Opthamlomology History: Reports: Hx Contacts or Glasses, Hx Vision Problem Denies: Hx Cataracts, Hx Eye Injury, Hx Eye Prosthesis, Hx Glaucoma, Hx Macular Degeneration, Other Sensory Impairments Neurological History: Reports: Hx Developmental Delay, Hx Seizures - Last seizure 1989, Other Neuro Impairments/Disorders - cerebral palsy, spina bifida Denies: Hx Dementia, Hx Headaches, Hx Migraine, Hx Spinal Cord Injury, Hx Transient Ischemic Attacks (TIA) Psychiatric History: Reports: Hx Anxiety, Hx Depression Denies: Hx Attention Deficit Hyperactivity Disorder, Hx Eating Disorder, Hx Panic Disorder, Hx Post Traumatic Stress Disorder, Hx Inpatient Treatment, Hx Community Mental Health Tx, Hx Schizophrenia, Hx Bipolar Disorder, Hx Suicide Attempt, Hx Substance Abuse, Other Psychiatric Issues/Disorders - Cancer History Hx Chemotherapy: No Hx Radiation Therapy: No - Surgical History Surgery Procedure, Year, and Place: hiatal hernia, hernia repair 2009, hip repair S/P, back Sx. colostomy 2016. kidney stones 2015. hx shunt Hx Anesthesia Reactions: No Infectious Disease History: Yes Infectious Disease History: Reports: Hx of Known/Suspected MRSA - BCx, wounds Denies: Hx Clostridium Difficile, Hx Hepatitis, Hx Human Immunodeficiency Virus (HIV), Hx Shingles, Hx Tuberculosis, Hx Known/Suspected VRE, Hx Known/ Suspected VRSA, Traveled Outside the [place] in Last 30 Days - Family History Known Family History: Positive: Unknown - Patient is mentally disabled and unable to answer. No info from Racker - Social History Occupation: Disabled Lives: Shelter Alcohol Use: Rare Alcohol Amount: 1 beer on Sundays Hx Substance Use: No Substance Use Type: Reports: None Hx Tobacco Use: No Smoking Status (MU): Never Smoked Tobacco Review of Systems Positive: Fever Positive: Cough - wet Gastrointestinal: Negative Positive: Other - colostomy with pure liquid, brown stool Positive: no symptoms reported, other - indwelling simental with clear yellow urine Musculoskeletal: Negative Neurological: Other - chronic contractures of upper and lower extremities Psychological: Other - his usual self per superior court clerk, Lamar All Other Systems Reviewed And Are Negative: Yes Physical Exam - Summary Physical Exam Summary: Appearance: Well-appearing, does not appear toxic, no pain distress, well- nourished, patient is in wheelchair and has contractures of upper and lower extremities, afebrile, O2 sats normal Skin: Warm, color reflects adequate perfusion, dry Head: Normal Head/Face inspection, atraumatic Eyes: Conjunctiva clear, good eye contact ENT: Normal inspection Neck: Supple, no nodes, no JVD Respiratory: Lungs clear, normal breath sounds, no respiratory distress, deep congested cough that was non productive Cardio: RRR, No murmur, pulses normal, brisk capillary refill Abdomen: Has stoma in his right mid to upper quadrant. Stoma is protruding, worse with cough, but reducing easily. There is liquid brown stool. Simental is suprapubic, clean, and dry Bowel sounds: Present Musculoskeletal: bilateral upper and lower contractures of hands and feet, no edema, sitting up in wheelchair, transferred by Marlene lift to stretcher for CXR Psychological: Normal for pt, responds well to superior court clerk, follows simple commands to the best of his physical ability Neuro: Alert, no new focal deficit apparent Triage Information Reviewed: Yes Vital Signs On Initial Exam: Initial Vitals Temp Pulse Resp BP Pulse Ox 99.5 F 82 18 137/78 97 04/24/18 15:58 04/24/18 15:58 04/24/18 15:58 04/24/18 15:58 04/24/18 15:58 Vital Signs Reviewed: Yes Diagnostics - Vital Signs Vital Signs Temp Pulse Resp BP Pulse Ox 04/24/18 19:06 99.2 F 89 16 135/88 97 04/24/18 16:48 88 98 04/24/18 15:58 99.5 F 82 18 137/78 97 - Laboratory Lab Results: Lab Results 04/24/18 04/24/18 04/24/18 Range/Units 19:12 19:12 19:12 WBC 8.0 (3.5-10.8) 10^3/ul RBC 5.09 (4.00-5.40) 10^6/ul Hgb 15.0 (14.0-18.0) g/dl Hct 45 (42-52) % MCV 88 (80-94) fL MCH 29 (27-31) pg MCHC 34 (31-36) g/dl RDW 16 H (10.5-15) % Plt Count 280 (150-450) 10^3/ul MPV 7.6 (7.4-10.4) fL Neut % (Auto) 82.9 % Lymph % (Auto) 7.5 % Upton % (Auto) 8.3 % Eos % (Auto) 0.9 % Baso % (Auto) 0.4 % Absolute Neuts (auto) 6.7 (1.5-7.7) 10^3/ul Absolute Lymphs (auto) 0.6 L (1.0-4.8) 10^3/ul Absolute Monos (auto) 0.7 (0-0.8) 10^3/ul Absolute Eos (auto) 0.1 (0-0.6) 10^3/ul Absolute Basos (auto) 0 (0-0.2) 10^3/ul Absolute Nucleated RBC 0 10^3/ul Nucleated RBC % 0.2 Sodium 137 (135-145) mmol/L Potassium 4.1 (3.5-5.0) mmol/L Chloride 104 (101-111) mmol/L Carbon Dioxide 24 (22-32) mmol/L Anion Gap 9 (2-11) mmol/L BUN 15 (6-24) mg/dL Creatinine 0.85 (0.67-1.17) mg/dL Est GFR ( Amer) 109.1 (>60) Est GFR (Non-Af Amer) 90.2 (>60) BUN/Creatinine Ratio 17.6 (8-20) Glucose 111 H (70-100) mg/dL Lactic Acid 0.8 (0.5-2.0) mmol/L Calcium 9.0 (8.6-10.3) mg/dL Total Bilirubin 0.50 (0.2-1.0) mg/dL AST 22 (13-39) U/L ALT 22 (7-52) U/L Alkaline Phosphatase 94 (34-104) U/L Total Protein 7.2 (6.4-8.9) g/dL Albumin 3.7 (3.2-5.2) g/dL Globulin 3.5 (2-4) g/dL Albumin/Globulin Ratio 1.1 (1-3) Result Diagrams: 04/24/18 19:12 04/24/18 19:12 Lab Statement: Any lab studies that have been ordered have been reviewed, and results considered in the medical decision making process. - Radiology CXR Radiology Interpretation Completed By: ED Physician Summary of Radiographic Findings: Infiltrate in the right lower lung. Pending official report. Re-Evaluation - Re-Evaluation First Eval Re-Evaluation Time: 21:52 Change: Unchanged Comment: Discussed disposition plan with patient and his superior court clerk after Dr Burger 's evaluation. They are agreeable to discharge. Complex Multi-Symp Course/Dx Course Of Treatment: Nurses notes reviewed. Patient medications reviewed this visit. Allergies noted. High blood pressure noted. Rapid flu test is positive for Influenza A. CXR shows infiltrate in the right lower lung, unofficial reading. Dr. Burger, hospitalist, agrees to consult on the case. Dr. Burger used to be patient's primary care provider. After evaluation, Dr. Burger recommends that patient be discharged home. Patient will be discharged to [facility] with prescription for Tamiflu and Doxycycline. Patient and superior court clerk Lamar are instructed to return for new or worsening symptoms. They are agreeable with this plan. - Diagnoses Differential Diagnoses/HQI/PQRI: Aspiration, Sepsis, Other - pneumonia, influenza Provider Diagnoses: Influenza A, Chronic indwelling Simental catheter, Cognitive impairment, Jarrell' s syndrome, Mental retardation, moderate (I.Q. 35-49) - Physician Notifications Discussed Care Of Patient With: Jadon Burger Time Discussed With Above Provider: 21:33 Instructed by Provider To: Other - Dr. Burger, hospitalist, agrees to consult on the case. Discharge - Sign-Out/Discharge Documenting (check all that apply): Patient Departure - Discharge Patient Received Moderate/Deep Sedation with Procedure: No - Discharge Plan Condition: Stable Disposition: HOME Prescriptions: DOXYcycline CAP(*) [DOXYcycline 100MG CAP(*)] 100 mg PO BID #20 cap Oseltamivir SUSP 75 MG dose* [Tamiflu SUSP 75 MG dose*] 75 mg PO BID #9 oral.syrin Patient Education Materials: Influenza (ED), Bacterial Pneumonia (ED) Referrals: Marilyn Rodriguez MD [Primary Care Provider] - 2 Days Additional Instructions: You were given your first dose of tamiflu to treat influenza in the ER. You will need to take this twice a day for 5 days. You were also given a dose of doxycycline to cover you for possible pneumonia. Take this twice a day for 10 days. Your Chest xray reading is unofficial. We will contact you if there is a change in the reading. Return to the ER if there are any new or worsening symptoms. - Billing Disposition and Condition Condition: STABLE Disposition: Home - Attestation Statements Document Initiated by Bharathe: Yes Documenting Scribe: Janet Walter Provider For Whom Dar is Documenting (Include Credential): Beth Coronado Scribe Attestation: Janet Montez, scribed for Beth Coronado on 04/28/18 at 0209. Scribe Documentation Reviewed: Yes Provider Attestation: The documentation as recorded by the Janet calderón accurately reflects the service I personally performed and the decisions made by Beth bingham Status of Scribe Document: Viewed
[2018-04-24 21:00] LABS: C Reactive Protein 87.17 mg/L (<8.01)
[2018-04-24 21:26] LABS: Influenza A Molecular POSITIVE (Negative)
[2018-04-24 21:30] LABS: Urine Appearance Turbid; Urine Bacteria 1+ (Absent); Urine Bilirubin Negative (Negative); Urine Blood 1+ (Negative); Urine Color Amber; Urine Glucose Negative (Negative); Urine Ketones Trace (Negative); Urine Nitrite Negative (Negative); Urine Protein 2+(100 mg/dL) (Negative); Urine Red Blood Cell 3+(>10/hpf) (Absent); Urine Specific Gravity 1.015 (1.010-1.030); Urine Squamous Epithelial Cell Present (Absent); Urine Transitional Epithelial Present (Absent); Urine Urobilinogen Positive (Negative); Urine White Blood Cell 3+(>20/hpf) (Absent)
[2018-04-24 22:50] VITALS: BP 154/88
== END | disposition home or self-care (01) ==
LOC: ED 15:47
DX: J11.1 Influenza due to unidentified influenza virus with other respiratory manifestations (principal); F79 Unspecified intellectual disabilities; F71 Moderate intellectual disabilities; K56.699 Other intestinal obstruction unspecified as to partial versus complete obstruction; R05 Cough; R50.9 Fever, unspecified; I10 Essential (primary) hypertension; K21.9 Gastro-esophageal reflux disease without esophagitis; Z46.6 Encounter for fitting and adjustment of urinary device
CPT/HCPCS: 36415; 71045; 80053; 81003; 81015; 82272; 83605; 83630; 85025; 86140; 87040; 87045; 87046; 87077; 87086; 87186; 87493; 87899; 99283; A9270-GY

== ENCOUNTER 2019-01-31 10:58 | Emergency (ER) | payer MEDICARE, MEDICAID ==
--- NOTE | 2019-01-31 11:46 | ED ---
GI/ HPI - HPI Summary HPI Summary: This patient is a 68 year old male with a Hx of spina bifida presenting to [facility] with a chief complaint of urinary catheter problems. His caregiver states that his catheter was changed 3 days ago and it has been leaking slightly around the catheter causing the patient discomfort. His hand touch up painter states he is soaking wet but little is coming out of the tube, approximately 25% of what normally does. He rates his pain 3/10 in severity. Pt denies any fever, chills, erythema of eyes, sore throat, CP, SOB, cough, abdominal pain, N/V, hematuria, myalgia, edema, rash, or dizziness. - History of Current Complaint Chief Complaint: EDUrogenitalProblems Time Seen by Provider: 01/31/19 11:37 Stated Complaint: CANT URINATE THROUGH CATHETER PER CAREGIVER Hx Obtained From: Family/Coil Shaper Onset/Duration: Started Days Ago Pain Intensity: 3 - Additional Pertinent History Primary Care Physician: OSEAS - Allergy/Home Medications Allergies/Adverse Reactions: Allergies Allergy/AdvReac Type Severity Reaction Status Date / Time erythromycin base Allergy Hives Verified 01/31/19 11:06 isosorbide Allergy Unknown Verified 01/31/19 11:06 Reaction Details Macrolide Antibiotics Allergy Hives Verified 01/31/19 11:06 Home Medications: Home Medications Bacitracin/Polymyxin B Sulfate [Polysporin Ointment] 1 applic TOPICAL BID [History Confirmed 01/31/19] Calamine LOTION* 1 applic TOPICAL QID PRN 01/31/19 [History Confirmed 01/31/19] Calcium Citrate/Vitamin D3 [Calcium Citrate - Vit D Tablet] 1 each PO BID [History Confirmed 01/31/19] Cephalexin CAP* [Keflex CAP*] 500 mg PO BID 01/31/19 [History Confirmed 01/31/19 ] Dextromethorphan LIQ(NF) [Scot-Tussin Diabetes CF (NF)] 10 ml PO Q4H PRN [History Confirmed 01/31/19] Mag Hydrox/Aluminum Hyd/Simeth [Almacone Suspension] 10 ml PO Q4H PRN 01/31/19 [ History Confirmed 01/31/19] Oxybutynin TAB* [Ditropan TAB*] 5 mg PO BID 01/31/19 [History Confirmed 01/31/19 ] Polyethylene Glycol 3350* [Miralax*] 17 gm PO BID 01/31/19 [History Confirmed ] Sodium Chloride 0.9% IRRIG* 0.9 % IRRIGATION QID 01/31/19 [History Confirmed ] PMH/Surg Hx/FS Hx/Imm Hx Endocrine/Hematology History: Denies: Hx Anticoagulant Therapy, Hx Blood Disorders, Hx Blood Transfusions, Hx Bone Marrow Disease, Hx Diabetes, Hx Systemic Lupus Erythematosus, Hx Sickle Cell Disease, Hx Thyroid Disease, Hx Anemia, Hx Unexplained Bleeding, Other Endocrine/Hematological Disorders Cardiovascular History: Reports: Hx Hypertension Denies: Hx Congestive Heart Failure, Hx Coronary Artery Disease, Hx Deep Vein Thrombosis, Hx Hypercholesterolemia, Hx Hypotension, Hx Pacemaker/ICD, Hx Peripheral Vascular Disease, Hx Rheumatic Fever, Hx Syncope, Hx Valvular Heart Disease, Other Cardiovascular Problems/Disorders Respiratory History: Denies: Hx Asthma, Hx Chronic Bronchitis, Hx Chronic Obstructive Pulmonary Disease (COPD), Hx Cystic Fibrosis, Hx Lung Cancer, Hx Pleural Effusion, Hx Pneumonia, Hx Pulmonary Edema, Hx Pulmonary Embolism, Hx Seasonal Allergies, Hx Sleep Apnea, Other Respiratory Problems/Disorders GI History: Reports: Hx Gastroesophageal Reflux Disease, Hx Obstructive Bowel, Hx Ileostomy - Colostomy, Other GI Disorders - Jarrell Syndrome, Díaz's Esophagus Denies: Hx Cirrhosis, Hx Crohn's Disease, Hx Diverticulosis, Hx Gall Bladder Disease, Hx Gastrointestinal Bleed, Hx Hiatal Hernia, Hx Irritable Bowel, Hx Jaundice, Hx Pyloric Stenosis, Hx Ulcer History: Reports: Hx Acute Renal Failure, Hx Renal Disease - neurogenic bladder, Other Problems/Disorders - Neurogenic Bladder Denies: Hx Benign Prostatic Hyperplasia, Hx Chronic Renal Failure, Hx Dialysis, Hx Kidney Infection, Hx Kidney Stones Musculoskeletal History: Reports: Hx Congenital Bone Abnormalities - hip displacement, Hx Scoliosis, Other Musculoskeletal History - cerebral palsy Denies: Hx Arthritis, Hx Back Problems, Hx Fibromyalgia, Hx Gout, Hx Orthopedic Injury, Hx Osteoporosis, Hx Tendonitis Sensory History: Reports: Hx Contacts or Glasses, Hx Vision Problem Denies: Hx Cataracts, Hx Eye Injury, Hx Eye Prosthesis, Hx Glaucoma, Hx Macular Degeneration, Hx Deafness, Hx Hearing Aid, Hx Hearing Problem, Other Sensory Impairments Opthamlomology History: Reports: Hx Contacts or Glasses, Hx Vision Problem Denies: Hx Cataracts, Hx Eye Injury, Hx Eye Prosthesis, Hx Glaucoma, Hx Macular Degeneration, Other Sensory Impairments Neurological History: Reports: Hx Developmental Delay, Hx Seizures - Last seizure 1989, Other Neuro Impairments/Disorders - cerebral palsy, spina bifida Denies: Hx Dementia, Hx Headaches, Hx Migraine, Hx Spinal Cord Injury, Hx Transient Ischemic Attacks (TIA) Psychiatric History: Reports: Hx Anxiety, Hx Depression Denies: Hx Attention Deficit Hyperactivity Disorder, Hx Eating Disorder, Hx Panic Disorder, Hx Post Traumatic Stress Disorder, Hx Inpatient Treatment, Hx Community Mental Health Tx, Hx Schizophrenia, Hx Bipolar Disorder, Hx Suicide Attempt, Hx Substance Abuse, Other Psychiatric Issues/Disorders - Cancer History Hx Chemotherapy: No Hx Radiation Therapy: No - Surgical History Surgery Procedure, Year, and Place: hiatal hernia, hernia repair 2009, hip repair S/P, back Sx. colostomy 2015. kidney stones 2014. hx shunt Hx Anesthesia Reactions: No Infectious Disease History: No Infectious Disease History: Reports: Hx of Known/Suspected MRSA - BCx, wounds Denies: Hx Clostridium Difficile, Hx Hepatitis, Hx Human Immunodeficiency Virus (HIV), Hx Shingles, Hx Tuberculosis, Hx Known/Suspected VRE, Hx Known/ Suspected VRSA, Traveled Outside the [place] in Last 30 Days - Family History Known Family History: Positive: Unknown - Patient is mentally disabled and unable to answer. No info from Racker - Social History Alcohol Use: Rare Alcohol Amount: 1 beer on Sundays Hx Substance Use: No Substance Use Type: Reports: None Hx Tobacco Use: No Smoking Status (MU): Never Smoked Tobacco Review of Systems Negative: Fever, Chills Negative: Erythema Negative: Sore Throat Negative: Chest Pain Negative: Shortness Of Breath, Cough Negative: Abdominal Pain, Vomiting, Nausea Positive: dysuria - Due to catheter problems. Negative: hematuria Negative: Myalgia, Edema Negative: Rash Neurological: Other - Neg: Dizziness All Other Systems Reviewed And Are Negative: No Physical Exam - Summary Physical Exam Summary: Constitutional: Well-developed, Well-nourished, Alert. (-) Distressed Skin: Warm, Dry HENT: Normocephalic; Atraumatic Eyes: Conjunctiva normal Neck: Musculoskeletal ROM normal neck. (-) JVD, (-) Stridor, (-) Tracheal deviation Cardio: Rhythm regular, rate normal, Heart sounds normal; Intact distal pulses; The pedal pulses are 2+ and symmetric. Radial pulses are 2+ and symmetric. (-) Murmur Pulmonary/Chest wall: Effort normal. (-) Respiratory distress, (-) Wheezes, (-) Rales Abd: Soft, (-) tenderness, (-) Distension, (-) Guarding, (-) Rebound Musculoskeletal: (-) Edema Lymph: (-) Cervical adenopathy Neuro: Alert, Oriented x3 Psych: Mood and affect Normal Triage Information Reviewed: Yes Vital Signs On Initial Exam: Initial Vitals Temp Pulse Resp BP Pulse Ox 98.5 F 90 20 112/79 92 01/31/19 11:01 01/31/19 11:01 01/31/19 11:01 01/31/19 11:01 01/31/19 11:01 Vital Signs Reviewed: Yes Procedures - Sedation Patient Received Moderate/Deep Sedation with Procedure: No Diagnostics - Vital Signs Vital Signs Temp Pulse Resp BP Pulse Ox 01/31/19 11:01 98.5 F 90 20 112/79 92 - Laboratory Result Diagrams: 01/31/19 12:15 01/31/19 12:15 Lab Statement: Any lab studies that have been ordered have been reviewed, and results considered in the medical decision making process. - Radiology Abdomen XR Radiology Interpretation Completed By: Radiologist Summary of Radiographic Findings: The suprapubic urinary catheter appears in place. ED Provider has reviewed this report. Re-Evaluation - Re-Evaluation First Eval Re-Evaluation Time: 16:36 Comment: He has only had 300 ml of urine come out of the catheter. He will be given IV fluids. GIGU Course/Dx - Course Course Of Treatment: This patient is a 68 year old male with a Hx of spina bifida presenting to [facility] with a chief complaint of urinary catheter problems. A new suprapubic urinary catheter was placed by the PA and confirmed by Abdomen XR. Labs were unremarkable except WBC 12.6 H, RDW 16 H, MPV 7.3 L, Absolute Neuts 9.6 H, Absolute Monos 1.0 H, Glucose 108 H, CRP 16.91 H. To reevaluate urine output after treatment, the patient will be signed out to Dr. Calloway at shift change 1900. Radiographic contrast reveals good placement of the catheter. When the catheter is flushed, it comes out into the Swanson. Urine is flowing freely. I suspect the patient had some baseline dehydration. Swanson catheter is patent. Plan for hydration and oral antibiotics pending cultures. - Diagnoses Provider Diagnoses: Dehydration, Swanson catheter problem Discharge ED - Sign-Out/Discharge Documenting (check all that apply): Sign-Out Patient Signing out patient TO: Conor Calloway - At shift change 1900 - Discharge Plan Referrals: Marilyn Rodriguez MD [Primary Care Provider] - - Attestation Statements Document Initiated by Scribe: Yes Documenting Scribe: Lew Wyatt Provider For Whom Scribe is Documenting (Include Credential): Tuan Wall MD Scribe Attestation: I, Lew Wyatt, scribed for Tuan Wall MD on 01/31/19 at 1857. Status of Scribe Document: Viewed
[2019-01-31 12:32] LABS: ABS Basophils 0.1 10^3/ul (0-0.2); ABS Eosinophils 0.5 10^3/ul (0-0.6); ABS Lymphocytes 1.4 10^3/ul (1.0-4.8); ABS Neutrophils 9.6 10^3/ul (1.5-7.7); Eosinophil % 4.1 %; Hematocrit 46 % (42-52); Hemoglobin 15.8 g/dL (14.0-18.0); Mean Corpuscular HGB Conc 34 g/dL (31-36); Mean Corpuscular Hemoglobin 29 pg (27-31); Mean Corpuscular Volume 86 fL (80-94); Mean Platelet Volume 7.3 fL (7.4-10.4); Nucleated Red Blood Cells % 0.1; Platelet Count 313 10^3/uL (150-450); Red Blood Count 5.42 10^6 /uL (4.18-5.48); Red Cell Distribution Width 16 % (10-15); White Blood Count 12.6 10^3/uL (3.5-10.8)
[2019-01-31] MEDS ORDERED: Sterile Water for Inj* 10 ML ONE (12:50)
[2019-01-31] MEDS ORDERED: Sterile Water for Inj* 20 ML ONE (12:54)
[2019-01-31 13:18] LABS: Albumin 3.9 g/dL (3.2-5.2); Albumin/Globulin Ratio 1.1 (1-3); BUN/Creatinine Ratio 15.2 (8-20); C Reactive Protein 16.91 mg/L (<8.01); Calcium 9.3 mg/dL (8.6-10.3); EGFR African American 85.2 (>60); EGFR Non-African American 70.5 (>60); Globulin 3.6 g/dL (2-4); Total Bilirubin 0.5 mg/dL (0.2-1.0); Total Protein 7.5 g/dL (6.4-8.9)
[2019-01-31] MEDS ORDERED: NS 0.9% 1000 ML** 1,000 ML IV ONE ×2 (13:48→18:00)
[2019-01-31 15:15] LABS: Urine Appearance Cloudy; Urine Bilirubin Negative (Negative); Urine Blood 3+ (Negative); Urine Color Yellow; Urine Glucose Negative (Negative); Urine Ketones Negative (Negative); Urine Nitrite Negative (Negative); Urine Protein 1+(30 mg/dL) (Negative); Urine Specific Gravity 1.034 (1.010-1.030); Urine Urobilinogen Negative (Negative)
[2019-01-31 15:19] LABS: Urine Bacteria Absent (Absent); Urine Red Blood Cell 3+(>10/hpf) (Absent); Urine White Blood Cell 3+(>20/hpf) (Absent)
[2019-01-31] MEDS ORDERED: Cephalexin CAP* 500 MG PO ONE (18:59)
--- NOTE | 2019-01-31 19:32 | ED ---
Progress - Progress Note Progress Note: Pt is a signout from Dr. Wall at 1900 on 01/31/19 pending the pt finishing fluids and re-eval. Re-Evaluation - Re-Evaluation First Eval Re-Evaluation Time: 20:00 Comment: Pt can be d/c'ed from [facility] Course/Dx - Course Course Of Treatment: Pt is a signout from Dr. Wall at 1900 on 01/31/19 pending the pt finishing fluids and re-eval. Pt can be d/c'ed from [facility]. - Diagnoses Provider Diagnoses: Dehydration, Swanson catheter problem Discharge ED - Sign-Out/Discharge Documenting (check all that apply): Patient Departure, Receiving Sign-Out Receiving patient FROM: Tuan Wall - Discharge Plan Condition: Good Disposition: HOME Prescriptions: Cephalexin CAP* [Keflex CAP*] 500 mg PO QID #20 cap Patient Education Materials: Dehydration (ED), How to Care for Your Suprapubic Catheter (DC) Referrals: Marilyn Rodriguez MD [Primary Care Provider] - 2 Days (also your urologist in 1-2 week ) Additional Instructions: Urination from the urethra is normal, even if you have not done it before. I am treating with antibiotics until your cultures come back. You were treated today for dehydration. - Billing Disposition and Condition Condition: GOOD Disposition: Home - Attestation Statements Document Initiated by Dar: Yes Documenting Scribe: Monica Boyd Provider For Whom Dar is Documenting (Include Credential): Conor Calloway MD. Scribe Attestation: I, Monica Boyd, scribed for Conor Calloway MD. on 02/01/19 at 0524. Scribe Documentation Reviewed: Yes Provider Attestation: The documentation as recorded by the Monica calderón accurately reflects the service I personally performed and the decisions made by me, Conor Calloway MD. Status of Scribe Document: Viewed
[2019-01-31 20:10] VITALS: BP 138/78
--- NOTE | 2019-02-02 13:02 | ED ---
Imaging and Labs Follow Up Follow Up Type: Labs/Cultures Labs/Culture Result: Urine culture growing >100k citrobacter and pseudomonas. Patient Communication/Plan: Pt. with suprapubic catheter. He was placed on keflex at time of dc. Pt. resides at the [facility]. I called [facility] and spoke with one of the employees who notes pt. has been asymptomatic. He notes pt. saw his PCP and antibx was switched to macrobid. No further treatment needed at this time. Provider Diagnoses: Dehydration, Swanson catheter problem
== END 2019-01-31 19:54 | disposition home or self-care (01) ==
LOC: ED 10:58
DX: T83.9XXA Unspecified complication of genitourinary prosthetic device, implant and graft, initial encounter (principal); Y84.6 Urinary catheterization as the cause of abnormal reaction of the patient, or of later complication, without mention of misadventure at the time of the procedure; Y92.9 Unspecified place or not applicable; E86.0 Dehydration; Q05.9 Spina bifida, unspecified; F41.9 Anxiety disorder, unspecified; F32.9 Major depressive disorder, single episode, unspecified; R62.50 Unspecified lack of expected normal physiological development in childhood; Z79.899 Other long term (current) drug therapy
CPT/HCPCS: 36415; 51702; 74018; 80053; 81003; 81015; 83605; 83690; 85025; 86140; 87077; 87086; 87186; 99283; A9270-GY

== ENCOUNTER 2020-10-19 23:29 | Inpatient (IN) ==
[2020-10-20 02:19] LABS: ABS Basophils 0.1 10^3/ul (0-0.2); ABS Eosinophils 0.4 10^3/ul (0-0.6); ABS Lymphocytes 2.1 10^3/ul (1.0-4.8); ABS Monocytes 0.8 10^3/ul (0-0.8); ABS Neutrophils 9.5 10^3/ul (1.5-7.7); Eosinophil % 2.9 %; Hematocrit 45 % (42-52); Hemoglobin 15.6 g/dL (14.0-18.0); Mean Corpuscular HGB Conc 35 g/dL (31-36); Mean Corpuscular Hemoglobin 31 pg (27-31); Mean Corpuscular Volume 89 fL (80-94); Mean Platelet Volume 8.7 fL (7.4-10.4); Platelet Count 275 10^3/uL (150-450); Red Blood Count 5.05 10^6 /uL (4.18-5.48); Red Cell Distribution Width 17 % (10-15); White Blood Count 12.8 10^3/uL (3.5-10.8)
[2020-10-20 02:39] LABS: ALT 46 U/L (7-52); AST 28 U/L (13-39); Albumin 3.9 g/dL (3.2-5.2); Albumin/Globulin Ratio 1.1 (1-3); Alkaline Phosphatase 74 U/L (35-149); Blood Urea Nitrogen 53 mg/dL (6-24); CO2 Carbon Dioxide 23 mmol/L (22-32); EGFR African American 71.5 (>60); EGFR Non-African American 59.1 (>60); Globulin 3.7 g/dL (2-4); Glucose 120 mg/dL (70-100); Potassium 4.1 mmol/L (3.5-5.0); Total Protein 7.6 g/dL (6.4-8.9)
[2020-10-20 02:41] LABS: Anion Gap 9 mmol/L (2-11); Chloride 120 mmol/L (101-111); Sodium 152 mmol/L (135-145)
[2020-10-20 02:46] LABS: Troponin I 0.03 ng/mL (<0.03)
[2020-10-20] MEDS ORDERED: NS 0.9% 1000 ml BAG 1,000 ML IV ONE (02:54)
[2020-10-20] MEDS ORDERED: Piperacillin/Tazobac ADVAN 3.375 GM in NS 0.9% 100 ml BAG 100 ML IV ONE (03:06)
[2020-10-20] MEDS ORDERED: Nystatin TOP POWDER 15 GM BTL TOPICAL PRN (03:40)
[2020-10-20] MEDS ORDERED: Calamine LOTION BTL TOPICAL PRN ×2 (03:40)
[2020-10-20] MEDS ORDERED: guaiFENesin 100 mg/5 ml LIQ unit dose cup PO PRN (03:40)
[2020-10-20] MEDS ORDERED: CMCS: Meloxicam 7.5 mg TAB (NF) PO PRN ×2 (03:40)
[2020-10-20] MEDS ORDERED: ACYCLOVIR 5% TOPICAL PRN (03:40)
[2020-10-20] MEDS ORDERED: Zosyn per Pharmacy NOTE FOLLOW UP SCH (04:00)
[2020-10-20] MEDS ORDERED: Amoxicillin/Clavul 875/125 TAB (Augmentin 875 tab) PO SCH (04:00)
[2020-10-20] MEDS ORDERED: D5W 1000 ml BAG 1,000 ML IV SCH (04:00)
[2020-10-20 04:49] LABS: Rapid COVID-19 Molecular Undetected (Undetected)
[2020-10-20] MEDS ORDERED: Enoxaparin 40 MG/0.4 ML SYR SUBCUT SCH (06:00)
[2020-10-20 07:28] LABS: Calcium 8.2 mg/dL (8.6-10.3); EGFR African American 75.8 (>60); EGFR Non-African American 62.6 (>60); Potassium 4.2 mmol/L (3.5-5.0)
[2020-10-20 07:31] LABS: Troponin I 0.02 ng/mL (<0.03)
[2020-10-20] MEDS: Enoxaparin 40 MG/0.4 ML SYR SUBCUT SCH (07:40)
[2020-10-20] MEDS ORDERED: NS 0.9% 1000 ml BAG 1,000 ML IV.FLUID SCH (09:00)
[2020-10-20] MEDS ORDERED: DULoxetine DR 30 mg CAP PO SCH (09:00)
[2020-10-20] MEDS: Polyethylene Glycol 3350 17 GM PACKET PO SCH ×2 (09:17→20:37)
[2020-10-20] MEDS ORDERED: ZOSYN 3.375 GM Q8H per EXTENDED INFUSION IV SCH (12:00)
[2020-10-20] MEDS ORDERED: Polyethylene Glycol 3350 17 GM PACKET PO SCH (14:00)
[2020-10-20] MEDS: Potassium Citrate 10 meq T(NF) PO SCH ×2 (14:12→20:37)
[2020-10-20] MEDS: DULoxetine DR 30 mg CAP PO SCH (14:12)
[2020-10-20] MEDS: ZOSYN 3.375 GM Q8H per EXTENDED INFUSION IV SCH ×2 (14:53→20:33)
[2020-10-20] MEDS ORDERED: Metoclopramide 5 MG/ML VIAL (10 mg) IV SLOW PU ONE (15:32)
[2020-10-20 18:53] LABS: Calcium 8.1 mg/dL (8.6-10.3); EGFR African American 78.1 (>60); EGFR Non-African American 64.5 (>60); Potassium 3.9 mmol/L (3.5-5.0)
[2020-10-20] MEDS: D5W 1000 ml BAG 1,000 ML IV SCH (20:31)
[2020-10-21] MEDS: ZOSYN 3.375 GM Q8H per EXTENDED INFUSION IV SCH ×3 (05:11→19:50)
[2020-10-21] MEDS: Enoxaparin 40 MG/0.4 ML SYR SUBCUT SCH (05:11)
[2020-10-21] MEDS: D5W 1000 ml BAG 1,000 ML IV SCH (06:17)
[2020-10-21 07:50] LABS: ABS Basophils 0.1 10^3/ul (0-0.2); ABS Eosinophils 0.4 10^3/ul (0-0.6); ABS Lymphocytes 1.8 10^3/ul (1.0-4.8); ABS Monocytes 0.5 10^3/ul (0-0.8); ABS Neutrophils 7.3 10^3/ul (1.5-7.7); Eosinophil % 3.7 %; Hematocrit 42 % (42-52); Hemoglobin 14.1 g/dL (14.0-18.0); Lymphocyte % 17.9 %; Mean Corpuscular HGB Conc 34 g/dL (31-36); Mean Corpuscular Hemoglobin 30 pg (27-31); Mean Corpuscular Volume 88 fL (80-94); Mean Platelet Volume 8.1 fL (7.4-10.4); Platelet Count 210 10^3/uL (150-450); Red Blood Count 4.71 10^6 /uL (4.18-5.48); Red Cell Distribution Width 17 % (10-15); White Blood Count 10.1 10^3/uL (3.5-10.8)
[2020-10-21 08:07] LABS: Calcium 8.1 mg/dL (8.6-10.3); EGFR Non-African American 70.2 (>60); Potassium 3.4 mmol/L (3.5-5.0)
[2020-10-21 08:09] LABS: Troponin I 0.01 ng/mL (<0.03)
[2020-10-21] MEDS: Polyethylene Glycol 3350 17 GM PACKET PO SCH ×2 (10:32→20:00)
[2020-10-21] MEDS: DULoxetine DR 30 mg CAP PO SCH (10:33)
[2020-10-21] MEDS: Nystatin TOP POWDER 15 GM BTL TOPICAL PRN (10:35)
[2020-10-21] MEDS: Potassium Citrate 10 meq T(NF) PO SCH ×2 (10:35→20:00)
[2020-10-21] MEDS ORDERED: Potassium Chloride LIQUID 20 MEQ/15 ML LIQUID PO ONE ×4 (13:00→15:00)
[2020-10-21 13:18] LABS: Calcium 7.9 mg/dL (8.6-10.3); EGFR Non-African American 75.2 (>60); Potassium 3.1 mmol/L (3.5-5.0)
[2020-10-21] MEDS ORDERED: D5W 1000 ml BAG 1,000 ML IV SCH ×2 (14:13→14:28)
[2020-10-21] MEDS ORDERED: Metoclopramide 5 MG/ML VIAL (10 mg) IV SLOW PU ONE ×2 (15:32)
[2020-10-21] MEDS: D5W 1/2 NS 1000 ml BAG 1,000 ML IV SCH ×2 (15:33→16:30)
[2020-10-21] MEDS ORDERED: Ondansetron 4 mg VIAL 2 MG/ML 2 ml VIAL IV PRN (15:34)
[2020-10-21] MEDS: Pantoprazole VIAL 40 MG VIAL IV SCH (16:32)
[2020-10-21 16:48] LABS: ABS Basophils 0.1 10^3/ul (0-0.2); ABS Eosinophils 0.5 10^3/ul (0-0.6); ABS Lymphocytes 1.5 10^3/ul (1.0-4.8); ABS Monocytes 0.6 10^3/ul (0-0.8); ABS Neutrophils 7.7 10^3/ul (1.5-7.7); Eosinophil % 4.9 %; Hematocrit 44 % (42-52); Hemoglobin 14.2 g/dL (14.0-18.0); Lymphocyte % 14.5 %; Mean Corpuscular HGB Conc 33 g/dL (31-36); Mean Corpuscular Hemoglobin 30 pg (27-31); Mean Corpuscular Volume 91 fL (80-94); Mean Platelet Volume 8.6 fL (7.4-10.4); Platelet Count 217 10^3/uL (150-450); Red Blood Count 4.81 10^6 /uL (4.18-5.48); Red Cell Distribution Width 17 % (10-15); White Blood Count 10.4 10^3/uL (3.5-10.8)
[2020-10-21] MEDS ORDERED: Pantoprazole VIAL 40 MG VIAL IV SCH (17:00)
[2020-10-21 17:02] LABS: Albumin 3.5 g/dL (3.2-5.2); Albumin/Globulin Ratio 1.1 (1-3); Calcium 7.9 mg/dL (8.6-10.3); EGFR African American 86.9 (>60); EGFR Non-African American 71.8 (>60); Globulin 3.3 g/dL (2-4); Potassium 3.6 mmol/L (3.5-5.0); Total Bilirubin 0.8 mg/dL (0.2-1.0); Total Protein 6.8 g/dL (6.4-8.9)
[2020-10-21] MEDS ORDERED: Lactated Ringers 500 ml BAG 500 ML IV ONE (17:10)
[2020-10-21 23:42] LABS: Urine Appearance Cloudy; Urine Bilirubin Negative (Negative); Urine Blood 2+ (Negative); Urine Color Yellow; Urine Glucose Negative (Negative); Urine Ketones Negative (Negative); Urine Nitrite Positive (Negative); Urine Protein 1+(30 mg/dL) (Negative); Urine Specific Gravity 1.015 (1.002-1.030); Urine Urobilinogen Negative (Negative)
[2020-10-21 23:48] LABS: Urine Bacteria Absent (Absent); Urine Red Blood Cell 1+(3-5/hpf) (Absent); Urine White Blood Cell 3+(>20/hpf) (Absent)
[2020-10-22] MEDS: ZOSYN 3.375 GM Q8H per EXTENDED INFUSION IV SCH ×3 (04:13→21:04)
[2020-10-22] MEDS: Pantoprazole VIAL 40 MG VIAL IV SCH ×2 (04:41→17:10)
[2020-10-22] MEDS: Enoxaparin 40 MG/0.4 ML SYR SUBCUT SCH (04:48)
[2020-10-22 06:45] LABS: ABS Basophils 0.1 10^3/ul (0-0.2); ABS Eosinophils 0.5 10^3/ul (0-0.6); ABS Lymphocytes 1.9 10^3/ul (1.0-4.8); ABS Monocytes 0.4 10^3/ul (0-0.8); ABS Neutrophils 5.3 10^3/ul (1.5-7.7); Hematocrit 41 % (42-52); Hemoglobin 13.8 g/dL (14.0-18.0); Lymphocyte % 23.6 %; Mean Corpuscular HGB Conc 34 g/dL (31-36); Mean Corpuscular Hemoglobin 30 pg (27-31); Mean Corpuscular Volume 88 fL (80-94); Mean Platelet Volume 8.4 fL (7.4-10.4); Platelet Count 203 10^3/uL (150-450); Red Blood Count 4.66 10^6 /uL (4.18-5.48); Red Cell Distribution Width 17 % (10-15); White Blood Count 8.2 10^3/uL (3.5-10.8)
[2020-10-22 07:07] LABS: Albumin 3.4 g/dL (3.2-5.2); Calcium 7.7 mg/dL (8.6-10.3); EGFR African American 114.7 (>60); EGFR Non-African American 94.8 (>60); Globulin 3.3 g/dL (2-4); Potassium 3.5 mmol/L (3.5-5.0); Total Bilirubin 0.8 mg/dL (0.2-1.0); Total Protein 6.7 g/dL (6.4-8.9)
[2020-10-22] MEDS: DULoxetine DR 30 mg CAP PO SCH (09:37)
[2020-10-22] MEDS: Polyethylene Glycol 3350 17 GM PACKET PO SCH ×2 (09:37→21:08)
[2020-10-22] MEDS: Potassium Citrate 10 meq T(NF) PO SCH ×2 (09:37→21:08)
[2020-10-22] MEDS ORDERED: Polyethylene Glycol 3350 17 GM PACKET PO SCH (10:00)
[2020-10-22] MEDS: Nystatin TOP POWDER 15 GM BTL TOPICAL PRN (11:00)
[2020-10-22] MEDS: D5W 1/2 NS 1000 ml BAG 1,000 ML IV SCH (11:41)
[2020-10-22] MEDS ORDERED: Mineral Oil ENEMA 118 ML/BOTTLE BOTTLE PR ONE (19:44)
[2020-10-23] MEDS: Pantoprazole VIAL 40 MG VIAL IV SCH ×2 (04:08→20:27)
[2020-10-23] MEDS: ZOSYN 3.375 GM Q8H per EXTENDED INFUSION IV SCH ×3 (04:08→21:02)
[2020-10-23] MEDS: Enoxaparin 40 MG/0.4 ML SYR SUBCUT SCH (04:08)
[2020-10-23] MEDS: D5W 1/2 NS 1000 ml BAG 1,000 ML IV SCH (05:54)
[2020-10-23 08:08] LABS: ABS Basophils 0.1 10^3/ul (0-0.2); ABS Eosinophils 0.6 10^3/ul (0-0.6); ABS Lymphocytes 1.7 10^3/ul (1.0-4.8); ABS Monocytes 0.4 10^3/ul (0-0.8); ABS Neutrophils 4.4 10^3/ul (1.5-7.7); Eosinophil % 8.8 %; Hematocrit 39 % (42-52); Lymphocyte % 23.7 %; Mean Corpuscular HGB Conc 34 g/dL (31-36); Mean Corpuscular Hemoglobin 30 pg (27-31); Mean Corpuscular Volume 89 fL (80-94); Mean Platelet Volume 9.1 fL (7.4-10.4); Platelet Count 184 10^3/uL (150-450); Red Blood Count 4.34 10^6 /uL (4.18-5.48); Red Cell Distribution Width 17 % (10-15); White Blood Count 7.1 10^3/uL (3.5-10.8)
[2020-10-23] MEDS: Polyethylene Glycol 3350 17 GM PACKET PO SCH ×2 (08:16→20:28)
[2020-10-23] MEDS: DULoxetine DR 30 mg CAP PO SCH (08:17)
[2020-10-23] MEDS: Potassium Citrate 10 meq T(NF) PO SCH (08:18)
[2020-10-23 08:19] LABS: Albumin/Globulin Ratio 1.1 (1-3); Calcium 7.3 mg/dL (8.6-10.3); EGFR African American 127.3 (>60); EGFR Non-African American 105.2 (>60); Globulin 2.8 g/dL (2-4); Magnesium 1.9 mg/dL (1.9-2.7); Potassium 3.2 mmol/L (3.5-5.0); Total Bilirubin 0.7 mg/dL (0.2-1.0); Total Protein 5.8 g/dL (6.4-8.9)
[2020-10-23] MEDS ORDERED: Potassium Chloride LIQUID 20 MEQ/15 ML LIQUID PO ONE (08:57)
[2020-10-24] MEDS: D5W 1/2 NS 1000 ml BAG 1,000 ML IV SCH (02:29)
[2020-10-24] MEDS: ZOSYN 3.375 GM Q8H per EXTENDED INFUSION IV SCH ×3 (04:17→20:03)
[2020-10-24] MEDS: Pantoprazole VIAL 40 MG VIAL IV SCH ×2 (05:27→17:00)
[2020-10-24] MEDS: Enoxaparin 40 MG/0.4 ML SYR SUBCUT SCH (05:27)
[2020-10-24 06:00] LABS: Calcium 7.7 mg/dL (8.6-10.3); EGFR African American 127.3 (>60); EGFR Non-African American 105.2 (>60)
[2020-10-24 06:17] LABS: Potassium 3.6 mmol/L (3.5-5.0)
[2020-10-24] MEDS: Polyethylene Glycol 3350 17 GM PACKET PO SCH ×2 (08:48→20:07)
[2020-10-24] MEDS: DULoxetine DR 30 mg CAP PO SCH (08:50)
[2020-10-25] MEDS: Pantoprazole VIAL 40 MG VIAL IV SCH ×2 (04:25→17:53)
[2020-10-25] MEDS: ZOSYN 3.375 GM Q8H per EXTENDED INFUSION IV SCH ×3 (04:25→20:42)
[2020-10-25] MEDS: Enoxaparin 40 MG/0.4 ML SYR SUBCUT SCH (05:21)
[2020-10-25 06:05] LABS: ABS Eosinophils 0.4 10^3/ul (0-0.6); ABS Lymphocytes 1.4 10^3/ul (1.0-4.8); ABS Monocytes 0.4 10^3/ul (0-0.8); ABS Neutrophils 6.1 10^3/ul (1.5-7.7); Eosinophil % 4.7 %; Hematocrit 41 % (42-52); Hemoglobin 14.1 g/dL (14.0-18.0); Lymphocyte % 16.4 %; Mean Corpuscular HGB Conc 34 g/dL (31-36); Mean Corpuscular Hemoglobin 30 pg (27-31); Mean Corpuscular Volume 87 fL (80-94); Mean Platelet Volume 8.8 fL (7.4-10.4); Nucleated Red Blood Cells % 0.1; Platelet Count 204 10^3/uL (150-450); Red Blood Count 4.75 10^6 /uL (4.18-5.48); Red Cell Distribution Width 16 % (10-15); White Blood Count 8.3 10^3/uL (3.5-10.8)
[2020-10-25 06:21] LABS: Calcium 7.8 mg/dL (8.6-10.3); EGFR African American 116.3 (>60); EGFR Non-African American 96.1 (>60); Potassium 3.5 mmol/L (3.5-5.0)
[2020-10-25] MEDS: DULoxetine DR 30 mg CAP PO SCH (09:07)
[2020-10-25] MEDS: Polyethylene Glycol 3350 17 GM PACKET PO SCH ×2 (09:09→20:42)
[2020-10-25] MEDS ORDERED: Buffered Lidocaine 1% SYRIN 1 ml INTRADERM ONE (20:16)
[2020-10-26] MEDS: ZOSYN 3.375 GM Q8H per EXTENDED INFUSION IV SCH ×3 (04:16→20:16)
[2020-10-26] MEDS: Enoxaparin 40 MG/0.4 ML SYR SUBCUT SCH (05:11)
[2020-10-26 05:59] LABS: Calcium 7.6 mg/dL (8.6-10.3); Potassium 2.9 mmol/L (3.5-5.0)
[2020-10-26 06:05] LABS: EGFR African American 140.3 (>60)
[2020-10-26] MEDS ORDERED: Potassium Chloride LIQUID 20 MEQ/15 ML LIQUID PO ONE ×2 (07:37→11:30)
[2020-10-26] MEDS: DULoxetine DR 30 mg CAP PO SCH (09:28)
[2020-10-26] MEDS: Polyethylene Glycol 3350 17 GM PACKET PO SCH ×2 (10:16→20:15)
[2020-10-26] MEDS ORDERED: Buffered Lidocaine 1% SYRIN 1 ml INTRADERM ONE ×2 (15:14)
[2020-10-27] MEDS: ZOSYN 3.375 GM Q8H per EXTENDED INFUSION IV SCH (03:58)
[2020-10-27] MEDS: Enoxaparin 40 MG/0.4 ML SYR SUBCUT SCH (05:06)
[2020-10-27] MEDS: DULoxetine DR 30 mg CAP PO SCH (09:07)
[2020-10-27] MEDS: Polyethylene Glycol 3350 17 GM PACKET PO SCH ×2 (09:08→20:12)
[2020-10-27 14:08] LABS: Calcium 8.3 mg/dL (8.6-10.3); EGFR African American 114.7 (>60); EGFR Non-African American 94.8 (>60); Potassium 3.2 mmol/L (3.5-5.0)
[2020-10-27] MEDS ORDERED: Potassium Chlor 20 meq TAB.ER PO ONE (17:04)
[2020-10-28] MEDS: Enoxaparin 40 MG/0.4 ML SYR SUBCUT SCH (05:52)
[2020-10-28 08:01] LABS: CO2 Carbon Dioxide 19 mmol/L (22-32); Calcium 8.1 mg/dL (8.6-10.3); Sodium 144 mmol/L (135-145)
[2020-10-28 08:05] LABS: Chloride 117 mmol/L (101-111)
[2020-10-28 08:07] LABS: Blood Urea Nitrogen 5 mg/dL (6-24); EGFR African American 135.7 (>60); EGFR Non-African American 112.1 (>60); Glucose 92 mg/dL (70-100)
[2020-10-28 08:13] LABS: Anion Gap 8 mmol/L (2-11)
[2020-10-28] MEDS: DULoxetine DR 30 mg CAP PO SCH (08:26)
[2020-10-28] MEDS: Polyethylene Glycol 3350 17 GM PACKET PO SCH (08:27)
[2020-10-28 10:31] LABS: Potassium Redraw 3.6 mmol/L (3.5-5.0)
[2020-10-28 11:07] LABS: Magnesium 1.8 mg/dL (1.9-2.7)
[2020-10-28 13:00] VITALS: BP 135/61
== END 2020-10-28 13:20 | DRG 137 ==
LOC: ED 23:29 → EDHOLD 10-20 03:31 → SUATTDRO 10-20 03:31 → EDHOLD 10-20 12:48 → MED 10-20 13:17 → MEDTELE 10-23 17:24
PROVIDERS: ADMIT Student in an Organized Health Care Education/Training Program; ATTEND Internal Medicine